=== PATIENT | female | born 1945 | race Caucasian/White ===

== ENCOUNTER 2017-07-01 19:51 | Emergency (ER) | payer MEDICARE ==
[~2017-07-01] VITALS: Ht 170.2 cm; Wt 87.7 kg
[~2017-07-01 19:51] MED LIST: ALBU2.5V52 INH; ALPR.25T; ALPR0.5T7 PO; AMD200T; AMIO200T2 PO; AMLO10TA2 PO; AMLO5TAB2 PO; ASP81CT PO; ATOR40TA70 PO; Amlodipine Besylate PO; CHOL5000 PO; CLOP75TA28 PO; CLPD75T; DGX.125T PO; DOXY100C2; FENO160T PO; FRSM20T PO; FURO40TA4 PO; GLIP10TA13 PO; GLPZ10TCR; HYDR-3820 PO; HYDR-3924 PO; HYDR25TA4 PO; INSU100I10 SC; INSU100I23 SC; INSU100V6 SC; ISM30TCR; ISOS30TA3 PO; LEVE1U SQ; LOSA100T7 PO; LRT10T; METO-272 PO; METO-451 PO; METO25TA2; METO25TA2 PO; MULT-974 PO; MUPI22OI29 TOP; OMEG1CAP51 PO; ONDA4TAB11 PO; ONDA8TAB6 PO; OXAPROZIN; OXYC-471; PANT40TA2 PO; PNT40TEC PO; POLY17PO6 PO; POLY255P PO; PRILOSEC; Quetiapine Fumarate PO; SERT100T8 PO; SIMV40TA2; SMV20T; SRTR100T; TRAZ100T92 PO; WARF-48 PO; WARF5TAB PO; WARF7.5T49 PO; ZOLP10TA5 PO
[2017-07-01] MEDS ORDERED: DILTIAZEM 25 MG/5 ML INJ (CARDIZEM) VIAL IVP ONE (20:00)
[2017-07-01] MEDS: DILTIAZEM DRIP 100 MG in SODIUM CHLORIDE (ADD-VANTAGE) 100 ML IV SCH (20:19)
--- NOTE | 2017-07-01 20:30 | Diagnostic Imaging Report ---
INDICATION: 72-year-old female presents with chest pain, shortness of breath COMPARISONS: 09/02/16 FINDINGS: Single view of the chest shows borderline cardiomegaly. There is mild central venous congestion but no significant consolidations. Chronic elevation of the right hemidiaphragm seen. Right subclavian Mediport is stable with the tip projected over the SVC. There is a previous median sternotomy for a CABG. A cardiac loop recorder is seen. Soft tissues and bony thorax are grossly unremarkable. IMPRESSION: 1. Cardiomegaly with mild central venous congestion 2. Chronic parenchymal changes but no significant consolidations 3. Chronic elevation of the right hemidiaphragm. Additional nonemergent findings as described above. Dictated by: Dictated on workstation # [id number]
--- NOTE | 2017-07-01 20:32 | Diagnostic Imaging Report ---
INDICATION: 72-year-old female with chest pain, abdominal pain, and nausea COMPARISONS: CT abdomen 02/24/15 FINDINGS: A limited KUB shows scattered gas in the small and large bowel with gas seen to the rectum. There is question of mild small bowel ileus in the right upper quadrant. There is no organomegaly. Aortic calcifications are seen. IMPRESSION: Nonspecific nonobstructive bowel gas pattern seen in this limited KUB. Dictated by: Dictated on workstation # [id number]
[2017-07-01 21:01] LABS: BASOPHILS # (AUTO) 0.1 10^3/uL (0.0-0.1); BASOPHILS % (AUTO) 1 % (0-10); EOSINOPHILS # (AUTO) 0.2 10^3/uL (0.0-0.3); EOSINOPHILS % (AUTO) 3 % (0-10); LYMPHOCYTES # (AUTO) 1.2 X 10^3 (1.0-4.0); LYMPHOCYTES % (AUTO) 20 % (12-44); MEAN CORPUSCULAR HEMOGLOBIN 30 PG (25-34); MEAN CORPUSCULAR HGB CONC 33 G/DL (32-36); MEAN CORPUSCULAR VOLUME 90 FL (80-99); MONOCYTES # (AUTO) 0.4 X 10^3 (0.0-1.0); MONOCYTES % (AUTO) 7 % (0-12); NEUTROPHILS # (AUTO) 4.2 X 10^3 (1.8-7.8); NEUTROPHILS % (AUTO) 69 % (42-75); PLATELET COUNT 133 10^3/uL (130-400); RED BLOOD COUNT 3.32 10^6/uL (4.35-5.85); RED CELL DISTRIBUTION WIDTH 15.9 % (10.0-14.5); WHITE BLOOD COUNT 6.1 10^3/uL (4.3-11.0)
[2017-07-01 21:05] LABS: INR 1.1 (0.8-1.4); PROTHROMBIN TIME PATIENT 14.5 SEC (12.2-14.7)
[2017-07-01 21:08] LABS: BILIRUBIN,URINE NEGATIVE (NEGATIVE); KETONES,URINE NEGATIVE (NEGATIVE); LEUKOCYTE ESTERASE ,URINE 1+ (NEGATIVE); NITRITE,URINE NEGATIVE (NEGATIVE); PH,URINE 5 (5-9); PROTEIN,URINE 4+ (NEGATIVE); UROBILINOGEN,URINE NORMAL (NORMAL)
[2017-07-01 21:13] LABS: ALBUMIN 3.3 GM/DL (3.2-4.5); BILIRUBIN,TOTAL 0.4 MG/DL (0.1-1.0); CALCIUM 8.3 MG/DL (8.5-10.1); CREATININE SERUM 4.26 MG/DL (0.60-1.30); POTASSIUM 4.8 MMOL/L (3.6-5.0); TOTAL PROTEIN 6.2 GM/DL (6.4-8.2)
[2017-07-01 21:33] LABS: MYOGLOBIN SERUM 203.3 NG/ML (10.0-92.0)
--- NOTE | 2017-07-01 21:35 | ED Chest Pain ---
General Chief Complaint: Chest Pain Stated Complaint: CHEST PAIN Nursing Triage Note: Patient activated EMS tonight for chest pain. Patient reports pain into back and shoulder. Patient took 1 nitro prior to EMS arrival and EMS gave another nitro along with 324mg Aspirin. patient given 5mg morphine. patient reports chest pain has improved but now has a headache Nursing Sepsis Screen: No Definite Risk Source: patient, EMS, old records Exam Limitations: no limitations History of Present Illness Time seen by provider: 19:51 Initial Comments This 72-year-old woman presents to the emergency room with complaints of chest pain that started not long before EMS activation. She arrives via [facility]. She took one nitroglycerin at home followed by one nitroglycerin by EMS. This did not improve her pain significantly. Morphine 5 mg was then administered. She reports pain was initially "12" and it is now rated as 6/10. She has a history of coronary artery disease and atrial fibrillation. She is tachycardic at this time. She has had numerous stents placed in the past. She is a patient of Dr. Thacker and Dr. Pyle. 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 She also complains of some generalized abdominal pain for years that has worsened recently. Allergies and Home Medications Allergies Coded Allergies: TUYET Inhibitors (Unverified Allergy, Unknown, 03/03/15) due to creatinine level ARB-Angiotensin Receptor Antagonist (Unverified Allergy, Unknown, 03/03/15) meloxicam (Verified Allergy, Unknown, 09/05/06) Home Medications Alprazolam 0.5 Mg Tablet, 0.5 MG PO DAILY PRN for ANXIETY, (Reported) Amiodarone HCl 200 Mg Tablet, 200 MG PO MoTuWeThFr, (Reported) Amlodipine Besylate 10 Mg Tablet, 10 MG PO DAILY, (Reported) Aspirin 81 Mg Tablet, 81 MG PO DAILY, (Reported) Atorvastatin Calcium 40 Mg Tablet, 40 MG PO HS, (Reported) Cholecalciferol 5,000 Unit Capsule, 5,000 UNIT PO DAILY, (Reported) Docosahexanoic Acid/Epa 1 Cap Capsule, 1,000 MG PO BID, (Reported) Furosemide 40 Mg Tablet, 40 MG PO DAILY, (Reported) Hydralazine HCl 50 Mg Tablet, 50 MG PO BID, (Reported) Hydrocodone/Acetaminophen 1 Each Tablet, 1 TAB PO Q6H PRN for PAIN, (Reported) Insulin Glargine,Hum.rec.anlog 100 Unit/1 Ml Insuln.pen, 22 UNITS SC HS, ( Reported) Insulin Lispro 100 Unit/1 Ml Insuln.pen, 3-4 UNITS SC AC, (Reported) Isosorbide Mononitrate 30 Mg Tab.er.24h, 30 MG PO DAILY, (Reported) Multivitamin 1 Each Tablet, 1 TAB PO DAILY, (Reported) Pantoprazole Sodium 40 Mg Tablet.dr, 40 MG PO DAILY, (Reported) Polyethylene Glycol 3350 255 Gm Powder, 17 GM PO 1000,1500, (Reported) Polyethylene Glycol 3350 17 Gm Powd.pack, 17 GM PO 1800 PRN for CONSTIPATION, ( Reported) Sertraline HCl 100 Mg Tablet, 150 MG PO DAILY, (Reported) TAKES 1 & 1/2 (100MG) TABLETS Trazodone HCl 100 Mg Tablet, 100 MG PO HS, (Reported) Warfarin Sodium 5 Mg Tablet, 5 MG PO DAILY, #30 Prescribed by: LULU PEREZ on 09/04/16 1249 Review of Systems Constitutional: no symptoms reported EENTM: No Symptoms Reported Respiratory: SOA With Exertion Cardiovascular: See HPI Gastrointestinal: See HPI Genitourinary: No Symptoms Reported Musculoskeletal: no symptoms reported Skin: no symptoms reported Psychiatric/Neurological: Headache Endocrine: No Symptoms Reported Hematologic/Lymphatic: No Symptoms Reported Past Kpvjxkk-Fqsjgk-Vnhkse Hx Patient Social History Alcohol Use: Denies Use Recreational Drug Use: No Smoking Status: Former Smoker Type Used: Cigarettes Former Smoker, Quit: Sep 02, 1999 Recent Foreign Travel: No Contact w/Someone Who Travel: No Recent Infectious Disease Expo: No Recent Hopitalizations: No Immunizations Up To Date Tetanus Booster (TDap): Unknown PED Vaccines UTD: No Date of Pneumonia Vaccine: March 01, 2015 Date of Influenza Vaccine: Jul 24, 2016 Seasonal Allergies Seasonal Allergies: No Surgeries History of Surgeries: Yes (2007 CABG, 6 years ago foot surgery, 6 years ago bowel surgery) Surgeries: Abdominal, Bladder Surgery, Breast, Cardiac, CABG, Coronary Stent, Gallbladder, Hysterectomy, Orthopedic Respiratory History of Respiratory Disorde: Yes (USES HOME O2 1L/NC ) Respiratory Disorders: Chronic Bronchitis, COPD Currently Using CPAP: No Currently Using BIPAP: No Cardiovascular History of Cardiac Disorders: Yes (CABG; STENTS X 13; LOOP RECORDER; CHF; IA X 2) Cardiac Disorders: Angina, Atrial Fibrillation, Cardiomyopathy, Coronary Artery Disease, Heart Attack, High Cholesterol, Hypertension, Irregular Heartbeat, Peripheral Vascular Neurological History of Neurological Disord: Yes (CVA WITH LEFT SIDE WEAKNESS ESSENTIALLY RESOLVED) Neurological Disorders: Stroke, TIA Reproductive System Hx Reproductive Disorders: No Sexually Transmitted Disease: No HIV/AIDS: No Female Reproductive Disorders: Denies Genitourinary History of Genitourinary Disor: Yes Genitourinary Disorders: Renal Failure Gastrointestinal History of Gastrointestinal Di: Yes Gastrointestinal Disorders: Gastroesophageal Reflux, Chronic Constipation, Pancreatitis, Hiatal Hernia, Gall Bladder Disease Musculoskeletal History of Musculoskeletal Dis: Yes Musculoskeletal Disorders: Arthritis, Chronic Back Pain Endocrine History of Endocrine Disorders: Yes Endocrine Disorders: Diabetes, Insulin dep HEENT Loss of Vision: Denies Hearing Impairment: Hard of Hearing Cancer History of Cancer: No Psychosocial History of Psychiatric Problem: Yes Behavioral Health Disorders: Sleep Difficulties, Anxiety, Depression Integumentary History of Skin or Integumenta: No Blood Transfusions History of Blood Disorders: No Adverse Reaction to a Blood Tr: No Family Medical History Family Medial History: Alcoholism 19 FATHER Cardiovascular disease G8 BROTHER G8 SISTER Diabetes mellitus 19 FATHER 19 MOTHER G8 BROTHER G8 SISTER Gastroenteritis 19 MOTHER G8 BROTHER G8 SISTER Hypercholesterolemia 19 MOTHER G8 BROTHER G8 SISTER Hypertension 19 MOTHER G8 BROTHER G8 SISTER Kidney disease 19 MOTHER G8 BROTHER G8 SISTER Prostate cancer G8 BROTHER Physical Exam Vital Signs Vital Sign - Last 12Hours 07/01/17 07/01/17 07/01/17 19:53 21:57 21:58 Temp 98.2 Pulse 151 Resp 28 B/P (MAP) 133/101 Pulse Ox 96 O2 Delivery Nasal Cannula O2 Flow Rate 2.00 Capillary Refill : Less Than 3 Seconds General Appearance: No Apparent Distress, WD/WN HEENT: PERRL/EOMI, Normal ENT Inspection Neck: Normal Inspection Respiratory: Lungs Clear, Normal Breath Sounds, No Accessory Muscle Use, No Respiratory Distress Cardiovascular: No Edema, No Murmur, Irregularly Irregular, Tachycardia Gastrointestinal: Normal Bowel Sounds, Soft, Tenderness (mild, diffuse) Extremity: Normal Inspection, Non Tender, No Pedal Edema Neurologic/Psychiatric: Alert, Oriented x3, No Motor/Sensory Deficits, Normal Mood/Affect, cardiology clinical consultant II-XII Norm as Tested Skin: Normal Color, Warm/Dry Progress/Results/Core Measures Results/Orders Lab Results Laboratory Tests Test 07/01/17 20:09 07/01/17 20:15 Range/Units Urine Color YELLOW Urine Clarity CLEAR Urine pH 5 5-9 Urine Specific [place] 1.020 1.016-1.022 Urine Protein 4+ NEGATIVE Urine Glucose (UA) 2+ H NEGATIVE Urine Ketones NEGATIVE NEGATIVE Urine Nitrite NEGATIVE NEGATIVE Urine Bilirubin NEGATIVE NEGATIVE Urine Urobilinogen NORMAL NORMAL MG/DL Urine Leukocyte Esterase 1+ H NEGATIVE Urine RBC (Auto) 1+ H NEGATIVE Urine RBC 2-5 H /HPF Urine WBC 5-10 H /HPF Urine Squamous Epithelial Cells 2-5 /HPF Urine Crystals NONE /LPF Urine Bacteria FEW H /HPF Urine Casts NONE /LPF Urine Mucus NEGATIVE /LPF Urine Culture Indicated YES White Blood Count 6.1 4.3-11.0 10^3/uL Red Blood Count 3.32 L 4.35-5.85 10^6/uL Hemoglobin 9.8 L 11.5-16.0 G/DL Hematocrit 30 L 35-52 % Mean Corpuscular Volume 90 80-99 FL Mean Corpuscular Hemoglobin 30 25-34 PG Mean Corpuscular Hemoglobin Concent 33 32-36 G/DL Red Cell Distribution Width 15.9 H 10.0-14.5 % Platelet Count 133 130-400 10^3/uL Mean Platelet Volume 10.0 7.4-10.4 FL Neutrophils (%) (Auto) 69 42-75 % Lymphocytes (%) (Auto) 20 12-44 % Monocytes (%) (Auto) 7 0-12 % Eosinophils (%) (Auto) 3 0-10 % Basophils (%) (Auto) 1 0-10 % Neutrophils # (Auto) 4.2 1.8-7.8 X 10^3 Lymphocytes # (Auto) 1.2 1.0-4.0 X 10^3 Monocytes # (Auto) 0.4 0.0-1.0 X 10^3 Eosinophils # (Auto) 0.2 0.0-0.3 10^3/uL Basophils # (Auto) 0.1 0.0-0.1 10^3/uL Prothrombin Time 14.5 12.2-14.7 SEC INR Comment 1.1 0.8-1.4 Activated Partial Thromboplast Time 35 24-35 SEC Sodium Level 140 135-145 MMOL/L Potassium Level 4.8 3.6-5.0 MMOL/L Chloride Level 112 H 98-107 MMOL/L Carbon Dioxide Level 18 L 21-32 MMOL/L Anion Gap 10 5-14 MMOL/L Blood Urea Nitrogen 52 H 7-18 MG/DL Creatinine 4.26 H 0.60-1.30 MG/DL Estimat Glomerular Filtration Rate 10 BUN/Creatinine Ratio 12 Glucose Level 169 H 70-105 MG/DL Calcium Level 8.3 L 8.5-10.1 MG/DL Magnesium Level 2.0 1.8-2.4 MG/DL Total Bilirubin 0.4 0.1-1.0 MG/DL Aspartate Amino Transf (AST/SGOT) 44 H 5-34 U/L Alanine Aminotransferase (ALT/SGPT) 46 0-55 U/L Alkaline Phosphatase 75 40-136 U/L Myoglobin 203.3 H 10.0-92.0 NG/ML Troponin I 3.50 *H <0.30 NG/ML B-Type Natriuretic Peptide 1989.9 H <100.0 PG/ML Total Protein 6.2 L 6.4-8.2 GM/DL Albumin 3.3 3.2-4.5 GM/DL Free Thyroxine 0.69 L 0.70-1.48 NG/DL TSH [place] Testing 6.08 H 0.35-4.94 UIU/ML My Orders Orders - DIVYA MELCHOR MD Cbc With Automated Diff (07/01/17 20:00) Magnesium (07/01/17 20:00) Chest 1 View, Ap/Pa Only (07/01/17 20:00) Ekg Tracing (07/01/17 20:00) Cardiac Profile 1 (07/01/17 20:00) Comprehensive Metabolic Panel (07/01/17 20:00) Myoglobin Serum (07/01/17 20:00) Protime With Inr (07/01/17 20:00) Partial Thromboplastin Time (07/01/17 20:00) O2 (07/01/17 20:00) Monitor-Rhythm Ecg Trace Only (07/01/17 20:00) Saline Lock/Iv-Start (07/01/17 20:00) BNP (07/01/17 20:00) Thyroid Analyzer (07/01/17 20:00) Diltiazem Injection (Cardizem Injection) (07/01/17 20:00) Sodium Chloride (Ad... W/Diltiazem Drip (07/01/17 20:00) Abdomen/Kub 1view (07/01/17 20:10) Ua Culture If Indicated (07/01/17 20:36) Urine Culture (07/01/17 20:09) Free T4 (Free Thyroxine) (07/01/17 20:15) Heparin Drip 97626 Unit/500ml (Heparin (07/01/17 22:09) Heparin (Bolus Per Protocol) (Heparin (B (07/01/17 22:15) Fentanyl Injection (Sublimaze Injection (07/01/17 23:00) Ondansetron Injection (Zofran Injectio (07/02/17 01:00) Fentanyl Injection (Sublimaze Injection (07/02/17 01:00) Medications Given in ED Current Medications Medications Dose Ordered Sig/Guzman Route Start Time Stop Time Status Last Admin Dose Admin Diltiazem HCl 10 mg ONCE ONCE IVP 07/01/17 20:00 07/01/17 20:03 DC 07/01/17 20:19 10 MG Fentanyl Citrate 50 mcg ONCE ONCE IVP 07/01/17 23:00 07/01/17 23:01 DC 07/01/17 23:02 50 MCG Fentanyl Citrate 50 mcg ONCE ONCE IVP 07/02/17 01:00 07/02/17 01:01 DC 07/02/17 01:20 50 MCG Heparin Sodium (Porcine) HEPARIN FULL PROTOC... ONCE ONCE IV 07/01/17 22:15 07/01/17 22:16 DC 07/01/17 22:32 5,000 UNIT Heparin Sodium/ Dextrose 500 ml @ 0 mls/hr Q0M ONCE IV 07/01/17 22:09 07/01/17 22:10 DC 07/01/17 22:33 24 MLS/HR Ondansetron HCl 8 mg ONCE ONCE IVP 07/02/17 01:00 07/02/17 01:01 DC 07/02/17 01:20 8 MG Vital Signs/I&O Vital Sign - Last 12Hours 07/01/17 07/01/17 07/01/17 07/01/17 19:53 20:19 21:57 21:58 Temp 98.2 Pulse 151 173 113 Resp 28 13 B/P (MAP) 133/101 121/102 Pulse Ox 96 97 O2 Delivery Nasal Cannula O2 Flow Rate 2.00 07/02/17 07/02/17 01:30 01:32 Pulse 130 132 Resp 18 Pulse Ox 95 O2 Delivery Nasal Cannula O2 Flow Rate 2.00 Blood Pressure Mean: 112 Progress Note #1: Time: 21:35 Progress Note Patient is presently on a Cardizem drip at 15 mg per hour. Heart rate is still in the 120s. She feels much better and is only having intermittent chest pain across the center of the chest. She does have some venous congestion on her chest x-ray but she is not in any respiratory distress. She has a few crackles in the bases. Patient did receive a liter of IV fluids. Her creatinine is 4.26. Progress Note #2: Time: 21:37 Progress Note I just received notification from the lab that troponin is 3.5. Cardiology will be contacted. Progress Note #3: Time: 21:50 Progress Note Case was reviewed with Dr. Hernández who believes patient would be best served at a tertiary care facility with nephrology services. He recommends treating with Lovenox or heparin and transferring. I discussed with the patient and family. They are agreeable. Patient believes she has seen a toppiece chopper [place] in [place] in the past. Patient is still relatively tachycardic with heart rates in the 120s. The Cardizem drip will be increased to 20 mg per hour. Progress Note #4: Time: 22:08 Progress Note Case has been reviewed with Dr. Hay and Dr. Macias at [facility] in [place]. They are agreeable to transfer. Per request heparin drip will be initiated prior to transfer. Progress Note #5: Time: 00:59 Progress Note Patient's heart rate has remained stable in the one teens on the Cardizem drip. Transfer has been delayed due to no availability of any EMS transport crew within the [facility]. [facility] transfer is pending. Patient states her headache is returning. She also has started vomiting. Zofran has been ordered. ECG Initial ECG Impression Date: Jul 01, 2017 Initial ECG Impression Time: 19:57 Initial ECG Rate: 157 Initial ECG Rhythm: A Fib/Flutter Comment Atrial fibrillation with rapid ventricular response. No acute ST elevation or depression. Diagnostic Imaging Diagonstic Imaging: Xray Plain Films/CT/US/NM/MRI: chest Comments Chest x-ray viewed by me and report reviewed. See report below: NAME: ELODIA TOTH [facility] REC#: [id number] PT STATUS: REG ER : 1945 PHYSICIAN: DIVYA MELCHOR MD ADMIT DATE: 07/01/17/ER Signed Date of Exam: 07/01/17 CHEST 1 VIEW, AP/PA ONLY INDICATION: 72-year-old female presents with chest pain, shortness of breath COMPARISONS: 09/02/16 FINDINGS: Single view of the chest shows borderline cardiomegaly. There is mild central venous congestion but no significant consolidations. Chronic elevation of the right hemidiaphragm seen. Right subclavian Mediport is stable with the tip projected over the SVC. There is a previous median sternotomy for a CABG. A cardiac loop recorder is seen. Soft tissues and bony thorax are grossly unremarkable. IMPRESSION: 1. Cardiomegaly with mild central venous congestion 2. Chronic parenchymal changes but no significant consolidations 3. Chronic elevation of the right hemidiaphragm. Additional nonemergent findings as described above. Dictated by: Dictated on workstation # [id number] Dict: 07/01/172018 Trans: 07/01/172034 Interpreted by: DARIANA SMITH MD Electronically signed by: DARIANA SMITH MD 07/01/172034 Diagonstic Imaging: Xray Plain Films/CT/US/NM/MRI: abdomen Comments Abdominal x-ray viewed by me and report reviewed. See report below: NAME: ELODIA TOTH Only-apartments [facility] REC#: [id number] PT STATUS: REG ER : 1945 PHYSICIAN: DIVYA MELCHOR MD ADMIT DATE: 07/01/17/ER Signed Date of Exam: 07/01/17 ABDOMEN/KUB 1VIEW INDICATION: 72-year-old female with chest pain, abdominal pain, and nausea COMPARISONS: CT abdomen 02/24/15 FINDINGS: A limited KUB shows scattered gas in the small and large bowel with gas seen to the rectum. There is question of mild small bowel ileus in the right upper quadrant. There is no organomegaly. Aortic calcifications are seen. IMPRESSION: Nonspecific nonobstructive bowel gas pattern seen in this limited KUB. Dictated by: Dictated on workstation # [id number] Dict: 07/01/172024 Trans: 07/01/172034 Interpreted by: DARIANA SMITH MD Electronically signed by: DARIANA SMITH MD 07/01/172034 Departure Impression Impression: Primary Impression: Atrial fibrillation with rapid ventricular response Additional Impressions: Acute on chronic renal failure Qualified Codes: N17.9 - Acute kidney failure, unspecified; N18.9 - Chronic kidney disease, unspecified Chest pain Qualified Codes: R07.9 - Chest pain, unspecified Generalized abdominal pain Urinary tract infection Qualified Codes: N39.0 - Urinary tract infection, site not specified Headache Qualified Codes: R51 - Headache Disposition: 02 XFER SHT-TRM HOSP Condition: Improved Transfer Time Spoke to Accepting Phy: 21:55 Transfer Progress Notes Galdino Nino Transfer Time: 01:35 Method of Transfer: EMS Departure-Patient Inst. Referrals: MANASA THACKER MD (PCP/Family) Primary Care Physician DIVYA MELCHOR MD Jul 01, 2017 21:35
[2017-07-01 21:57] VITALS: BP 121/102
[2017-07-01] MEDS ORDERED: HEParin DRIP 25000 UNIT/500ML 500 ML IV ONE (22:09)
[2017-07-01] MEDS ORDERED: HEParin 1000 UNIT/ML (10ML VIAL) FOR BOLUS IV ONE (22:15)
[2017-07-01] MEDS ORDERED: fentaNYL INJECTION 100 MCG/2 ML AMP IVP ONE (23:00)
[2017-07-02] MEDS ORDERED: ONDANSETRON 4 MG/2 ML (SDV) Z0FRAN IVP ONE (01:00)
[2017-07-02] MEDS ORDERED: fentaNYL INJECTION 100 MCG/2 ML AMP IVP ONE (01:00)
[2017-07-02] MEDS: DILTIAZEM DRIP 100 MG in SODIUM CHLORIDE (ADD-VANTAGE) 100 ML IV SCH (01:30)
[2017-07-02 01:32] VITALS: BP 133/99
== END 2017-07-02 01:35 | disposition short-term general hospital (02) ==
LOC: EDUNIT# 19:51 → ER 19:51
DX: I48.0 Paroxysmal atrial fibrillation (principal); N17.9 Acute kidney failure, unspecified; E11.22 Type 2 diabetes mellitus with diabetic chronic kidney disease; I12.0 Hypertensive chronic kidney disease with stage 5 chronic kidney disease or end stage renal disease; N18.9 Chronic kidney disease, unspecified; N39.0 Urinary tract infection, site not specified; R51 Headache; R10.84 Generalized abdominal pain; F41.9 Anxiety disorder, unspecified; F32.9 Major depressive disorder, single episode, unspecified; G47.9 Sleep disorder, unspecified; K21.9 Gastro-esophageal reflux disease without esophagitis; K59.09 Other constipation; I25.2 Old myocardial infarction; E78.00 Pure hypercholesterolemia, unspecified; I25.10 Atherosclerotic heart disease of native coronary artery without angina pectoris; J44.9 Chronic obstructive pulmonary disease, unspecified; Z87.891 Personal history of nicotine dependence; Z86.73 Personal history of transient ischemic attack (TIA), and cerebral infarction without residual deficits; Z95.5 Presence of coronary angioplasty implant and graft; Z95.1 Presence of aortocoronary bypass graft; Z90.710 Acquired absence of both cervix and uterus; Z79.4 Long term (current) use of insulin; Z79.82 Long term (current) use of aspirin; Z79.01 Long term (current) use of anticoagulants
CPT/HCPCS: 36415; 71010; 74000; 80053; 81000; 83735; 83874; 83880; 84439; 84443; 84484; 85025; 85610; 85730; 87088; 93005; 93041

== ENCOUNTER 2017-09-18 18:31 | Emergency (ER) | payer MEDICARE ==
[~2017-09-18] VITALS: Ht 165.1 cm; Wt 73.9 kg
--- OUTSIDE RECORDS SUMMARY | 2017-09-18 18:36 | XMS REPORT | Continuity of Care Document ---
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
--- OUTSIDE RECORDS SUMMARY | 2017-09-18 18:37 | XMS REPORT | Clinical Summary ---
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 If you do not see the information that you expected, contact Release of Information in the Health Information Management department at [phone] for further assistance in locating additional records.[facility] Allergies Active Allergy Reactions Severity Noted Date Comments Meloxicam RASH Medium 06/13/2015 Current Medications Prescription Sig. Disp. Refills Start End Date Status Date ALPRAZolam (XANAX) 0.5 mg Take 0.5 mg by mouth Active tablet daily as needed. nitroglycerin (NITROSTAT) Place 0.4 mg under tongue Active 0.4 mg tablet every 5 minutes as needed for Chest Pain. pantoprazole DR Take 40 mg by mouth Active (PROTONIX) 40 mg tablet daily. sertraline (ZOLOFT) 100 Take 150 mg by mouth Active mg tablet daily. amLODIPine (NORVASC) 10 Take 10 mg by mouth Active mg tabletIndications: daily. Cardiac device in situ, Paroxysmal atrial fibrillation (HCC), Essential hypertension fish oil /omega-3 fatty Take 2 Caps by mouth Active acids (SEA-OMEGA) daily. 340/1000 mg capsule Hcjykgqcfvdbk-Gt-Sijj-Min Take 1 Tab by mouth Active erals (WOMEN'S DAILY daily. MULTIVITAMIN) 18-0.4 mg tab Cholecalciferol (Vitamin Take 5,000 Units by mouth Active D3) 5,000 unit tab daily. Magnesium 250 mg tab Take 250 mg by mouth Active daily. ondansetron (ZOFRAN ODT) Take 4 mg by mouth every Active 4 mg rapid dissolve 8 hours as needed for tablet Nausea. insulin lispro(+) Inject 0-14 Units under 1 box 11 07/04/20 Active (HUMALOG KWIKPEN) 100 the skin five times 16 unit/mL injection PEN daily. Follow mid dose correction sliding scale provided. HYDROcodone/acetaminophen Take 1 Tab by mouth every Active (+) (NORCO) 10/325 mg 6 hours as needed for tablet Pain traZODone (DESYREL) 100 Take 0.5 Tabs by mouth at 90 Tab 3 07/22/20 Active mg tablet bedtime daily. 16 OXYGEN-AIR DELIVERY Use 1 L as directed at Active SYSTEMS [facility] bedtime daily. insulin glargine (LANTUS Inject 22 Units under the Active SOLOSTAR) 100 unit/mL (3 skin at bedtime daily. mL) injection PEN ferrous sulfate (FEOSOL, Take 1 Tab by mouth at 90 Tab 3 09/18/20 Active FEROSUL) 325 mg (65 mg bedtime daily. Take on an 16 iron) tablet empty stomach at least 1 hour before or 2 hours after food. atorvastatin (LIPITOR) 40 Take 1 Tab by mouth 90 Tab 3 12/25/19 Active mg tabletIndications: daily. 17 Atrial fibrillation with rapid ventricular response (HCC), Coronary artery disease involving coronary bypass graft of ewiiaapaayp heart with angina pectoris with documented spasm (HCC) lidocaine/prilocaine Apply nickel size amount 30 g 1 08/04/20 Active (EMLA) 2.5/2.5 % topical to port access site 30 17 cream minutes before accessing port amiodarone (CORDARONE) Take 400 mg by mouth Active 200 mg tablet daily. Take with food. levothyroxine (SYNTHROID) Take 1 tablet by mouth 08/20/20 Active 25 mcg tablet daily. 17 blood sugar diagnostic Test three times daily. 06/04/20 Active test strip One Touch Ultra Dx 17 E10.9. lancets [facility] Test Blood Glucose three 06/04/20 Active times daily Prn. Dx 17 E10.9. sodium bicarbonate 650 mg Take 650 mg by mouth Active tablet every 6 hours. Sevelamer Carbonate Take 800 mg by mouth Active (RENVELA) 800 mg tablet three times daily. apixaban (ELIQUIS) 5 mg Take 5 mg by mouth twice Active tablet daily. aspirin EC 81 mg tablet Take 81 mg by mouth Active daily. Take with food. ascorbic acid (VITAMIN C) Take 500 mg by mouth Active 500 mg tablet daily. furosemide (LASIX) 20 mg Take 60 mg by mouth every Active tablet morning. isosorbide mononitrate SR Take 60 mg by mouth every Active (IMDUR) 60 mg tablet morning. docusate (COLACE) 100 mg Take 100 mg by mouth as Active capsule Needed for Constipation. carvedilol (COREG) 25 mg Take 25 mg by mouth twice Active tablet daily with meals. Take with food. isosorbide mononitrate SR Take 1 Tab by mouth 30 Tab 1 04/03/2004/08 Discontin (IMDUR) 30 mg tablet daily. 16 17 ued amiodarone (CORDARONE) Take 1 Tab by mouth five 60 Tab 3 05/02/20 Discontin 200 mg tabletIndications: times weekly. On Friday 16 17 ued Paroxysmal atrial through Friday only. Take fibrillation (HCC), weekends off. Essential hypertension with goal blood pressure less than 140/90 hydrALAZINE (APRESOLINE) Take 2 Tabs by mouth 540 Tab 3 07/24/2004/08 Discontin 50 mg tablet three times daily. 16 17 ued furosemide (LASIX) 40 mg Take 40 mg by mouth every 08/25/20 Discontin tablet morning. 17 ued albuterol-ipratropium Inhale 3 mL solution by 08/25/20 Discontin (DUONEB) 0.5 mg-3 mg(2.5 nebulizer as directed 17 ued mg base)/3 mL nebulizer four times daily. solution senna/docusate Take 1 Tab by mouth daily 08/25/20 Discontin (SENOKOT-S) 8.6/50 mg as needed. 17 ued tablet enoxaparin (LOVENOX) 100 Inject 1 mL under the 30 Syringe 2 09/18/20 08/25/20 Discontin mg syrg skin daily. 16 17 ued ascorbic acid (vitamin C) Take 1 Tab by mouth at 30 Tab 2 09/18/20 08/25/20 Discontin (VITAMIN C) 250 mg tablet bedtime daily. Take with 16 17 ued iron pill apixaban (ELIQUIS) 5 mg Take 5 mg by mouth twice 08/25/20 Discontin tablet daily. 17 ued Geriatric Take 1 tablet by mouth 08/25/20 Discontin Multivitamins-Min tab daily. 17 ued albuterol-ipratropium Inhale 3 mL solution by 08/25/20 Discontin (DUO-NEB, DUO-VENT) 0.5 nebulizer as directed 17 ued mg-3 mg(2.5 mg base)/3 mL every 6 hours. nebulizer solution Insulin Lispro (Human) Inhale 4 Units by mouth 08/25/20 Discontin (HUMALOG) 100 unit/mL into the lungs as Needed. 17 ued crtg carvedilol (COREG) 25 mg Take 25 mg by mouth 08/25/20 Discontin tablet daily. 17 ued aspirin-calcium carbonate Take 81 mg by mouth 08/25/20 Discontin 81 mg-300 mg calcium(777 daily. 17 ued mg) tab Hospital, Clinic, or Ordered Dose Route Frequency Start End Date Status Other Facility Date Administered Medication cloNIDine (CATAPRESS) 0.1 MG PO ONCE 08/25/20 08/26/20 Ended tablet 0.1 mg 17 17 Active Problems Problem Noted Date Sinus bradycardia 07/23/2017 Ischemic cardiomyopathy 07/23/2017 Chronic systolic CHF (congestive heart failure) ([facility]) 07/23/2017 Paroxysmal atrial fibrillation ([facility]) 04/13/2017 ILD (interstitial lung disease) ([facility]) 09/20/2016 Overview: Suspect secondary to Amiodarone. Although other etiologies to consider are Hypersensitivity pneumonitis, connective tissue disease induced ILD or Idiopathic. Nocturnal hypoxemia was noted on the sleep study. She was given supplemental O2 through [place] by her PCP after her exercise oximetry was low. Echocardiogram in June 2016 normal systolic and diastolic function. Estimated peak PA pressure was 44 mmhg. PFT's in 08/04 showed restrictive lung disease. L ast Assessment & Plan: I ordered autoimmune panel which includes LOVELY, RF, ANCA panel, MPO, hypersensitivity panel and CRP. Echocardiogram with Pulmonary hypertension. Suspect due to ILD. Will refer her to Dr. Blackburn. Acute hypoxemic respiratory failure ([facility]) 09/13/2016 Supratherapeutic INR 09/13/2016 Amiodarone Monitoring 07/28/2016 Overview: -We initiated Amiodarone 11/23/15. -Baseline PFTs 01/2016 showed DLCO reduced at 51%, 80% of predicted after correcting for alveolar volume. Total lung capacity was only 66% of predicted. -Impression: Restrictive ventilatory defect with diffusion defect. -She might have had some mild volume overload at the time of the PFTs as well. Primary insomnia 07/22/2016 Overview: Was taken off Ambien. L ast Assessment & Plan: Continue Trazodone 50 mg qday. Overweight 07/22/2016 Overview: Previous BMI 30.44 Today's BMI 28.5 L ast Assessment & Plan: Recommended to lose weight. Delirium 07/02/2016 Altered mental status 07/02/2016 Normocytic anemia 07/02/2016 Malignant neoplasm of lower-outer quadrant of left female breast (HCC) 05/24 Overview: DIAGNOSIS: Left grade 3 IDC (ER/PR0%, HER2 3+, Ki-67 50%) at 3:00 with involved axillary lymph node, dx 04/2016 HISTORY: Ms. Gallegos is a female who presented to [facility] on 05/27/2016 at age 71 for evaluation of left breast cancer. A shadow was noted on her left breast during a stress test in 04/2016. Left breast sono-guided biopsy 05/06/16 ([place], [place]) revealed grade 3 invasive ductal carcinoma. Left axillary sono-guided biopsy 05/06/16 ([place], [place]) revealed grade 3 invasive ductal carcinoma (no identifiable lymph node tissue). Ms. Gallegos underwent left modified radical mastectomy on 06/28/16. PATHOLOGY: Tumor: 4.7 cm Margins Free From Tumor: Yes ER: negative VA: negative Her 2: negative Grade: 3 Lymph Nodes: 05/06, largest met 2.3 cm LVSI: no Extranodal extension: yes BREAST IMAGING: Mammogram: -- Bilateral diagnostic mammogram 04/29/16 ([place], [place]) revealed scattered fibroglandular density. There was interval development of an irregular retroareolar mass in the left breast measuring 1.5 cm with associated calcifications. There was persistence of this lesion on compression. There were also tiny asymmetries in the medial left breast that persist on focal compression and nonspecific asymmetry in the axillary tail of the left breast with area of increased density. There was also a new mildly prominent lymph node. The right breast demonstrated no mass. There were benign calcifications. -- Bilateral diagnostic mammogram 05/27/16 () revealed no suspicious findings present within the right breast. Within the central left breast, there was a biopsy marker with spiculated mass and surrounding calcifications which spanned approximately 6.2 cm on the lateral mL and extended to within 1 cm of the nipple. Imaging over the lower axilla demonstrated a circumscribed 1.3 cm mass with biopsy marker within it. This was consistent with a second site of known malignancy. The circumscribed margin and location suggested metastatic axillary lymph node. Ultrasound: -- Left breast ultrasound 04/29/16 ([place], [place]) revealed an irregular mass at 3:00, 4 cm FTN which measured 2.6 cm. There was an adjacent nodule lateral to it measuring 6 mm. At 12:00, 6 cm FTN there was a 1.3 cm indeterminate nodule with no internal vascularity. At 10:00 there were heterogeneous hyper and hypoechoic lesion measuring up to 1 cm with an adjacent lesion measuring up to 6 mm. In the axilla there was a suspicious enlarged axillary lymph node measuring 1.2 cm with internal vascularity and effacement of the hilum. An adjacent beign appearing lymph node measured 2.9 cm. -- Left breast ultrasound 05/27/16 () revealed at 3:00 4 cm from the nipple demonstrates 3.1 cm irregular hypoechoic mass. There appeared to be angular margins and ductal extension which extended to within 1 cm of the nipple. Imaging of the lower axilla demonstrated the 1.4 cm circumscribed mass which underwent biopsy demonstrating malignancy. Given the shape and location this was likely a metastatic lymph node. Higher within the axilla, there was an additional 2 cm lymph node with mild cortical thickening measuring 6 mm which likely represented a second metastatic axillary lymph node. No other suspicious lymph nodes were identified Other: -- PET/CT 05/21/16 ([place], [place]) revealed a hypermetabolic mass in the left axillary tail which measured 1.6 cm and it was indeterminate if this was a lymph node or multicentric disease. There was minimal hypermetabolism in the left axilla along mildly prominent asymmetric lymph nodes suspicious for early tumor spread. There was no evidence of distant metastasis. REPRODUCTIVE HEALTH: Age at first Menarche: Unknown Age at First Live : 20 Age at Menopause: 30, no HRT : 3 Para: 2 : None PROCEDURE: Left modified radical mastectomy, 06/28/16 PERTINENT PMH: Atrial fibrillation with pacemaker, DM2, stage 4 CKD, HTN, anxiety, history of CABG with 13 stents, COPD, chronic anticoagulation with Coumadin. FAMILY HISTORY: No family history of breast or ovarian cancer PHYSICAL EXAM on PRESENTATION: 3 cm mass at 3:00 in the left breast with palpable left axillary lymph node. No palpable right breast masses. No skin, nipple, or areolar change. No supraclavicular or right axillary adenopathy. MEDICAL ONCOLOGY: Dr. Phelps REFERRED BY: Dr. Isidra Tomas Cardiology and pulmonology at , nephrology in [place] Shortness of breath 05/09/2016 Overview: SOB with exertion. Nocturnal hypoxemia on the sleep study. She was given supplemental O2 through [place] by her PCP after her exercise oximetry was low. Echocardiogram in 2015 nrmal systolic and diastolic function. PFT's showed restrictive lung disease. I suspect this is related to her cardiac disease. Although need to think about deconditioning vs. Interstitial lung disease vs. Obesity vs. PAH. L ast Assessment & Plan: Patient is seeing her installment loan collector in 2 days. Advised her to check with her installment loan collector regarding her cath results. PFT's showed restrictive lung disease. CT chest showed mild basilar fibrosis which does not explain the degree of symptoms she is experiencing. Advised her to lose weight. Cardiac device in situ 05/02/2016 Acute respiratory failure with hypoxia ([facility]) 03/25/2016 On mechanically assisted ventilation ([facility]) 03/25/2016 Coronary artery disease involving ewiiaapaayp coronary artery of ewiiaapaayp heart 03/2016 without angina pectoris Pneumonia due to infectious organism 03/25/2016 Nocturnal hypoxemia 03/13/2016 Last Assessment & Plan: Continue supplemental O2 at night. End stage chronic kidney disease ([facility]) 06/12/2015 Overview: 06/07/14: Renal ultrasound: No definitive evidence of renal disease. No evidence hydronephrosis. Coronary artery disease involving coronary bypass graft of ewiiaapaayp heart with angina pectoris with documented spasm ([facility]) Overview: 2008: Bypass surgery 06/09/14: LHC: Patent sent in RCA. 70% stenosis at the orifice and extending into the intermediate branch. Normal left main circumflex and patent and widely patent stent within mid circumflex. High-grade obstruction of the proximal LAD, but with a widely patent STREETER. Essential hypertension with goal blood pressure less than 130/80 06/12/2015 Diabetes mellitus (HCC) 06/12/2015 Anxiety 06/12/2015 DM (diabetes mellitus) ([facility]) Resolved Problems Problem Noted Date Resolved Date Atrial fibrillation with rapid ventricular response (HCC) 09/20/201509/19 Paroxysmal atrial fibrillation (HCC) 06/19/2015 09/19/2016 Overview: 02/21/15: Afib w/RVR. Started on Dig at [address]. 02/21/15: Echo: LA size 4.9cm. EF 45%. 02/06/16 PFT: DLCO reduced at 51%, 80% of predicted after correcting for alveolar volume. Impression: Restrictive ventilatory defect with diffusion defect. Total lung capacity is only 66% of predicted. 02/06/16 Sleep study: mild sleep disordered breathing despite snoring. Mild sleep related hypoxemia. Encounters Date Type Specialty Care Team Description 09/17/2017 [facility] Cardiology Lang Paredes MD Arrived Encounter 09/01/2017 [facility] Cardiology Lang Paredes MD Encounter 08/25/2017 Office Visit Cardiology Lang Paredes MD Atrial fibrillation (5 week follow up) 08/18/2017 [facility] Cardiology Lang Paredes MD Encounter 08/04/2017 Office Visit Oncology Niko Phelps MD Malignant neoplasm of lower-outer quadrant of left female breast, unspecified estrogen receptor status (HCC) 08/04/2017 Nurse Only Oncology Niko Phelps MD Malignant neoplasm of left breast in female, estrogen receptor negative, unspecified site of breast (HCC) 07/23/2017 [facility] Cardiology Sweetie Castorena, Encounter [employer]ENTER OFFICER 07/23/2017 Office Visit Cardiology Lang Paredes MD Cardiac Eval ( pt made 3 Sweetie Castorena, month F/U possible AF) [employer] WORK[employer] CENTER OFFICER 07/23/2017 Hospital Cardiology Lang Paredes MD Canceled (Other) Encounter 07/23/2017 Telephone Cardiology Anisa Butler RN 07/23/2017 Documentation Cardiology Flaquito Joseph RN Results ( cardiac cath & echo [facility] from [facility]) 07/21/2017 Documentation Cardiology Pamella Meraz, MAGGIE Records Request ( [place] in [place]- hospitalization) 07/21/2017 Telephone Cardiology Pamella Meraz, MAGGIE HRM - Abnormal Results (Remote Device - Abnormal Rhythms) (Linq) 07/18/2017 Telephone Cardiology Elmira Ferro RN HRM - Abnormal Results (Remote Device - Abnormal Rhythms) (possible AF on LINQ, pt started on AC by local provider) 07/15/2017 Hospital Cardiology Lang Paredes MD Encounter 07/07/2017 Documentation Breast Clinic / Breast Baker, Isidra Kwok RN Center 06/25/2017 Hospital Lab Estefany Hand APRN No Show Encounter 06/25/2017 Hospital Lab Estefany Hand APRN Encounter 06/25/2017 Office Visit Oncology Estefany Hand APRN Malignant neoplasm of left breast in female, estrogen receptor negative, unspecified site of breast (Primary Dx) 06/19/2017 Telephone Cardiology Estefany Jiang RN Other (ILR Tachy event) from Last 3 Months Immunizations Name Dates Previously Given Next Due Flu Vaccine Trivalent >64 07/22/2016 Yo High-dose (Preservative Free) Family History Medical History Relation Name Comments Cancer Brother Cancer-Lung Brother Diabetes Brother Heart Disease Brother Hypertension Brother Asthma Father Heart Disease Father Cancer Mother Diabetes Mother Heart Disease Mother Hypertension Mother Cancer-Breast Other Arthritis-rheumatoid Sister Relation Name Status Comments Brother Father Mother Other Sister Social History Tobacco Use Types Packs/Day Years Used Date Former Smoker Cigarettes 1 16 Quit: 06/13/1994 Smokeless Tobacco: Never Used Comments: quit 20 years ago Alcohol Use Drinks/Week oz/Week Comments Yes 0 Standard 0.0 occasionally drinks or equivalent Sex Assigned at Date Recorded Not on file Last Filed Vital Signs Vital Sign Reading Time Taken Blood Pressure 190/86 09/01/2017 11:33 AM EMERGENCY MEDICAL TECHNICIAN Pulse 55 08/25/2017 3:03 PM EMERGENCY MEDICAL TECHNICIAN Temperature 36.4 C (97.5 F) 08/04/2017 10:58 AM CDT Respiratory Rate 18 04/15/2017 1:22 PM CDT Oxygen Saturation 90% 08/04/2017 10:58 AM CDT Inhaled Oxygen - - Concentration Weight 74.8 kg (165 lb) 09/01/2017 11:33 AM EMERGENCY MEDICAL TECHNICIAN Height 162.6 cm (5' 4") 09/01/2017 11:33 AM EMERGENCY MEDICAL TECHNICIAN Body Mass Index 28.32 09/01/2017 11:33 AM EMERGENCY MEDICAL TECHNICIAN Plan of Treatment Health Maintenance Due Date Last Done Comments HEPATITIS C SCREENING 1947 PHYSICAL (COMPREHENSIVE) 1954 EXAM PERTUSSIS VACCINE 1958 TETANUS VACCINE 1964 DILATED EYE EXAM 1965 FOOT EXAM 1965 MICROALBUMIN 1965 COLORECTAL CANCER 1997 SCREENING SHINGLES VACCINE 2007 OSTEOPOROSIS SCREENING 2012 PREVNAR/PNEUMOVAX (#1) 2012 HBA1C 03/15/2017 09/15/2016, 05/10/2016 INFLUENZA VACCINE 05/20/2017 07/22/2016 BREAST CANCER SCREENING 05/27/2017 05/27/2016 Implants Implanted Type Area Firer Watertender Device Expiration Model / Identifier Date Serial / Lot Port Implantable 8 Float Point Unit Right: CR BARD:ACCESS 09/16/2017 [id number] / Siom Intermediate Chest SYS N/A / Implanted: Qty: 1 on 06/28/2016 by [id number] Glover MD Results * 2-D + DOPPLER ECHOCARDIOGRAM (09/01/2017 11:33 AM) Component Value Ref Range BSA 1.84 m2 Referring Provider Lang Paredes LVIDD 4.4 3.9 - 5.3 cm IVS 1.6 0.6 - 0.9 cm PW 1.5 0.6 - 0.9 cm LVIDS 3.0 cm LA volume 114.0 22 - 52 mL Sinus 3.3 2.1 - 3.5 cm LA size 5.8 2.7 - 3.8 cm , with a mean gradient of 27 mmHg AV peak velocity 3.4 m/s MV vena contracta 0.40 cm TDI e' 0.050 m/s LVOT diameter 2.1 cm LVOT peak ian 1.1 m/s LVOT peak VTI 26.0 cm Ao VTI 81.0 cm and a peak gradient of 46 mmHg TV rest pulmonary artery 50 mmHg pressure Right Ventricular Basal 4.6 2.5 - 4.1 cm Diameter Right Ventricular Mid 2.9 1.9 - 3.5 cm Diameter Right Ventricular Long 7.0 5.9 - 8.3 cm Diameter Right Atrial Area 14.6 <=18 cm2 Right Atrial Major 5.3 <=5.3 cm Dimension Right Heart Systolic 2.0 cm Mmode TAPSE MV Peak E Ian PW 1.400 m/s MV Peak A Ian 0.500 m/s FS 31.82 28 - 44 % EF 54.09 % Left Atrium Index 61.96 10 - 32 AV index (ewiiaapaayp) 0.32 LVOT area 3.46 cm2 LVOT stroke volume 89.96 cm3 E/A ratio 2.80 E/E' ratio 28.00 Aortic valve area= 1.11 cm2 ECHO EF 50 % Specimen Performing Laboratory OTHER OUTSIDE LAB Narrative Left ventricular systolic function is at the lower limits of normal, estimated EF% is 50 %. Moderate concentric hypertrophy. Right Ventricle: Normal size and ejection fraction. TAPSE ranged from 1.99 cm to 2.1 cm. Mild mitral and tricuspid valve regurgitation. Severely calcified aortic valve, moderate stenosis (MG=27 mmHg, peak velocity=3.4m/sec, WILFREDO=1.1 cm), no regurgitation. Estimated Peak Systolic PA Pressure=50 mmHg * ECG/QRS (08/25/2017) Component Value Ref Range QRS DURATION 104 Specimen Performing Laboratory OTHER OUTSIDE LAB * DEVICE EVALUATION - REMOTE ILR (08/20/2017 10:43 AM) Only the most recent of 3 results within the time period is included. Component Value Ref Range Device Implanted By Dr. Lang Paredes Generator Model # LNQ11 Generator Serial # [id number] Generator Implnat Date 01/21/17 Remote Monitor Serial# [id number] DESTINEE/EOL Indicator per transmitter Generator Firer Watertender Medtronic Generator Investigational No Wireless Generator Yes Device Type ILR Permanent Comments Linq r-waves 0.69-0.75 mV on date of implant ILR History of Afib yes ILR Date AF Diagnosed 02/21/15 EP Device Followed by Dr. Lang Paredes Name ILR Symptom Duration 4 7.5 mins each ILR Tachy Rate 162 ILR Tachy Duration 16 ILR Pause Duration 3 ILR Dedrick Rate 40 ILR Dedrick Duration 4 ILR AT Events Since Last n/a Interrogation ILR AT Lifetime Events as n/a of EP Device Followed By MAC ILR AF Rate AF only ILR AF Duration only longest episode Permanent Comments 3 Linq still implanted model: LINQ11 Serial # [id number] Implant date:09/06/2015 Atrial Lead Model # CAPSUREFIX [employer] Mobile TechnologySCAN 5076 52CM Atrial Lead Serial # [id number] Atrial Lead Implant Date 09/22/2015 Atrial Lead Diaph. 10 Stimulation Atrial Lead Firer Watertender Medtronic Atrial Lead No Investigational Atrial Lead Fixation active fixation Atrial Lead Pin Connector IS1 Atrial Lead Polarity Bipolar RV Lead Model # CAPSUREFIX NOVUS Fullscreen SURESCAN 5076 58CM RV Lead Serial # [id number] RV Lead Implant Date 09/22/2015 RV Lead Diaph. 10 Stimulation RV Lead Firer Watertender Medtronic RV Lead Investigational No RV Lead Fixation active fixation RV Lead Pin Connector ICD IS1 Device Mode AAIR/DDDR Lower Rate Limit 60 Upper Rate Limit 130 Sensor Rate Limit 130 Pace AV Delay 180 Sense AV Delay 150 Mode Switch (bpm) 150 High A Rate Detect 150 High V Rate Detect 150 Mode Switch Status On Device [place] Carelink Express Transmitter Compatible Generator Location Left ILR Current Monitoring 08/18/17-09/17/17 Period ILR Date of Last Daily 08/26/17 Connection ILR Battery Status OK ILR Symptom Events Since 0 Last Interrogation ILR Symptom Lifetime 0 Events as of ILR Tachy Events Since 0 Last Interrogation ILR Tachy Lifetime Events 8 as of ILR Pause Events Since 0 Last Interrogation ILR Pause Lifetime Events 0 as of ILR Dedrick Events Since 0 Last Interrogation ILR Dedrick Lifetime Events 0 as of ILR AF Events Since Last 0 Interrogation ILR AF Lifetime Events as 88 of ILR Percent Time in AT/AF 0 Events Since Last Interrogation ILR Percent Time in AT/AF 1.2% Lifetime of Events as of ILR Lifetime Events as of 08/26/17 Datetion ILR Presenting ECG Strip 08/26/17 @ 0004 SB 50 bpm Specimen Performing Laboratory OTHER OUTSIDE LAB Narrative [08/26/2017 1:47:31 PM - ISIDRA RODRIGUEZ] Presenting EGM: 08/26/17 @ 0004 SB 50 bpm Full report received and reviewed. No new events to report, Will continue to monitor,Routed to Dr. Paredes for review/cosign. [08/20/2017 10:45:15 AM - RUBIA MAHARAJ] Presenting EGM 08/18/17 @ 00:04 shows SR 63bpm. Summary report received and reviewed. No new event to report. Results routed to Dr. Paredes for signature and review. * CBC AND DIFF (08/04/2017 10:31 AM) Only the most recent of 3 results within the time period is included. Component Value Ref Range White Blood Cells 5.2 4.5 - 11.0 K/UL RBC 2.84 (L) 4.0 - 5.0 M/UL Hemoglobin 8.9 (L) 12.0 - 15.0 GM/DL Hematocrit 26.1 (L) 36 - 45 % MCV 91.7 80 - 100 FL MCH 31.4 26 - 34 PG MCHC 34.2 32.0 - 36.0 G/DL RDW 18.3 (H) 11 - 15 % Platelet Count 70 (L) 150 - 400 K/UL MPV 7.8 7 - 11 FL Neutrophils 77 41 - 77 % Lymphocytes 13 (L) 24 - 44 % Monocytes 7 4 - 12 % Eosinophils 2 0 - 5 % Basophils 1 0 - 2 % Absolute Neutrophil Count 4.10 1.8 - 7.0 K/UL Absolute Lymph Count 0.70 (L) 1.0 - 4.8 K/UL Absolute Monocyte Count 0.30 0 - 0.80 K/UL Absolute Eosinophil Count 0.10 0 - 0.45 K/UL Absolute Basophil Count 0.10 0 - 0.20 K/UL Specimen Performing Laboratory [facility] [address] [place] [address] * MAGNESIUM (08/04/2017 10:31 AM) Only the most recent of 2 results within the time period is included. Component Value Ref Range Magnesium 2.1 1.6 - 2.6 mg/dL Specimen Performing Laboratory Blood [facility] [address] [place] [address] * BASIC METABOLIC PANEL (07/23/2017 10:50 AM) Component Value Ref Range Sodium 141 137 - 147 MMOL/L Potassium 3.6 3.5 - 5.1 MMOL/L Chloride 102 98 - 110 MMOL/L CO2 35 (H) 21 - 30 MMOL/L Anion Gap 4 3 - 12 Glucose 181 (H) 70 - 100 MG/DL Blood Urea Nitrogen 17 7 - 25 MG/DL Creatinine 3.38 (H) 0.4 - 1.00 MG/DL Calcium 8.5 8.5 - 10.6 MG/DL eGFR Non 13 (L) >60 mL/min Comment: The eGFR is not validated for use in drug dosing adjustments. Continue to use estimated creatinine clearance per dosing reference text. Please contact the Clinical Pharmacist for questions. eGFR 16 (L) >60 mL/min Comment: The eGFR is not validated for use in drug dosing adjustments. Continue to use estimated creatinine clearance per dosing reference text. Please contact the Clinical Pharmacist for questions. Specimen Performing Laboratory Blood [facility] [address] [place] [address] from Last 3 Months
--- OUTSIDE RECORDS SUMMARY | 2017-09-18 18:37 | XMS REPORT | Encounter Summary ---
Author Author [facility] Organization [facility] Address Unknown Phone Unavailable Care Team Providers Care Daycare Assistant Name Role Phone PCP Unavailable Encounter Details Date Type Department Care Team Description 09/17/2017 [facility] Cardiology Lang Paredes MD Arrived Encounter Remote Device Check [address] [facility] [phone] [address] [place] [address] [phone] Social History Tobacco Use Types Packs/Day Years Used Date Former Smoker Cigarettes 1 16 Quit: 06/13/1994 Smokeless Tobacco: Never Used Comments: quit 20 years ago Alcohol Use Drinks/Week oz/Week Comments Yes 0 Standard 0.0 occasionally drinks or equivalent Sex Assigned at Date Recorded Not on file as of this encounter Functional Status Functional Status Response Date of Assessment Does the patient have a hearing impairment: No 08/04/2017 Does the patient have a visual impairment: No 08/04/2017 Does the patient have impaired ambulation: Yes 08/04/2017 Does the patient have an activity of daily living No 08/04/2017 (ADL) impairment: Does the patient have an instrumental activity of No 08/04/2017 daily living (IADL) impairment: Cognitive Status Response Date of Assessment Does the patient have a cognitive impairment: No 08/04/2017 as of this encounter Plan of Treatment Not on fileas of this encounter Visit Diagnoses Diagnosis Coronary artery disease involving coronary bypass graft of [place] heart with angina pectoris with documented spasm (HCC) Essential hypertension Unspecified essential hypertension Paroxysmal atrial fibrillation (HCC) Atrial fibrillation in this encounter
--- OUTSIDE RECORDS SUMMARY | 2017-09-18 18:38 | XMS REPORT | Encounter Summary ---
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 Role Phone PCP Unavailable Reason for Visit * Reason Comments Heme/Onc Care Encounter Details Date Type Department Care Team Description 08/04/2017 Office Visit [facility] Niko Phelps MD Malignant neoplasm of [facility] Exam [address] [facility] lower-outer quadrant of [address] left female breast, [place] [address] [place] [address] unspecified estrogen [phone] receptor status (HCC) Social History Tobacco Use Types Packs/Day Years Used Date Former Smoker Cigarettes 1 16 Quit: 06/13/1994 Smokeless Tobacco: Never Used Comments: quit 20 years ago Alcohol Use Drinks/Week oz/Week Comments Yes 0 Standard 0.0 occasionally drinks or equivalent Sex Assigned at Date Recorded Not on file as of this encounter Last Filed Vital Signs Vital Sign Reading Time Taken Blood Pressure 173/71 08/04/2017 10:58 AM CDT Pulse 51 08/04/2017 10:58 AM CDT Temperature 36.4 C (97.5 F) 08/04/2017 10:58 AM CDT Respiratory Rate - - Oxygen Saturation 90% 08/04/2017 10:58 AM CDT Inhaled Oxygen - - Concentration Weight 75.7 kg (166 lb 12.8 oz) 08/04/2017 10:58 AM CDT Height 164.5 cm (5' 4.75") 08/04/2017 10:58 AM CDT Body Mass Index 27.97 08/04/2017 10:58 AM CDT in this encounter Functional Status Functional Status Response [...] impairment: No 08/04/2017 as of this encounter Progress Notes * Niko Phelps MD - 08/04/2017 11:00 AM CDT Formatting of this note may be different from the original. ATTESTATION I personally performed the rick portions of the E/M visit, discussed case with KIKO Carmona and concur with her documentation of history, physical exam, assessment, and treatment plan unless otherwise noted. Staff name: Niko Phelps MD Date: 08/12/2017 * Estefany Hand APRN - 08/04/2017 11:00 AM CDT Formatting of this note may be different from the original. Date of Service: 08/04/2017 Subjective: : Heme/Onc Care Malignant neoplasm of lower-outer quadrant of left female breast (HCC) Staging form: Breast, AJCC 7th Edition Clinical stage from 07/31/2016: Stage IIB (T2, N1, cM0) - Signed by Kirti Jimenes PA-C on 07/31/2016 Pathologic stage from 07/31/2016: Stage IIIA (T2, N2a, cM0) - Signed by Kirti Jimenes PA-C on 07/31/2016 Brigitte Gallegos is a 72 y.o. female with CKD, CAD s/p CABG, diastolic dysfunction, restrictive lung disease on O2 at night, who had a cardiac stress test at [facility] in [place], [place] in 04/2016 that indicated a "shadow " in her left breast. Due to this, she had a diagnostic bilateral mammogram on 04/29/16 that showed a new suspicious mass in the left retroareolar region with suggestion of early axillary lymph node involvement and concern for multifocal disease. Left breast ultrasound on 04/29/16 showed a highly suspicious irregular 2.6 cm mass at the 3 o'clock zone 4 cm from the nipple with an adjacent 0.6 cm satellite nodule, compatible with breast cancer and suspicious 1.2 cm axillary lymph node concerning for tumor spread. Indeterminate lesions at the 12 o'clock and 10 o'clock zones were noted. On 05/06/16, Left breast and left axilla ultrasound guided needle biopsy showed infiltrating mammary carcinoma, ductal type (in breast mass and LN), ER 0%, NJ 0%, Ki-67 50% and HER2 3+. On 05/21/16, she had PETthat showed the hypermetabolic dominant mass in the left breast is seen. In addition, there was a nodule in the axillary tail of the left breast possibly related to lymphatic spread or multicentric breast cancer. There is also minimal hypermetabolism and non enlarged left axillary lymph nodes raising question of early lymph node involvement. No evidence of distant metastasis. Malignant neoplasm of lower-outer quadrant of left female breast (HCC) Staging form: Breast, AJCC 7th Edition - Clinical stage from 07/31/2016: Stage IIB (T2, N1, cM0) - Signed by Kirti Jimenes PA-C on 07/31/2016 - Pathologic stage from 07/31/2016: Stage IIIA (T2, N2a, cM0) - Signed by Kirti Jimenes PA-C on 07/31/2016 History of Present Illness PRESENT THERAPY: Herceptin every 3 weeks for one year; started 07/29/16- completed 05/27/17 due to drop in EF. Ms. Gallegos is here today for continued follow up. She was admitted to [facility] on 06/22/17 for kidney failure. She is getting dialysis now. Review of Systems Constitutional: Negative for activity change, appetite change, fatigue and unexpected weight change. HENT: Positive for hearing loss and voice change. Negative for congestion, nosebleeds, rhinorrhea and sneezing. Eyes: Negative for itching. Respiratory: Positive for shortness of breath (chronic). Negative for apnea, cough and chest tightness. On 2 liters O2 Cardiovascular: Negative. Negative for chest pain. Gastrointestinal: Positive for constipation. Negative for abdominal distention, abdominal pain and nausea. Genitourinary: Negative. Negative for difficulty urinating. Musculoskeletal: Positive for arthralgias (baseline), back pain, myalgias and neck pain. Skin: Negative for wound. Neurological: Positive for tremors. Negative for dizziness, weakness, light- headedness and headaches. Hematological: Negative for adenopathy. Psychiatric/Behavioral: Positive for agitation. Negative for sleep disturbance. The patient is nervous/anxious. Allergies Allergen Reactions Mobic [Meloxicam] RASH Objective: albuterol-ipratropium (DUONEB) 0.5 mg-3 mg(2.5 mg base)/3 mL nebulizer solution Inhale 3 mL solution by nebulizer as directed four times daily. ALPRAZolam (XANAX) 0.5 mg tablet Take 0.5 mg by mouth daily as needed. amiodarone (CORDARONE) 200 mg tablet Take 1 Tab by mouth five times weekly. On Friday through Friday only. Take weekends off. amLODIPine (NORVASC) 10 mg tablet Take 10 mg by mouth daily. apixaban (ELIQUIS) 5 mg tablet Take 5 mg by mouth twice daily. ascorbic acid (vitamin C) (VITAMIN C) 250 mg tablet Take 1 Tab by mouth at bedtime daily. Take with iron pill atorvastatin (LIPITOR) 40 mg tablet Take 1 Tab by mouth daily. Cholecalciferol (Vitamin D3) 5,000 unit tab Take 5,000 Units by mouth daily. enoxaparin (LOVENOX) 100 mg syrg Inject 1 mL under the skin daily. ferrous sulfate (FEOSOL, FEROSUL) 325 mg (65 mg iron) tablet Take 1 Tab by mouth at bedtime daily. Take on an empty stomach at least 1 hour before or 2 hours after food. fish oil /omega-3 fatty acids (SEA-OMEGA) 340/1000 mg capsule Take 2 Caps by mouth daily. furosemide (LASIX) 40 mg tablet Take 40 mg by mouth every morning. hydrALAZINE (APRESOLINE) 50 mg tablet Take 2 Tabs by mouth three times daily. HYDROcodone/acetaminophen(+) (NORCO) 10/325 mg tablet Take 1 Tab by mouth every 6 hours as needed for Pain insulin glargine (LANTUS SOLOSTAR) 100 unit/mL (3 mL) injection PEN Inject 22 Units under the skin at bedtime daily. insulin lispro(+) (HUMALOG KWIKPEN) 100 unit/mL injection PEN Inject 0-14 Units under the skin five times daily. Follow mid dose correction sliding scale provided. isosorbide mononitrate SR (IMDUR) 30 mg tablet Take 1 Tab by mouth daily. lidocaine/prilocaine (EMLA) 2.5/2.5 % topical cream Apply nickel size amount to port access site 30 minutes before accessing port Magnesium 250 mg tab Take 250 mg by mouth daily. Oiktttcswwpps-Eu-Utvk-Minerals (WOMEN'S DAILY MULTIVITAMIN) 18-0.4 mg tab Take 1 Tab by mouth daily. nitroglycerin (NITROSTAT) 0.[address] 0.4 mg under tongue every 5 minutes as needed for Chest Pain. ondansetron (ZOFRAN ODT) 4 mg rapid dissolve tablet Take 4 mg by mouth every 8 hours as needed for Nausea. OXYGEN-AIR DELIVERY SYSTEMS [facility] Use 1 L as directed at bedtime daily. pantoprazole DR (PROTONIX) 40 mg tablet Take 40 mg by mouth daily. senna/docusate (SENOKOT-S) 8.6/50 mg tablet Take 1 Tab by mouth daily as needed. sertraline (ZOLOFT) 100 mg tablet Take 150 mg by mouth daily. traZODone (DESYREL) 100 mg tablet Take 0.5 Tabs by mouth at bedtime daily. Vitals: 08/04/17 1058 BP: 173/71 Pulse: 51 Temp: 36.4 C (97.5 F) SpO2: (!) 90% Weight: 75.7 kg (166 lb 12.8 oz) Height: 164.5 cm (64.75") Body mass index is 27.97 kg/(m^2). Pain Addressed: no pain Patient Evaluated for a Clinical Trial: No treatment clinical trial available for this patient. Eastern Cooperative Oncology Group performance status is 1, Restricted in physically strenuous activity but ambulatory and able to carry out work of a light or sedentary nature, e.g., light house work, office work. Physical Exam Constitutional: She is oriented to person, place, and time. She appears well- developed and well-nourished. HENT: Head: Normocephalic and atraumatic. Right Ear: External ear normal. Mouth/Throat: No oropharyngeal exudate. Eyes: Conjunctivae and EOM are normal. Pupils are equal, round, and reactive to light. Neck: Normal range of motion. Neck supple. Cardiovascular: Normal rate, regular rhythm and normal heart sounds. No murmur heard. Pulmonary/Chest: Effort normal and breath sounds normal. No respiratory distress. She has no wheezes. She has no rales. She exhibits no tenderness. Right breast exhibits no inverted nipple, no mass, no nipple discharge, no skin change and no tenderness. Left breast exhibits no mass, no skin change and no tenderness. Abdominal: Soft. Bowel sounds are normal. She exhibits no distension and no mass. There is no tenderness. There is no rebound and no guarding. Musculoskeletal: Normal range of motion. She exhibits no edema or tenderness. Arms: Lymphadenopathy: She has no cervical adenopathy. She has no axillary adenopathy. Right: No supraclavicular adenopathy present. Left: No supraclavicular adenopathy present. Neurological: She is alert and oriented to person, place, and time. Skin: Skin is warm and dry. No ecchymosis, no lesion and no rash noted. Psychiatric: She has a normal mood and affect. Her behavior is normal. Nursing note and vitals reviewed. LABS/RADIOLOGY: CBC w/Diff Lab Results Component Value Date/Time WBC 5.2 08/04/2017 10:31 AM RBC 2.84 (L) 08/04/2017 10:31 AM HGB 8.9 (L) 08/04/2017 10:31 AM HCT 26.1 (L) 08/04/2017 10:31 AM MCV 91.7 08/04/2017 10:31 AM MCH 31.4 08/04/2017 10:31 AM MCHC 34.2 08/04/2017 10:31 AM RDW 18.3 (H) 08/04/2017 10:31 AM PLTCT 70 (L) 08/04/2017 10:31 AM MPV 7.8 08/04/2017 10:31 AM Lab Results Component Value Date/Time NEUT 77 08/04/2017 10:31 AM ANC 4.10 08/04/2017 10:31 AM LYMA 13 (L) 08/04/2017 10:31 AM ALC 0.70 (L) 08/04/2017 10:31 AM KATYA 7 08/04/2017 10:31 AM AMC 0.30 08/04/2017 10:31 AM EOSA 2 08/04/2017 10:31 AM AEC 0.10 08/04/2017 10:31 AM BASA 1 08/04/2017 10:31 AM ABC 0.10 08/04/2017 10:31 AM ECHO 07/02/16: EF 60% ECHO 11/19/16: EF 55% ECHO 02/18/17: EF 60% ECHO 05/13/17: EF 50% Right breast ultrasound 01/06/17: BIRAD 2-benign Right mammogram 01/06/17: BIRAD 2-benign Assessment and Plan: 1. Ms. Gallegos is a 72 yo female with left breast IDC, ER 0%, NJ 0%, Ki-67 50 % and HER2/carolin 3+, [id number]. She underwent mastectomy and ALND on 06/28/16 under the care of Dr. Virk, pT2N2a (05/06 LN). 2. Since she is not a candidate for TCH+P in the setting of her stage IV CKD, CAD/CHF, and restrictive lung disease, we recommended proceeding with local therapy first (mastecomy/ALND completed on 06/28/16). In regards to systemic treatment, we recommended single agent Herceptin. She completed Herceptin 2016 due to drop in EF. 3. PET 05/2016; no evidence of metastatic disease. 4. Diastolic dysfunction; follows with cardiology. 5. CAD s/p CABG; follows with cardiology. 6. CKD stage IV; secondary to diabetes, on dialysis. She follows with nephrology. 7. Restrictive lung disease from pulmonary fibrosis; uses 2L O2. 8. Atrial fibrillation; on anticoagulation. 9. Diabetes; insulin dependent. 10. CKD and Anemia; we restarted on Aranesp 200mcg every 3 weeks. We will hold Aranesp if HgB is more than 10. She will repeat CBC in one month with local PCP. 11. Right mammogram due 12/2017. 12. RTC in 6 months. Estefany Hand APRN I have personally interviewed and examined the patient. I have reviewed the history, physical, impression and plan outlined by Estefany Hand WEATHERIZATION AND HOUSING INSPECTOR. HPI: The patient presents for continued breast cancer treatment. On examination: HEENT: No icterus, PERRL. Oropharynx is normal; no exudate or lesions. Neck: No JVD, supple. Adenopathy: None. Chest: CTA bilaterally. CV: RRR without murmur. Breasts: Right: No nipple discharge, skin nodules or masses. Left: Mastectomy Abdomen: Soft, non-distended, Positive bowel sounds. Skin: No rash. Back: no pain with palpation over the T-spine. Extremities: No clubbing or cyanosis. Neuro: CN: II-XII intact; no sensory or motor abnormalities noted. My impression: left breast cancer My plan: Continue with observation in this encounter Plan of Treatment Not on fileas of this encounter Visit Diagnoses Diagnosis Malignant neoplasm of lower-outer quadrant of left female breast, unspecified estrogen receptor status (HCC) in this encounter
--- OUTSIDE RECORDS SUMMARY | 2017-09-18 18:38 | XMS REPORT | Encounter Summary ---
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 Role Phone PCP Unavailable Reason for Referral * Test Status Reason Specialty Diagnoses / Referred By Referred To Procedures Contact Contact No Auth Needed Cardiology Diagnoses Lang Paredes Mac-Ovpk Echo/Pv Essential [address] hypertension [address] [place] [address] [address] [place], [place] in situ [address] [address] [place]schem[place], [place] Phone: cardiomyopathy [address] [place], cardiac Phone: P [phone] rocedures Fax: 2-D + DOPPLER [phone] ECHOCARDIOGRAM WA ECHO TTHRC R-T 2D W/WOM-MODE COMPL SPEC&COLR D * Test Status Reason Specialty Diagnoses / Referred By Referred To Procedures Contact Contact No Auth Needed Cardiology Diagnoses Lang Paredes Mac-Ovpk Echo/Pv Jose Ramon BIGGS [address] hypertension [address] [place] [address] Cardiac device [place], [place] in situ [address] [address] [place] [place], [place] Phone: cardiomyopathy [address] [place], cardiac Phone: P [phone] rocedures Fax: 2-D + DOPPLER [phone] ECHOCARDIOGRAM WA ECHO TTHRC R-T 2D W/WOM-MODE COMPL SPEC&COLR D Reason for Visit * Test Status Reason Specialty Diagnoses / Referred By Referred To Procedures Contact Contact No Auth Needed Cardiology Diagnoses Lang Paredes Mac-Ovpk Echo/Pv Essential [address] hypertension [address] [place], [place] in situ [address] [address] [place], [place] Phone: cardiomyopathy [address] [place], cardiac Phone: P [phone] rocedures Fax: 2-D + DOPPLER [phone] ECHOCARDIOGRAM WA ECHO TTHRC R-T 2D W/WOM-MODE COMPL SPEC&COLR D Encounter Details Date Type Department Care Team Description 09/01/2017 [facility] Cardiology Lang Paredes MD Encounter [id number] [place] [address] [place] [address] [phone] Social History Tobacco Use Types Packs/Day Years [...] Taken Blood Pressure 190/86 09/01/2017 11:33 AM [employer] Pulse - - Temperature - - Respiratory Rate - - Oxygen Saturation - - Inhaled Oxygen - - Concentration Weight 74.8 kg (165 lb) 09/01/2017 11:33 AM [employer] Height 162.6 cm (5' 4") 09/01/2017 11:33 AM [employer] Body Mass Index 28.32 09/01/2017 11:33 AM [employer] in this encounter Functional Status Functional Status [...] impairment: No 08/04/2017 as of this encounter Medications at Time of Discharge Medication Sig. Disp. Refills Start Date End Date ALPRAZolam (XANAX) 0.5 mg Take 0.5 mg by mouth tablet daily as needed. amiodarone (CORDARONE) Take 400 mg by mouth 200 mg tablet daily. Take with food. amLODIPine (NORVASC) 10 Take 10 mg by mouth mg tabletIndications: daily. Cardiac device in situ, Paroxysmal atrial fibrillation (HCC), Essential hypertension apixaban (ELIQUIS) 5 mg Take 5 mg by mouth twice tablet daily. ascorbic acid (VITAMIN C) Take 500 mg by mouth 500 mg tablet daily. aspirin EC 81 mg tablet Take 81 mg by mouth daily. Take with food. atorvastatin (LIPITOR) 40 Take 1 Tab by mouth 90 Tab 3 12/24/2016 mg tabletIndications: daily. Atrial fibrillation with rapid ventricular response (HCC), Coronary artery disease involving coronary bypass graft of [place] heart with angina pectoris with documented spasm ([facility]) blood sugar diagnostic Test three times daily. 06/04/2017 test strip One Touch Ultra Dx E10.9. carvedilol (COREG) 25 mg Take 25 mg by mouth twice tablet daily with meals. Take with food. Cholecalciferol (Vitamin Take 5,000 Units by mouth D3) 5,000 unit tab daily. docusate (COLACE) 100 mg Take 100 mg by mouth as capsule Needed for Constipation. ferrous sulfate (FEOSOL, Take 1 Tab by mouth at 90 Tab 3 09/18/2016 FEROSUL) 325 mg (65 mg bedtime daily. Take on an iron) tablet empty stomach at least 1 hour before or 2 hours after food. fish oil /omega-3 fatty Take 2 Caps by mouth acids (SEA-OMEGA) daily. 340/1000 mg capsule furosemide (LASIX) 20 mg Take 60 mg by mouth every tablet morning. HYDROcodone/acetaminophen Take 1 Tab by mouth every (+) (NORCO) 10/325 mg 6 hours as needed for tablet Pain insulin glargine (LANTUS Inject 22 Units under the SOLOSTAR) 100 unit/mL (3 skin at bedtime daily. mL) injection PEN insulin lispro(+) Inject 0-14 Units under 1 box 11 07/04/2016 (HUMALOG KWIKPEN) 100 the skin five times unit/mL injection PEN daily. Follow mid dose correction sliding scale provided. isosorbide mononitrate SR Take 60 mg by mouth every (IMDUR) 60 mg tablet morning. lancets [facility] Test Blood Glucose three 06/04/2017 times daily Prn. Dx E10.9. levothyroxine (SYNTHROID) Take 1 tablet by mouth 08/20/2017 25 mcg tablet daily. lidocaine/prilocaine Apply nickel size amount 30 g 1 08/04/2017 (EMLA) 2.5/2.5 % topical to port access site 30 cream minutes before accessing port Magnesium 250 mg tab Take 250 mg by mouth daily. Wefbtgenlampj-Zh-Vbjr-Min Take 1 Tab by mouth erals (WOMEN'S DAILY daily. MULTIVITAMIN) 18-0.4 mg tab nitroglycerin (NITROSTAT) Place 0.4 mg under tongue 0.4 mg tablet every 5 minutes as needed for Chest Pain. ondansetron (ZOFRAN ODT) Take 4 mg by mouth every 4 mg rapid dissolve 8 hours as needed for tablet Nausea. OXYGEN-AIR DELIVERY Use 1 L as directed at [facility] bedtime daily. pantoprazole DR Take 40 mg by mouth (PROTONIX) 40 mg tablet daily. sertraline (ZOLOFT) 100 Take 150 mg by mouth mg tablet daily. Sevelamer Carbonate Take 800 mg by mouth (RENVELA) 800 mg tablet three times daily. sodium bicarbonate 650 mg Take 650 mg by mouth tablet every 6 hours. traZODone (DESYREL) 100 Take 0.5 Tabs by mouth at 90 Tab 3 07/22/2016 mg tablet bedtime daily. as of this encounter Plan of Treatment Not on fileas of this encounter Results * 2-D + DOPPLER ECHOCARDIOGRAM (09/01/2017 [...] Index 61.96 10 - 32 AV index ([place]) 0.32 LVOT area 3.46 cm2 LVOT stroke [...] regurgitation. Estimated Peak Systolic PA Pressure=50 mmHg in this encounter Visit Diagnoses Diagnosis Essential hypertension Unspecified essential hypertension Cardiac device in situ Unspecified cardiac device in situ Ischemic cardiomyopathy Other specified forms of chronic ischemic heart disease [place], cardiac Undiagnosed cardiac murmurs in this encounter
--- OUTSIDE RECORDS SUMMARY | 2017-09-18 18:38 | XMS REPORT | Encounter Summary ---
Author Author [facility] Organization [facility] Address Unknown Phone Unavailable Care Team Providers Care Live In Caregiver Name Role Phone PCP Unavailable Reason for Referral * Test Status Reason Specialty Diagnoses / Referred By Referred To Procedures Contact Contact No Auth Needed Cardiology Diagnoses Lang Paredes, Mac-Ovpk Echo/Pv Essential [address] hypertension [address] [place], [place] in situ [place] [address] [id number] Ischem[address] [place], [place] Phone: cardiomyopathy [address] [place], cardiac Phone: P [phone] rocedures Fax: 2-D + DOPPLER [phone] ECHOCARDIOGRAM SD ECHO TTHRC R-T 2D W/WOM-MODE COMPL SPEC&COLR D Reason for Visit * Reason Comments Atrial fibrillation 5 week follow up Encounter Details Date Type Department Care Team Description 08/25/2017 Office Visit [facility] Cardiology Lang Paredes MD Atrial fibrillation ([address] week follow up) [address] [place] [address] [place] [address] [phone] Social History Tobacco Use Types Packs/Day Years Used Date Former Smoker Cigarettes 1 16 Quit: 06/13/1994 Smokeless Tobacco: Never Used Comments: quit 20 years ago Alcohol Use Drinks/Week oz/Week Comments Yes 0 Standard 0.0 occasionally drinks or equivalent Sex Assigned at Date Recorded Not on file as of this encounter Last Filed Vital Signs Vital Sign Reading Time Taken Blood Pressure 204/90 08/25/2017 3:03 PM [employer]SEM[employer] Pulse 55 08/25/2017 3:03 PM [employer] Temperature - - Respiratory Rate - - Oxygen Saturation - - Inhaled Oxygen - - Concentration Weight 75.3 kg (165 lb 14.4 oz) 08/25/2017 3:03 PM [employer] Height 162.6 cm (5' 4") 08/25/2017 3:03 PM [employer] Body Mass Index 28.48 08/25/2017 3:03 PM [employer] in this encounter Functional Status Functional Status [...] impairment: No 08/04/2017 as of this encounter Instructions * Patient Instructions - Jo Soliman RN - 08/25/2017 3:15 PM [employer] I'll plan for a follow up clinic visit with a Nurse Practitioner in 3 months, or sooner if you're having questions or problems. Return for a follow up clinic visit in 6 months, or sooner for new questions or problems. --Check your BP (Blood Pressure) daily and you may vary the time of day you check it. *Monitor your blood pressure regularly Consider obtaining an automatic home blood pressure cuff if you don't already have one. Try to follow a low salt diet. If you smoke, make an honest effort to quit. Exercise helps with your blood pressure. Try to get at least 30 minutes of moderate intensity exercise at least 4 days a week. Your desired BP is with the top # less than 144 and bottom # less than 90. Call our office or your PCP if your blood pressure remains at or above 150/95 consistently. If you have questions about your blood pressure readings, please contact the office. Please review your meds at home with our list and let us know if there are any discrepancies. We will arrange for an echocardiogram to assess your heart function and chamber sizes. You will receive the results within a week of your test. If you do not get notification, please call our office and ask to speak to our nurse. If you have any questions or concerns, please call Dr. Paredes's nurse at [phone]. It is ok to leave a message at this number and his nurse will return your call. You can also reach us through [employer]. in this encounter Progress Notes * Lang Paredes MD - 08/25/2017 3:15 PM [employer] Formatting of this note may be different from the original. Date of Service: 08/25/2017 Brigitte Gallegos is a 72 y.o. female. HPI I had the pleasure of seeing your patient Brigitte Gallegos in the [facility] as a part of the [facility] [place] office today for follow up regarding her Atrial Arrhythmias. Ms. Gallegos is an exceptionally pleasant 72 y.o. Female. In the past, she had also been accompanied by her daughter, son-in-law, and her (?Ex- ) DEVYN. They are family friends with Jesu Clement (sp?). They live in [place], [place]. Her prior Cardiac Care had been at the [facility] in [place], [place], and at [facility] in [place], [place]. The past medical history and data below has been reviewed and updated by me with new events for today's visit. Her PMHx briefly includes: Paroxysmal Atrial Fibrillation (PAFIB); Brief ATACH by ELR; Sinus Bradycardia (40-50 bpm range); Prior LinQ (Implanted -> Explanted 06/28/16); CAD --> Prior Anterior Wall NJ S/P Numerous Stents and CABG (2007, [facility]) --> Recurrent NSTEMI --> Cardiac Cath with Chronic Total Occlusions but Medical Management thought to be Best Option Given Renal Disease (03/2016); Normal LVEF but Intermittent Diastolic Dysfunction (06/2016); Moderate Aortic Stenosis by Echo (06/2016); PVD S/P Reported Numerous Stents-- Assessed at time of CATH (06/2016); Pulmonary Fibrosis and Restrictive Lung Disease-- On Chronic Supplemental O2 at 1-2 L/min; Stage IV Chronic Renal Insufficiency-- Negative Renal US (06/07/14)-- Baseline Cr 2.6-3.1 Rage (2014); Hypertension; DM; Newly Dx'd Breast Cancer S/P Left Total Mastectomy/ALND ()-- On ChemoTx; Reported Anxiety Disorder; and S/P Hysterectomy. Her PMHx ALSO includes: Prior tachybradycardia syndrome --> Permanent PM placement on the right on 09/22/15 --> lead dislodgment and during lead revision did suffer pseudoaneurysm requiring full system extraction and subsequent coil embolization on 09/27/15. She was admitted and found to have elevated troponin with concerns for non-ST elevation myocardial infarction. She was in atrial fibrillation with rapid ventricular rate on admission was started on diltiazem drip. Cardiac catheterization reportedly showed "significant disease, but nothing amenable to intervention. Decision was made to treat medically". Of note she apparently underwent echocardiogram during that hospitalization showing decreased LV function estimated at 30%. The patient did have worsening of chronic kidney disease and ultimately required initiation of hemodialysis through left chest central line access. Her amiodarone was increased to 400 mg daily and she was initiated on Coreg 25 mg twice daily. Her Imdur was increased from 30 mg daily to 60 mg daily and her Lasix increased from 20 mg daily to 40 mg daily. She had previously taken Lovenox for anticoagulation however this was discontinued in favor of Eliquis 5 mg twice daily. NOTE: Continued Decreased Breath Sounds at Right Base Secondary to Chronically Elevated Right Hemidiaphragm. Note: She is not on an TUYET inhibitor or an ARB because of her Renal Insufficiency. She has a [id number] score of 5: Female, Age, HTN, CAD/PVD, DM. Regarding her CAD/Prior NJ(s): Please see Problem List and Prior OV notes including 05/02/16 and Initial Consultation note for greater detail. However, briefly: -- 2007: Reported NJ S/P Numerous Stents (STREETER to LAD) and CABGx3 (Diagonal, OM, and RCA) by [facility] [place]. -- 05/2014: Cardiac Cath by [facility] (see 05/02/16 OV for detail). -- 03/2016: Sxs of unable angina --> NSTEMI, Trop peaked at 1.55. -- 03/2016: Cardiac Cath ([facility]): See procedure note for detail. Showed Severe [place] CAD, including large occluded diagonal fills via collaterals ( culprit of ischemic changes seen on MPI). The 1st diagonal artery was occluded at the ostial level, at the level of an old stent. However, it filled through very well-established collaterals coming from the apical LAD, filling the whole diagonal artery retrogradely.The mid LAD had a 90% mid stenosis.The mid to distal LAD beyond that stenosis was filled through a patent STREETER. The ramus was small with severely diffuse disease which was occluded in the distal segment. Occluded SVG to diagonal, Occluded SVG to OM5. Occluded SVG to RCA. Patent RCA Stent. Patent Stent to 2nd Obtuse Marginal. -- 03/28/16: Regadenosine Thallium: Showed severe breast artifact, but also ischemia in the territory of the diagonal/ramus, i.e., anterolateral region. -- Medical Management was thought to be pt's Best Option, since she likely could not tolerate complex COMMUNITY RESOURCE CONSULTANT intervention with heavy dye load, given her Stage IV CKD. -- Imdur was added to her medical regimen at discharge. Regarding her PAFIB, Device, Etc: Please see Problem List and Prior OV notes including 05/02/16 and Initial Consultation note for greater detail. However, briefly: -- 02/2015: AFIB Initially documented on telemetry at [facility] in [place], [place] in setting of acute pancreatitis and a "bump in troponin to 0.74. " I do not have full records. -- 06/13/15: Initial EP Consultation -- 07/2015: ELR (30-day): Documented brief ATACH, one episode of aberrant conduction. -- 09/06/15: Medtronic Reveal LinQ Implantable Looping Monitor device implantation to further monitor for recurrent AFIB, need for anticoagulation, etc. -- : Documented AFIB with RVR, Episodes of Junctional Rhythm and Significant Sinus Bradycardia -->09/22/15: Medtronic DDDR PPM implanted --> Leads Essentially Dislodged. -- 09/25/15: Full-System PPM Extraction done after Attempted Revision --> Post- Op Course complicated by Pseudoaneurysm of Left Subclavian Vein S/P Coil Embolization (09/27/15, Dr. Cisneros-- see 05/02/16 OV for detail)--> Decided to hold-off on Right-sided implantation after MEDICATION adjustment and continue monitoring via [employer] LinQ Implantable Looping Monitor. -- 11/16/15 OV: DC'ed her Metoprolol. -- 11/23/15 OV: Recurrent AFIB with RVR/Tachy-Dedrick --> DC'ed Tikosyn, Initiated Amiodarone. -- 05/02/16 OV: Resting Tremor --> Decrease Amiodarone to 200 mg M-F only "weekends off." -- 06/28/16: [employer] Reveal LinQ Implantable Looping Monitor extracted at the time of her Left Breast Mastectomy with ALND. Regarding her SAMANIEGO/SOA: Please see Problem List and Prior OV notes including 08/05 and Initial Consultation note for greater detail. However, briefly: -- 06/28/16: CT Chest: Mild scattered areas of scarring and atelectasis, greatest in the lung bases, without evidence of CHF or pneumonia. -- 07/22/16: Pulmonology Evaluation: Her "PFT's" showed restrictive lung disease. CT chest showed mild basilar fibrosis which does not explain the degree of symptoms she is experiencing." -- 08/2016: Admission to [facility] in [place], [place] with increasing shortness of breath. I do not have detailed records regarding her hospitalization. From what I can tell, they noted her Hgb to be 7.1. She was transfused with 2 units of pRBCs. Her INR was supratherapeutic. They did not find an obvious source of bleeding, outside oozing epistaxis, only noted when blowing her nose. They corrected her INR. BNP was mildly elevated at 279. She reportedly had NO AFIB during her hospitalization. -- 09/09/16: Sxs improved but not resolved post-transfusion --> Mild Volume Overload --> Transiently increased Lasix, and referred her to my Heart Failure colleagues for Evaluation. 09/13-09/18/16: Admission to [facility] for Worsened SAMANIEGO/SOA with Hypoxemia (O2 Sat 87%) and Increased O2 Requirement (1-2 L/min --> 3 L/min). -- ECG: Sinus rhythm at 74 bpm. -- Labs: Hemoglobin-8.3, INR-6.3, Sodium-Normal, Potassium-Normal, BUN/Cr-37 /3.12, Calcium-Normal, Magnesium-Normal, AST/ALT-Normal, BNP-376.0, Troponin- 0.02. -- CXR: Volume overload vs Viral/Atypical Pneumonia vs Worsening of Pulmonary Fibrosis. Respiratory Virus Panel positive for Rhinovirus. -- Pulmonology Consulted --> "... Likely multifactorial, including respiratory virus, anemia, and acute on chronic heart failure in the setting of chronic interstitial lung disease." -- INR 6.3 --> No source of significant bleeding identified, although she did report oozing epistaxis and one episode of melena on 09/14/16 (no GI evaluation done) --> 1U FFP and Improvement in INR --> Switched from Warfarin to Lovenox injections (limited AC options secondary to renal and valvular disease). -- Hematology Consulted for Anemia --> "They that CKD is the largest contributor and that her aemia will likely worsen without transfusion or EPO but discussion needs to take place with her Make Up Worker regarding EPO as there is a black box warning for patients with active malignancy. If it is decided to pursue EPO injections, patient would need to be enrolled in [facility] program. " -- "She was recommended to have dialysis for her CRF which she does not want to do." NOTE: On Herceptin she has been monitored with an 11/19/16 ECHO every 3 months--> normal EF mild LVH moderate LAE. -- 12/2016: Reported "arm lumps" that her Oncologist felt were related to hematomas. -- 12/31/16: Ultrasound of "arm lumps" suggested fluid collection but appears more fibrous. -- 03/25/17: OV (Dr. Paredes): FRANCIS/SAMANIEGO: Checked PA and lateral chest x-ray, reduced Lasix to 20 mg daily -- 07/02/17: Hospitalized at [facility] in [facility] in transfer from [facility] where she was made with chest pain and dyspnea noted to be in rapid A. fib and significantly hypertensive. -- 07/02/17: Echocardiogram in [place]: EF reportedly 30%, severe LVH, bi-atrial enlargement, severe MR, mild AI, severe TR, moderate noted with a mean gradient of 21 and an WILFREDO of 1.1 -- 07/03/17: Cardiac Cath in [place]: Severe multivessel minto CAD, with the only potential obstructive disease that was not re-vascularized described to be a small caliber RPDA branch with reported three SVGs occluded at their takeoff and a patent STREETER to the LAD with "moderate with a mean gradient of 20 mmHg and a calculated WILFREDO of 1.0 cm squared" -- 07/08/17: Left Hemodialysis catheter insertion -- 07/08/17: CT Abd/Pelvis: Spleen with large lobular internal mass lesion likely present -- 07/23/17: Post-hospitalization follow up with EP-MENTAL HEALTH SPECIALIST (Sweetie Castorena) She STATES she has been experiencing mild chest discomfort. Her BPs at home have been in the 120s/76 range mmHg range and have been under good control, despite being elevated in the office today. She denies any shortness of breath, palpitations, lightheadedness, dizziness, near syncope or syncope, PND or orthopnea. She denies any bleeding issues, tolerating anticoagulation well. FHx, SHx and ROS documented and I have reviewed, with some pertinent features to include: +FHx of premature CAD (brother, father, mother). She is a Former- Smoker (Quit 1993-- 1 ppd x 16 years). Most pertinent ROS is included/discussed throughout the note, e.g. HPI and A/P. ASSESSMENT AND PLAN: -- Prior FRANCIS/SAMANIEGO -- Paroxysmal Atrial Fibrillation -- Accelerated Hypertension -- Anticoagulation -- Potential LV Dysfunction by OSH Echo suggesting EF 30%. -- Moderate Aortic Stenosis -- Diastolic CHFpEF -- CAD with Significant Prior Stents and Prior CABG -- Left Breast Cancer S/P Left Total Mastectomy/ALND (06/28/16) -- Chronic Renal Failure on DIALYSIS TIW--->//Fri Remarkably unfortunately after her very extensive and very complex hospitalization in June she has been doing dramatically better. She states her dyspnea on exertion is improved. She has not been aware of any recurrent atrial fibrillation. She is undergoing dialysis 3 days a week with her next treatment tomorrow, Friday. She states at home on average her blood pressures have been in the 120s/80s mmHg. She has not had lightheadedness near syncope or syncope or any other symptoms related to potential progression of her moderate Aortic Stenosis. She denies symptoms of acute volume overload, although she is not weighing at home she is being weighed in dialysis. I am concerned that her BP at home may not be accurate and have asked her to discuss this with the staff and dialysis. I anticipate they are checking her blood pressure pre-and postdialysis. Also asked her follow-up with her tire fabric inspector regarding this. NOTE--her SBP today was over 200. We gave her a dose of clonidine since it did not come down prior to her departure. We then monitored for 30 minutes. She is going home and plans on taking her evening medicines when she gets home. I asked her to contact us at home if her SBP remains over 180 mmHg. PLAN: -- We will obtain an Echo to follow up on her EF, since was measured to be low when done by echo in [place] although they reported that it was technically limited. We will also follow-up on her moderate aortic stenosis -- I have asked her to Check her BP (Blood Pressure) daily and vary the time of day she checks it. -- We also discussed that she should try to follow a low salt diet. -- We discussed that exercise helps with her blood pressure and she should try to get at least 30 minutes of moderate intensity exercise at least 4 days a week. -- We discussed that her desired BP is less than 140 and less than 90. -- Please discuss your blood pressure with the dialysis staff and her tire fabric inspector. Ms. Gallegos was educated regarding plan of care. She was instructed to call our office with any questions or concerns, as well as to notify us of any new or worsening symptoms. She verbalized understanding. I appreciate the opportunity to participate in the care of your patient. Please do not hesitate to contact me directly if you have any questions or further insights into her care. I have scheduled her follow-up with our EP Nurse Practitioner or Physician Drug Abuse Program Coordinator in 3 month(s). I have scheduled her follow-up with me in 6 month(s). Vitals: 08/25/17 1503 BP: (!) 204/90 Pulse: 55 Weight: 75.3 kg (165 lb 14.4 oz) Height: 1.626 m (5' 4") Body mass index is 28.48 kg/(m^2). Past Medical History Patient Active Problem List Diagnosis Date Noted Sinus bradycardia 07/23/2017 Ischemic cardiomyopathy 07/23/2017 Chronic systolic CHF (congestive heart failure) ([facility]) 07/23/2017 Paroxysmal atrial fibrillation ([facility]) 04/13/2017 ILD (interstitial lung disease) ([facility]) 09/20/2016 Suspect secondary to Amiodarone. Although other etiologies to consider are Hypersensitivity pneumonitis, connective tissue disease induced ILD or Idiopathic. Nocturnal hypoxemia was noted on the sleep study. She was given supplemental O2 through [place] home by her PCP after her exercise oximetry was low. Echocardiogram in June 2016 normal systolic and diastolic function. Estimated peak PA pressure was 44 mmhg. PFT's in 08/04 showed restrictive lung disease. Acute hypoxemic respiratory failure (HCC) 09/13/2016 Supratherapeutic INR 09/13/2016 Amiodarone Monitoring 07/28/2016 -We initiated Amiodarone 11/23/15. -Baseline PFTs 01/2016 showed DLCO reduced at 51%, 80% of predicted after correcting for alveolar volume. Total lung capacity was only 66% of predicted. -Impression: Restrictive ventilatory defect with diffusion defect. -She might have had some mild volume overload at the time of the PFTs as well. Primary insomnia 07/22/2016 Was taken off Ambien. 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 Gallegos is a female who presented to the [facility] on 05/27/2016 at age 71 for evaluation of left breast cancer. A shadow was noted on her left breast during a stress test in 04/2016. Left breast sono-guided biopsy 05/06/16 ([place], [place]) revealed grade 3 invasive ductal carcinoma. Left axillary sono-guided biopsy 05/06/16 ([place], [place]) revealed grade 3 invasive ductal carcinoma (no identifiable lymph node tissue). Ms. Gallegos underwent left modified radical mastectomy on 06/28/16. PATHOLOGY: Tumor: 4.7 cm Margins Free From Tumor: Yes ER: negative SD: negative Her 2: negative Grade: 3 Lymph Nodes: 05/06, largest met 2.3 cm LVSI: no Extranodal extension: yes BREAST IMAGING: Mammogram: -- Bilateral diagnostic mammogram 04/29/16 ([place], [place]) revealed scattered fibroglandular density. There was [...] benign calcifications. -- Bilateral diagnostic mammogram 05/27/16 ([facility]) revealed no suspicious findings present within the [...] node. Ultrasound: -- Left breast ultrasound 04/29/16 ([place], [place]) revealed an irregular mass at 3:00, [...] 2.9 cm. -- Left breast ultrasound 05/27/16 ([facility]) revealed at 3:00 4 cm from the [...] nodes were identified Other: -- PET/CT 05/21/16 ([place], [place]) revealed a hypermetabolic mass in the [...] Cardiology and pulmonology at , nephrology in [place] Shortness of breath 05/09/2016 SOB with exertion. Nocturnal hypoxemia on the sleep study. She was given supplemental O2 through [place] home by her PCP after her exercise oximetry was low. Echocardiogram in 2015 nrmal systolic and diastolic function. PFT's showed restrictive lung disease. I suspect this is related to her cardiac disease. Although need to think about deconditioning vs. Interstitial lung disease vs. Obesity vs. PAH. Cardiac device in situ 05/02/2016 Acute respiratory failure with hypoxia ([facility]) 03/25/2016 On mechanically assisted ventilation ([facility]) 03/25/2016 Coronary artery disease involving minto coronary artery of minto heart without angina pectoris 03/25/2016 Pneumonia due to infectious organism 03/25/2016 Nocturnal hypoxemia 03/13/2016 DM (diabetes mellitus) ([facility]) End stage chronic kidney disease ([facility]) 06/12/2015 06/07/14: Renal ultrasound: No definitive evidence of renal disease. No evidence hydronephrosis. Coronary artery disease involving coronary bypass graft of minto heart with angina pectoris with documented spasm ([facility]) 06/12/2015 2008: Bypass surgery 06/09/14: LHC: Patent sent in RCA. 70% stenosis at the orifice and extending into the intermediate branch. Normal left main circumflex and patent and widely patent stent within mid circumflex. High-grade obstruction of the proximal LAD, but with a widely patent STREETER. Essential hypertension with goal blood pressure less than 130/80 06/12/2015 Diabetes mellitus (HCC) 06/12/2015 Anxiety 06/12/2015 Review of Systems Constitution: Positive for weakness and malaise/fatigue. HENT: Positive for hoarse voice. Eyes: Negative. Cardiovascular: Positive for claudication, dyspnea on exertion, irregular heartbeat and paroxysmal nocturnal dyspnea. Respiratory: Positive for cough and shortness of breath. Endocrine: Positive for cold intolerance. Hematologic/Lymphatic: Bruises/bleeds easily. Skin: Positive for dry skin and nail changes. Musculoskeletal: Positive for back pain, joint pain, joint swelling, muscle cramps, muscle weakness, myalgias, neck pain and stiffness. Gastrointestinal: Positive for abdominal pain, heartburn, hemorrhoids and vomiting. Genitourinary: Negative. Neurological: Positive for focal weakness, headaches and paresthesias. Psychiatric/Behavioral: Positive for depression. The patient is nervous/ anxious. Allergic/Immunologic: Negative. Physical Exam Constitutional: She is in no acute distress, resting comfortably. Skin/Integument: Warm and dry. Eyes: PERRL, sclera are non-icteric and no xanthelasmas noted. ENT: Hearing is intact, Oropharynx is clear and moist. Heme/Lym/Immun: Supple neck, without thyromegaly. Respiratory-Pulmonary/Chest: Effort normal and breath sounds normal. No respiratory distress or accessory muscle use. No obvious tracheal deviation. Bilateral basilar inspiratory crackles. Right IJ port with port in right infraclavicular region. Left IJ hemodialysis catheters in place via left subclavian vein in left infraclavicular region. Cardiovascular: No evidence of increased jugular venous pressure, carotids are 2+/4+ equal bilaterally. Regular rhythm, S1, S2. 3/6 systolic murmur noted at the RUSB --> [place]. No diastolic murmur. No heaves, thrills or rubs. Musc/Skeletal-Extremities: With trace pretibial and pedal pitting peripheral edema.With what appears to be full ROM. Neuro: Patient is alert and oriented to person, place, and time. Psych: Patient does not appear anxious, she appears appropriate, with normal non-pressured speech and what appears to be appropriate judgement Cardiovascular Studies ECG today demonstrates sinus bradycardia 55 bpm with LVH and secondary repolarization changes as well as borderline LAE. Full device check performed with reprogramming which I have extensively reviewed. Changes, if done, as discussed below and is detailed in other dictation/note. She has had no documented recurrent A. fib since June 2015. Dating back to the longest episode she had was 10 hours in duration and that occurred on June 29. She did have an episode on . Outside of that since February the only other episode she had her on the , , , , and 04 July. Problems Addressed Today Encounter Diagnoses Name Primary? Cardiac device in situ Yes Essential hypertension Ischemic cardiomyopathy Murmur, cardiac Current Medications (including today's revisions) ALPRAZolam (XANAX) 0.5 mg tablet Take 0.5 mg by mouth daily as needed. amiodarone (CORDARONE) 200 mg tablet Take 400 mg by mouth daily. Take with food. amLODIPine (NORVASC) 10 mg tablet Take 10 mg by mouth daily. apixaban (ELIQUIS) 5 mg tablet Take 5 mg by mouth twice daily. ascorbic acid (VITAMIN C) 500 mg tablet Take 500 mg by mouth daily. aspirin EC 81 mg tablet Take 81 mg by mouth daily. Take with food. atorvastatin (LIPITOR) 40 mg tablet Take 1 Tab by mouth daily. blood sugar diagnostic test strip Test three times daily. One Touch Ultra Dx E10.9. carvedilol (COREG) 25 mg tablet Take 25 mg by mouth twice daily with meals. Take with food. Cholecalciferol (Vitamin D3) 5,000 unit tab Take 5,000 Units by mouth daily. docusate (COLACE) 100 mg capsule Take 100 mg by mouth as Needed for Constipation. ferrous sulfate (FEOSOL, FEROSUL) 325 mg (65 mg iron) tablet Take 1 Tab by mouth at bedtime daily. Take on an empty stomach at least 1 hour before or 2 hours after food. fish oil /omega-3 fatty acids (SEA-OMEGA) 340/1000 mg capsule Take 2 Caps by mouth daily. furosemide (LASIX) 20 mg tablet Take 60 mg by mouth every morning. HYDROcodone/acetaminophen(+) (NORCO) 10/325 mg tablet Take 1 [...] sliding scale provided. isosorbide mononitrate SR (IMDUR) 60 mg tablet Take 60 mg by mouth every morning. lancets [facility] Test Blood Glucose three times daily Prn. Dx E10.9. levothyroxine (SYNTHROID) 25 mcg tablet Take 1 tablet by mouth daily. lidocaine/prilocaine (EMLA) 2.5/2.5 % topical cream Apply nickel size amount to port access site 30 minutes before accessing port Magnesium 250 mg tab Take 250 mg by mouth daily. Jthracebdlgnu-Vd-Vafm-Minerals (WOMEN'S DAILY MULTIVITAMIN) 18-0.4 mg tab Take 1 Tab by mouth daily. nitroglycerin (NITROSTAT) 0.[address] 0.4 mg under tongue every 5 minutes as needed for Chest Pain. ondansetron (ZOFRAN ODT) 4 mg rapid dissolve tablet Take 4 mg by mouth every 8 hours as needed for Nausea. OXYGEN-AIR DELIVERY SYSTEMS MIS Use 1 L as directed at bedtime daily. pantoprazole DR (PROTONIX) 40 mg tablet Take 40 mg by mouth daily. sertraline (ZOLOFT) 100 mg tablet Take 150 mg by mouth daily. Sevelamer Carbonate (RENVELA) 800 mg tablet Take 800 mg by mouth three times daily. sodium bicarbonate 650 mg tablet Take 650 mg by mouth every 6 hours. traZODone (DESYREL) 100 mg tablet Take 0.5 Tabs by mouth at bedtime daily. Documentation recorded by Brennan Dunaway, acting as scribe for Lang Paredes M.D. in this encounter Plan of Treatment Name Priority Associated Diagnoses Order Schedule ECG 12-LEAD Routine Essential hypertension Ordered: 08/25/2017 Cardiac device in situ Ischemic cardiomyopathy Murmur, cardiac as of this encounter Results * 2-D + [...] Index 61.96 10 - 32 AV index (minto) 0.32 LVOT area 3.46 cm2 LVOT stroke [...] 104 Specimen Performing Laboratory OTHER OUTSIDE LAB in this encounter Visit Diagnoses Diagnosis Cardiac device in situ - Primary Unspecified cardiac device in situ Essential hypertension Unspecified essential hypertension Ischemic cardiomyopathy Other specified forms of chronic ischemic heart disease Murmur, cardiac Undiagnosed cardiac murmurs in this encounter
--- OUTSIDE RECORDS SUMMARY | 2017-09-18 18:38 | XMS REPORT | Encounter Summary ---
Author Author [facility] Organization [facility] Address Unknown Phone Unavailable Care Team Providers Care Pilot Fuel Engineer Name Role Phone PCP Unavailable Encounter Details Date Type Department Care Team Description 07/23/2017 Telephone [facility] [place] [address] [place] [address] Social History Tobacco Use Types Packs/Day Years [...] the patient have a hearing impairment: No 10/29/2016 Does the patient have a visual impairment: Yes 09/20/2016 Does the patient have impaired ambulation: Yes 09/20/2016 Does the patient have an activity of daily living No 09/20/2016 (ADL) impairment: Does the patient have an instrumental activity of No 09/20/2016 daily living (IADL) impairment: Cognitive Status Response Date of Assessment Does the patient have a cognitive impairment: No 09/20/2016 as of this encounter Miscellaneous Notes * Telephone Encounter - Anisa Butler RN - 07/23/2017 5:02 PM CDT Patient see's Indirect Sales Representative at [facility] (f)[phone]. Labs faxed. * Telephone Encounter - Anisa Butler RN - 07/23/2017 5:01 PM CDT ----- Message from LEESA Kurtz sent at 07/23/2017 4:49 PM CDT --- -- No changes. Can we make sure that her assistant county attorney receives a copy of this? Thanks, Sweetie ----- Message ----- From: Anisa Butler RN Sent: 07/23/2017 2:44 PM To: Sweetie Castorena APRN-ROCK CONTRACTOR Patient seen in clinic today with hx. of ESRD on HD and chronic anemia. Hgb 8.8 today from 10.3 (1 month ago). Further recs? in this encounter Plan of Treatment Not on fileas of this encounter Visit Diagnoses Not on filein this encounter
--- OUTSIDE RECORDS SUMMARY | 2017-09-18 18:38 | XMS REPORT | Encounter Summary ---
Author Author [facility] Organization [facility] Address Unknown Phone Unavailable Care Team Providers Care Revenue Research Analyst Name Role Phone PCP Unavailable Encounter Details Date Type Department Care Team Description 08/18/2017 [facility] Cardiology Lang Paredes MD Encounter Remote Device Check [address] [facility] [phone] [address] [place] [address] [phone] Social History Tobacco Use Types Packs/Day Years [...] mg by mouth tablet daily as needed. amLODIPine (NORVASC) 10 Take 10 mg by mouth mg tabletIndications: daily. Cardiac device in situ, Paroxysmal atrial fibrillation (HCC), Essential hypertension atorvastatin (LIPITOR) 40 Take 1 Tab by mouth 90 Tab 3 12/24/2016 mg tabletIndications: daily. 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 06/04/2017 test strip One Touch Ultra Dx E10.9. Cholecalciferol (Vitamin Take 5,000 Units by mouth D3) 5,000 unit tab daily. ferrous sulfate (FEOSOL, Take 1 Tab by mouth at 90 Tab 3 09/18/2016 FEROSUL) 325 mg (65 mg bedtime daily. Take on an iron) tablet empty stomach at least 1 hour before or 2 hours after food. fish oil /omega-3 fatty Take 2 Caps by mouth acids (SEA-OMEGA) daily. 340/1000 mg capsule HYDROcodone/acetaminophen Take 1 Tab by mouth every [...] Follow mid dose correction sliding scale provided. lancets [facility] Test Blood Glucose three 06/04/2017 times daily Prn. Dx E10.9. lidocaine/prilocaine Apply nickel size amount 30 g 1 08/04/2017 (EMLA) 2.5/2.5 % topical to port access site 30 cream minutes before accessing port Magnesium 250 mg tab Take 250 mg by mouth daily. Atshqwolsmlyg-Mc-Tdve-Min Take 1 Tab by mouth erals (WOMEN'S [...] 150 mg by mouth mg tablet daily. traZODone (DESYREL) 100 Take 0.5 Tabs by mouth at 90 Tab 3 07/22/2016 mg tablet bedtime daily. albuterol-ipratropium Inhale 3 mL solution by 08/25/2017 (DUONEB) 0.5 mg-3 mg(2.5 nebulizer as directed mg base)/3 mL nebulizer four times daily. solution amiodarone (CORDARONE) Take 1 Tab by mouth five 60 Tab 3 05/02/2016 08/25/2017 200 mg tabletIndications: times weekly. On Friday Paroxysmal atrial through Friday only. Take fibrillation (HCC), weekends off. Essential hypertension with goal blood pressure less than 140/90 apixaban (ELIQUIS) 5 mg Take 5 mg by mouth twice 08/25/2017 tablet daily. ascorbic acid (vitamin C) Take 1 Tab by mouth at 30 Tab 2 09/18/2016 08/25/2017 (VITAMIN C) 250 mg tablet bedtime daily. Take with iron pill enoxaparin (LOVENOX) 100 Inject 1 mL under the 30 Syringe 2 201508/25/2017 mg syrg skin daily. furosemide (LASIX) 40 mg Take 40 mg by mouth every 08/25/2017 tablet morning. hydrALAZINE (APRESOLINE) Take 2 Tabs by mouth 540 Tab 3 07/24/2016 08/25/2017 50 mg tablet three times daily. isosorbide mononitrate SR Take 1 Tab by mouth 30 Tab 1 04/03/2016 (IMDUR) 30 mg tablet daily. senna/docusate Take 1 Tab by mouth daily 08/25/2017 (SENOKOT-S) 8.6/50 mg as needed. tablet as of this encounter Plan of Treatment Not on fileas of this encounter Results * DEVICE EVALUATION - REMOTE ILR (08/20/2017 10:43 AM) Component Value Ref Range Device Implanted By Dr. Lang Paredes Generator Model # [id number] Generator Serial # [id number] Generator Implnat Date 01/21/17 Remote Monitor Serial# [id number] DESTINEE/EOL Indicator per transmitter Generator Contract Post Office Clerk [employer] Generator Investigational No Wireless Generator Yes [...] Linq still implanted model: LINQ11 Serial # [id number] Implant date:09/06/2015 Atrial Lead Model # CAPSUREFIX NOVUS MRI SURESCAN 5076 52CM Atrial Lead Serial # [id number] Atrial Lead Implant Date 09/22/2015 Atrial Lead Diaph. 10 Stimulation Atrial Lead Contract Post Office Clerk [employer] Atrial Lead No Investigational Atrial Lead Fixation active fixation Atrial Lead Pin Connector IS1 Atrial Lead Polarity Bipolar RV Lead Model # CAPSUREFIX NOVUS MRI SURESCAN 5076 58CM RV Lead Serial # [id number] RV Lead Implant Date 09/22/2015 RV Lead Diaph. 10 Stimulation RV Lead Contract Post Office Clerk [employer] RV Lead Investigational No RV Lead Fixation active fixation RV Lead Pin Connector ICD IS1 Device Mode AAIR/DDDR Lower Rate Limit 60 Upper Rate Limit 130 Sensor Rate Limit 130 Pace AV Delay 180 Sense AV Delay 150 Mode Switch (bpm) 150 High A Rate Detect 150 High V Rate Detect 150 Mode Switch Status On Device [place] [employer] Express Transmitter Compatible Generator Location Left [...] OUTSIDE LAB Narrative [08/26/2017 1:47:31 PM - CANDE RODRIGUEZ] Presenting EGM: 08/26/17 @ 0004 SB 50 bpm Full report received and reviewed. No new events to report, Will continue to monitor,Routed to Dr. Paredes for review/cosign. [08/20/2017 10:45:15 AM - RUBIA MAHARAJ] Presenting EGM 08/18/17 @ 00:04 shows SR 63bpm. Summary report received and reviewed. No new event to report. Results routed to Dr. Paredes for signature and review. 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
--- OUTSIDE RECORDS SUMMARY | 2017-09-18 18:38 | XMS REPORT | Encounter Summary ---
Author Author [facility] Organization [facility] Address Unknown Phone Unavailable Care Team Providers Care Webfed Offset Press Operator Name Role Phone PCP Unavailable Reason for Visit * Reason Comments Heme/Onc Care Encounter Details Date Type Department Care Team Description 08/04/2017 Nurse Only [facility] Niko Phelps MD Malignant neoplasm of [facility] - [facility] Exam [address] left breast in female, [address] [place] [address] [place] [address] negative, unspecified [phone] site of breast (HCC) Social History Tobacco Use Types Packs/Day [...] on fileas of this encounter Results * MAGNESIUM (08/04/2017 10:31 AM) Component Value Ref Range Magnesium 2.1 1.6 - 2.6 mg/dL Specimen Performing Laboratory Blood [facility] [address] [place] [address] * CBC AND DIFF (08/04/2017 10:31 AM) Component Value Ref Range White Blood Cells [...] 0 - 0.20 K/UL Specimen Performing Laboratory [facility] [address] [place] [address] in this encounter Visit Diagnoses Diagnosis Malignant neoplasm of left breast in female, estrogen receptor negative, unspecified site of breast (HCC) in this encounter Administered Medications Medication Order MAR Action Action Date Dose Rate Site heparin lock flush PF syringe 500 Units Given 08/04/2017 500 Units 500 Units, Intravenous, ONCE, 1 dose, 10:27 CDT 08/04/17 at 1030, NOTE: This is a HIGH ALERT Medication. in this encounter
--- OUTSIDE RECORDS SUMMARY | 2017-09-18 18:38 | XMS REPORT | Encounter Summary ---
Author Author [facility] Organization [facility] Address Unknown Phone Unavailable Care Team Providers Care Patient Accounts Coordinator Name Role Phone PCP Unavailable Reason for Visit * Reason Comments Results cardiac cath & echo results from [facility] Encounter Details Date Type Department Care Team Description 07/23/2017 Documentation [facility] Flaquito Joseph RN Results (cardiac cath & [address] [place] echo results from [address]) [place] [address] Social History Tobacco Use Types Packs/Day Years [...] impairment: No 09/20/2016 as of this encounter Progress Notes * Flaquito Joseph RN - 07/23/2017 12:42 PM CDT Records request faxed to [facility] Records @ . * Flaquito Joseph RN - 07/23/2017 12:42 PM CDT Request for the following medical records for purpose of continuity of care: Had an appointment with LEESA Kurtz today (07/23) Please send the patient's most recent cardiac cath & echo reports. Please Fax to: [facility] - [phone] LEESA Kurtz Attention: Abel Joseph RN Thank you in this encounter Plan of Treatment Not on fileas of this encounter Visit Diagnoses Not on filein this encounter
--- OUTSIDE RECORDS SUMMARY | 2017-09-18 18:39 | XMS REPORT | Encounter Summary ---
Author Author [facility] Organization [facility] Address Unknown Phone Unavailable Care Team Providers Care Cashier Or Checker Stock Clerk Name Role Phone PCP Unavailable Reason for Visit * Reason Comments Records Request [facility] in [place]- hospitalization Encounter Details Date Type Department Care Team Description 07/21/2017 Documentation [facility] Pamella Meraz, MAGGIE Records Request ([facility] [address] [phone] in [place] [address] hospitalization) [place] [address] Social History Tobacco Use Types Packs/Day Years [...] as of this encounter Progress Notes * Pamella Meraz, RN - 07/21/2017 9:25 AM CDT Request for the following medical records for purpose of continuity of care: Patient hospitalized in June this year. Please fax the discharge summary, consultations, all test results, procedure results. Patient has follow up with cardiology on 07/23 Please Fax to Sweetie DANG @ [phone] Thank you Arlyn Meraz RN, CHFN Clinical Nurse Coordinator Heart Rhythm Management Triage [facility] [phone] in this encounter Plan of Treatment Not on fileas of this encounter Visit Diagnoses Not on filein this encounter
--- OUTSIDE RECORDS SUMMARY | 2017-09-18 18:39 | XMS REPORT | Encounter Summary ---
Author Author [facility] Organization [facility] Address Unknown Phone Unavailable Care Team Providers Care Overhead Line Worker Name Role Phone PCP Unavailable Reason for Visit * Reason Comments HRM - Abnormal Results Linq (Remote Device - Abnormal Rhythms) Encounter Details Date Type Department Care Team Description 07/21/2017 Telephone [facility] Pamella Meraz RN HRM - Abnormal Results [address] [phone] (Remote Device - Abnormal [address] Rhythms) (Linq) [place] [address] Social History Tobacco Use Types Packs/Day Years [...] encounter Miscellaneous Notes * Telephone Encounter - Pamella Meraz RN - 07/21/2017 9:04 AM CDT patient was recently hospitalized at [facility] in [place]. She had Heart cath is now on dialysis. I spoke with patient's daughter and reviewed below with her. She states that she is not aware of any events, but concerned that her mom was not notified sooner than today. I told her that the rate was controlled in the 60-70s and that her mom may have not had symptoms. She states her mother was asleep at the time and has appt on Friday with [facility] at . I will get records from [place] for hospitalization. * Telephone Encounter - Pamella Meraz RN - 07/21/2017 8:59 AM CDT ----- Message from Dayana Dhillon sent at 07/19/2017 1:01 PM CDT ----- Regarding: MPE ESTELA pt with numerous AF/Tachy events (AF with RVR) Reviewed Full Report revealed AF and tachy events from 06/29-07/04 from possible disconnection. #17, #29, 33-44 Tachy and AF shows irregular R-R intervals, likely AF with RVR. #2 AF 06/29 @ 23:11 lasting 10 hrs 30 min with a median V rate at 162 bpm and max V rate at 207 bpm shows a V rate in the 60's-70's > triplet > AF with RVR. All other strips were TEXT ONLY. Strips were scanned to review and f/u. Please see telephone note from 07/18. in this encounter Plan of Treatment Not on fileas of this encounter Visit Diagnoses Not on filein this encounter
--- OUTSIDE RECORDS SUMMARY | 2017-09-18 18:39 | XMS REPORT | Encounter Summary ---
Author Author [facility] Organization [facility] Address Unknown Phone Unavailable Care Team Providers Care Dump Truck Operator Name Role Phone PCP Unavailable Reason for Visit * Reason Comments Cardiac Eval pt made 3 month F/U possible AF Encounter Details Date Type Department Care Team Description 07/23/2017 Office Visit [facility] Cardiology Lang Paredes MD Cardiac Eval (pt made 3 [address] [facility] [address] month F/U possible AF) [address] [place] [address] [place] [address] [phone] C Sweetie borja APRN-ASSISTANT TODDLER TEACHER [address] [place] [address] [phone] Social History Tobacco Use Types Packs/Day Years Used Date Former Smoker Cigarettes 1 16 Quit: 06/13/1994 Smokeless Tobacco: Never Used Comments: quit 20 years ago Alcohol Use Drinks/Week oz/Week Comments Yes 0 Standard 0.0 occasionally drinks or equivalent Sex Assigned at Date Recorded Not on file as of this encounter Last Filed Vital Signs Vital Sign Reading Time Taken Blood Pressure 144/90 07/23/2017 9:36 AM CDT Pulse 59 07/23/2017 9:36 AM CDT Temperature - - Respiratory Rate - - Oxygen Saturation 93% 07/23/2017 9:36 AM CDT Inhaled Oxygen - - Concentration Weight 75.8 kg (167 lb) 07/23/2017 9:36 AM CDT Height 170.2 cm (5' 7") 07/23/2017 9:36 AM CDT Body Mass Index 26.16 07/23/2017 9:36 AM CDT in this encounter Functional Status [...] impairment: No 09/20/2016 as of this encounter Instructions * Patient Instructions - Flaquito Joseph RN - 07/23/2017 10:00 AM CDT 1. Follow-up with Dr. Paredes on 08/25 at 3:15pm at the [facility] 2. We will contact you regarding your Eliquis dose 3. Get labs drawn today in this encounter Progress Notes * Sweetie Castorena APRN-KAY - 07/23/2017 10:00 AM CDT Formatting of this note may be different from the original. Date of Service: 07/23/2017 Brigitte Gallegos is a 72 y.o. female. HPI Brigitte Gallegos was seen in the office today in electrophysiology follow up. As you may know, she is a 72 y.o. female, with past medical history including hypertension, hyperlipidemia, coronary artery disease with remote myocardial infarction and bypass grafting in 2007 and chronic kidney disease. She does have paroxysmal atrial arrhythmias with tachybradycardia syndrome. She did undergo permanent pacemaker placement on the right on September 22, 2015. She did have lead dislodgment and during lead revision did suffer pseudoaneurysm requiring full system extraction and subsequent coil embolization on September 27, 2015. Since that time Ms. Gallegos has been treated on low-dose amiodarone therapy. She does have implantable loop recorder in place. She was last evaluated by her primary fluoroscope operator, Dr. Lang Paredes, in March. At that time she appeared to be maintained sinus rhythm a majority of the time on low-dose amiodarone 200 mg Friday through Friday only due to some concerns for interstitial lung disease. She was being treated with chemotherapy and Herceptin for recently diagnosed breast cancer. Patient's daughter did contact her office requesting to be seen due to her recent hospitalization at outside hospital. Ms. Gallegos reports developing elevated heart rates with midsternal chest pressure and heaviness as well as headache and nausea. She was admitted and found to have [...] favor of Eliquis 5 mg twice daily. She states that since discharge from the hospital she has been feeling well she reports tolerating dialysis reasonably well with some mild lightheadedness at the end of sessions. She denies any further palpitations she denies any symptoms of dizziness, lightheadedness, syncope or near syncope. She has had no further episodes of chest discomfort but reports some episodes of some upper and lower back pain. Vitals: 07/23/17 0936 BP: 144/90 Pulse: 59 SpO2: 93% Weight: 75.8 kg (167 lb) Height: 1.702 m (5' 7") Body mass index is 26.16 kg/(m^2). Past Medical History Patient Active Problem List Diagnosis Date Noted Sinus bradycardia 07/23/2017 Ischemic cardiomyopathy 07/23/2017 Chronic systolic CHF (congestive heart failure) ([facility]) 07/23/2017 Paroxysmal atrial fibrillation ([facility]) 04/13/2017 ILD (interstitial lung disease) ([facility]) 09/20/2016 Suspect secondary to Amiodarone. Although other etiologies to consider are Hypersensitivity pneumonitis, connective tissue disease induced ILD or Idiopathic. Nocturnal hypoxemia was noted on the sleep study. She was given supplemental O2 through [place] [facility] home by her PCP after her exercise oximetry was low. Echocardiogram in June 2016 normal systolic and diastolic function. Estimated peak PA pressure was 44 mmhg. PFT's in 08/04 showed restrictive lung disease. Acute hypoxemic respiratory failure ([facility]) 09/13/2016 Supratherapeutic INR 09/13/2016 Amiodarone Monitoring 07/28/2016 [...] in 04/2016. Left breast sono-guided biopsy 05/06/16 ([place], [place]) revealed grade 3 invasive ductal carcinoma. Left axillary sono-guided biopsy 05/06/16 ([place], [place]) revealed grade 3 invasive ductal carcinoma (no identifiable lymph node tissue). Ms. Gallegos underwent left modified radical mastectomy on 06/28/16. PATHOLOGY: Tumor: 4.7 cm Margins Free From Tumor: Yes ER: negative NE: negative Her 2: negative Grade: 3 Lymph Nodes: 05/06, largest met 2.3 cm LVSI: no Extranodal extension: yes BREAST IMAGING: Mammogram: -- Bilateral diagnostic mammogram 04/29/16 ([place], [place]) revealed scattered fibroglandular density. There was [...] node. Ultrasound: -- Left breast ultrasound 04/29/16 ([place], [place]) revealed an irregular mass at 3:00, [...] nodes were identified Other: -- PET/CT 05/21/16 ([place], [place]) revealed a hypermetabolic mass in the [...] Cardiology and pulmonology at , nephrology in [place] Shortness of breath 05/09/2016 SOB with exertion. Nocturnal hypoxemia on the sleep study. She was given supplemental O2 through [place] [facility] home by her PCP after her exercise oximetry was low. Echocardiogram in 2015 nrmal systolic and diastolic function. PFT's showed restrictive lung disease. I suspect this is related to her cardiac disease. Although need to think about deconditioning vs. Interstitial lung disease vs. Obesity vs. PAH. Cardiac device in situ 05/02/2016 Acute respiratory failure with hypoxia (HCC) 03/25/2016 On mechanically assisted ventilation ([facility]) 03/25/2016 Coronary artery disease involving la posta coronary artery of [place] post[place] heart without angina pectoris 03/25/2016 Pneumonia due to infectious organism 03/25/2016 Nocturnal hypoxemia 03/13/2016 DM (diabetes mellitus) ([facility]) End stage chronic kidney disease ([facility]) 06/12/2015 06/07/14: Renal ultrasound: No definitive evidence of renal disease. No evidence hydronephrosis. Coronary artery disease involving coronary bypass graft of [place] heart with angina pectoris with documented spasm ([facility]) 06/12/2015 2008: Bypass surgery 06/09/14: LHC: Patent [...] anxious. Allergic/Immunologic: Negative. Physical Exam Constitutional: She appears well-developed and well-nourished. HENT: Head: Normocephalic and atraumatic. Eyes: Conjunctivae are normal. Neck: Neck supple. No carotid bruits auscultated Cardiovascular: Normal rate and regular rhythm. Murmur heard. 4/6 harsh systolic murmur heard best at left and right sternal borders Pulmonary/Chest: Effort normal and breath sounds normal. Abdominal: Soft. Musculoskeletal: She exhibits no edema. Neurological: She is alert and oriented to person, place, and time. Skin: Skin is warm and dry. There is pallor. Psychiatric: She has a normal mood and affect. Her behavior is normal. Cardiovascular Studies - ILR interrogation today shows frequent episodes of PAF 06/29/17 thru 07/04/17 with RVR. Episodes lasting minutes up to 10.5 hours and average V-rates in the 130's to 150's. - Echo completed @ OSH 2016 showed EF 30% - Cardiac cath @ OSH 2016 showed 'significant disease, but nothing amenable to intervention --> decision was made to treat medically" Problems Addressed Today Encounter Diagnoses Name Primary? Essential hypertension with goal blood pressure less than 130/80 Yes Paroxysmal atrial fibrillation (HCC) Coronary artery disease involving coronary bypass graft of [place] heart with angina pectoris with documented spasm (HCC) Anxiety Amiodarone Monitoring Sinus bradycardia Malignant neoplasm of lower-outer quadrant of left female breast, unspecified estrogen receptor status (HCC) Ischemic cardiomyopathy Chronic systolic CHF (congestive heart failure) (HCC) Normocytic anemia Assessment and Plan Paroxysmal atrial fibrillation - It appears the patient did have an increased burden of atrial fibrillation several days prior to her hospitalization with average ventricular rates in the 140s-160s. She did have an episode lasting upwards of 10-1/2 hours several days prior to admission. It is not clear whether this led to her myocardial ischemia or her myocardial ischemia triggered her atrial fibrillation. Regardless her burden of atrial arrhythmias is significantly improved since discharge from the hospital. She remains on amiodarone 400 mg daily and Coreg 25 mg twice daily in addition to oral anticoagulation with Eliquis 5 mg twice daily. I have made no adjustments to these medications at this time however we will need to monitor closely her amiodarone dose given her history of interstitial lung disease. We will also need to watch for any bradycardia arrhythmias that she has had a tendency to sinus bradycardia in the past. We will continue to monitor her rhythm with remote ILR interrogations. Coronary artery disease -She has had remote bypass grafting and reportedly non-ST elevation myocardial infarction during her recent hospitalization. I do not have results of cardiac catheterization at this time however reports are that her disease was significant and unamenable to intervention. Her Imdur was increased from 30 mg daily to 60 mg daily and this appears to be controlling any symptoms of angina at this time. She may also benefit from low-dose however given her oral anticoagulation and tendency for anemia we will hold off for now. Ischemic cardiomyopathy -She has had normal LV function on prior echocardiograms in our office. EF was reportedly 30% at outside hospital. She has been initiated on Coreg 25 mg twice daily. We will plan to reevaluate this within the next several months. Hopeful that EF will improve goal directed medical therapy and if she gets further out from myocardial infarction. End-stage renal disease on hemodialysis - Currently she is dialyzing from central line to left chest with plans for fistula formation to left upper extremity in the near future. She does have port to right side of her chest for chemotherapy administration. Hopefully we can avoid permanent pacemaker/defibrillator placement in the future given her difficult venous access. Sinus bradycardia With prior permanent pacemaker implantation-extracted due to complications from pseudoaneurysm. She does have implantable loop recorder for close monitoring and her bradycardia appears stable at this time on current regimen. Hopeful that we can avoid any permanent pacing in this patient given her difficult vascular access with history of pseudoaneurysm on the right AV fistula to the left upper extremity. Chronic anemia -We will recheck CBC in office today I have made no adjustments to patient's medications today I have arranged a BMP and CBC to be drawn in our office prior to her leaving. He will return to see Dr. Paredes in 4-6 weeks time for reevaluation and contact her office sooner for worsening of symptoms or new complaints both she and her daughter at the bedside verbalizes good understanding and agreement with this plan. Sweetie Castorena, ASSISTANT TODDLER TEACHER-C Current Medications (including today's revisions) albuterol-ipratropium (DUONEB) 0.5 mg-3 mg(2.5 mg base)/3 [...] tablet Take 1 Tab by mouth daily. lidocaine-prilocaine (EMLA) 2.5-2.5 % topical cream Apply nickel size amount to port access site 30 minutes before accessing port Magnesium 250 mg tab Take 250 mg by mouth daily. Dthqtxsuijizc-Ku-Givs-Minerals (WOMEN'S DAILY MULTIVITAMIN) 18-0.4 mg tab Take 1 Tab by mouth daily. nitroglycerin (NITROSTAT) 0.[address] 0.4 mg under tongue every 5 minutes as needed for Chest Pain. ondansetron (ZOFRAN ODT) 4 mg rapid dissolve tablet Take 4 mg by mouth every 8 hours as needed for Nausea. OXYGEN-AIR DELIVERY SYSTEMS MISC Use 1 L as directed at bedtime daily. pantoprazole DR (PROTONIX) 40 mg tablet Take 40 mg by mouth daily. senna/docusate (SENOKOT-S) 8.6/50 mg tablet Take 1 Tab by mouth daily as needed. sertraline (ZOLOFT) 100 mg tablet Take 150 mg by mouth daily. traZODone (DESYREL) 100 mg tablet Take 0.5 Tabs by mouth at bedtime daily. in this encounter Plan of Treatment Name Priority Associated Diagnoses Order Schedule ECG 12-LEAD Routine Paroxysmal atrial Ordered: 07/23/2017 fibrillation (HCC) as of this encounter Results * CBC AND DIFF (07/23/2017 10:50 AM) Component Value Ref Range White Blood Cells 5.4 4.5 - 11.0 K/UL RBC 2.87 (L) 4.0 - 5.0 M/UL Hemoglobin 8.8 (L) 12.0 - 15.0 GM/DL Hematocrit 25.8 (L) 36 - 45 % MCV 90.1 80 - 100 FL MCH 30.7 26 - 34 PG MCHC 34.1 32.0 - 36.0 G/DL RDW 17.7 (H) 11 - 15 % Platelet Count 110 (L) 150 - 400 K/UL MPV 7.2 7 - 11 FL Neutrophils 75 41 - 77 % Lymphocytes 16 (L) 24 - 44 % Monocytes 7 4 - 12 % Eosinophils 2 0 - 5 % Basophils 0 0 - 2 % Absolute Neutrophil Count 4.00 1.8 - 7.0 K/UL Absolute Lymph Count 0.90 (L) 1.0 - 4.8 K/UL Absolute Monocyte Count 0.40 0 - 0.80 K/UL Absolute Eosinophil Count 0.10 0 - 0.45 K/UL Absolute Basophil Count 0.00 0 - 0.20 K/UL Specimen Performing Laboratory [facility] [address] [place] [address] * MAGNESIUM (07/23/2017 10:50 AM) Component Value Ref Range Magnesium 2.0 1.6 - 2.6 mg/dL Specimen Performing Laboratory [facility] [address] [place] [address] * BASIC METABOLIC PANEL (07/23/2017 10:50 AM) [...] Performing Laboratory [facility] [address] [place] [address] in this encounter Visit Diagnoses Diagnosis Essential hypertension with goal blood pressure less than 130/80 - Primary Paroxysmal atrial fibrillation (HCC) Atrial fibrillation Coronary artery disease involving coronary bypass graft of [place] heart with angina pectoris with documented spasm (HCC) Anxiety Anxiety state, unspecified Amiodarone Monitoring Sinus bradycardia Other specified cardiac dysrhythmias Malignant neoplasm of lower-outer quadrant of left female breast, unspecified estrogen receptor status ([facility]) Ischemic cardiomyopathy Other specified forms of chronic ischemic heart disease Chronic systolic CHF (congestive heart failure) (HCC) Chronic systolic heart failure Normocytic anemia Anemia, unspecified in this encounter
--- OUTSIDE RECORDS SUMMARY | 2017-09-18 18:39 | XMS REPORT | Encounter Summary ---
Author Author [facility] Organization [facility] Address Unknown Phone Unavailable Care Team Providers Care Asset Administrator Name Role Phone PCP Unavailable Encounter Details Date Type Department Care Team Description 07/23/2017 [facility] Cardiology Lang Paredes MD Canceled (Other) Encounter [address] [place] [address] [place] [address] [address] [place] [address] [phone] Social History Tobacco Use Types Packs/Day Years [...] impairment: No 09/20/2016 as of this encounter Medications at Time [...] artery disease involving coronary bypass graft of [place] heart with angina pectoris with documented spasm ([facility]) blood sugar diagnostic Test three [...] mid dose correction sliding scale provided. lancets [facility] Test Blood Glucose three 06/04/2017 times daily Prn. Dx E10.9. Magnesium 250 mg tab Take 250 mg by mouth daily. Tmbeeuwzlxswp-Ll-Qkfr-Min Take 1 Tab by mouth erals (WOMEN'S DAILY daily. MULTIVITAMIN) 18-0.4 mg tab nitroglycerin (NITROSTAT) Place 0.4 mg under tongue 0.4 mg tablet every 5 minutes as needed for Chest Pain. ondansetron (ZOFRAN ODT) Take 4 mg by mouth every 4 mg rapid dissolve 8 hours as needed for tablet Nausea. OXYGEN-AIR DELIVERY Use 1 L as directed at [facility] bedtime daily. pantoprazole DR Take 40 mg [...] 1 04/03/2016 (IMDUR) 30 mg tablet daily. lidocaine-prilocaine Apply nickel size amount 30 g 1 12/31/2016 (EMLA) 2.5-2.5 % topical to port access site 30 cream minutes before accessing port senna/docusate Take 1 Tab by mouth daily 08/25/2017 (SENOKOT-S) 8.6/50 mg as needed. tablet as of this encounter Plan of Treatment Not on fileas of this encounter Visit Diagnoses Diagnosis Shortness of breath Cardiac device in situ Unspecified cardiac device in situ Paroxysmal atrial fibrillation (HCC) Atrial fibrillation in this encounter
--- OUTSIDE RECORDS SUMMARY | 2017-09-18 18:39 | XMS REPORT | Encounter Summary ---
Author Author [facility] Organization [facility] Address Unknown Phone Unavailable Care Team Providers Care Detention Worker Name Role Phone PCP Unavailable Reason for Visit * Reason Comments HRM - Abnormal Results possible AF on LINQ, pt started on AC by local provider (Remote Device - Abnormal Rhythms) Encounter Details Date Type Department Care Team Description 07/18/2017 Telephone [facility] Cardiology Alondra Schuster RN HRM - Abnormal Results [address] [place] (Remote Device - Abnormal Yann [address] Rhythms) ([place] [address] LINQ, pt started on AC by [phone] local provider) Social History Tobacco Use Types Packs/Day Years [...] as of this encounter Miscellaneous Notes * Addendum Note - Alondra Schuster RN - 07/18/2017 3:54 PM CDT Addended by: ALONDRA SCHUSTER on: 07/18/2017 03:54 PM Modules accepted: Orders * Telephone Encounter - Alondra Schuster, MAGGIE - 07/18/2017 3:45 PM CDT ALTON Jones RN Caller: Unspecified (Today, 3:06 PM) I think it is atrial fibrillation. Make sure she is taking her aspirin. I am not going to start her on anticoagulation since it was 6 seconds but we should ask MPE if he wants too Placed call to pt again to discuss, able to reach pt. Informed her of [facility] in [place] with "slight heart attack" and they changed her meds and she is on dialysis. She states she is on Eliquis 5 mg twice a day and she stopped asa, med list updated. She is doing dialysis T. Pt confirmed her f/u OV with DIESEL POWERPLANT MECHANIC. Advised pt to carefully monitor for bleeding and to notify our office with any questions or concerns. Pt states understanding and is agreeable to plan. No further questions or concerns at this time. Records from last hospitalization will be available via Care Everywhere. * Telephone Encounter - Alondra Schuster RN - 07/18/2017 3:06 PM CDT History of AF with high chads of 5, pt has been OFF AC d/t anemia, GI bleed issues. Placed call to pt to discuss events and any symptoms. LM requesting CB to discuss. Will route to DIESEL POWERPLANT MECHANIC as MPE out of office and possible true AF on LINQ. * Telephone Encounter - Alondra Schuster RN - 07/18/2017 3:05 PM CDT ----- Message from Dayana Dhillon sent at 07/18/2017 1:16 PM CDT ----- Regarding: MPE LINQ pt with AF and Tachy alerts #45 AF 07/04 @ 07:39 lasting 48 min with a median V rate at 140 bpm and max V rate at 146 bpm, the 10 sec strip shows AF/RVR with a V rate between 90's-140' s. #29 Tachy 07/01 @ 10:20 lasting 32 sec with a median/max V rate at 182 bpm shows possible AF with RVR with V rates between 120's-207 bpm. Strips were scanned to review and f/u if needed. Pt on Lovenox. LM for pt to send a remote transmission to see stored information. in this encounter Plan of Treatment Not on fileas of this encounter Visit Diagnoses Not on filein this encounter
--- OUTSIDE RECORDS SUMMARY | 2017-09-18 18:39 | XMS REPORT | Encounter Summary ---
Author Author [facility] Organization [facility] Address Unknown Phone Unavailable Care Team Providers Care Title One Kindergarten Teacher Name Role Phone PCP Unavailable Encounter Details Date Type Department Care Team Description 07/23/2017 [facility] Cardiology Sweetie Castorena, Encounter [address] [place] [employer] [address] [address] [place] [phone] [place] [address] [phone] Social History Tobacco Use Types Packs/Day Years [...] daily. Atrial fibrillation with rapid ventricular response ([facility]), Coronary artery disease involving coronary bypass graft of [place] heart with angina pectoris with documented spasm ([facility]) blood sugar diagnostic Test three times daily. [...] mid dose correction sliding scale provided. lancets [facility] Test Blood Glucose three 06/04/2017 times daily Prn. Dx E10.9. Magnesium 250 mg tab Take 250 mg by mouth daily. Tdoltwkpyyzgg-Pw-Hees-Min Take 1 Tab by mouth erals (WOMEN'S DAILY daily. MULTIVITAMIN) 18-0.4 mg tab nitroglycerin (NITROSTAT) Place 0.4 mg under tongue 0.4 mg tablet every 5 minutes as needed for Chest Pain. ondansetron (ZOFRAN ODT) Take 4 mg by mouth every 4 mg rapid dissolve 8 hours as needed for tablet Nausea. OXYGEN-AIR DELIVERY Use 1 L as directed at [facility] bedtime daily. pantoprazole DR Take 40 mg [...] fileas of this encounter Results * MAGNESIUM (07/23/2017 10:50 AM) Component Value Ref Range Magnesium 2.0 1.6 - 2.6 mg/dL Specimen Performing Laboratory [facility] [address] [place] [address] * CBC AND DIFF (07/23/2017 10:50 AM) [...] Performing Laboratory [facility] [address] [place] [address] * BASIC METABOLIC PANEL (07/23/2017 10:50 AM) [...] Performing Laboratory [facility] [address] [place] [address] in this encounter Visit Diagnoses Diagnosis Paroxysmal atrial fibrillation (HCC) Atrial fibrillation in this encounter
--- OUTSIDE RECORDS SUMMARY | 2017-09-18 18:39 | XMS REPORT | Encounter Summary ---
Author Author [facility] Organization [facility] Address Unknown Phone Unavailable Care Team Providers Care Clinical Trainer Name Role Phone PCP Unavailable Encounter Details Date Type Department Care Team Description 07/15/2017 [facility] Cardiology Lang Paredes MD Encounter Remote Device Check [address] [facility] [phone] [address] [place] [address] [phone] Social History Tobacco Use Types Packs/Day Years [...] artery disease involving coronary bypass graft of [place] heart with angina pectoris with documented spasm [...] mid dose correction sliding scale provided. lancets [facility] Test Blood Glucose three 06/04/2017 times daily Prn. Dx E10.9. Magnesium 250 mg tab Take 250 mg by mouth daily. Emjndogxxalck-Tz-Xcvt-Min Take 1 Tab by mouth erals (WOMEN'S DAILY daily. MULTIVITAMIN) 18-0.4 mg tab nitroglycerin (NITROSTAT) Place 0.4 mg under tongue 0.4 mg tablet every 5 minutes as needed for Chest Pain. ondansetron (ZOFRAN ODT) Take 4 mg by mouth every 4 mg rapid dissolve 8 hours as needed for tablet Nausea. OXYGEN-AIR DELIVERY Use 1 L as directed at SYSTEMS [facility] bedtime daily. pantoprazole DR Take 40 mg [...] with goal blood pressure less than 140/90 ascorbic acid (vitamin C) Take 1 Tab by mouth at 30 Tab 2 09/18/2016 08/25/2017 (VITAMIN C) 250 mg tablet bedtime daily. Take with iron pill aspirin EC 81 mg tablet Take 81 mg by mouth 07/18/2017 daily. enoxaparin (LOVENOX) 100 Inject 1 mL under [...] Results * DEVICE EVALUATION - REMOTE ILR (07/18/2017 1:01 PM) Component Value Ref Range Device Implanted By Dr. Lang Paredes Generator Model # LNQ11 Generator Serial # [id number] Generator Implnat Date 01/21/17 Remote Monitor Serial# [id number] DESTINEE/EOL Indicator per transmitter Generator Stoker Erector Medtronic Generator Investigational No Wireless Generator Yes [...] Linq still implanted model: LINQ11 Serial # [id number] Implant date:09/06/2015 Atrial Lead Model # CAPSUREFIX NOVUS MRI SURESCAN 5076 52CM Atrial Lead Serial # [id number] Atrial Lead Implant Date 09/22/2015 Atrial Lead Diaph. 10 Stimulation Atrial Lead Stoker Erector Medtronic Atrial Lead No Investigational Atrial Lead Fixation active fixation Atrial Lead Pin Connector IS1 Atrial Lead Polarity Bipolar RV Lead Model # CAPSUREFIX NOVUS MRI SURESCAN 5076 58CM RV Lead Serial # [id number] RV Lead Implant Date 09/22/2015 RV Lead Diaph. 10 Stimulation RV Lead Stoker Erector Medtronic RV Lead Investigational No RV Lead Fixation active fixation RV Lead Pin Connector ICD IS1 Device Mode AAIR/DDDR Lower Rate Limit 60 Upper Rate Limit 130 Sensor Rate Limit 130 Pace AV Delay 180 Sense AV Delay 150 Mode Switch (bpm) 150 High A Rate Detect 150 High V Rate Detect 150 Mode Switch Status On Device [place] [employer] Express Transmitter Compatible Generator Location Left ILR Current Monitoring 07/15/2017 to 08/14/2017 Period ILR Date of Last Daily 07/19/2017 Connection ILR Battery Status OK ILR Symptom Events Since 0 Last Interrogation ILR Symptom Lifetime 0 Events as of ILR Tachy Events Since 7 Last Interrogation ILR Tachy Lifetime Events 8 as of ILR Pause Events Since 0 Last Interrogation ILR Pause Lifetime Events 0 as of ILR Dedrick Events Since 0 Last Interrogation ILR Dedrick Lifetime Events 0 as of ILR AF Events Since Last 88 Interrogation ILR AF Lifetime Events as 88 of ILR Percent Time in AT/AF 10.2% Events Since Last Interrogation ILR Percent Time in AT/AF 1.4% Lifetime of Events as of ILR Presenting ECG Strip 07/18/2017 @ 00:04:50 shows SB in the 50's ILR Lifetime Events as of 07/19/2017 Datetion Specimen Performing Laboratory OTHER OUTSIDE LAB Narrative [07/19/2017 12:30:09 PM - KIERRA ORNELAS] Reviewed Full Report revealed AF and tachy [...] ONLY. Strips were scanned to review and I will route to Dr. Paredes for review and co-sign. EP nurse was urgently flagged to review and f/u. Telephone note per Elmira Ferro RN on 07/18/17 3:45 PM Saumya Pate APRN-Enoc Ferro, MAGGIE Caller: Unspecified (Today, 3: 06 PM) I think it is atrial fibrillation. Make sure she is taking her aspirin. I am not going to start her on anticoagulation since it was 6 seconds but we should ask MPE if he wants too Placed call to pt again to discuss, able to reach pt. Informed her of [facility] in [place] with "slight heart attack" and they changed her meds and she is on dialysis. She states she is on Eliquis 5 mg twice a day and she stopped asa, med list updated. She is doing dialysis . Pt confirmed her f/u OV 07/23 with [facility] [employer] [employer]. Advised pt to carefully monitor for bleeding and to notify our office with any questions or concerns. Pt states understanding and is agreeable to plan. No further questions or concerns at this time. Records from last hospitalization will be available via Care Everywhere. [07/18/2017 1:04:52 PM - KIERRA ORNELAS] Reviewed Event Report. Report indicates seven tachy and 88 AF events. #45 AF /15 @ 07:39 lasting 48 min with a median V rate at 140 bpm and max V rate at 146 bpm, the 10 sec strip shows AF/RVR with a V rate between 90's-140's. #29 Tachy 07/01 @ 10:20 lasting 32 sec with a median/max V rate at 182 bpm shows possible AF with RVR with V rates between 120's-207 bpm. Strips were scanned to review and I will route to Dr. Pate in the EP lab at today for review and co-sign. MPE is out of the office. EP nurse was flagged to review and f/u if needed. Pt on STWA. for pt to send a remote transmission to see stored information. 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
--- OUTSIDE RECORDS SUMMARY | 2017-09-18 18:39 | XMS REPORT | Encounter Summary ---
Author Author [facility] Organization [facility] Address Unknown Phone Unavailable Care Team Providers Care Hunter Guide Name Role Phone PCP Unavailable Encounter Details Date Type Department Care Team Description 07/07/2017 Documentation [facility] [place] [address] [facility] [address] [place] [address] Social History Tobacco Use Types Packs/Day Years [...] as of this encounter Progress Notes * Isidra Baker RN - 07/07/2017 1:04 PM CDT This encounter was created in error. Please disregard. in this encounter Plan of Treatment Not on fileas of this encounter Visit Diagnoses Not on filein this encounter
--- OUTSIDE RECORDS SUMMARY | 2017-09-18 18:40 | XMS REPORT | Encounter Summary ---
Author Author [facility] Organization [facility] Address Unknown Phone Unavailable Care Team Providers Care Freight Conductor Name Role Phone PCP Unavailable Reason for Visit * Reason Comments Other ILR Tachy event Encounter Details Date Type Department Care Team Description 06/19/2017 Telephone [facility] Cardiology Estefany Jiang RN Other (ILR Tachy event) [address] [place] [address] Social History Tobacco Use Types Packs/Day Years [...] encounter Miscellaneous Notes * Telephone Encounter - Estefany Jiang RN - 06/19/2017 1:28 PM CDT Received notification re: below event. I called the patient and she does not recall any symptoms during this episode. She feels well overall. Will continue to monitor and call back if MPE has any further recs. Patient verbalized understanding. MAGGIE Pastor [06/19/2017 11:12:33 AM - CANDE RODRIGUEZ] Summary report received and reviewed, 1 new tachy event # 1- Tachy- 05/29/17 @ 1402 lasting 6 seconds with max V rate of 188 bpm and median V rate of 182 bpm- rhythm strip shows ST 130's > ~ 10 seconds SVT 180's- 190's. Return to ST 130's at termination of transmission Strip scanned for further review, will continue to monitor. Routed to Dr. Almodovar in EP lab for review/cosign, Dr. Lena GOMEZ. EP nurse flagged for f/u if needed in this encounter Plan of Treatment Not on fileas of this encounter Visit Diagnoses Not on filein this encounter
--- OUTSIDE RECORDS SUMMARY | 2017-09-18 18:40 | XMS REPORT | Encounter Summary ---
Author Author [facility] Organization [facility] Address Unknown Phone Unavailable Care Team Providers Care Subpoena Server Name Role Phone PCP Unavailable Encounter Details Date Type Department Care Team Description 06/25/2017 [facility] [address] Estefany Hand APRN No Show Encounter [facility] [address] [place] [address] [address] [place] [address] [phone] Social History Tobacco Use Types Packs/Day Years [...] artery disease involving coronary bypass graft of [place] heart with angina pectoris with documented spasm ([facility]) blood sugar diagnostic Test three [...] mid dose correction sliding scale provided. lancets [facility] Test Blood Glucose three 06/04/2017 times daily Prn. Dx E10.9. Magnesium 250 mg tab Take 250 mg by mouth daily. Gwvumkvnphkal-Tj-Soos-Min Take 1 Tab by mouth erals (WOMEN'S DAILY daily. MULTIVITAMIN) 18-0.4 mg tab nitroglycerin (NITROSTAT) Place 0.4 mg under tongue 0.4 mg tablet every 5 minutes as needed for Chest Pain. ondansetron (ZOFRAN ODT) Take 4 mg by mouth every 4 mg rapid dissolve 8 hours as needed for tablet Nausea. OXYGEN-AIR DELIVERY Use 1 L as directed at SYSTEM[facility] bedtime daily. pantoprazole DR Take 40 mg [...] on fileas of this encounter Results * CBC AND DIFF (06/25/2017 12:06 PM) Component Value Ref Range White Blood Cells 5.9 4.5 - 11.0 K/UL RBC 3.52 (L) 4.0 - 5.0 M/UL Hemoglobin 10.3 (L) 12.0 - 15.0 GM/DL Hematocrit 31.4 (L) 36 - 45 % MCV 89.1 80 - 100 FL MCH 29.2 26 - 34 PG MCHC 32.8 32.0 - 36.0 G/DL RDW 16.7 (H) 11 - 15 % Platelet Count 118 (L) 150 - 400 K/UL MPV 7.8 7 - 11 FL Neutrophils 79 (H) 41 - 77 % Lymphocytes 10 (L) 24 - 44 % Monocytes 6 4 - 12 % Eosinophils 4 0 - 5 % Basophils 1 0 - 2 % Absolute Neutrophil Count 4.60 1.8 - 7.0 K/UL Absolute Lymph Count 0.60 (L) 1.0 - 4.8 K/UL Absolute Monocyte Count 0.30 0 - 0.80 K/UL Absolute Eosinophil Count 0.20 0 - 0.45 K/UL Absolute Basophil Count 0.10 0 - 0.20 K/UL Specimen Performing Laboratory Blood [facility] [address] [place] [address] in this encounter Visit Diagnoses Diagnosis Malignant neoplasm of left breast in female, estrogen receptor negative, unspecified site of breast (HCC) in this encounter
--- OUTSIDE RECORDS SUMMARY | 2017-09-18 18:40 | XMS REPORT | Encounter Summary ---
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 Name Role Phone PCP Unavailable Reason for Visit * Reason Comments Heme/Onc Care Encounter Details Date Type Department Care Team Description 06/25/2017 Office Visit [facility] Estefany Hand APRN Malignant neoplasm of [facility] Exam [address] left breast in female, [address] [place] [address] [place] [address] negative, unspecified [phone] site of breast (Primary Dx) Social History Tobacco Use Types Packs/Day Years Used Date Former Smoker Cigarettes 1 16 Quit: 06/13/1994 Smokeless Tobacco: Never Used Comments: quit 20 years ago Alcohol Use Drinks/Week oz/Week Comments Yes 0 Standard 0.0 occasionally drinks or equivalent Sex Assigned at Date Recorded Not on file as of this encounter Last Filed Vital Signs Vital Sign Reading Time Taken Blood Pressure 164/94 06/25/2017 12:21 PM CDT Pulse 79 06/25/2017 12:21 PM CDT Temperature 36.5 C (97.7 F) 06/25/2017 12:21 PM CDT Respiratory Rate - - Oxygen Saturation 96% 06/25/2017 12:21 PM CDT Inhaled Oxygen - - Concentration Weight 75.2 kg (165 lb 12.8 oz) 06/25/2017 12:21 PM CDT Height 170.2 cm (5' 7") 06/25/2017 12:21 PM CDT Body Mass Index 25.97 06/25/2017 12:21 PM CDT in this encounter Functional Status Functional [...] as of this encounter Progress Notes * Kimberlynmatthew EstefanyJULIANA boyer - 06/25/2017 11:30 AM CDT Formatting of this note may be different from the original. Date of Service: 06/25/2017 Subjective: : Heme/Onc Care Malignant neoplasm of [...] who had a cardiac stress test at [facility] in [place], [place] in 04/2016 that indicated a "shadow [...] (in breast mass and LN), ER 0%, AL 0%, Ki-67 50% and HER2 3+. On [...] EF. Ms. Gallegos is here today for survivorship care plan. Review of Systems Constitutional: Positive for fatigue. Negative for activity change, appetite change and unexpected weight change. HENT: Negative for congestion, nosebleeds, rhinorrhea and sneezing. Eyes: Negative for itching. Respiratory: Positive for shortness of breath (chronic). Negative for apnea, cough and chest tightness. On 2 liters O2 Cardiovascular: Negative. Negative for chest pain. Gastrointestinal: Positive for nausea. Negative for abdominal distention, abdominal pain and constipation. Genitourinary: Negative. Negative for difficulty urinating. Musculoskeletal: Positive for arthralgias (baseline), back pain and myalgias. Skin: Negative for wound. Neurological: Positive for tremors. Negative for dizziness, weakness, light- headedness and headaches. Hematological: Negative for adenopathy. Psychiatric/Behavioral: Positive for sleep disturbance. Negative for agitation. The patient is nervous/anxious. Allergies Allergen Reactions [...] tablet Take 10 mg by mouth daily. ascorbic acid (vitamin C) (VITAMIN C) 250 mg tablet Take 1 Tab by mouth at bedtime daily. Take with iron pill aspirin EC 81 mg tablet Take 81 mg by mouth daily. atorvastatin (LIPITOR) 40 mg tablet Take 1 [...] tab Take 250 mg by mouth daily. Xgzjipepenhgp-Br-Ejfd-Minerals (WOMEN'S DAILY MULTIVITAMIN) 18-0.4 mg tab Take 1 Tab by mouth daily. nitroglycerin (NITROSTAT) 0.[address] 0.4 mg under tongue every 5 minutes as needed for Chest Pain. ondansetron (ZOFRAN ODT) 4 mg rapid dissolve tablet Take 4 mg by mouth every 8 hours as needed for Nausea. OXYGEN-AIR DELIVERY [facility] Use 1 L as directed at bedtime daily. pantoprazole DR (PROTONIX) 40 mg tablet Take 40 mg by mouth daily. senna/docusate (SENOKOT-S) 8.6/50 mg tablet Take 1 Tab by mouth daily as needed. sertraline (ZOLOFT) 100 mg tablet Take 150 mg by mouth daily. traZODone (DESYREL) 100 mg tablet Take 0.5 Tabs by mouth at bedtime daily. Vitals: 06/25/17 1221 BP: (!) 164/94 Pulse: 79 Temp: 36.5 C (97.7 F) SpO2: 96% Weight: 75.2 kg (165 lb 12.8 oz) Height: 170.2 cm (67") Body mass index is 25.97 kg/(m^2). Pain Score: Four Pain Loc: Back Pain Addressed: no pain Patient Evaluated for [...] w/Diff Lab Results Component Value Date/Time WBC 5.9 06/25/2017 12:06 PM RBC 3.52 (L) 06/25/2017 12:06 PM HGB 10.3 (L) 06/25/2017 12:06 PM HCT 31.4 (L) 06/25/2017 12:06 PM MCV 89.1 06/25/2017 12:06 PM MCH 29.2 06/25/2017 12:06 PM MCHC 32.8 06/25/2017 12:06 PM RDW 16.7 (H) 06/25/2017 12:06 PM PLTCT 118 (L) 06/25/2017 12:06 PM MPV 7.8 06/25/2017 12:06 PM Lab Results Component Value Date/Time NEUT 79 (H) 06/25/2017 12:06 PM ANC 4.60 06/25/2017 12:06 PM LYMA 10 (L) 06/25/2017 12:06 PM ALC 0.60 (L) 06/25/2017 12:06 PM KATYA 6 06/25/2017 12:06 PM AMC 0.30 06/25/2017 12:06 PM EOSA 4 06/25/2017 12:06 PM AEC 0.20 06/25/2017 12:06 PM BASA 1 06/25/2017 12:06 PM ABC 0.10 06/25/2017 12:06 PM Comprehensive Metabolic Profile Lab Results Component Value Date/Time NA 138 03/25/2017 03:25 PM K 4.4 03/25/2017 03:25 PM CL 107 03/25/2017 03:25 PM CO2 25 03/25/2017 03:25 PM GAP 6 03/25/2017 03:25 PM BUN 34 (H) 03/25/2017 03:25 PM CR 3.48 (H) 03/25/2017 03:25 PM GLU 144 (H) 03/25/2017 03:25 PM GLU 267 (H) 05/02/2016 11:08 AM Lab Results Component Value Date/Time CA 9.0 03/25/2017 03:25 PM PO4 4.5 (H) 09/14/2016 10:10 AM ALBUMIN 3.7 03/25/2017 03:25 PM TOTPROT 7.5 03/25/2017 03:25 PM ALKPHOS 74 03/25/2017 03:25 PM AST 18 03/25/2017 03:25 PM ALT 12 03/25/2017 03:25 PM TOTBILI 0.4 03/25/2017 03:25 PM GFR 13 (L) 03/25/2017 03:25 PM GFRAA 16 (L) 03/25/2017 03:25 PM ECHO 07/02/16: EF 60% ECHO 11/19/16: EF 55% ECHO 02/18/17: EF 60% ECHO 05/13/17: EF 50% Right breast ultrasound 01/06/17: BIRAD 2-benign Right mammogram 01/06/17: BIRAD 2-benign Treatment Summary for Malignant neoplasm of lower-outer quadrant of left female breast (HCC) Estefany Hand APRN 06/25/2017 1:07 PM Cancer Treatment Summary Provided by Estefany Hand APRN on 06/19/2017 General Information Patient Name Brigitte Gallegos (home) Date of 1945 Age 72 y.o. Support Contact Extended Emergency Contact Information Primary Emergency Contact: Miriam Daugherty Address: [address] [place] [address] Mobile Relation: Daughter Secondary Emergency Contact: Linda Tejeda [facility] Relation: Daughter Care Team Patient Care Team: Chris Thacker MD as PCP - General (Family Medicine) Clementina Mascorro MD (Pulmonary Disease) Michael Virk DO (Surgery) Niko Phelps MD (Hematology and Oncology) Cancer Diagnosis Information Symptoms/Signs abnormal imaging Diagnosis Left breast invasive ductal carcinoma Diagnosis Date On 05/06/17 left breast and axilla biopsy Staging Information Malignant neoplasm of lower-outer quadrant of left female breast (HCC) Staging form: Breast, AJCC 7th Edition - Clinical stage from 07/31/2016: Stage IIB (T2, N1, cM0) - Signed by Kirti Jimenes PA-C on 07/31/2016 - Pathologic stage from 07/31/2016: Stage IIIA (T2, N2a, cM0) - Signed by Kirti Jimenes PA-C on 07/31/2016 Tumor & Prognostic Markers ER/AL: negative HER2: positive Genomic Testing N/A Surgical Procedure: Location/Findings On 06/28/16 Dr Virk performed a left mastectomy and ALND at . Pathology revealed IDC, grade III, measuring 4.7cm. Tumor Type/Histology/Grade 7 LN involved (05/06) Background Information Family History/predisposing conditions Family History Problem Relation Age of Onset Cancer Mother Diabetes Mother Heart Disease Mother Hypertension Mother Heart Disease Father Asthma Father Arthritis-rheumatoid Sister Cancer-Lung Brother Cancer Brother Diabetes Brother Heart Disease Brother Hypertension Brother Cancer-Breast Other Genetic Testing Social History Social History Substance Use Topics Smoking status: Former Smoker Packs/day: 1.00 Years: 16.00 Types: Cigarettes Quit date: 06/13/1994 Smokeless tobacco: Never Used Comment: quit 20 years ago Alcohol use 0.0 oz/week 0 Standard drinks or equivalent per week Comment: occasionally Treatment Summary Oncology/Hematology Plan Herceptin every 3 weeks started 07/29/16 and completed 05/27/17. Follow-Up & Survivorship Care SURVEILLANCE 1. Physical exam ? Visit your Medical Oncologist every 3-6 months for the first 2 years after treatment then every 6-12 months for the next 3 years ? Annual mammogram and clinical breast or chest wall exam ? Continue to follow with your PCP once a year ? Monthly self-breast exam 2. Signs to watch for that could indication a local or distant recurrence of breast cancer ? A new lump in the breast or irregular area of firmness ? A new thickening in your breast ? A new pulling back of the skin or dimpling at the lumpectomy site ? Skin inflammation, rash or area of redness in the breast ? Changes or new lumps in your breast or surgical scar or chest wall ? Flattening or indentation of your nipple or other nipple changes like nipple discharge ? A lump or swelling in the lymph nodes under your arm or in the groove above your collarbone ? Pain in the back, hips, chest shoulders or ribs ? Persistent cough ? Shortness of breath or difficulty breathing ? Loss of appetite ? Persistent nausea, vomiting or weight loss ? Swelling in the abdomen or pain in the abdomen ? New headaches 3. Pelvic exam ? Continue to visit a highway maintenance supervisor regularly 4. Bone health ? Bone Mineral Density every 1-2 years 5. Colonoscopy ? Baseline at age 52 and follow with PCP 6. Exercise/Weight management/Diet ? Strive to maintain close to ideal body weight ? Exercise at least 150 minutes per week with a combination of cardio and strength training ? Maintain a healthy diet full of fresh fruits and vegetables ? Vit D 1,000U-2,000U/daily unless instructed otherwise ? Consume alcohol in moderation 7. Lymphedema ? Contact your provider if new swelling occurs Assessment and Plan: 1. Ms. Gallegos is a 72 yo female with left breast IDC, ER 0%, AL 0%, Ki-67 50 % and HER2/carolin 3+, [id number]. She underwent mastectomy and ALND on 06/28/16 [...] 6. CKD stage IV; secondary to diabetes, dialysis has been recommended but patient is not interested at this time. She follows with nephrology. 7. Restrictive lung disease from pulmonary fibrosis; uses 2L O2. 8. Atrial fibrillation; on anticoagulation. 9. Diabetes; insulin dependent. 10. CKD and Anemia; we restarted on Aranesp 200mcg every 3 weeks. We will hold Aranesp if HgB is more than 10. (today 10.3 so we will hold). Repeat CBC in one month. 11. Right mammogram due 12/2017. 12. RTC with Dr Phelps on 07/29/17 with CBC. Estefany Hand APRN in this encounter Miscellaneous Notes * Survivorship - Estefany Hand APRN - 06/25/2017 11:30 AM CDT Formatting of this note may be different from the original. Treatment Summary for Malignant neoplasm of lower-outer quadrant of left female breast (HCC) Estefany Hand APRN 06/25/2017 1:07 PM Cancer Treatment Summary Provided by Estefany Hand APRN on 06/19/2017 General Information Patient Name Brigitte Gallegos (home) Date of 1945 Age 72 y.o. Support Contact Extended Emergency Contact Information Primary Emergency Contact: Miriam Daugherty Address: [facility] [address] [place] [address] Mobile Relation: Daughter Secondary Emergency Contact: NikhilLinda [facility] Relation: Daughter Care Team Patient Care Team: Chrsi Thacker MD as PCP - General (Family Medicine) Clementina Mascorro MD (Pulmonary Disease) Michael Virk DO (Surgery) Niko Phelps MD (Hematology and Oncology) Cancer Diagnosis Information Symptoms/Signs abnormal imaging Diagnosis Left breast invasive ductal carcinoma Diagnosis Date On 05/06/17 left breast and axilla biopsy Staging Information Malignant neoplasm of lower-outer quadrant of left female breast (HCC) Staging form: Breast, AJCC 7th Edition - Clinical stage from 07/31/2016: Stage IIB (T2, N1, cM0) - Signed by Kirti Jimenes PA-C on 07/31/2016 - Pathologic stage from 07/31/2016: Stage IIIA (T2, N2a, cM0) - Signed by Kirti Jimenes PA-C on 07/31/2016 Tumor & Prognostic Markers ER/AL: negative HER2: positive Genomic Testing N/A Surgical Procedure: Location/Findings On 06/28/16 Dr Virk performed a left mastectomy and ALND at . Pathology revealed IDC, grade III, measuring 4.7cm. Tumor Type/Histology/Grade 7 LN involved (05/06) Background Information Family History/predisposing conditions Family History Problem Relation Age of Onset Cancer Mother Diabetes Mother Heart Disease Mother Hypertension Mother Heart Disease Father Asthma Father Arthritis-rheumatoid Sister Cancer-Lung Brother Cancer Brother Diabetes Brother Heart Disease Brother Hypertension Brother Cancer-Breast Other Genetic Testing Social History Social History Substance Use Topics Smoking status: Former Smoker Packs/day: 1.00 Years: 16.00 Types: Cigarettes Quit date: 06/13/1994 Smokeless tobacco: Never Used Comment: quit 20 years ago Alcohol use 0.0 oz/week 0 Standard drinks or equivalent per week Comment: occasionally Treatment Summary Oncology/Hematology Plan Herceptin every 3 weeks started 07/29/16 and completed 05/27/17. Follow-Up & Survivorship Care SURVEILLANCE 1. Physical exam ? Visit your Medical Oncologist every 3-6 months for the first 2 years after treatment then every 6-12 months for the next 3 years ? Annual mammogram and clinical breast or chest wall exam ? Continue to follow with your PCP once a year ? Monthly self-breast exam 2. Signs to watch for that could indication a local or distant recurrence of breast cancer ? A new lump in the breast or irregular area of firmness ? A new thickening in your breast ? A new pulling back of the skin or dimpling at the lumpectomy site ? Skin inflammation, rash or area of redness in the breast ? Changes or new lumps in your breast or surgical scar or chest wall ? Flattening or indentation of your nipple or other nipple changes like nipple discharge ? A lump or swelling in the lymph nodes under your arm or in the groove above your collarbone ? Pain in the back, hips, chest shoulders or ribs ? Persistent cough ? Shortness of breath or difficulty breathing ? Loss of appetite ? Persistent nausea, vomiting or weight loss ? Swelling in the abdomen or pain in the abdomen ? New headaches 3. Pelvic exam ? Continue to visit a highway maintenance supervisor regularly 4. Bone health ? Bone Mineral Density every 1-2 years 5. Colonoscopy ? Baseline at age 52 and follow with PCP 6. Exercise/Weight management/Diet ? Strive to maintain close to ideal body weight ? Exercise at least 150 minutes per week with a combination of cardio and strength training ? Maintain a healthy diet full of fresh fruits and vegetables ? Vit D 1,000U-2,000U/daily unless instructed otherwise ? Consume alcohol in moderation 7. Lymphedema ? Contact your provider if new swelling occurs in this encounter Plan of Treatment Not on fileas of this encounter Results * MAGNESIUM (08/04/2017 10:31 AM) Component Value Ref Range Magnesium 2.1 1.6 - 2.6 mg/dL Specimen Performing Laboratory Blood [facility] [address] [place] [address] * CBC AND DIFF (08/04/2017 10:31 AM) [...] 0 - 0.20 K/UL Specimen Performing Laboratory [facility] [address] [place] [address] in this encounter Visit Diagnoses Diagnosis Malignant neoplasm of left breast in female, estrogen receptor negative, unspecified site of breast (HCC) - Primary in this encounter
--- OUTSIDE RECORDS SUMMARY | 2017-09-18 18:40 | XMS REPORT | Encounter Summary ---
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 Name Role Phone PCP Unavailable Reason for Visit * Reason Comments Heme/Onc Care Port flush Encounter Details Date Type Department Care Team Description 06/25/2017 Hospital [facility] Estefany Hand APRN Encounter [facility] [address] [facility] [address] [place] [address] [address] [place] [address] [phone] Social History Tobacco Use Types Packs/Day Years [...] 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 lancets [facility] Test Blood Glucose three 06/04/2017 times daily Prn. Dx E10.9. Magnesium 250 mg tab Take 250 mg by mouth daily. Smfwbbbfcrlrx-Mx-Sodx-Min Take 1 Tab by mouth erals (WOMEN'S DAILY daily. MULTIVITAMIN) 18-0.4 mg tab nitroglycerin (NITROSTAT) Place 0.4 mg under tongue 0.4 mg tablet every 5 minutes as needed for Chest Pain. ondansetron (ZOFRAN ODT) Take 4 mg by mouth every 4 mg rapid dissolve 8 hours as needed for tablet Nausea. OXYGEN-AIR DELIVERY Use 1 L as directed at [facility] bedtime daily. pantoprazole DR Take 40 mg [...] Visit Diagnoses Not on filein this encounter Administered Medications Medication Order MAR Action Action Date Dose Rate Site heparin lock flush PF syringe 500 Units Given 06/25/2017 500 Units 500 Units, Intravenous, ONCE, 1 dose, 13:07 CDT 06/25/17 at 1300, NOTE: This is a HIGH ALERT Medication. in this encounter
--- NOTE | 2017-09-18 19:33 | ED Integumentary General ---
General Chief Complaint: Skin/Wound Problems Stated Complaint: BLEEDING AFTER SURGERY Nursing Triage Note: pt had nodule removed from left axilla 6-[address] zapata at [facility]. she had a drain placed at that time. she reports bleeding from surgical site and around drainage tube starting early this morning. c/o nausea at this time. Source: patient, other Exam Limitations: no limitations History of Present Illness Time seen by provider: 19:25 Initial Comments Patient has ER by private conveyance with a chief complaint that she felt a tearing sensation in her armpit and the wound and Rajan-Jordan bulb started bleeding. She had a surgery for lumpectomy by Dr. Zapata in [facility] 6 days ago. Her SRAVANTHI bulb today has put out 2-300 cc of serosanguineous drainage. She is on L acquits an recently restarted that today. She was using sanitary napkins per nursing as a dressing and did not have adequate dressing materials. Patient states she was not lifting anything heavy just walking around when she felt a tightening sensation she keeps the SRAVANTHI bulb in her pocket. She has no lightheadedness, fevers, chills, chest pain, shortness of breath. She has an appointment tomorrow morning with her oncologist. Allergies and Home Medications Allergies Coded Allergies: TUYET Inhibitors (Unverified Allergy, Unknown, 03/03/15) due to creatinine level ARB-Angiotensin Receptor Antagonist (Unverified Allergy, Unknown, 03/03/15) meloxicam (Verified Allergy, Unknown, 09/05/06) Home Medications Alprazolam 0.5 Mg Tablet, 0.5 MG PO DAILY PRN for ANXIETY, (Reported) Amiodarone HCl 200 Mg Tablet, 200 MG PO MoTuWeThFr, (Reported) Amlodipine Besylate 10 Mg Tablet, 10 MG PO DAILY, (Reported) Aspirin 81 Mg Tablet, 81 MG PO DAILY, (Reported) Atorvastatin Calcium 40 Mg Tablet, 40 MG PO HS, (Reported) Cholecalciferol 5,000 Unit Capsule, 5,000 UNIT PO DAILY, (Reported) Docosahexanoic Acid/Epa 1 Cap Capsule, 1,000 MG PO BID, (Reported) Furosemide 40 Mg Tablet, 40 MG PO DAILY, (Reported) Hydralazine HCl 50 Mg Tablet, 50 MG PO BID, (Reported) Hydrocodone/Acetaminophen 1 Each Tablet, 1 TAB PO Q6H PRN for PAIN, (Reported) Insulin Glargine,Hum.rec.anlog 100 Unit/1 Ml Insuln.pen, 22 UNITS SC HS, ( Reported) Insulin Lispro 100 Unit/1 Ml Insuln.pen, 3-4 UNITS SC AC, (Reported) Isosorbide Mononitrate 30 Mg Tab.er.24h, 30 MG PO DAILY, (Reported) Multivitamin 1 Each Tablet, 1 TAB PO DAILY, (Reported) Pantoprazole Sodium 40 Mg Tablet.dr, 40 MG PO DAILY, (Reported) Polyethylene Glycol 3350 255 Gm Powder, 17 GM PO 1000,1500, (Reported) Polyethylene Glycol 3350 17 Gm Powd.pack, 17 GM PO 1800 PRN for CONSTIPATION, ( Reported) Sertraline HCl 100 Mg Tablet, 150 MG PO DAILY, (Reported) TAKES 1 & 1/2 (100MG) TABLETS Trazodone HCl 100 Mg Tablet, 100 MG PO HS, (Reported) Warfarin Sodium 5 Mg Tablet, 5 MG PO DAILY, #30 Prescribed by: LULU PEREZ on 09/04/16 1249 Constitutional: No chills, No fever EENTM: No hearing loss, No ear pain Respiratory: No cough, No phlegm Cardiovascular: No chest pain, No palpitations Gastrointestinal: No nausea, No vomiting Skin: see HPI Past Ysrdfeq-Efrxfb-Aygcxo Hx Patient Social History Alcohol Use: Denies Use Recreational Drug Use: No Smoking Status: Former Smoker Type Used: Cigarettes Former Smoker, Quit: Sep 02, 1999 Recent Foreign Travel: No Contact w/Someone Who Travel: No Recent Infectious Disease Expo: No Recent Hopitalizations: No Immunizations Up To Date Tetanus Booster (TDap): Unknown PED Vaccines UTD: No Date of Pneumonia Vaccine: March 01, 2015 Date of Influenza Vaccine: Jul 24, 2016 Seasonal Allergies Seasonal Allergies: No Surgeries History of Surgeries: Yes (2007 CABG, 6 years ago foot surgery, 6 years ago bowel surgery) Surgeries: Abdominal, Bladder Surgery, Breast, Cardiac, CABG, Coronary Stent, Gallbladder, Hysterectomy, Orthopedic Respiratory History of Respiratory Disorde: Yes (USES HOME O2 1L/NC ) Respiratory Disorders: Chronic Bronchitis, COPD Currently Using CPAP: No Currently Using BIPAP: No Cardiovascular History of Cardiac Disorders: Yes (CABG; STENTS X 13; LOOP RECORDER; CHF; ND X 2) Cardiac Disorders: Angina, Atrial Fibrillation, Cardiomyopathy, Coronary Artery Disease, Heart Attack, High Cholesterol, Hypertension, Irregular Heartbeat, Peripheral Vascular Neurological History of Neurological Disord: Yes (CVA WITH LEFT SIDE WEAKNESS ESSENTIALLY RESOLVED) Neurological Disorders: Stroke, TIA Reproductive System Hx Reproductive Disorders: No Sexually Transmitted Disease: No HIV/AIDS: No Female Reproductive Disorders: Denies Genitourinary History of Genitourinary Disor: Yes Genitourinary Disorders: Renal Failure Gastrointestinal History of Gastrointestinal Di: Yes Gastrointestinal Disorders: Gastroesophageal Reflux, Chronic Constipation, Pancreatitis, Hiatal Hernia, Gall Bladder Disease Musculoskeletal History of Musculoskeletal Dis: Yes Musculoskeletal Disorders: Arthritis, Chronic Back Pain Endocrine History of Endocrine Disorders: Yes Endocrine Disorders: Diabetes, Insulin dep HEENT Loss of Vision: Denies Hearing Impairment: Hard of Hearing Cancer History of Cancer: No Psychosocial History of Psychiatric Problem: Yes Behavioral Health Disorders: Sleep Difficulties, Anxiety, Depression Integumentary History of Skin or Integumenta: No Blood Transfusions History of Blood Disorders: No Adverse Reaction to a Blood Tr: No Family Medical History Family Medial History: Alcoholism 19 FATHER Cardiovascular disease G8 BROTHER G8 SISTER Diabetes mellitus 19 FATHER 19 MOTHER G8 BROTHER G8 SISTER Gastroenteritis 19 MOTHER G8 BROTHER G8 SISTER Hypercholesterolemia 19 MOTHER G8 BROTHER G8 SISTER Hypertension 19 MOTHER G8 BROTHER G8 SISTER Kidney disease 19 MOTHER G8 BROTHER G8 SISTER Prostate cancer G8 BROTHER Physical Exam Vital Signs Vital Sign - Last 12Hours 09/18/17 18:56 Temp 99.2 Pulse 62 Resp 18 B/P (MAP) 154/81 (105) Capillary Refill : Less Than 3 Seconds General Appearance: WD/WN, no apparent distress HEENT: PERRL/EOMI, pharynx normal Cardiovascular: normal peripheral pulses, regular rate, rhythm Respiratory: no respiratory distress, no accessory muscle use Gastrointestinal: non tender, soft Extremities: normal inspection, normal capillary refill Neurologic/Psychiatric: alert, oriented x 3 Skin: other (previous surgical changes to the left breast with a swollen but nonerythematous, noninflamed well approximated surgical wound with modest amount of sanguinous drainage on her shirt. There is a SRAVANTHI bulb in the left midaxillary line with the stitches pulled out of her skin and probably 5 cm of exposed SRAVANTHI bulb line that is still draining a serosanguineous discharge) Additional Procedures : Progress Clean the area of the Rajan-Jordan bulb catheter with chlorhexidine and water. Did not advance the catheter. Applied 2-0 silk stitch 1 and a nhngcv-zu-rrufh loop around the catheter and through the skin across the wound opening and secured the catheter in place. It is still draining at the time of her discharge. Patient tolerated procedure well. Take the tube up in a loop and applied sterile 4 x 4 gauze. Patient was draped out in the usual sterile fashion and the procedure was done using sterile technique. Progress/Results/Core Measures Results/Orders Vital Signs/I&O Vital Sign - Last 12Hours 09/18/17 18:56 Temp 99.2 Pulse 62 Resp 18 B/P (MAP) 154/81 (105) Blood Pressure Mean: 105 Departure Impression Impression: Primary Impression: Abnormal surgical wound Qualified Codes: T81.9XXA - Unspecified complication of procedure, initial encounter Additional Impression: Bleeding from Rajan-Jordan drain Qualified Codes: T85.838A - Hemorrhage due to other internal prosthetic devices, implants and grafts, initial encounter Disposition: 01 HOME, SELF-CARE Condition: Improved Departure-Patient Inst. Decision time for Depature: 19:48 Referrals: MANASA NARANJO MD (PCP/Family) Primary Care Physician Patient Instructions: Wound Care (DC) Add. Discharge Instructions: Obtain and apply 4 x 4 gauze over your surgical wound and secure with surgical tape. Change the dressing daily or as needed for soiling of the dressing. Use soap and water to clean the wound. Keep your follow-up appointment tomorrow with your oncologist and if possible get in to see your surgeon tomorrow as well. Return to the ER to begin to have fevers, chills, worsening shortness of breath , chest pain or bleeding from the site which cannot control by applying direct pressure over. All discharge instructions reviewed with patient and/or family. Voiced understanding. Copy Copies To 1: MANASA NARANJO MD, TITUS J Sep 18, 2017 19:33
[2017-09-18 19:57] VITALS: BP 163/71
== END 2017-09-18 19:57 | disposition home or self-care (01) ==
LOC: EDUNIT# 18:31 → ER 18:32
DX: T85.838A Hemorrhage due to other internal prosthetic devices, implants and grafts, initial encounter (principal); J44.9 Chronic obstructive pulmonary disease, unspecified; I25.2 Old myocardial infarction; I11.0 Hypertensive heart disease with heart failure; I50.9 Heart failure, unspecified; E78.00 Pure hypercholesterolemia, unspecified; I25.10 Atherosclerotic heart disease of native coronary artery without angina pectoris; E11.9 Type 2 diabetes mellitus without complications; F41.9 Anxiety disorder, unspecified; F32.9 Major depressive disorder, single episode, unspecified; I73.9 Peripheral vascular disease, unspecified; M19.90 Unspecified osteoarthritis, unspecified site; I48.91 Unspecified atrial fibrillation; K21.9 Gastro-esophageal reflux disease without esophagitis; Z86.73 Personal history of transient ischemic attack (TIA), and cerebral infarction without residual deficits; Z87.891 Personal history of nicotine dependence; Z87.19 Personal history of other diseases of the digestive system; Z95.1 Presence of aortocoronary bypass graft; Z95.5 Presence of coronary angioplasty implant and graft; Z90.710 Acquired absence of both cervix and uterus

== ENCOUNTER 2018-05-09 09:33 | Emergency (ER) | payer MEDICARE ==
[~2018-05-09] VITALS: Ht 165.1 cm; Wt 71.7 kg
[~2018-05-09 09:33] MED LIST changes: -AMIO200T2 PO; +AMIO200T4 PO; +TRAZ-190 PO; -TRAZ100T92 PO
--- OUTSIDE RECORDS SUMMARY | 2018-05-09 09:40 | XMS REPORT | Clinical Summary ---
Author Author [facility] Organization [facility] Address Unknown Phone Unavailable Care Team Providers Care Finished Cigar Maker Name Role Phone AprilAnuja Unavailable Unavailable Chris Thacker MD PCP Clementina Mascorro MD Unavailable Michael Virk DO Unavailable Niko Phelps MD Unavailable Outpatient, Radiologist Unavailable Unavailable Kirti Jimenes PA-C Unavailable Lang Paredes MD Unavailable Isidra Miranda APRN Unavailable Bolivar Jones Unavailable Evie Zaldivar Unavailable Unavailable Isidra Baker RN Unavailable Unavailable Sarah Kirkpatrick RN Unavailable Unavailable Source Comments Some departments are not documenting in the electronic medical record. If you do not see the information that you expected, contact Release of Information in the Health Information Management department at [phone] for further assistance in locating additional records.[facility] Allergies Active Allergy Reactions Severity Noted [...] Active acids (SEA-OMEGA) daily. 340/1000 mg capsule Bpgdovxnbpvvv-Ei-Tydw-Min Take 1 Tab by mouth Active erals [...] 1 L as directed at Active [facility] bedtime daily. insulin glargine (LANTUS Inject 22 Units under the Active SOLOSTAR) 100 unit/mL (3 skin at bedtime daily. mL) injection PEN ferrous sulfate (FEOSOL, Take 1 Tab by mouth at 90 Tab 3 09/18/20 Active FEROSUL) 325 mg (65 mg bedtime daily. Take on an 16 iron) tablet empty stomach at least 1 hour before or 2 hours after food. lidocaine/prilocaine Apply nickel size amount 30 g [...] One Touch Ultra Dx 17 E10.9. lancets MISC Test Blood Glucose three 06/04/20 Active times [...] tablet daily with meals. Take with food. atorvastatin (LIPITOR) 40 TAKE ONE TABLET BY MOUTH 90 tablet 1 Active mg tabletIndications: DAILY 18 Atrial fibrillation with rapid ventricular response ([facility]), Coronary artery disease involving coronary bypass graft of [place] heart with angina pectoris with documented spasm ([facility]) Active Problems Problem Noted Date Sinus bradycardia 07/23/2017 Ischemic cardiomyopathy 07/23/2017 Chronic systolic CHF (congestive heart failure) ([facility]) 07/23/2017 Paroxysmal atrial fibrillation ([facility]) 04/13/2017 ILD (interstitial lung disease) ([facility]) 09/20/2016 Overview: Suspect secondary to Amiodarone. Although other etiologies to consider are Hypersensitivity pneumonitis, connective tissue disease induced ILD or Idiopathic. Nocturnal hypoxemia was noted on the sleep study. She was given supplemental O2 through [facility] by her PCP after her exercise [...] to Dr. Blackburn. Acute hypoxemic respiratory failure (HCC) 09/13/2016 Supratherapeutic [...] in 04/2016. Left breast sono-guided biopsy 05/06/16 ([place], [place]) revealed grade 3 invasive ductal carcinoma. Left axillary sono-guided biopsy 05/06/16 ([place], [place]) revealed grade 3 invasive ductal carcinoma (no identifiable lymph node tissue). Ms. Gallegos underwent left modified radical mastectomy on 06/28/16. PATHOLOGY: Tumor: 4.7 cm Margins Free From Tumor: Yes ER: negative NE: negative Her 2: negative Grade: 3 Lymph Nodes: 05/06, largest met 2.3 cm LVSI: no Extranodal extension: yes BREAST IMAGING: Mammogram: -- Bilateral diagnostic mammogram 04/29/16 ([place], [place]) revealed scattered fibroglandular density. There was [...] node. Ultrasound: -- Left breast ultrasound 04/29/16 ([place], [place]) revealed an irregular mass at 3:00, [...] nodes were identified Other: -- PET/CT 05/21/16 ([place], [place]) revealed a hypermetabolic mass in the [...] Cardiology and pulmonology at , nephrology in [place] Shortness of breath 05/09/2016 Overview: SOB with exertion. Nocturnal hypoxemia on the sleep study. She was given supplemental O2 through [facility] by her PCP after her exercise oximetry was low. Echocardiogram in 2015 nrmal systolic and diastolic function. PFT's showed restrictive lung disease. I suspect this is related to her cardiac disease. Although need to think about deconditioning vs. Interstitial lung disease vs. Obesity vs. PAH. L ast Assessment & Plan: Patient is seeing her architectural inspector in 2 days. Advised her to check with her architectural inspector regarding her cath results. PFT's showed restrictive lung disease. CT chest showed mild basilar fibrosis which does not explain the degree of symptoms she is experiencing. Advised her to lose weight. Cardiac device in situ 05/02/2016 Acute respiratory failure with hypoxia (HCC) 03/25/2016 On mechanically assisted ventilation (HCC) 03/25/2016 Coronary artery disease involving [place] coronary artery of [place] heart 03/2016 without angina pectoris Pneumonia due to infectious organism 03/25/2016 Nocturnal hypoxemia 03/13/2016 Last Assessment & Plan: Continue supplemental O2 at night. End stage chronic kidney disease (HCC) 06/12/2015 Overview: 06/07/14: Renal ultrasound: No definitive evidence of renal disease. No evidence hydronephrosis. Coronary artery disease involving coronary bypass graft of [place] heart with angina pectoris with documented spasm ([facility]) Overview: 2008: Bypass surgery 06/09/14: [...] (HCC) 06/12/2015 Anxiety 06/12/2015 DM (diabetes mellitus) (HCC) Resolved Problems Problem Noted Date Resolved Date [...] Encounters Date Type Specialty Care Team Description 04/27/2018 [facility] Cardiology Lang Paredes MD Encounter 04/03/2018 Telephone Cardiology Eliezer Krishna Patient Instructions 03/30/2018 Office Visit Oncology Niko Phelps MD Malignant neoplasm of lower-outer quadrant of left female breast, unspecified estrogen receptor status (HCC) (Primary Dx) 03/30/2018 Nurse Only Oncology Niko Phelps MD 03/27/2018 [facility] Cardiology Lang Paredes MD Encounter 02/27/2018 Ancillary Radiology Outpatient, Radiologist Diagnosis unknown Orders 02/25/2018 Hospital Cardiology Lang Paredes MD Encounter 02/24/2018 Documentation Niko Noe MD 02/23/2018 Hospital Lab Niko Phelps MD Encounter 02/23/2018 Office Visit Oncology Niko Phelps MD Malignant neoplasm of lower-outer quadrant of left female breast, unspecified estrogen receptor status (HCC) 02/20/2018 Refill Cardiology Lang Paredes MD Medication Refill 02/18/2018 Documentation Oncology Niko Phelps MD from Last 3 Months Immunizations Name Dates [...] Vital Sign Reading Time Taken Blood Pressure 104/50 03/30/2018 2:52 PM CDT Pulse 66 03/30/2018 2:52 PM CDT Temperature 36.8 C (98.2 F) 03/30/2018 2:52 PM CDT Respiratory Rate 18 03/30/2018 2:52 PM CDT Oxygen Saturation 99% 03/30/2018 2:52 PM CDT Inhaled Oxygen - - Concentration Weight 71.8 kg (158 lb 6.4 oz) 03/30/2018 2:52 PM CDT Height 164.5 cm (5' 4.76") 03/30/2018 2:52 PM CDT Body Mass Index 26.55 03/30/2018 2:52 PM CDT Plan of Treatment Health Maintenance Due Date Last Done Comments HEPATITIS C SCREENING 1947 PHYSICAL (COMPREHENSIVE) 1954 EXAM PERTUSSIS VACCINE 1958 TETANUS VACCINE 1964 DILATED EYE EXAM 1965 FOOT EXAM 1965 MICROALBUMIN 1965 COLORECTAL CANCER 1997 SCREENING SHINGLES RECOMBINANT 1997 VACCINE (1 of 2) OSTEOPOROSIS SCREENING 2012 PNEUMONIA (PCV13/PPSV23) 2012 VACCINES (1 of 2 - PCV13) HBA1C 03/15/2017 09/15/2016, 05/10/2016 BREAST CANCER SCREENING 05/27/2017 05/27/2016 INFLUENZA VACCINE 07/20/2018 07/22/2016, 09/11/2009 Implants Implanted Type Area Detector Car Operator Device Expiration Model / Identifier Date Serial / Lot Port Implantable 8 Float Point Unit Right: CR BARD:ACCESS 09/16/2017 SHERON / Siom Intermediate Chest SYS N/A / Implanted: Qty: 1 on 06/28/2016 by [id number] Erwin Nguyen MD Results * DEVICE EVALUATION - REMOTE ILR (05/05/2018 11:06 AM) Only the most recent of 3 results within the time period is included. Component Value Ref Range Device Implanted By Dr. Lang Paredes Generator Model # LNQ11 Generator Serial # [id number] Generator Implnat Date 01/21/17 Remote Monitor Serial# [id number] DESTINEE/EOL Indicator per transmitter Generator Detector Car Operator Medtronic Generator Investigational No Wireless Generator Yes [...] Linq still implanted model: LINQ11 Serial # [id number] Implant date:09/06/2015 Atrial Lead Model # CAPSUREFIX NOVUS MRI SURESCAN 5076 52CM Atrial Lead Serial # [id number] Atrial Lead Implant Date 09/22/2015 Atrial Lead Diaph. 10 Stimulation Atrial Lead Detector Car Operator Medtronic Atrial Lead No Investigational Atrial Lead Fixation active fixation Atrial Lead Pin Connector IS1 Atrial Lead Polarity Bipolar RV Lead Model # CAPSUREFIX NOVUS MRI SURESCAN 5076 58CM RV Lead Serial # [id number] RV Lead Implant Date 09/22/2015 RV Lead Diaph. 10 Stimulation RV Lead Detector Car Operator Medtronic RV Lead Investigational No RV Lead Fixation active fixation RV Lead Pin Connector ICD IS1 Device Mode AAIR/DDDR Lower Rate Limit 60 Upper Rate Limit 130 Sensor Rate Limit 130 Pace AV Delay 180 Sense AV Delay 150 Mode Switch (bpm) 150 High A Rate Detect 150 High V Rate Detect 150 Mode Switch Status On Device Alvin Carelink Express Transmitter Compatible ILR Current Monitoring 04/27/18-05/28/18 Period ILR Date of Last Daily 05/05/18 Connection ILR Battery Status OK ILR Symptom [...] 88 of ILR Percent Time in AT/AF 0.5% Lifetime of Events as of ILR Presenting ECG Strip 05/05/18 @ 0004 SR 68 bpm ILR Lifetime Events as of 05/05/18 Datetion Specimen Performing Laboratory OTHER OUTSIDE LAB Narrative [facility] [05/05/2018 11:08:11 AM - ISIDRA RODRIGUEZ] Presenting EGM: 05/05/18 @ 0004 SR 68 bpm. Summary report received and reviewed,no new events to report, will continue to monitor. Results routed to Dr. Paredes for signature and review. __ from Last 3 Months
--- OUTSIDE RECORDS SUMMARY | 2018-05-09 09:41 | XMS REPORT | Encounter Summary ---
Author Author [facility] Organization [facility] Address Unknown Phone Unavailable Care Team Providers Care Lab Pack Chemist Name Role Phone DeniajudsonchristopherAnuja Unavailable Unavailable Chris Thacker MD PCP Clementina Mascorro MD Unavailable Michael Virk DO Unavailable Niko Phelps MD Unavailable Outpatient, Radiologist Unavailable Unavailable Kirti Jimenes PA-C Unavailable Lang Paredes MD Unavailable Isidra Miranda APRN Unavailable Bolivar Jones Unavailable Evie Zaldivar Unavailable Unavailable Isidra Baker RN Unavailable Unavailable Sarah Kirkpatrick RN Unavailable Unavailable Encounter Details Date Type Department Care Team Description 02/25/2018 [facility] Cardiology Lang Paredes MD Encounter Remote Device Check [address] [facility] [phone] [address] [place] [address] [phone] Social History Tobacco Use Types Packs/Day Years [...] daily. Take with food. atorvastatin (LIPITOR) 40 TAKE ONE TABLET BY MOUTH 90 tablet 1 2017 mg tabletIndications: DAILY Atrial fibrillation with rapid ventricular response (HCC), Coronary artery disease involving coronary bypass graft of [place] heart with angina pectoris with documented spasm ([facility]) blood sugar diagnostic Test three times daily. [...] every (IMDUR) 60 mg tablet morning. lancets [facility] Test Blood Glucose three 06/04/2017 times daily Prn. Dx E10.9. levothyroxine (SYNTHROID) Take 1 tablet by mouth 08/20/2017 25 mcg tablet daily. lidocaine/prilocaine Apply nickel size amount 30 g 1 08/04/2017 (EMLA) 2.5/2.5 % topical to port access site 30 cream minutes before accessing port Magnesium 250 mg tab Take 250 mg by mouth daily. Hroeipvldnyoz-Yo-Mtaz-Min Take 1 Tab by mouth erals (WOMEN'S DAILY daily. MULTIVITAMIN) 18-0.4 mg tab nitroglycerin (NITROSTAT) Place 0.4 mg under tongue 0.4 mg tablet every 5 minutes as needed for Chest Pain. ondansetron (ZOFRAN ODT) Take 4 mg by mouth every 4 mg rapid dissolve 8 hours as needed for tablet Nausea. OXYGEN-AIR DELIVERY Use 1 L as directed at [facility] bedtime daily. pantoprazole DR Take 40 mg [...] Results * DEVICE EVALUATION - REMOTE ILR (02/27/2018 2:59 PM) Component Value Ref Range Device Implanted By Dr. Lang Paredes Generator Model # LNQ11 Generator Serial # [id number] Generator Implnat Date 01/21/17 Remote Monitor Serial# [id number] [place]ST[place]/EOL Indicator per transmitter Generator Laborer Concrete Plant Medtronic Generator Investigational No Wireless Generator Yes [...] Linq still implanted model: LINQ11 Serial # [id number] Implant date:09/06/2015 Atrial Lead Model # CAPSUREFIX NOVUS MRI SURESCAN 5076 52CM Atrial Lead Serial # [id number] Atrial Lead Implant Date 09/22/2015 Atrial Lead Diaph. 10 Stimulation Atrial Lead Laborer Concrete Plant Medtronic Atrial Lead No Investigational Atrial Lead Fixation active fixation Atrial Lead Pin Connector IS1 Atrial Lead Polarity Bipolar RV Lead Model # CAPSUREFIX NOVUS MRI SURESCAN 5076 58CM RV Lead Serial # [id number] RV Lead Implant Date 09/22/2015 RV Lead Diaph. 10 Stimulation RV Lead Laborer Concrete Plant Medtronic RV Lead Investigational No RV Lead Fixation active fixation RV Lead Pin Connector ICD IS1 Device Mode AAIR/DDDR Lower Rate Limit 60 Upper Rate Limit 130 Sensor Rate Limit 130 Pace AV Delay 180 Sense AV Delay 150 Mode Switch (bpm) 150 High A Rate Detect 150 High V Rate Detect 150 Mode Switch Status On Device [place] Carelink Express Transmitter Compatible ILR Current Monitoring 02/25/18-03/28/18 Period ILR Date of Last Daily 02/27/18 Connection ILR Battery Status OK ILR Symptom [...] AF Lifetime Events as 88 of ILR Presenting ECG Strip 02/27/18 @ 0004 SB 52 bpm ILR Lifetime Events as of 02/27/18 Datetion Specimen Performing Laboratory OTHER OUTSIDE LAB Narrative [facility] [02/27/2018 3:01:07 PM - MICHAEL, ISIDRA TAYLOR] Presenting EGM: 02/27/18 @ 0004 SB 52 bpm. Summary report received and reviewed,no new events to report, will continue to monitor. Results routed to Dr. Mccabe for signature and review. Lena GOMEZ. __ in this encounter Visit Diagnoses Diagnosis Coronary artery disease involving coronary bypass graft of [place] heart with angina pectoris with documented spasm (HCC) Essential hypertension Unspecified essential hypertension Paroxysmal atrial fibrillation (HCC) Atrial fibrillation
--- OUTSIDE RECORDS SUMMARY | 2018-05-09 09:41 | XMS REPORT | Encounter Summary ---
Author Author [facility] Organization [facility] Address Unknown Phone Unavailable Care Team Providers Care Brass Molder Name Role Phone AprilAnuja Unavailable Unavailable Chris Thacker MD PCP Clementina Mascorro MD Unavailable Michael Virk DO Unavailable Niko Phelps MD Unavailable Outpatient, Radiologist Unavailable Unavailable Kirti Jimenes PA-C Unavailable Lang Paredes MD Unavailable Isidra Miranda APRN Unavailable Bolivar Jones Unavailable Evie Zaldivar Unavailable Unavailable Isidra Baker RN Unavailable Unavailable Sarah Kirkpatrick RN Unavailable Unavailable Reason for Visit * Reason Comments Heme/Onc Care Encounter Details Date Type Department Care Team Description 03/30/2018 Nurse Only [facility] Niko Phelps MD Cancer Center - WW Exam [address] [facility] [address] [place] [address] [address] [facility] [address] [phone] [place] [address] [phone] Social History Tobacco Use Types Packs/Day Years [...] lock flush PF syringe 500 Units Given 03/30/2018 500 Units 500 Units, Intravenous, ONCE, 1 dose, 14:24 CDT 03/30/18 at 1415, NOTE: This is a HIGH ALERT Medication. in this encounter
--- OUTSIDE RECORDS SUMMARY | 2018-05-09 09:41 | XMS REPORT | Encounter Summary ---
Author Author [facility] Organization [facility] Address Unknown Phone Unavailable Care Team Providers Care Hospital Administrative Assistant Name Role Phone DeniajudsonchristopherAnuja Unavailable Unavailable Chris Thacker MD PCP Clementina Mascorro MD Unavailable Michael Virk DO Unavailable Niko Phelps MD Unavailable Outpatient, Radiologist Unavailable Unavailable Kirti Jimenes PA-C Unavailable Lang Paredes MD Unavailable Isidra Miranda APRN Unavailable Bolivar Jones Unavailable Evie Zaldivar Unavailable Unavailable Isidra Baker RN Unavailable Unavailable Sarah Kirkpatrick RN Unavailable Unavailable Encounter Details Date Type Department Care Team Description 04/27/2018 [facility] Cardiology Lang Paredes MD Encounter Remote Device Check [address] [facility] [phone] [address] [place] [address] [phone] Social History Tobacco Use Types Packs/Day Years [...] artery disease involving coronary bypass graft of [place] heart with angina pectoris with documented spasm ([facility]) blood sugar diagnostic Test three times daily. [...] every (IMDUR) 60 mg tablet morning. lancets [facility] Test Blood Glucose three 06/04/2017 times daily Prn. Dx E10.9. levothyroxine (SYNTHROID) Take 1 tablet by mouth 08/20/2017 25 mcg tablet daily. lidocaine/prilocaine Apply nickel size amount 30 g 1 08/04/2017 (EMLA) 2.5/2.5 % topical to port access site 30 cream minutes before accessing port Magnesium 250 mg tab Take 250 mg by mouth daily. Shdwyyxosdnxe-Af-Nnow-Min Take 1 Tab by mouth erals (WOMEN'S DAILY daily. MULTIVITAMIN) 18-0.4 mg tab nitroglycerin (NITROSTAT) Place 0.4 mg under tongue 0.4 mg tablet every 5 minutes as needed for Chest Pain. ondansetron (ZOFRAN ODT) Take 4 mg by mouth every 4 mg rapid dissolve 8 hours as needed for tablet Nausea. OXYGEN-AIR DELIVERY Use 1 L as directed at [facility] bedtime daily. pantoprazole DR Take 40 mg [...] EVALUATION - REMOTE ILR (05/05/2018 11:06 AM) Component Value Ref Range Device Implanted By Dr. Lang Paredes Generator Model # LNQ11 Generator Serial # [id number] Generator Implnat Date 01/21/17 Remote Monitor Serial# [id number] DESTINEE/EOL Indicator per transmitter Generator Manager Environmental Health Medtronic Generator Investigational No Wireless Generator Yes [...] Linq still implanted model: LINQ11 Serial # [id number] Implant date:09/06/2015 Atrial Lead Model # CAPSUREFIX NOVUS MRI SURESCAN 5076 52CM Atrial Lead Serial # [id number] Atrial Lead Implant Date 09/22/2015 Atrial Lead Diaph. 10 Stimulation Atrial Lead Manager Environmental Health Medtronic Atrial Lead No Investigational Atrial Lead Fixation active fixation Atrial Lead Pin Connector IS1 Atrial Lead Polarity Bipolar RV Lead Model # CAPSUREFIX NOVUS MRI SURESCAN 5076 58CM RV Lead Serial # [id number] RV Lead Implant Date 09/22/2015 RV Lead Diaph. 10 Stimulation RV Lead Manager Environmental Health Medtronic RV Lead Investigational No RV Lead Fixation active fixation RV Lead Pin Connector ICD IS1 Device Mode AAIR/DDDR Lower Rate Limit 60 Upper Rate Limit 130 Sensor Rate Limit 130 Pace AV Delay 180 Sense AV Delay 150 Mode Switch (bpm) 150 High A Rate Detect 150 High V Rate Detect 150 Mode Switch Status On Device [place] Carelink Express Transmitter Compatible ILR Current Monitoring [...] Dr. Paredes for signature and review. 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
--- OUTSIDE RECORDS SUMMARY | 2018-05-09 09:41 | XMS REPORT | Encounter Summary ---
Author Author [facility] Organization [facility] Address Unknown Phone Unavailable Care Team Providers Care University Extension Specialist Name Role Phone DeniajudsonchristopherAnuja Unavailable Unavailable Chris Thacker MD PCP Clementina Mascorro MD Unavailable Michael Virk DO Unavailable Niko Phelps MD Unavailable Outpatient, Radiologist Unavailable Unavailable Kirti Jimenes PA-C Unavailable Lang Paredes MD Unavailable Isidra Miranda APRN Unavailable Bolivar Jones Unavailable Evie Zaldivar Unavailable Unavailable Isidra Baker RN Unavailable Unavailable Sarah Kirkpatrick RN Unavailable Unavailable Encounter Details Date Type Department Care Team Description 02/24/2018 Documentation [facility] Niko Phelps MD Cancer Center - WW Exam [address] [facility] [address] [place] [address] [facility] [address] [phone] [place] [address] [phone] Social History Tobacco Use Types Packs/Day Years [...] as of this encounter Progress Notes * Venice Hayden, RN - 02/24/2018 10:04 AM CDT Contacted [employer] for pet scan and US to be cloud to [employer] system. Report requested via fax. in this encounter Plan of Treatment Not on fileas of this encounter Visit Diagnoses Not on filein this encounter
--- OUTSIDE RECORDS SUMMARY | 2018-05-09 09:41 | XMS REPORT | Encounter Summary ---
Author Author [facility] Organization [facility] Address Unknown Phone Unavailable Care Team Providers Care Piercing Mill Operator Name Role Phone AprilAnuja Unavailable Unavailable Chris Thacker MD PCP Clementina Mascorro MD Unavailable Michael Virk DO Unavailable Niko Phelps MD Unavailable Outpatient, Radiologist Unavailable Unavailable Kirti Jimenes PA-C Unavailable Lang Paredes MD Unavailable Isidra Miranda APRN Unavailable Bolivar Jones Unavailable Evie Zaldivar Unavailable Unavailable Isidra Baker RN Unavailable Unavailable Sarah Kirkpatrick RN Unavailable Unavailable Reason for Visit * Reason Comments Patient Instructions Encounter Details Date Type Department Care Team Description 04/03/2018 Telephone [facility] Cardiology Eliezer Krishna Patient Instructions [facility] [address] [place] [address] [phone] [place] [address] Social History Tobacco Use Types Packs/Day Years [...] impairment: No 08/04/2017 as of this encounter Miscellaneous Notes * Telephone Encounter - Eliezer Krishna - 04/03/2018 1:44 PM CDT Pt having radiation treatments soon. I filled out paperwork and faxed it to [facility]. I notified them that pt has an ILR and not a ppm or ICD. Recommendations are for pt to send transmission before and after treatments. in this encounter Plan of Treatment Not on fileas of this encounter Visit Diagnoses Not on filein this encounter
--- OUTSIDE RECORDS SUMMARY | 2018-05-09 09:41 | XMS REPORT | Encounter Summary ---
Author Author [facility] Organization [facility] Address Unknown Phone Unavailable Care Team Providers Care Sap Trainer Name Role Phone DeniajudsonchristopherAnuja Unavailable Unavailable Chris Thacker MD PCP Clementina Mascorro MD Unavailable Michael Vrik DO Unavailable Niko Phelps MD Unavailable Outpatient, Radiologist Unavailable Unavailable Kirti Jimenes PA-C Unavailable Lang Paredes MD Unavailable Isidra Miranda APRN Unavailable Bolivar Jones Unavailable Evie Zaldivar Unavailable Unavailable Isidra Baker RN Unavailable Unavailable Sarah Kirkpatrick RN Unavailable Unavailable Reason for Visit * Reason Comments Heme/Onc Care Encounter Details Date Type Department Care Team Description 03/30/2018 Office Visit [facility] Niko Phelps MD Malignant neoplasm of Cancer Center - WW Exam [address] lower-outer quadrant of [place] [facility] [address] left female breast, [address] [place] [address] unspecified estrogen [address] [phone] receptor status (HCC) [place] [address] (Primary Dx) [phone] Social History Tobacco Use Types Packs/Day Years [...] Mass Index 26.55 03/30/2018 2:52 PM CDT in this encounter Functional Status [...] Progress Notes * Niko Phelps MD - 03/30/2018 2:45 PM CDT Formatting of this note may be different from the original. TTESTATION I personally performed the rick portions of the E/M visit, discussed case with KIKO Carmona and concur with her documentation of history, physical exam, assessment, and treatment plan unless otherwise noted. Staff name: Niko Phelps MD Date: 04/09/2018 * Estefany Hand APRN - 03/30/2018 2:45 PM CDT Formatting of this note may be different from the original. Date of Service: 03/30/2018 Subjective: : Heme/Onc Care Malignant neoplasm of lower-outer quadrant of left female breast (HCC) Staging form: Breast, AJCC 7th Edition Clinical stage from 07/31/2016: Stage IIB (T2, N1, cM0) - Signed by Kirti Jimenes PA-C on 07/31/2016 Pathologic stage from 07/31/2016: Stage IIIA (T2, N2a, cM0) - Signed by Kirti Jimenes PA-C on 07/31/2016 Brigitte Gallegos is a 72 y.o. female with CKD (on HD), CAD s/p CABG, diastolic dysfunction, restrictive lung disease on O2 at night, who had a cardiac stress test at [facility] in [place], [place] in 04/2016 that indicated a "shadow" in her left breast. Due to this, she had a diagnostic bilateral mammogram on 04/29/16 that showed a new suspicious mass in the left retroareolar region with suggestion of early axillary lymph node involvement and concern for multifocal disease. Left breast ultrasound on 04/29/16 showed a highly suspicious irregular 2.6 cm mass at the 3 o'clock zone, 4 cm from the nipple with an adjacent 0.6 cm satellite nodule, compatible with breast cancer and suspicious 1.2 cm axillary lymph node concerning for tumor spread. Indeterminate lesions at the 12 o'clock and 10 o'clock zones were noted. On , Left breast and left axilla ultrasound guided needle biopsy showed infiltrating mammary carcinoma, ductal type (in breast mass and LN), ER 0%, MD 0 %, Ki-67 50% and HER2 3+. On 05/21/16, [...] node involvement. No evidence of distant metastasis. She underwent left MRM on under the care of Dr. Virk, pT2N2a (05/06 LN). Because of her PS and co- morbidities, she was not a candidate for chemotherapy. We recommended herceptin alone as adjuvant therapy. She received herceptin every 3 weeks from 07/29/16- . Stopped due to drop in EF. She had a FDG PET scan in 08/2017 that showed residual/recurrent malignancy in the left axilla. She underwent left axillary LN excision at [place] in 08/2017. Fragments of fibroadipose and fibromuscular tissue involved by poorly differentiated HER2 positive carcinoma were removed with negative margin. She had another axillary surgery on 10/15/2017 that showed biopsy cavity only with organizing abscess. No carcinoma was identified. Cancer Staging Malignant neoplasm of lower-outer quadrant of left [...] EF. Ms. Gallegos is here today for a follow up. She was having pain and swelling in her left arm. PET on 03/11/18 showed active disease. Review of Systems Constitutional: Negative for activity change and appetite change. HENT: Positive for hearing loss. Negative for nosebleeds, rhinorrhea, sneezing and voice change. Eyes: Negative for itching. Respiratory: Positive for shortness of breath (chronic and stable). Negative for apnea, cough and chest tightness. On 2 liters O2 Cardiovascular: Negative. Negative for chest pain. Gastrointestinal: Negative for abdominal distention, abdominal pain, constipation and nausea. Genitourinary: Negative. Negative for difficulty urinating. Musculoskeletal: Positive for arthralgias (baseline). Negative for back pain, myalgias and neck pain. Skin: Negative for wound. Left axilla and arm swelling Neurological: Negative for dizziness, tremors, weakness, light-headedness and headaches. Hematological: Negative for adenopathy. Psychiatric/Behavioral: Negative for agitation and sleep disturbance. The patient is not nervous/anxious. Allergies Allergen Reactions Mobic [Meloxicam] RASH Objective: ALPRAZolam (XANAX) 0.5 mg tablet Take 0.5 [...] with food. atorvastatin (LIPITOR) 40 mg tablet TAKE ONE TABLET BY MOUTH DAILY blood sugar diagnostic test strip Test three [...] 60 mg by mouth every morning. lancets MISC Test Blood Glucose three times daily Prn. Dx E10.9. levothyroxine (SYNTHROID) 25 mcg tablet Take 1 tablet by mouth daily. lidocaine/prilocaine (EMLA) 2.5/2.5 % topical cream Apply nickel size amount to port access site 30 minutes before accessing port Magnesium 250 mg tab Take 250 mg by mouth daily. Smpyylofzpzfs-Ny-Dzqo-Minerals (WOMEN'S DAILY MULTIVITAMIN) 18-0.4 mg tab Take 1 Tab by mouth daily. nitroglycerin (NITROSTAT) 0.[address] 0.4 mg under tongue every 5 minutes as needed for Chest Pain. ondansetron (ZOFRAN ODT) 4 mg rapid dissolve tablet Take 4 mg by mouth every 8 hours as needed for Nausea. OXYGEN-AIR DELIVERY SYSTEM[facility] Use 1 L as directed at bedtime [...] 0.5 Tabs by mouth at bedtime daily. Body mass index is 26.55 kg/m. Pain Score: Ten Pain Loc: Arm Pain Addressed: no pain Patient Evaluated for [...] Musculoskeletal: Normal range of motion. She exhibits edema (LUE) and tenderness (LUE). Arms: Lymphadenopathy: She has no cervical adenopathy. [...] 10:31 AM ABC 0.10 08/04/2017 10:31 AM PET scan 11/28/2017 ([facility]): Interval partial favorable response to treatment with left axillary FDG avid disease decreased in size as well as decreased uptake. No new FDG avid disease identified. PET 03/11/18 ([facility]): interval change in the left axillary adenopathy which now appears larger and more radiotracer avid when compared to the prior exam. Assessment and Plan: 1. Ms. Gallegos is a 72 yo female with left breast IDC, ER 0%, MD 0%, Ki-67 50 % and HER2/carolin 3+, [id number]. She underwent mastectomy and ALND on 06/28/16 under the care of Dr. Virk, pT2N2a (05/06 LN). 2. Since she was not a candidate for TCH+P in the setting of her stage IV CKD, CAD/CHF, and restrictive lung disease, we recommended proceeding with local therapy first (mastecomy/ALND completed on 06/28/16). In regards to systemic treatment, we recommended single agent Herceptin. She completed Herceptin 2016 due to drop in EF. 3. S/P axillary surgery for recurrent disease on PET 08/2017. No evidence of distant metastases. 4. CAD s/p CABG; follows with cardiology. 5. CKD stage IV; secondary to diabetes, on dialysis. She follows with nephrology. 6. Restrictive lung disease from pulmonary fibrosis; uses 2L O2. 7. Atrial fibrillation; on anticoagulation. 8. Diabetes; insulin dependent. 9. PET 03/11/18 showed left axillary adenopathy. She is scheduled to start radiation in [place] on 04/03/18. 10. RTC as needed. Estefany Hand APRN I have personally interviewed and examined the patient. I have reviewed the history, physical, impression and plan outlined by Estefany Hand EMERGENCY DETAIL DRIVER. HPI: The patient presents for continued breast cancer treatment. On examination: HEENT: No icterus, PERRL. Oropharynx is normal; no exudate or lesions. Neck: No JVD, supple. Adenopathy: None. Chest: CTA bilaterally. CV: RRR without murmur. Breasts: Right: No nipple discharge, skin nodules or masses. Left: mastectomy Abdomen: Soft, non-distended, Positive bowel sounds. Skin: No rash. Back: no pain with palpation over the T-spine. Extremities: swelling LUE Neuro: CN: II-XII intact; no sensory or motor abnormalities noted. My impression: Stage IV breast cancer My plan: start radiation in this encounter Plan of Treatment Not on fileas of this encounter Visit Diagnoses Diagnosis Malignant neoplasm of lower-outer quadrant of left female breast, unspecified estrogen receptor status (HCC) - Primary
--- OUTSIDE RECORDS SUMMARY | 2018-05-09 09:41 | XMS REPORT | Encounter Summary ---
Author Author [facility] Organization [facility] Address Unknown Phone Unavailable Care Team Providers Care Prototype Engineer Manager Name Role Phone AprilAnuja Unavailable Unavailable Chris Thacker MD PCP Clementina Mascorro MD Unavailable Michael Virk DO Unavailable Niko Phelps MD Unavailable Outpatient, Radiologist Unavailable Unavailable Kirti Jimenes PA-C Unavailable Lang Paredes MD Unavailable Isidra Miranda APRN Unavailable Bolivar Jones Unavailable Evie Zaldivar Unavailable Unavailable Isidra Baker RN Unavailable Unavailable Sarah Kirkpatrick RN Unavailable Unavailable Encounter Details Date Type Department Care Team Description 02/27/2018 [facility] Outpatient, Radiologist Diagnosis unknown Orders [address] [place] [address] Social History Tobacco Use Types Packs/Day Years [...] on fileas of this encounter Results * US ABDOMEN EXTERNAL IMAGING (01/05/2018) Narrative This order has been auto finalized and does not contain a result. * NM PET/CT EXTERNAL IMAGING (11/28/2017) Narrative This order has been auto finalized and does not contain a result. in this encounter Visit Diagnoses Diagnosis Diagnosis unknown Other unknown and unspecified cause of morbidity or mortality
--- OUTSIDE RECORDS SUMMARY | 2018-05-09 09:41 | XMS REPORT | Encounter Summary ---
Author Author [facility] Organization [facility] Address Unknown Phone Unavailable Care Team Providers Care Social Insurance Specialist Name Role Phone DeniajudsonchristopherAnuja Unavailable Unavailable [...] Details Date Type Department Care Team Description 03/27/2018 [facility] Cardiology Lang Paredes MD Encounter Remote Device Check [address] [facility] [phone] [address] [place] [address] [phone] Social History Tobacco Use Types Packs/Day Years [...] disease involving coronary bypass graft of [place] heart with angina pectoris with documented spasm ([facility]) blood sugar diagnostic Test three [...] 60 mg tablet morning. lancets [facility] Test Blood Glucose three 06/04/2017 times daily Prn. Dx E10.9. levothyroxine (SYNTHROID) Take 1 tablet by mouth 08/20/2017 25 mcg tablet daily. lidocaine/prilocaine Apply nickel size amount 30 g 1 08/04/2017 (EMLA) 2.5/2.5 % topical to port access site 30 cream minutes before accessing port Magnesium 250 mg tab Take 250 mg by mouth daily. Wheknhzrgrpar-Wy-Qavo-Min Take 1 Tab by mouth erals (WOMEN'S DAILY daily. MULTIVITAMIN) 18-0.4 mg tab nitroglycerin (NITROSTAT) Place 0.4 mg under tongue 0.4 mg tablet every 5 minutes as needed for Chest Pain. ondansetron (ZOFRAN ODT) Take 4 mg by mouth every 4 mg rapid dissolve 8 hours as needed for tablet Nausea. OXYGEN-AIR DELIVERY Use 1 L as directed at [facility] bedtime daily. pantoprazole DR Take 40 mg [...] Results * DEVICE EVALUATION - REMOTE ILR (03/30/2018 2:29 PM) Component Value Ref Range Device Implanted By Dr. Lang Paredes Generator Model # [id number] Generator Serial # [id number] Generator Implnat Date 01/21/17 Remote Monitor Serial# [id number] DESTINEE/EOL Indicator per transmitter Generator Launch Engineer Medtronic Generator Investigational No Wireless Generator Yes [...] Linq still implanted model: LINQ11 Serial # [id number] Implant date:09/06/2015 Atrial Lead Model # CAPSUREFIX NOVUS MRI SURESCAN 5076 52CM Atrial Lead Serial # [id number] Atrial Lead Implant Date 09/22/2015 Atrial Lead Diaph. 10 Stimulation Atrial Lead Launch Engineer Medtronic Atrial Lead No Investigational Atrial Lead Fixation active fixation Atrial Lead Pin Connector IS1 Atrial Lead Polarity Bipolar RV Lead Model # CAPSUREFIX NOVUS MRI SURESCAN 5076 58CM RV Lead Serial # [id number] RV Lead Implant Date 09/22/2015 RV Lead Diaph. 10 Stimulation RV Lead Launch Engineer Medtronic RV Lead Investigational No RV Lead Fixation active fixation RV Lead Pin Connector ICD IS1 Device Mode AAIR/DDDR Lower Rate Limit 60 Upper Rate Limit 130 Sensor Rate Limit 130 Pace AV Delay 180 Sense AV Delay 150 Mode Switch (bpm) 150 High A Rate Detect 150 High V Rate Detect 150 Mode Switch Status On Device [place] Carelink Express Transmitter Compatible ILR Current Monitoring 03/27/18-04/26/18 Period ILR Date of Last Daily 04/16/2018 Connection ILR Battery Status OK ILR Symptom [...] as 88 of ILR Presenting ECG Strip 04/16/2018 @ 00:04:50 shows SB in the 50's ILR Lifetime Events as of 04/16/2018 Datetion ILR Percent Time in AT/AF 0.0% Events Since Last Interrogation ILR Percent Time in AT/AF 0.5% Lifetime of Events as of Specimen Performing Laboratory OTHER OUTSIDE LAB Narrative [facility] [04/16/2018 1:14:48 PM - KIERRA ORNELAS] Presenting EGM on 04/16/2018 @ 00:04:50 shows SB in the 50's. Full report received and reviewed. No new event to report. Results routed to Dr. Paredes for signature and review. [03/30/2018 2:31:32 PM - ISIDRA RODRIGUEZ] Presenting EGM: 03/30/18 @ 0004 SB 56 bpm. Summary report received and reviewed,no new events to report, will continue to monitor. Results routed to Dr. Paredes for signature and review. 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
--- OUTSIDE RECORDS SUMMARY | 2018-05-09 09:42 | XMS REPORT | Encounter Summary ---
Author Author [facility] Organization [facility] Address Unknown Phone Unavailable Care Team Providers Care Painter Airbrush Name Role Phone DeniajudsonchristopherAnuja Unavailable Unavailable Chris Thacker MD PCP Clementina Mascorro MD Unavailable Michael Virk DO Unavailable Niko Phelps MD Unavailable Outpatient, Radiologist Unavailable Unavailable Kirti Jimenes PA-C Unavailable Lang Paredes MD Unavailable Isidra Miranda APRN Unavailable Bolivar Jones Unavailable Evie Zaldivar Unavailable Unavailable Iisdra Baker RN Unavailable Unavailable Sarah Kirkpatrick RN Unavailable Unavailable Encounter Details Date Type Department Care Team Description 02/18/2018 Documentation [facility] Niko Phelps MD Cancer Center - WW Exam [address] [facility] [address] [place] [address] [address] [facility] [address] [phone] [place] [address] [phone] Social History Tobacco Use Types Packs/Day Years [...] Progress Notes * Venice Hayden, RN - 02/18/2018 11:30 AM CDT Per patient, she had her mammogram done recently at [facility]. Mammogram report being request. At [phone]. in this encounter Plan of Treatment Not on fileas of this encounter Visit Diagnoses Not on filein this encounter
--- OUTSIDE RECORDS SUMMARY | 2018-05-09 09:42 | XMS REPORT | Encounter Summary ---
Author Author [facility] Organization [facility] Address Unknown Phone Unavailable Care Team Providers Care Pump And Still Operator Name Role Phone DenaijudsonchristopherAnuja Unavailable Unavailable Chris Thacker MD PCP Clementina Mascorro MD Unavailable Michael Virk DO Unavailable Niko Phelps MD Unavailable Outpatient, Radiologist Unavailable Unavailable Kirti Jimenes PA-C Unavailable Lang Paredes MD Unavailable Isidra Miranda APRN Unavailable Bolivar Jones Unavailable Evie Zaldivar Unavailable Unavailable Isidra Baker RN Unavailable Unavailable Sarah Kirkpatrick RN Unavailable Unavailable Reason for Visit * Reason Comments Medication Refill Encounter Details Date Type Department Care Team Description 02/20/2018 Refill [facility] Lang Paredes MD Medication Refill [facility] [place] [facility] [address] [place] [address] [place] [address] [phone] Social History Tobacco Use Types Packs/Day Years [...] fileas of this encounter Visit Diagnoses Diagnosis Atrial fibrillation with rapid ventricular response (HCC) Atrial fibrillation Coronary artery disease involving coronary bypass graft of creek heart with angina pectoris with documented spasm (HCC)
--- OUTSIDE RECORDS SUMMARY | 2018-05-09 09:42 | XMS REPORT | Encounter Summary ---
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 Name Role Phone AprilAnuja Unavailable Unavailable Chris [...] Visit * Reason Comments Heme/Onc Care Port Flush Encounter Details Date Type Department Care Team Description 02/23/2018 Hospital [facility] Niko Phelps MD Encounter [facility] Lab [address] [facility] [address] [address] [address] [address] [place] [address] [phone] Social History Tobacco Use Types Packs/Day Years [...] artery disease involving coronary bypass graft of wiyot heart with angina pectoris with documented spasm ([facility]) blood sugar diagnostic Test three [...] (IMDUR) 60 mg tablet morning. lancets [facility] Test Blood Glucose three 06/04/2017 times daily Prn. Dx E10.9. levothyroxine (SYNTHROID) Take 1 tablet by mouth 08/20/2017 25 mcg tablet daily. lidocaine/prilocaine Apply nickel size amount 30 g 1 08/04/2017 (EMLA) 2.5/2.5 % topical to port access site 30 cream minutes before accessing port Magnesium 250 mg tab Take 250 mg by mouth daily. Knmblvnmqqckm-Do-Inaj-Min Take 1 Tab by mouth erals (WOMEN'S DAILY daily. MULTIVITAMIN) 18-0.4 mg tab nitroglycerin (NITROSTAT) Place 0.4 mg under tongue 0.4 mg tablet every 5 minutes as needed for Chest Pain. ondansetron (ZOFRAN ODT) Take 4 mg by mouth every 4 mg rapid dissolve 8 hours as needed for tablet Nausea. OXYGEN-AIR DELIVERY Use 1 L as directed at [facility] bedtime daily. pantoprazole DR Take [...] lock flush PF syringe 500 Units Given 02/23/2018 500 Units 500 Units, Intravenous, ONCE, 1 dose, 16:56 CDT 02/23/18 at 1700, NOTE: This is a HIGH ALERT Medication. in this encounter
--- OUTSIDE RECORDS SUMMARY | 2018-05-09 09:42 | XMS REPORT | Encounter Summary ---
Author Author [facility] Organization [facility] Address Unknown Phone Unavailable Care Team Providers Care District Superintendent Name Role Phone DeniajudsonchristopherAnuja Unavailable Unavailable Chris [...] Date Type Department Care Team Description 02/23/2018 Office Visit [facility] Niko Phelps MD Malignant neoplasm of [facility] Exam [address] lower-outer quadrant of [facility] [address] left female breast, [address] [place] [address] unspecified estrogen [address] [facility] [address] [phone] receptor status (HCC) [place] [address] [phone] Social History Tobacco Use Types Packs/Day Years Used Date Former Smoker Cigarettes 1 16 Quit: 06/13/1994 Smokeless Tobacco: Never Used Comments: quit 20 years ago Alcohol Use Drinks/Week oz/Week Comments Yes 0 Standard 0.0 occasionally drinks or equivalent Sex Assigned at Date Recorded Not on file as of this encounter Last Filed Vital Signs Vital Sign Reading Time Taken Blood Pressure 130/63 02/23/2018 3:48 PM CDT Pulse 66 02/23/2018 3:48 PM CDT Temperature 36.7 C (98 F) 02/23/2018 3:48 PM CDT Respiratory Rate 18 02/23/2018 3:48 PM CDT Oxygen Saturation 86% 02/23/2018 3:48 PM CDT Inhaled Oxygen - - Concentration Weight 72.8 kg (160 lb 9.6 oz) 02/23/2018 3:48 PM CDT Height 164.5 cm (5' 4.75") 02/23/2018 3:48 PM CDT Body Mass Index 26.93 02/23/2018 3:48 PM CDT in this encounter Functional Status [...] Progress Notes * Niko Phelps MD - 02/23/2018 3:30 PM CDT Formatting of this note may be different from the original. Date of Service: 02/23/2018 Subjective: : Heme/Onc Care Malignant neoplasm of [...] who had a cardiac stress test at [facility] in [place], [place] in 04/2016 that indicated a "shadow" [...] (in breast mass and LN), ER 0%, MI 0 %, Ki-67 50% and HER2 3+. [...] . Stopped due to drop in EF. Cancer Staging Malignant neoplasm of lower-outer quadrant [...] here today for a follow up. She had a FDG PET scan in 08/2017 that showed residual/recurrent malignancy in the left axilla. She underwent left axillary LN excision at [facility] in 08/2017. Fragments of fibroadipose and fibromuscular tissue involved by poorly differentiated HER2 positive carcinoma were removed with negative margin. She has another axillary surgery on 2016 that showed biopsy cavity only with organizing abscess. No carcinoma was identified. Review of Systems Constitutional: Negative for activity [...] neck pain. Skin: Negative for wound. Neurological: Negative for dizziness, tremors, weakness, light-headedness [...] 60 mg by mouth every morning. lancets [facility] Test Blood Glucose three times daily Prn. Dx E10.9. levothyroxine (SYNTHROID) 25 mcg tablet Take 1 tablet by mouth daily. lidocaine/prilocaine (EMLA) 2.5/2.5 % topical cream Apply nickel size amount to port access site 30 minutes before accessing port Magnesium 250 mg tab Take 250 mg by mouth daily. Bkujawkesonql-Kh-Mfhk-Minerals (WOMEN'S DAILY MULTIVITAMIN) 18-0.4 mg tab Take 1 Tab by mouth daily. nitroglycerin (NITROSTAT) 0.[address] 0.4 mg under tongue every 5 minutes as needed for Chest Pain. ondansetron (ZOFRAN ODT) 4 mg rapid dissolve tablet Take 4 mg by mouth every 8 hours as needed for Nausea. OXYGEN-AIR DELIVERY SYSTEMS [facility] Use 1 L as directed at bedtime [...] at bedtime daily. Body mass index is 26.93 kg/m. Pain Score: Zero Pain Addressed: no pain Patient Evaluated for [...] 0.10 08/04/2017 10:31 AM PET scan 11/28/2017 ([facility]): Interval partial favorable response to treatment with left axillary FDG avid disease decreased in size as well as decreased uptake. No new FDG avid disease identified. Assessment and Plan: 1. Ms. 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 She underwent mastectomy and ALND on 06/28/16 [...] PET 08/2017. No evidence of distant metastases. Repeat PET 11/2017 did not show any distant metastases. 4. CAD s/p CABG; follows with cardiology. 5. CKD stage IV; secondary to diabetes, on dialysis. She follows with nephrology. 6. Restrictive lung disease from pulmonary fibrosis; uses 2L O2. 7. Atrial fibrillation; on anticoagulation. 8. Diabetes; insulin dependent. 9. We don't recommend screening mammograms or routine imaging such as a PET scan. Recommend close follow up. If there is an indication for symptomatic progression of cancer, we can offer therapy at that time. 10. RTC in 03/2018 for a follow up visit. Niko Phelps MD in this encounter Plan of Treatment Not on fileas of this encounter Visit Diagnoses Diagnosis Malignant neoplasm of lower-outer quadrant of left female breast, unspecified estrogen receptor status (HCC)
--- OUTSIDE RECORDS SUMMARY | 2018-05-09 09:45 | XMS REPORT | Continuity of Care Document ---
Author Author [facility] Organization [facility] & Address Unknown Phone Unavailable Allergies Active Description Code Type Severity Reaction Onset Reported/Identified Relationship to Patient Clinical Status Yes meloxicam [id number] Drug Allergy Unknown N/A 09/05/2006 Yes meloxicam meloxicam Drug Allergy Unknown . 10/05/2012 Yes TUYET Inhibitors [id number] Drug Allergy Unknown N/A 03/03/2015 Yes ARB-Angiotensin Receptor Antagonist [id number] Drug Allergy Unknown N/A Medications There is no data. Problems Date Dx Coded Attending Type Code Diagnosis Diagnosed By 01/30/2015 Ot 780.4 01/30/2015 Ot 959.01 01/30/2015 Ot E000.8 01/30/2015 Ot E849.0 01/30/2015 Ot E888.9 01/30/2015 ALLIE BIGGS, ROSALVA Ramos Ot V76.12 01/30/2015 JOSE A BIGGS, MANASA R Ot 959.2 01/30/2015 JOSE A BIGGS, MANASA R Ot E000.8 01/30/2015 JOSE A BIGGS, MANASA R Ot E849.6 01/30/2015 JOSE A BIGGS, MANASA R Ot E888.9 01/30/2015 JOSE A BIGGS, MANASA R Ot 715.31 01/30/2015 JOSE A BIGGS, MANASA R Ot 719.01 01/30/2015 JOSE A BIGGS, MANASA R Ot 840.4 01/30/2015 JOSE A BIGGS, MANASA R Ot E888.9 01/31/2015 Ot 780.4 01/31/2015 Ot 959.01 01/31/2015 Ot E000.8 01/31/2015 Ot E849.0 01/31/2015 Ot E888.9 01/31/2015 ALLIE BIGGS, ROSALVA Ramos Ot V76.12 01/31/2015 JOSE A BIGGS, MANASA R Ot 959.2 01/31/2015 JOSE A BIGGS, MANASA R Ot E000.8 01/31/2015 JOSE A BIGGS, MANASA R Ot E849.6 01/31/2015 JOSE A BIGGS, MANASA R Ot E888.9 01/31/2015 JOSE A BIGGS, MANASA R Ot 715.31 01/31/2015 JOSE A BIGGS, MANASA R Ot 719.01 01/31/2015 JOSE A BIGGS, MANASA R Ot 840.4 01/31/2015 JOSE A BIGGS, MANASA R Ot E888.9 01/31/2015 Ot 780.4 01/31/2015 Ot 959.01 01/31/2015 Ot E000.8 01/31/2015 Ot E849.0 01/31/2015 Ot E888.9 01/31/2015 ALLIE IBGGS, ROSALVA G Ot V76.12 01/31/2015 JOSE A BIGGS, MANASA R Ot 959.2 01/31/2015 JOSE A BIGGS, MANASA R Ot E000.8 01/31/2015 JOSE A BIGGS, MANASA R Ot E849.6 01/31/2015 JOSE A BIGGS, MANASA R Ot E888.9 01/31/2015 JOSE A BIGGS, MANASA R Ot 715.31 01/31/2015 JOSE A BIGGS, MANASA R Ot 719.01 01/31/2015 JOSE A BIGGS, MANASA R Ot 840.4 01/31/2015 JOSE A BIGGS, MANASA R Ot E888.9 02/20/2015 SANTOS HUGHES MD Ot 250.80 DIAB W OTH SPEC MANIFEST, TYPE II OR UNS 02/20/2015 SANTOS HUGHES MD Ot 272.4 HYPERLIPIDEMIA NEC/NOS 02/20/2015 SANTOS HUGHES MD Ot 401.9 HYPERTENSION NOS 02/20/2015 SANTOS HUGHES MD Ot 428.0 CONGESTIVE HEART FAILURE NOS 02/20/2015 SANTOS HUGHES MD Ot 443.9 PERIPH VASCULAR DIS NOS 02/20/2015 SANTOS HUGHES MD Ot 459.31 CHRONIC VENOUS HYPERTEN W ULCER 02/20/2015 SANTOS HUGHES MD Ot 707.12 ULCER OF CALF 02/24/2015 JOSE A BIGGS, MANASA R Ot 250.00 02/24/2015 JOSE A BIGGS, MANASA R Ot 272.0 02/24/2015 JOSE A BIGGS, MANASA R Ot 276.2 02/24/2015 JSOE A BIGGS, MANASA R Ot 276.51 02/24/2015 JOSE A BIGGS, MANASA R Ot 276.8 02/24/2015 JOSE A BIGGS, MANASA R Ot 278.00 02/24/2015 JOSE A BIGGS, MANASA R Ot 338.29 02/24/2015 JOSE A BIGGS, MANASA R Ot 348.31 02/24/2015 JOSE A BIGGS, MANASA R Ot 403.90 02/24/2015 JOSE A BGIGS, MANASA R Ot 410.71 02/24/2015 JOSE A BIGGS, MANASA R Ot 412 02/24/2015 JOSE A BIGGS, MANASA R Ot 414.00 02/24/2015 JOSE A BIGGS, MANASA R Ot 427.31 02/24/2015 JOS EA BIGGS, MANASA R Ot 438.89 02/24/2015 JOSE A BIGGS, MANASA R Ot 440.1 02/24/2015 JOSE A BIGGS, MANASA R Ot 486 02/24/2015 JOSE A BIGGS, MANASA R Ot 496 02/24/2015 JOSE A BIGGS, MANASA R Ot 530.81 02/24/2015 JOSE A BIGGS, MANASA R Ot 558.9 02/24/2015 JOSE A BIGGS, MANASA R Ot 577.0 02/24/2015 JOSE A BIGGS, MANASA R Ot 584.9 02/24/2015 JOSE A BIGGS, MANASA R Ot 585.9 02/24/2015 JOSE A BIGGS, MANASA R Ot 716.90 02/24/2015 JOSE A BIGGS, MANASA R Ot 724.5 02/24/2015 JOSE A BIGGS, MANASA R Ot 728.87 02/24/2015 JOSE A BIGGS, MANASA R Ot 785.59 02/24/2015 JOSE A BIGGS, MANASA R Ot V15.82 02/24/2015 JOSE A BIGGS, MANASA R Ot V45.81 02/24/2015 JOSE A BIGGS, MANASA R Ot V85.35 02/25/2015 JOSE A BIGGS, MANASA R Ot 250.00 02/25/2015 JOSE A BIGGS, MANASA R Ot 272.0 02/25/2015 JOSE A BIGGS, MANASA R Ot 276.2 02/25/2015 JOSE A BIGGS, MANASA R Ot 276.51 02/25/2015 JOSE A BIGGS, MANASA R Ot 276.8 02/25/2015 JOSE A BIGGS, MANASA R Ot 278.00 02/25/2015 JOSE A BIGGS, MANASA R Ot 338.29 02/25/2015 JOSE A BIGGS, MANASA R Ot 348.31 02/25/2015 JOSE A BIGGS, MANASA R Ot 403.90 02/25/2015 JOSE A BIGGS, MANASA R Ot 410.71 02/25/2015 JOSE A BIGGS, MANASA R Ot 412 02/25/2015 JOSE A BIGGS, MANASA R Ot 414.00 02/25/2015 JOSE A BIGGS, MANASA R Ot 427.31 02/25/2015 JOSE A BIGGS, MANASA R Ot 438.89 02/25/2015 JOSE A BIGGS, MNAASA R Ot 440.1 02/25/2015 JOSE A BIGGS, MANASA R Ot 486 02/25/2015 JOSE A BIGGS, MANASA R Ot 496 02/25/2015 JOSE A BIGGS, MANASA R Ot 530.81 02/25/2015 JOSE A BIGGS, MANASA R Ot 558.9 02/25/2015 JOSE A BIGGS, MANASA R Ot 577.0 02/25/2015 JOSE A BIGGS, MANASA R Ot 584.9 02/25/2015 JOSE A BIGGS, MANASA R Ot 585.9 02/25/2015 JOSE A BIGGS, MANASA R Ot 716.90 02/25/2015 JOSE A BIGGS, MANASA R Ot 724.5 02/25/2015 JOSE A BIGGS, MANASA R Ot 728.87 02/25/2015 JOSE A BIGGS, MANASA R Ot 785.59 02/25/2015 JOSE A BIGGS, MANASA R Ot V15.82 02/25/2015 JOSE A BIGGS, MANASA R Ot V45.81 02/25/2015 JOSE A BIGGS, MANASA R Ot V85.35 02/26/2015 JOSE A BIGGS, MANASA R Ot 250.00 02/26/2015 JOSE A BIGGS, MANASA R Ot 272.0 02/26/2015 JOSE A BIGGS, MANASA R Ot 276.2 02/26/2015 JOSE A BIGGS, MANASA R Ot 276.51 02/26/2015 JOSE A BIGGS, MANASA R Ot 276.8 02/26/2015 JOSE A BIGGS, MANASA R Ot 278.00 02/26/2015 JOSE A BIGGS, MANASA R Ot 338.29 02/26/2015 JOSE A BIGGS, MANASA R Ot 348.31 02/26/2015 JOSE A BIGGS, MANASA R Ot 403.90 02/26/2015 JOSE A BIGGS, MANASA R Ot 410.71 02/26/2015 JOSE A BIGGS, MANASA R Ot 412 02/26/2015 JOSE A BIGGS, MANASA R Ot 414.00 02/26/2015 JOSE A BIGGS, MANASA R Ot 427.31 02/26/2015 JOSE A BIGGS, MANASA R Ot 438.89 02/26/2015 JOSE A BIGGS, MANASA R Ot 440.1 02/26/2015 JOSE A BIGGS, MANASA R Ot 486 02/26/2015 JOSE A BIGGS, MANASA R Ot 496 02/26/2015 JOSE A BIGGS, MANASA R Ot 530.81 02/26/2015 JOSE A BIGGS, MANASA R Ot 558.9 02/26/2015 JOSE A BIGGS, MANASA R Ot 577.0 02/26/2015 JOSE A BIGGS, MANASA R Ot 584.9 02/26/2015 JOSE A BIGGS, MANASA R Ot 585.9 02/26/2015 JOSE A BIGGS, MANASA R Ot 716.90 02/26/2015 JOSE A BIGGS, MANASA R Ot 724.5 02/26/2015 JOSE A BIGGS, MANASA R Ot 728.87 02/26/2015 JOSE A BIGGS, MANASA R Ot 785.59 02/26/2015 JOSE A BIGGS, MANASA R Ot V15.82 02/26/2015 JOSE A BIGGS, MANASA R Ot V45.81 02/26/2015 JOSE A BIGGS, MANASA R Ot V85.35 02/27/2015 JOSE A BIGGS, MANASA R Ot 250.00 02/27/2015 JOSE A BIGGS, MANASA R Ot 272.0 02/27/2015 JOSE A BIGGS, MANASA R Ot 276.2 02/27/2015 JOSE A BIGGS, MANASA R Ot 276.51 02/27/2015 JOSE A BIGGS, MANASA R Ot 276.8 02/27/2015 JOSE A BIGGS, MANASA R Ot 278.00 02/27/2015 JOSE A BIGGS, MANASA R Ot 338.29 02/27/2015 JOSE A BIGGS, MANASA R Ot 348.31 02/27/2015 JOSE A BIGGS, MANASA R Ot 403.90 02/27/2015 JOSE A BIGGS, MANASA R Ot 410.71 02/27/2015 JOSE A BIGGS, MANASA R Ot 412 02/27/2015 JOSE A BIGGS, MANASA R Ot 414.00 02/27/2015 JOSE A BIGGS, MANASA R Ot 427.31 02/27/2015 JOSE A BIGGS, MANASA R Ot 438.89 02/27/2015 JOSE A BIGGS, MANASA R Ot 440.1 02/27/2015 JOSE A BIGGS, MANASA R Ot 486 02/27/2015 JOSE A BIGGS, AMNASA R Ot 496 02/27/2015 JOSE A BIGGS, MANASA R Ot 530.81 02/27/2015 JOSE A BIGGS, MANASA R Ot 558.9 02/27/2015 JOSE A BIGGS, MANASA R Ot 577.0 02/27/2015 JOSE A BIGGS, MANASA R Ot 584.9 02/27/2015 JOSE A BIGGS, MANASA R Ot 585.9 02/27/2015 JOSE A BIGGS, MANASA R Ot 716.90 02/27/2015 JOSE A BIGGS, MANASA R Ot 724.5 02/27/2015 JOSE A BIGGS, MANASA R Ot 728.87 02/27/2015 JOSE A BIGGS, MANASA R Ot 785.59 02/27/2015 JOSE A BIGGS, MANASA R Ot V15.82 02/27/2015 JOSE A BIGGS, MANASA R Ot V45.81 02/27/2015 JOSE A BIGGS, MANASA R Ot V85.35 02/27/2015 JOSE A BIGGS, MANASA R Ot 250.00 02/27/2015 JOSE A BIGGS, MANASA R Ot 272.0 02/27/2015 JOSE A BIGGS, MANASA R Ot 276.2 02/27/2015 JOSE A BIGGS, MANASA R Ot 276.51 02/27/2015 JOSE A BIGGS, MANASA R Ot 276.8 02/27/2015 JOSE A BIGGS, MANASA R Ot 278.00 02/27/2015 JOSE A BIGGS, MANASA R Ot 338.29 02/27/2015 JOSE A BIGGS, MANASA R Ot 348.31 02/27/2015 JOSE A BIGGS, MANASA R Ot 403.90 02/27/2015 JOSE A BIGGS, MANASA R Ot 410.71 02/27/2015 JOSE A BIGGS, MANASA R Ot 412 02/27/2015 JOSE A BIGGS, MANASA R Ot 414.00 02/27/2015 JOSE A BIGGS, MANASA R Ot 427.31 02/27/2015 JOSE A BIGGS, MANASA R Ot 438.89 02/27/2015 JOSE A BIGGS, MANASA R Ot 440.1 02/27/2015 JOSE A BIGGS, MANASA R Ot 486 02/27/2015 JOSE A BIGGS, MANASA R Ot 496 02/27/2015 JOSE A BIGGS, MANASA R Ot 530.81 02/27/2015 JOSE A BIGGS, MANASA R Ot 558.9 02/27/2015 JOSE A BIGGS, MANASA R Ot 577.0 02/27/2015 JOSE A BIGGS, MANASA R Ot 584.9 02/27/2015 JOSE A BIGGS, MANASA R Ot 585.9 02/27/2015 JOSE A BIGGS, MANASA R Ot 716.90 02/27/2015 JOSE A BIGGS, MANASA R Ot 724.5 02/27/2015 JOSE A BIGGS, MANASA R Ot 728.87 02/27/2015 JOSE A BIGGS, MANASA R Ot 785.59 02/27/2015 JOSE A BIGGS, MANASA R Ot V15.82 02/27/2015 JOSE A BIGGS, MANASA R Ot V45.81 02/27/2015 JOSE A BIGGS, MANASA R Ot V85.35 02/28/2015 JOSE A BIGGS, MANASA R Ot 250.00 02/28/2015 JOSE A BIGGS, MANASA R Ot 272.0 02/28/2015 JOSE A BIGGS, MANASA R Ot 276.2 02/28/2015 JOSE A BIGGS, MANASA R Ot 276.51 02/28/2015 JOSE A BIGGS, MANASA R Ot 276.8 02/28/2015 JOSE A BIGGS, MANASA R Ot 278.00 02/28/2015 JOSE A BIGGS, MANASA R Ot 338.29 02/28/2015 JOSE A BIGGS, MANASA R Ot 348.31 02/28/2015 JOSE A BIGGS, MANASA R Ot 403.90 02/28/2015 JOSE A BIGGS, MANASA R Ot 410.71 02/28/2015 JOSE A BIGGS, MANASA R Ot 412 02/28/2015 JOSE A BIGGS, MANASA R Ot 414.00 02/28/2015 JOSE A BIGGS, MANASA R Ot 427.31 02/28/2015 JOSE A BIGGS, MANASA R Ot 438.89 02/28/2015 JOSE A BIGGS, MANASA R Ot 440.1 02/28/2015 JOSE A BIGGS, MANASA R Ot 486 02/28/2015 JOSE A BIGGS, MANASA R Ot 496 02/28/2015 JOSE A BIGGS, MANASA R Ot 530.81 02/28/2015 JOSE A BIGGS, MANASA R Ot 558.9 02/28/2015 JOSE A BIGGS, MANASA R Ot 577.0 02/28/2015 JOSE A BIGGS, MANASA R Ot 584.9 02/28/2015 JOSE A BIGGS, MANASA R Ot 585.9 02/28/2015 JOSE A BIGGS, MANASA R Ot 716.90 02/28/2015 JOSE A BIGGS, MANASA R Ot 724.5 02/28/2015 JOSE A BIGGS, MANASA R Ot 728.87 02/28/2015 JOSE A BIGGS, MANASA R Ot 785.59 02/28/2015 JOSE A BIGGS, MANASA R Ot V15.82 02/28/2015 JOSE A BIGGS, MANASA R Ot V45.81 02/28/2015 JOSE A BIGGS, MANASA R Ot V85.35 03/01/2015 JOSE A BIGGS, MANASA R Ot 250.00 03/01/2015 JOSE A BIGGS, MANASA R Ot 272.0 03/01/2015 JOSE A BIGGS, MANASA R Ot 276.2 03/01/2015 JOSE A BIGGS, MANASA R Ot 276.51 03/01/2015 JOSE A BIGGS, MANASA R Ot 276.8 03/01/2015 JOSE A BIGGS, MANASA R Ot 278.00 03/01/2015 JOSE A BIGGS, MANASA R Ot 338.29 03/01/2015 JOSE A BIGGS, MANASA R Ot 348.31 03/01/2015 JOSE A BIGGS, MANASA R Ot 403.90 03/01/2015 JOSE A BIGGS, MANASA R Ot 410.71 03/01/2015 JOSE A BIGGS, MANASA R Ot 412 03/01/2015 JOSE A BIGGS, MANASA R Ot 414.00 03/01/2015 JOSE A BIGGS, MANASA R Ot 427.31 03/01/2015 JOSE A BIGGS, MANASA R Ot 438.89 03/01/2015 JOSE A BIGGS, MANASA R Ot 440.1 03/01/2015 JOSE A BIGGS, MANASA R Ot 486 03/01/2015 JOSE A BIGGS, MANASA R Ot 496 03/01/2015 JOSE A BIGGS, MANASA R Ot 530.81 03/01/2015 JOSE A BIGGS, MANASA R Ot 558.9 03/01/2015 JOSE A BIGGS, MANASA R Ot 577.0 03/01/2015 JOSE A BIGGS, MANASA R Ot 584.9 03/01/2015 JOSE A BIGGS, MANASA R Ot 585.9 03/01/2015 JOSE A BIGGS, MANASA R Ot 716.90 03/01/2015 JOSE A BIGGS, MANASA R Ot 724.5 03/01/2015 JOSE A BIGGS, MANASA R Ot 728.87 03/01/2015 JOSE A BIGGS, MANASA R Ot 785.59 03/01/2015 JOSE A BIGGS, MANASA R Ot V15.82 03/01/2015 JOSE A BIGGS, MANASA R Ot V45.81 03/01/2015 JOSE A BIGGS, MANASA R Ot V85.35 03/02/2015 JOSE A BIGGS, MANASA R Ot 250.00 03/02/2015 JOSE A BIGGS, MANASA R Ot 272.0 03/02/2015 JOSE A BIGGS, MANASA R Ot 276.2 03/02/2015 JOSE A BIGGS, MANASA R Ot 276.51 03/02/2015 JOSE A BIGGS, MANASA R Ot 276.8 03/02/2015 JOSE A BIGGS, MANASA R Ot 278.00 03/02/2015 JOSE A BIGGS, MANASA R Ot 338.29 03/02/2015 JOSE A BIGGS, MANASA R Ot 348.31 03/02/2015 JOSE A BIGGS, MANASA R Ot 403.90 03/02/2015 JOSE A BIGGS, MANASA R Ot 410.71 03/02/2015 JOSE A BIGGS, MANASA R Ot 412 03/02/2015 JOSE A BIGGS, MANASA R Ot 414.00 03/02/2015 JOSE A BIGGS, MANASA R Ot 427.31 03/02/2015 JOSE A BIGGS, MANASA R Ot 438.89 03/02/2015 JOSE A BIGGS, MANASA R Ot 440.1 03/02/2015 JOSE A BIGGS, MANASA R Ot 486 03/02/2015 JOSE A BIGGS, MANASA R Ot 496 03/02/2015 JOSE A BIGGS, MANASA R Ot 530.81 03/02/2015 JOSE A BIGGS, MANASA R Ot 558.9 03/02/2015 JOSE A BIGGS, MANASA R Ot 577.0 03/02/2015 JOSE A BIGGS, MANASA R Ot 584.9 03/02/2015 JOSE A BIGGS, MANASA R Ot 585.9 03/02/2015 JOSE A BIGGS, MANASA R Ot 716.90 03/02/2015 JOSE A BIGGS, MANASA R Ot 724.5 03/02/2015 JOSE A BIGGS, MANASA R Ot 728.87 03/02/2015 JOSE A BIGGS, MANASA R Ot 785.59 03/02/2015 JOSE A BIGGS, MANASA R Ot V15.82 03/02/2015 JOSE A BIGGS, MANASA R Ot V45.81 03/02/2015 JOSE A BIGGS, MANASA R Ot V85.35 03/03/2015 JOSE A BIGGS, MANASA R Ot 250.00 03/03/2015 JOSE A BIGGS, MANASA R Ot 272.0 03/03/2015 JOSE A BIGGS, MANASA R Ot 276.2 03/03/2015 JOSE A BIGGS, MANASA R Ot 276.51 03/03/2015 JOSE A BIGGS, MANASA R Ot 276.8 03/03/2015 JOSE A BIGGS, MANASA R Ot 278.00 03/03/2015 JOSE A BIGGS, MANASA R Ot 338.29 03/03/2015 JOSE A BIGGS, MANASA R Ot 348.31 03/03/2015 JOSE A BIGGS, MANASA R Ot 403.90 03/03/2015 JOSE A BIGGS, MANASA R Ot 410.71 03/03/2015 JOSE A BIGGS, MANASA R Ot 412 03/03/2015 JOSE A BIGGS, MANASA R Ot 414.00 03/03/2015 JOSE A BIGGS, MANASA R Ot 427.31 03/03/2015 JOSE A BIGGS, MANASA R Ot 438.89 03/03/2015 JOSE A BIGGS, MANASA R Ot 440.1 03/03/2015 JOSE A BIGGS, MANASA R Ot 486 03/03/2015 JOSE A BIGGS, MANASA R Ot 496 03/03/2015 JOSE A BIGGS, MANASA R Ot 530.81 03/03/2015 JOSE A BIGGS, MANASA R Ot 558.9 03/03/2015 JOSE A BIGGS, MANASA R Ot 577.0 03/03/2015 JOSE A BIGGS, MANASA R Ot 584.9 03/03/2015 JOSE A BIGGS, MANASA R Ot 585.9 03/03/2015 JOSE A BIGGS, MANASA R Ot 716.90 03/03/2015 JOSE A BIGGS, MANASA R Ot 724.5 03/03/2015 JOSE A BIGGS, MANASA R Ot 728.87 03/03/2015 JOSE A BIGGS, MANASA R Ot 785.59 03/03/2015 JOSE A BIGGS, MANASA R Ot V15.82 03/03/2015 JOSE A BIGGS, MANASA R Ot V45.81 03/03/2015 JOSE A BIGGS, MANASA R Ot V85.35 03/03/2015 JOSE A BIGGS, MANASA R Ot 250.00 03/03/2015 JOSE A BIGGS, MANASA R Ot 272.0 03/03/2015 JOSE A BIGGS, MANASA R Ot 276.2 03/03/2015 JOSE A BIGGS, MANASA R Ot 276.51 03/03/2015 JOSE A BIGGS, MANASA R Ot 276.8 03/03/2015 JOSE A BIGGS, MANASA R Ot 278.00 03/03/2015 JOSE A BIGGS, MANASA R Ot 338.29 03/03/2015 JOSE A BIGGS, MANASA R Ot 348.31 03/03/2015 JOSE A BIGGS, MANASA R Ot 403.90 03/03/2015 JOSE A BIGGS, MANASA R Ot 410.71 03/03/2015 JOSE A BIGGS, MANASA R Ot 412 03/03/2015 JOSE A BIGGS, MANASA R Ot 414.00 03/03/2015 JOSE A BIGGS, MANASA R Ot 427.31 03/03/2015 JOSE A BIGGS, MANASA R Ot 438.89 03/03/2015 JOSE A BIGGS, MANASA R Ot 440.1 03/03/2015 JOSE A BIGGS, MANASA R Ot 486 03/03/2015 JOSE A BIGGS, MANASA R Ot 496 03/03/2015 JOSE A BIGGS, MANASA R Ot 530.81 03/03/2015 JOSE A BIGGS, MANASA R Ot 558.9 03/03/2015 JOSE A BIGGS, MANASA R Ot 577.0 03/03/2015 JOSE A BIGGS, MANASA R Ot 584.9 03/03/2015 JOSE A BIGGS, MANASA R Ot 585.9 03/03/2015 JOSE A BIGGS, MANASA R Ot 716.90 03/03/2015 JOSE A BIGGS, MANASA R Ot 724.5 03/03/2015 JOSE A BIGGS, MANASA R Ot 728.87 03/03/2015 JOSE A BIGGS, MANASA R Ot 785.59 03/03/2015 JOSE A BIGGS, MANASA R Ot V15.82 03/03/2015 JOSE A BIGGS, MANASA R Ot V45.81 03/03/2015 JOSE A BIGGS, MANASA R Ot V85.35 03/03/2015 JOSE A BIGGS, MANASA R Ot 250.00 DIAB CHARO WO COMPL, TYPE II OR UNSPEC TY 03/03/2015 JOSE A BIGGS, MANASA R Ot 272.0 PURE HYPERCHOLESTEROLEM 03/03/2015 MANASA NRAANJO MD R Ot 275.2 DIS MAGNESIUM METABOLISM 03/03/2015 JOSE A BIGGS, MANASA R Ot 276.2 ACIDOSIS 03/03/2015 MANASA NARANJO MD R Ot 276.51 DEHYDRATION 03/03/2015 MANASA NARANJO MD R Ot 276.8 HYPOPOTASSEMIA 03/03/2015 MANASA NARANJO MD R Ot 278.00 OBESITY, NOS 03/03/2015 JOSE A BIGGS, MANASA R Ot 338.29 OTHER CHRONIC PAIN 03/03/2015 MANASA NARANJO MD R Ot 348.31 METABOLIC ENCEPHALOPATHY 03/03/2015 JOSE A BIGGS, MANASA R Ot 403.90 HYPTNSV CHR KID DIS, UNSPEC, W CHR KD ST 03/03/2015 JOSE A BIGGS, MANASA R Ot 410.71 AC MYOCARDIAL INFARCT,SUBENDO INFARCT,IN 03/03/2015 JOSE A BIGGS, MANASA R Ot 412 OLD MYOCARDIAL INFARCT 03/03/2015 JOSE A BIGGS, MANASA R Ot 414.00 CORON ATHEROSCLER NOS TYPE VESSEL, NATIV 03/03/2015 MANASA NAARNJO MD R Ot 427.31 ATRIAL FIBRILLATION 03/03/2015 JOSE A BIGGS, MANASA R Ot 427.89 CARDIAC DYSRHYTHMIAS NEC 03/03/2015 MANASA NARANJO MD R Ot 438.89 OTH LATE EFFECT-CEREBROVASCULAR DISEASE 03/03/2015 MANASA NARANJO MD R Ot 440.1 RENAL ARTERY ATHEROSCLER 03/03/2015 JOSE A BIGGS, MANASA R Ot 486 PNEUMONIA, ORGANISM NOS 03/03/2015 JOSE A BIGGS, MANASA R Ot 496 CHR AIRWAY OBSTRUCT NEC 03/03/2015 MANASA NARANJO MD R Ot 530.81 ESOPHAGEAL REFLUX 03/03/2015 MANASA NARANJO MD R Ot 558.9 NONINF GASTROENTERIT NEC 03/03/2015 JOSE A BIGGS, MANASA R Ot 577.0 ACUTE PANCREATITIS 03/03/2015 MANASA NARANJO MD R Ot 584.9 ACUTE RENAL FAILURE, UNSPECIFIED 03/03/2015 MANASA NARANJO MD R Ot 585.9 CHRONIC KIDNEY DISEASE, UNSPECIFIED 03/03/2015 JOSE A BIGGS, MANASA R Ot 716.90 ARTHROPATHY NOS-UNSPEC 03/03/2015 MANASA NARANJO MD R Ot 724.5 BACKACHE NOS 03/03/2015 MANASA NARANJO MD R Ot 728.87 MUSCLE WEAKNESS (GENERALIZED) 03/03/2015 MANASA NARANJO MD R Ot 785.59 SHOCK W/O TRAUMA NEC 03/03/2015 MANASA NARANJO MD R Ot V03.82 PROPHYLACTIC VACC AGAINST STREPTOCOCCUS 03/03/2015 MANASA NARANJO MD R Ot V15.82 03/03/2015 MANASA NARANJO MD R Ot V45.81 03/03/2015 MANASA NARANJO MD R Ot V85.35 BODY MASS INDEX 35.0-35.9, ADULT 03/07/2015 BRIDGETT BIGGS, ROBY E Ot 250.02 03/07/2015 ROBY URIAS MD E Ot 285.9 03/07/2015 BRIDGETT BIGGS ROBY E Ot 403.90 03/07/2015 BRIDGETT BIGGS ROBY E Ot 410.72 03/07/2015 BRIDGETT BIGGS ROBY E Ot 414.01 03/07/2015 BRIDGETT BIGGS, ROBY E Ot 427.31 03/07/2015 BRIDGETT BIGGS, ROBY E Ot 585.9 03/07/2015 BRIDGETT BIGGS, ROBY E Ot V45.81 03/07/2015 BRIDGETT BIGGS, ROBY E Ot V45.82 03/07/2015 BRIDGETT BIGGS, ROBY E Ot V57.89 03/07/2015 BRIDGETT BIGGS ROBY E Ot V60.3 03/09/2015 BRIDGETT BIGGS, ROBY E Ot 250.02 DIAB CHARO WO COMPL, TYPE II OR UNSPEC TY 03/09/2015 BRIDGETT BIGGS ROBY E Ot 285.9 ANEMIA NOS 03/09/2015 BRIDGETT BIGGS, ROBY E Ot 403.90 HYPTNSV CHR KID DIS, UNSPEC, W CHR KD ST 03/09/2015 ROBY URIAS MD E Ot 410.72 AC MYOCARD INFARCT,SUBENDO INFARCT,SUBSE 03/09/2015 BRIDGETT BIGGS ROBY E Ot 414.01 CORONARY ATHEROSCLEROSIS OF [place] CORON 03/09/2015 BRIDGETT BIGGS ROBY E Ot 427.31 ATRIAL FIBRILLATION 03/09/2015 BRIDGETT BIGGS ROBY E Ot 443.9 PERIPH VASCULAR DIS NOS 03/09/2015 BRIDGETT BIGGS, ROBY [place] Ot 577.0 ACUTE PANCREATITIS 03/09/2015 BRIDGETT BIGGS, ROBY [place] Ot 585.9 CHRONIC KIDNEY DISEASE, UNSPECIFIED 03/09/2015 BRIDGETT BIGGS, ROBY [place] Ot V45.81 AORTOCORONARY BYPASS 03/09/2015 BRIDGETT BIGGS, ROBY [place] Ot V45.82 PERCUTANEOUS TRANSLUM CORON ANGIOPLASTY 03/09/2015 BRIDGETT BIGGS, ROBY Hawthorne Ot V57.89 REHABILITATION PROC NEC 03/09/2015 BRIDGETT BIGGS, ROBY Hawthorne Ot V60.3 PERSON LIVING ALONE 06/01/2015 CLARENCE BIGGS, AHMED S Ot 140.0 06/01/2015 CLARENCE BIGGS, MED S Ot 250.40 06/01/2015 CLARENCE BIGGS, AHMED S Ot 272.4 06/01/2015 CLARENCE BIGGS, AHMED S Ot 583.81 06/01/2015 CLARENCE BIGGS, MED S Ot 585.4 06/01/2015 CLARENCE BIGGS, AHMED S Ot 791.0 10/26/2015 OTHER, UNLISTED Ot I48.91 10/26/2015 OTHER, UNLISTED Ot Z51.81 10/26/2015 OTHER, UNLISTED Ot Z79.01 10/31/2015 BRITTANY BIGGS, RADHA P Ot Z51.81 10/31/2015 BRITTANY BIGGS, RADHA P Ot Z79.01 11/09/2015 BRITTANY BIGGS, RADHA P Ot Z51.81 11/09/2015 BRITTANY BIGGS, RADHA P Ot Z79.01 11/21/2015 BRITTANY BIGGS, RADHA P Ot Z51.81 11/21/2015 BRITTANY BIGGS, RADHA P Ot Z79.01 11/22/2015 Ot 780.4 11/22/2015 Ot 959.01 11/22/2015 Ot E000.8 11/22/2015 Ot E849.0 11/22/2015 Ot E888.9 11/22/2015 ALLIE BIGGS, ROSALVA Ramos Ot V76.12 11/22/2015 JOSE A BIGGS, MANASA R Ot 959.2 11/22/2015 JOSE A BIGGS, MANASA R Ot E000.8 11/22/2015 JOSE A BIGGS, MANASA R Ot E849.6 11/22/2015 JOSE A BIGGS, MANASA R Ot E888.9 11/22/2015 JOSE A BIGGS, MANASA R Ot 715.31 11/22/2015 JOSE A BIGGS, MANASA R Ot 719.01 11/22/2015 JOSE A BIGGS, MANASA R Ot 840.4 11/22/2015 JOSE A BIGGS, MANASA R Ot E888.9 11/22/2015 CLARENCE BIGGS, AHMED S Ot 140.0 11/22/2015 CLARENCE BIGGS, AHMED S Ot 250.40 11/22/2015 CLARENCE BIGGS, AHMED S Ot 272.4 11/22/2015 CLARENCE BIGGS, AHMED S Ot 583.81 11/22/2015 CLARENCE BIGGS, AHMED S Ot 585.4 11/22/2015 CLARENCE BIGGS, AHMED S Ot 791.0 11/22/2015 OTHER, UNLISTED Ot I48.91 11/22/2015 OTHER, UNLISTED Ot Z51.81 11/22/2015 OTHER, UNLISTED Ot Z79.01 11/22/2015 BRITTANY BIGGS, RADHA P Ot Z51.81 11/22/2015 BRITTANY BIGGS, RADHA P Ot Z79.01 11/22/2015 BRITTANY BIGGS, RADHA P Ot Z51.81 11/22/2015 BRITTANY BIGGS, RADHA P Ot Z79.01 11/22/2015 BRITTANY BIGGS, RADHA P Ot Z51.81 11/22/2015 BRITTANY BIGGS, RADHA P Ot Z79.01 11/22/2015 BRITTANY BIGGS, RADHA P Ot Z51.81 11/22/2015 BRITTANY BIGGS, RADHA P Ot Z79.01 12/06/2015 BRITTANY BIGGS, RADHA P Ot Z51.81 12/06/2015 BRITTANY BIGGS, RADHA P Ot Z79.01 12/15/2015 BRITTANY BIGGS, RADHA P Ot Z51.81 12/15/2015 BRITTANY BIGGS, RADHA P Ot Z79.01 03/25/2016 JOELLE MAGUIRE DO Ot I10 ESSENTIAL (PRIMARY) HYPERTENSION 03/25/2016 JOELLE MAGUIRE DO Ot J18.9 PNEUMONIA, UNSPECIFIED ORGANISM 03/25/2016 JOELLE MAGUIRE DO Ot J96.20 ACUTE AND CHR RESP FAILURE, UNSP W HYPOX 03/25/2016 TING DO, JOELLE K Ot N17.9 ACUTE KIDNEY FAILURE, UNSPECIFIED 03/27/2016 TING DO, JOELLE K Ot I10 ESSENTIAL (PRIMARY) HYPERTENSION 03/27/2016 TING DO, JOELLE K Ot J18.9 PNEUMONIA, UNSPECIFIED ORGANISM 03/27/2016 TING DO, JOELLE K Ot J96.20 ACUTE AND CHR RESP FAILURE, UNSP W HYPOX 03/27/2016 TING DO, JOELLE K Ot N17.9 ACUTE KIDNEY FAILURE, UNSPECIFIED 04/10/2016 TING DO, JOELLE K Ot I10 ESSENTIAL (PRIMARY) HYPERTENSION 04/10/2016 TING DO, JOELLE K Ot J18.9 PNEUMONIA, UNSPECIFIED ORGANISM 04/10/2016 TING DO, JOELLE K Ot J96.20 ACUTE AND CHR RESP FAILURE, UNSP W HYPOX 04/10/2016 TING DO, JOELLE K Ot N17.9 ACUTE KIDNEY FAILURE, UNSPECIFIED 04/30/2016 JOSE A BIGGS, MANASA R Ot N63 UNSPECIFIED LUMP IN BREAST 05/01/2016 JOSE A BIGGS, MANASA R Ot N63 UNSPECIFIED LUMP IN BREAST 05/06/2016 JOSE A BIGGS, MANASA R Ot N63 UNSPECIFIED LUMP IN BREAST 05/06/2016 JOSE A BIGGS, MANASA R Ot N63 UNSPECIFIED LUMP IN BREAST 05/07/2016 JOSE A BIGGS, MANASA R Ot N63 UNSPECIFIED LUMP IN BREAST 05/08/2016 JOSE A BIGGS, MANASA R Ot C50.912 MALIGNANT NEOPLASM OF UNSPECIFIED SITE O 2016 JOSE A BIGGS, MANASA R Ot C50.912 MALIGNANT NEOPLASM OF UNSPECIFIED SITE O 05/22/2016 CIERA BIGGS, CANDE Day Ot C50.919 MALIGNANT NEOPLASM OF UNSP SITE OF UNSPE 05/22/2016 CIERA BIGGS, CANDE Day Ot C50.912 MALIGNANT NEOPLASM OF UNSPECIFIED SITE O 05/27/2016 CIERA BIGGS, CANDE Day Ot C50.912 MALIGNANT NEOPLASM OF UNSPECIFIED SITE O 05/30/2016 JOSE A BIGGS, MANASA R Ot N63 UNSPECIFIED LUMP IN BREAST 06/06/2016 Ot 780.4 DIZZINESS AND GIDDINESS 06/06/2016 Ot 959.01 HEAD INJURY , NOS 06/06/2016 Ot E000.8 OTHER EXTERNAL CAUSE STATUS 06/06/2016 Ot E849.0 ACCIDENT IN HOME 06/06/2016 Ot E888.9 FALL NOS 06/06/2016 ALLIE BIGGS, ROSALVA Ramos Ot V76.12 OTH SCREEN MAMMO-MALIGN NEOPLASM OF AUSTYN 06/06/2016 JOSE A BIGGS, MANASA R Ot 959.2 SHLDR/UPPER ARM INJ NOS 06/06/2016 JOSE A BIGGS, MANASA R Ot E000.8 OTHER EXTERNAL CAUSE STATUS 06/06/2016 JOSE A BIGGS, MANASA R Ot E849.6 ACCIDENT IN PUBLIC BLDG 06/06/2016 JOSE A BIGGS, MANASA R Ot E888.9 FALL NOS 06/06/2016 JOSE A BIGGS, MANASA R Ot 715.31 LOC OSTEOARTH NOS-SHLDER 06/06/2016 JOSE A BIGGS, MANASA R Ot 719.01 JOINT EFFUSION-SHLDER 06/06/2016 JOSE A BIGGS, MANASA R Ot 840.4 SPRAIN ROTATOR CUFF 06/06/2016 JOSE A BIGGS, MANASA R Ot E888.9 FALL NOS 06/06/2016 CLARENCE BIGGS, AHMED S Ot 140.0 MAL TAMIKO UPPER VERMILION 06/06/2016 CLARENCE BIGGS, AHMED S Ot 250.40 DIAB W RENAL MANIFEST, TYPE II OR UNSPEC 06/06/2016 CLARNECE BIGGS, AHMED S Ot 272.4 HYPERLIPIDEMIA NEC/NOS 06/06/2016 CLARENCE BIGGS, AHMED S Ot 583.81 NEPHRITIS NOS IN OTH DIS 06/06/2016 CLARENCE BIGGS, AHMED S Ot 585.4 CHRONIC KIDNEY DISEASE, STAGE IV (SEVERE 06/06/2016 CLARENCE BIGGS, AHMED S Ot 791.0 PROTEINURIA 06/06/2016 OTHER, UNLISTED Ot I48.91 UNSPECIFIED ATRIAL FIBRILLATION 06/06/2016 OTHER, UNLISTED Ot Z51.81 ENCOUNTER FOR THERAPEUTIC DRUG LEVEL MON 06/06/2016 OTHER, UNLISTED Ot Z79.01 CUSTODIAL (CURRENT) USE OF ANTICOAGULANT 06/06/2016 RADHA SOTO MD Ot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 urine sediment by light microscopy FEW NRG Squamous epithelial cells detection in urine sediment by light microscopy 2-5 NRG Crystals detection in urine sediment by light microscopy NONE NRG Casts detection in urine sediment by light microscopy NONE NRG Mucus detection in urine sediment by light microscopy NEGATIVE NRG Complete urinalysis with reflex to culture YES NRG Bacterial urine culture - 07/01/17 20:09 URINE CULTURE RESULTS <10,000/ML NRG Complete blood count (CBC) with automated white blood cell (WBC) differential - 07/01/17 20:15 Blood leukocytes automated count (number/volume) 6.1 10*3/uL 4.3-11.0 Blood erythrocytes automated count (number/volume) 3.32 10*6/uL 4.35-5.85 Venous blood hemoglobin measurement (mass/volume) 9.8 g/dL 11.5-16.0 Blood hematocrit (volume fraction) 30 % 35-52 Automated erythrocyte mean corpuscular volume 90 [foz_us] 80-99 Automated erythrocyte mean corpuscular hemoglobin (mass per erythrocyte) 30 pg 25-34 Automated erythrocyte mean corpuscular hemoglobin concentration measurement ( mass/volume) 33 g/dL 32-36 Automated erythrocyte distribution width ratio 15.9 % 10.0-14.5 Automated blood platelet count (count/volume) 133 10*3/uL 130-400 Automated blood platelet mean volume measurement 10.0 [foz_us] 7.4-10.4 Automated blood neutrophils/100 leukocytes 69 % 42-75 Automated blood lymphocytes/100 leukocytes 20 % 12-44 Blood monocytes/100 leukocytes 7 % 0-12 Automated blood eosinophils/100 leukocytes 3 % 0-10 Automated blood basophils/100 leukocytes 1 % 0-10 Blood neutrophils automated count (number/volume) 4.2 10*3 1.8-7.8 Blood lymphocytes automated count (number/volume) 1.2 10*3 1.0-4.0 Blood monocytes automated count (number/volume) 0.4 10*3 0.0-1.0 Automated eosinophil count 0.2 10*3/uL 0.0-0.3 Automated blood basophil count (count/volume) 0.1 10*3/uL 0.0-0.1 PT panel in platelet poor plasma by coagulation assay - 07/01/17 20:15 Prothrombin time (PT) in platelet poor plasma by coagulation assay 14.5 s 12.2-14.7 INR in platelet poor plasma or blood by coagulation assay 1.1 0.8-1.4 Activated partial thromboplastin time (aPTT) in platelet poor plasma bycoagulation assay - 07/01/17 20:15 Activated partial thromboplastin time (aPTT) in platelet poor plasma bycoagulation assay 35 s 24-35 Comprehensive metabolic panel - 07/01/17 20:15 Serum or plasma sodium measurement (moles/volume) 140 mmol/L 135-145 Serum or plasma potassium measurement (moles/volume) 4.8 mmol/L 3.6-5.0 Serum or plasma chloride measurement (moles/volume) 112 mmol/L 98-107 Carbon dioxide 18 mmol/L 21-32 Serum or plasma anion gap determination (moles/volume) 10 mmol/L 5-14 Serum or plasma urea nitrogen measurement (mass/volume) 52 mg/dL 7-18 Serum or plasma creatinine measurement (mass/volume) 4.26 mg/dL 0.60-1.30 Serum or plasma urea nitrogen/creatinine mass ratio 12 NRG Serum or plasma creatinine measurement with calculation of estimated glomerular filtration rate 10 NRG Serum or plasma glucose measurement (mass/volume) 169 mg/dL 70-105 Serum or plasma calcium measurement (mass/volume) 8.3 mg/dL 8.5-10.1 Serum or plasma total bilirubin measurement (mass/volume) 0.4 mg/dL 0.1-1.0 Serum or plasma alkaline phosphatase measurement (enzymatic activity/volume) 75 U/L 40-136 Serum or plasma aspartate aminotransferase measurement (enzymatic activity/ volume) 44 U/L 5-34 Serum or plasma alanine aminotransferase measurement (enzymatic activity/volume ) 46 U/L 0-55 Serum or plasma protein measurement (mass/volume) 6.2 g/dL 6.4-8.2 Serum or plasma albumin measurement (mass/volume) 3.3 g/dL 3.2-4.5 Magnesium - 07/01/17 20:15 Magnesium 2.0 mg/dL 1.8-2.4 Serum or plasma lithium measurement (moles/volume) - 07/01/17 20:15 BNP level 1989.9 pg/mL <100.0 Serum or plasma troponin i.cardiac measurement (mass/volume) - 07/01/17 20:15 Serum or plasma troponin i.cardiac measurement (mass/volume) 3.50 ng /mL <0.30 Myoglobin, serum - 07/01/17 20:15 Myoglobin, serum 203.3 ng/mL 10.0-92.0 Serum or plasma thyroxine (T4) free measurement (mass/volume) - 07/01/17 20:15 Serum or plasma thyroxine (T4) free measurement (mass/volume) 0.69 ng/dL 0.70-1.48 Serum or plasma thyrotropin measurement by detection limit <=0.05 miu/l (units/ volume) - 07/01/17 20:15 Serum or plasma thyrotropin measurement by detection limit <=0.05 miu/l (units/ volume) 6.08 u[iU]/mL 0.35-4.94 Encounters ACCT No. Visit Date/Time Discharge Status Pt. Type Provider Facility Loc./Unit Complaint [id number] 05/19/2015 08:00:00 05/19/2015 08:00:00 CAN Outpatient Josue BIGGS, Jose Alva [facility] E.LO [id number] 09/18/2017 18:32:00 09/18/2017 19:57:00 DIS Emergency FARHAT BIGGS, ERNESTO [facility] ER BLEEDING AFTER SURGERY [id number] 07/01/2017 19:51:00 07/02/2017 01:35:00 DIS Emergency RUIZ BIGGS, DIVYA [facility] ER CHEST PAIN [id number] 09/02/2016 19:30:00 09/04/2016 14:00:00 DIS Inpatient ODBRIANNE GAMEZ MD [facility] 4TH ANEMIA,CHRONIC RENAL FAILURE [id number] 08/15/2016 00:09:00 08/15/2016 23:59:59 CLS Preadmit CANDE VANG MD [facility] ONC [id number] 05/16/2016 13:52:00 08/14/2016 00:01:00 DIS Outpatient CANDE VANG MD [facility] ONC [id number] 05/23/2016 10:07:00 05/23/2016 23:59:59 CLS Outpatient CANDE VANG MD [facility] CARD BREAST CANCER [id number] 05/21/2016 11:38:00 05/21/2016 23:59:59 CLS Outpatient CANDE VANG MD [facility] RAD BREAST CA [id number] 05/06/2016 12:40:00 05/06/2016 23:59:59 CLS Outpatient MANASA NARANJO MD [facility] RAD LEFT BREAST MASS [id number] 04/29/2016 08:48:00 04/29/2016 23:59:59 CLS Outpatient MANASA NARANJO MD [facility] RAD LUMP LEFT BREAST [id number] 03/25/2016 10:48:00 03/25/2016 14:49:00 DIS Emergency JOELLE MAGUIRE DO [facility] ER MALAISE [id number] 11/22/2015 14:16:00 11/22/2015 23:59:59 CLS Outpatient RADHA SOTO MD [facility] ANTICOAG THERAPY [id number] 11/14/2015 14:30:00 11/14/2015 23:59:59 CLS Outpatient RADHA SOTO MD [facility] ANTICOAG THERAPY [id number] 10/30/2015 13:17:00 10/30/2015 23:59:59 CLS Outpatient RADHA SOTO MD [facility] ANTICOAG THERAPY [id number] 10/17/2015 14:10:00 10/17/2015 23:59:59 CLS Outpatient RADHA SOTO MD [facility] ANTICOAG THERAPY [id number] 10/09/2015 14:31:00 10/09/2015 23:59:59 CLS Outpatient BRITTANY BIGGS, RADHA P [facility] ANTICOAG THERAPY [id number] 10/05/2015 14:28:00 10/05/2015 23:59:59 CLS Outpatient OTHER, UNLISTED [facility] HH A FIB, ANTICOAG THERAPY [id number] 05/08/2015 10:53:00 05/08/2015 23:59:59 CLS Outpatient CLARENCE BIGGS, UMAIR Jon [facility] RAD CKD [id number] 03/03/2015 12:12:00 03/09/2015 15:00:00 DIS Inpatient BRIDGETT BIGGS, ROBY Hawthorne [facility] IRF IRF-DEBILITY [id number] 02/21/2015 00:57:00 03/03/2015 12:11:00 DIS Inpatient MANASA NARANJO MD [facility] CSD ATRIAL FIB WITH RVR HYPOTENSION [id number] 02/14/2015 12:28:00 02/20/2015 13:30:00 DIS Outpatient ELLEN BIGGS, SANTOS Ramos [facility] WOUNDCARE [id number] 04/15/2014 09:00:00 04/15/2014 23:59:59 CLS Outpatient MANASA NARANJO MD [facility] RAD RT SHOULDER PAIN [id number] 03/24/2014 11:01:00 03/24/2014 23:59:59 CLS Outpatient MANASA NARANJO MD [facility] RAD FALL ONTO RT SHOULDER/ PAIN IN RT SHOULDER [id number] 04/19/2013 10:35:00 04/19/2013 23:59:59 CLS Outpatient ROSALVA KELLEY MD [facility] RAD SCREENING [id number] 11/28/2011 12:34:00 Document Registration [id number] 05/08/2015 10:55:09 ACT Document Registration
[2018-05-09] MEDS ORDERED: KETOROLAC 30 MG/ML VIAL IVP ONE (11:15)
--- NOTE | 2018-05-09 11:24 | ED Back Pain ---
General Chief Complaint: Back Problems Stated Complaint: BACK PAIN Nursing Triage Note: ARRIVED VIA EMS FROM HOME WITH COMPLAINTS OF MID BILAT BACK PAIN. STATES SHE HAD A PET SCAN THIS PAST WEEK THAT SHOWED HER SPLEEN BEING INLARGED. PT HAS X3 FENENYL PATCHES OF 15MCG EACH ON (NEW PATCHES APPLIED LAST NIGHT) AND TOOK X2 HYDROCODONE 10'S AT 0800 TODAY. PT WAS SUPPOSE TO RECIEVE DIALYSIS TODAY. Nursing Sepsis Screen: No Definite Risk Source of Information: Patient Exam Limitations: No Limitations History of Present Illness Date Seen by Provider: May 09, 2018 Time Seen by Provider: 11:18 Initial Comments 72-year-old female on hemodialysis presents today with back pain. 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 She formerly had breast cancer treated with mastectomy and chemotherapy only a few years ago.She sees oncology in [facility]. She receives hemodialysis here in [place] at [facility]. She is a Friday dialysis patient and she missed today's dialysis treatment in order to come here to be evaluated for the back pain. Her pain starts in the thoracic back and extends inferiorly to the lumbar spine is both midline and paraspinous muscles. It does not radiate down either leg, she's had no loss of bowel or bladder control or saddle anesthesia. She's had no falls or trauma. The pain seems to be worse when she is standing and when she moves. It also seemed to get much worse after the first dose of chemotherapy.she wears 3 the 15microgram fentanyl patches and she took 2 hydrocodone 10/325 at 8 AM today. Location: Lumbar Spine, Paraspinous Muscles, T-Spine Timing/Duration: 3-4 Days Severity: Moderate Associated Symptoms: No denies symptoms, No muscle spasms, No numbness in legs/ feet, No tingling in legs/feet, No sensory/motor loss; lower back pain; No loss of bladder control, No loss of bowel control Allergies and Home Medications Allergies Coded Allergies: TUYET Inhibitors (Unverified Allergy, Unknown, 03/03/15) due to creatinine level ARB-Angiotensin Receptor Antagonist (Unverified Allergy, Unknown, 03/03/15) meloxicam (Verified Allergy, Unknown, 09/05/06) Home Medications Alprazolam 0.5 Mg Tablet, 0.5 MG PO DAILY PRN for ANXIETY, (Reported) Amiodarone HCl 200 Mg Tablet, 200 MG PO MoTuWeThFr, (Reported) Amlodipine Besylate 10 Mg Tablet, 10 MG PO DAILY, (Reported) Aspirin 81 Mg Tablet, 81 MG PO DAILY, (Reported) Atorvastatin Calcium 40 Mg Tablet, 40 MG PO HS, (Reported) Cholecalciferol 5,000 Unit Capsule, 5,000 UNIT PO DAILY, (Reported) Docosahexanoic Acid/Epa 1 Cap Capsule, 1,000 MG PO BID, (Reported) Furosemide 40 Mg Tablet, 40 MG PO DAILY, (Reported) Hydralazine HCl 50 Mg Tablet, 50 MG PO BID, (Reported) Hydrocodone/Acetaminophen 1 Each Tablet, 1 TAB PO Q6H PRN for PAIN, (Reported) Insulin Glargine,Hum.rec.anlog 100 Unit/1 Ml Insuln.pen, 22 UNITS SC HS, ( Reported) Insulin Lispro 100 Unit/1 Ml Insuln.pen, 3-4 UNITS SC AC, (Reported) Isosorbide Mononitrate 30 Mg Tab.er.24h, 30 MG PO DAILY, (Reported) Multivitamin 1 Each Tablet, 1 TAB PO DAILY, (Reported) Oxycodone HCl/Acetaminophen 1 Each Tablet, 1-2 EACH PO Q6H PRN for PAIN- MODERATE TO SEVERE Prescribed by: KIM ELLIOTT on 05/09/18 1235 Pantoprazole Sodium 40 Mg Tablet.dr, 40 MG PO DAILY, (Reported) Polyethylene Glycol 3350 255 Gm Powder, 17 GM PO 1000,1500, (Reported) Polyethylene Glycol 3350 17 Gm Powd.pack, 17 GM PO 1800 PRN for CONSTIPATION, ( Reported) Sertraline HCl 100 Mg Tablet, 150 MG PO DAILY, (Reported) TAKES 1 & 1/2 (100MG) TABLETS Trazodone HCl 100 Mg Tablet, 100 MG PO HS, (Reported) Warfarin Sodium 5 Mg Tablet, 5 MG PO DAILY Prescribed by: LULU PEREZ on 09/04/16 1249 Patient Home Medication List Home Medication List Reviewed: Yes Constitutional: see HPI EENTM: see HPI Respiratory: no symptoms reported Cardiovascular: no symptoms reported Genitourinary: no symptoms reported Musculoskeletal: see HPI, back pain Skin: no symptoms reported Psychiatric/Neurological: No Symptoms Reported Past Otgfneg-Xkcmmv-Asbtnv Hx Patient Social History Alcohol Use: Occasionally Uses Alcohol Beverage of Choice: Other Recreational Drug Use: No Smoking Status: Former Smoker Type Used: Cigarettes Former Smoker, Quit: Jul 20, 1999 Recent Foreign Travel: No Contact w/Someone Who Travel: No Recent Infectious Disease Expo: No Recent Hopitalizations: No Immunizations Up To Date Tetanus Booster (TDap): Unknown PED Vaccines UTD: No Date of Pneumonia Vaccine: March 01, 2015 Date of Influenza Vaccine: Aug 18, 2017 Seasonal Allergies Seasonal Allergies: No Past Medical History Surgeries: Yes (2007 CABG, 6 years ago foot surgery, 6 years ago bowel surgery) Abdominal, Bladder Surgery, Breast, Cardiac, CABG, Coronary Stent, Gallbladder, Hysterectomy, Orthopedic Respiratory: Yes (USES HOME O2 1L/NC ) Chronic Bronchitis, COPD Currently Using CPAP: No Currently Using BIPAP: No Cardiac: Yes (CABG; STENTS X 13; LOOP RECORDER; CHF; ID X 2) Angina, Atrial Fibrillation, Cardiomyopathy, Coronary Artery Disease, Heart Attack, High Cholesterol, Hypertension, Irregular Heartbeat, Peripheral Vascular Neurological: Yes (CVA WITH LEFT SIDE WEAKNESS ESSENTIALLY RESOLVED) Stroke, TIA Reproductive Disorders: No Female Reproductive Disorders: Denies Sexually Transmitted Disease: No HIV/AIDS: No Genitourinary: Yes Renal Failure, Dialysis Gastrointestinal: Yes Gastroesophageal Reflux, Chronic Constipation, Pancreatitis, Hiatal Hernia, Gall Bladder Disease Musculoskeletal: Yes Arthritis, Chronic Back Pain Endocrine: Yes Diabetes, Insulin dep Loss of Vision: Denies Hearing Impairment: Hard of Hearing Cancer: No Psychosocial: Yes Sleep Difficulties, Anxiety, Depression Integumentary: No Blood Disorders: No Adverse Reaction/Blood Tranf: No Family Medical History Alcoholism 19 FATHER Cardiovascular disease G8 BROTHER G8 SISTER Diabetes mellitus 19 FATHER 19 MOTHER G8 BROTHER G8 SISTER Gastroenteritis 19 MOTHER G8 BROTHER G8 SISTER Hypercholesterolemia 19 MOTHER G8 BROTHER G8 SISTER Hypertension 19 MOTHER G8 BROTHER G8 SISTER Kidney disease 19 MOTHER G8 BROTHER G8 SISTER Prostate cancer G8 BROTHER Physical Exam Vital Signs Vital Signs - First Documented 05/09/18 09:33 Temp 98.0 Pulse 62 Resp 16 B/P (MAP) 195/101 (132) Pulse Ox 86 O2 Delivery Room Air Capillary Refill : Less Than 3 Seconds Height, Weight, BMI Height: 5'5.00" Weight: 158lbs. 5.4oz. 71.491008uq; 30.3 BMI Method:Stated General Appearance: No Apparent Distress, WD/WN, Chronically ill HEENT: PERRL/EOMI, TMs Normal Neck: Full Range of Motion, Normal Inspection Respiratory: No Accessory Muscle Use, No Respiratory Distress Gastrointestinal: Normal Bowel Sounds, Non Tender, Soft Back: Normal Inspection, Vertebral Tenderness Extremity: Normal Capillary Refill, Normal Inspection, Other (lymphedema left arm with a palpable thrill over the left forearm at the location of the dialysis fistula.) Neurologic/Psychiatric: Alert, Oriented x3 Skin: Normal Color, Warm/Dry Progress/Results/Core Measures Results/Orders Lab Results Laboratory Tests Test 05/09/18 11:25 Range/Units White Blood Count 6.0 4.3-11.0 10^3/uL Red Blood Count 2.62 L 4.35-5.85 10^6/uL Hemoglobin 8.8 L 11.5-16.0 G/DL Hematocrit 27 L 35-52 % Mean Corpuscular Volume 102 H 80-99 FL Mean Corpuscular Hemoglobin 34 25-34 PG Mean Corpuscular Hemoglobin Concent 33 32-36 G/DL Red Cell Distribution Width 18.5 H 10.0-14.5 % Platelet Count 64 L 130-400 10^3/uL Mean Platelet Volume 9.3 7.4-10.4 FL Neutrophils (%) (Auto) 84 H 42-75 % Lymphocytes (%) (Auto) 6 L 12-44 % Monocytes (%) (Auto) 9 0-12 % Eosinophils (%) (Auto) 1 0-10 % Basophils (%) (Auto) 0 0-10 % Neutrophils # (Auto) 5.1 1.8-7.8 X 10^3 Lymphocytes # (Auto) 0.4 L 1.0-4.0 X 10^3 Monocytes # (Auto) 0.6 0.0-1.0 X 10^3 Eosinophils # (Auto) 0.1 0.0-0.3 10^3/uL Basophils # (Auto) 0.0 0.0-0.1 10^3/uL Sodium Level 137 135-145 MMOL/L Potassium Level 3.6 3.6-5.0 MMOL/L Chloride Level 96 L 98-107 MMOL/L Carbon Dioxide Level 30 21-32 MMOL/L Anion Gap 11 5-14 MMOL/L Blood Urea Nitrogen 29 H 7-18 MG/DL Creatinine 4.01 H 0.60-1.30 MG/DL Estimat Glomerular Filtration Rate 11 BUN/Creatinine Ratio 7 Glucose Level 164 H 70-105 MG/DL Calcium Level 9.1 8.5-10.1 MG/DL Total Creatine Kinase 39 29-168 U/L My Orders Orders - KIM ELLIOTT APRN Ct Lumbar Spine Wo (05/09/18 11:01) Ua Culture If Indicated (05/09/18 11:01) Cbc With Automated Diff (05/09/18 11:10) Basic Metabolic Panel (05/09/18 11:10) Creatine Kinase (05/09/18 11:10) Ketorolac Injection (Toradol Injection) (05/09/18 11:15) Oxycodone/Apap 7.5/325mg Tab (Percocet (05/09/18 12:45) Medications Given in ED Current Medications Medications Dose Ordered Sig/Guzman Route Start Time Stop Time Status Last Admin Dose Admin Ketorolac Tromethamine 15 mg ONCE ONCE IVP 05/09/18 11:15 05/09/18 11:16 DC 05/09/18 11:34 15 MG Vital Signs/I&O 05/09/18 09:33 Temp 98.0 Pulse 62 Resp 16 B/P (MAP) 195/101 (132) Pulse Ox 86 O2 Delivery Room Air Blood Pressure Mean: 132 Diagnostic Imaging Diagonstic Imaging: CT Comments NAME: ELODIA TOTH [facility] REC#: [id number] PT STATUS: REG ER : 1945 PHYSICIAN: KIM ELLIOTT APRN ADMIT DATE: 05/09/18/ER Draft Date of Exam:05/09/18 CT LUMBAR SPINE WO PROCEDURE: CT lumbar spine without contrast. TECHNIQUE: Multiple contiguous axial images were obtained through the lumbar spine without the use of intravenous contrast. Sagittal and coronal reformations were then performed. INDICATION: Low back pain. No history of trauma. FINDINGS: There is moderate levoscoliosis of the lumbar spine centered at L2-L3. Vertebral body height is well maintained throughout the lumbar region. There does appear to be a large Schmorl's node along the superior endplate of T12. L1-L2: Disc shows normal contour. Facets show no significant hypertrophy. L2-L3: There is desiccation of the disc with loss of disc space height. There is broad-based disc bulge with hypertrophic endplate changes. Moderate facet hypertrophy as well. This is causing moderate foraminal encroachment on the right. No central canal stenosis. L3-L4: Mild to moderate broad-based disc bulge with moderate facet and ligamentous hypertrophy. This is causing mild to moderate encroachment upon the lateral recesses with no evidence of central canal stenosis. L4-L5: There is loss of disc space height with broad-based disc bulge. Hypertrophic facet and endplate changes are causing foraminal encroachment mild to moderate in nature on the left. No central canal stenosis. L5-S1: There is degenerative disc disease. There is a large disc extruded laterally into the neural foramen which does show calcification of the annulus. This is causing moderate to moderate severe encroachment. There is no central canal stenosis. The paraspinal soft tissues appear normal. IMPRESSION: 1. Multilevel degenerative disc and facet disease with scoliosis as described above. 2. Schmorl's node deformity of the superior endplate of T12. Dictated on workstation # [id number] Dict: 05/09/18 1124 Trans: 05/09/18 1140 [facility] [id number] Interpreted by: ROBY SHEEHAN MD Electronically signed by: Departure Communication (Admissions) I did discuss with the patient and her daughter the back pain. The CT is not showing any evidence of pathologic fracture or other acute findings. she did get quite a bit of relief from the Toradol so I did tell her that she could use ibuprofen but only using it once daily.She has tried oxycodone in the past and states that she gets more relief from hydrocodone so we'll continue the hydrocodone and use Robaxin for pain relief.Her chemotherapy agent is Herceptin which does have a side effect of back pain.certainly additional opiates would be considered but she has already been prescribed to the 10 mg hydrocodone 10/ 325 every 6 hours in addition to 3 of the 15 g fentanyl patches. If we could avoid additional opiates due to concern of side effects, nonopioid adjuvant pain meds would be ideal. Impression Primary Impression: Acute low back pain Additional Impression: Hemodialysis patient Disposition: 01 HOME, SELF-CARE Condition: Stable Departure-Patient Inst. Decision time for Depature: 12:30 Referrals: MANASA NARANJO MD (PCP/Family) Primary Care Physician Patient Instructions: Low Back Pain (DC) Add. Discharge Instructions: 1. Call [facility] on Friday to see if they could move up your day of dialysis to Friday instead of Friday. I did call them today and this was the nurse's recommendation. Return to the emergency room in the meantime for any shortness of breath, worsening pain, loss of sensation of your genitals or loss of urine control. All discharge instructions reviewed with patient and/or family. Voiced understanding. Scripts Methocarbamol (Robaxin-750) 750 Mg Tablet 750 MG PO Q8H PRN for PAIN-MODERATE TO SEVERE, #20 TAB Prov: KIM ELLIOTT APRN 05/09/18 KIM ELLIOTT APRN May 09, 2018 11:24
--- NOTE | 2018-05-09 11:40 | Diagnostic Imaging Report ---
PROCEDURE: CT lumbar spine without contrast. TECHNIQUE: Multiple contiguous axial images were obtained through the lumbar spine without the use of intravenous contrast. Sagittal and coronal reformations were then performed. INDICATION: Low back pain. No history of trauma. FINDINGS: There is moderate levoscoliosis of the lumbar spine centered at L2-L3. Vertebral body height is well maintained throughout the lumbar region. There does appear to be a large Schmorl's node along the superior endplate of T12. L1-L2: Disc shows normal contour. Facets show no significant hypertrophy. L2-L3: There is desiccation of the disc with loss of disc space height. There is broad-based disc bulge with hypertrophic endplate changes. Moderate facet hypertrophy as well. This is causing moderate foraminal encroachment on the right. No central canal stenosis. L3-L4: Mild to moderate broad-based disc bulge with moderate facet and ligamentous hypertrophy. This is causing mild to moderate encroachment upon the lateral recesses with no evidence of central canal stenosis. L4-L5: There is loss of disc space height with broad-based disc bulge. Hypertrophic facet and endplate changes are causing foraminal encroachment mild to moderate in nature on the left. No central canal stenosis. L5-S1: There is degenerative disc disease. There is a large disc extruded laterally into the neural foramen which does show calcification of the annulus. This is causing moderate to moderate severe encroachment. There is no central canal stenosis. The paraspinal soft tissues appear normal. IMPRESSION: 1. Multilevel degenerative disc and facet disease with scoliosis as described above. 2. Schmorl's node deformity of the superior endplate of T12. Dictated by: Dictated on workstation # [id number]
[2018-05-09 11:53] LABS: BASOPHILS % (AUTO) 0 % (0-10); EOSINOPHILS # (AUTO) 0.1 10^3/uL (0.0-0.3); EOSINOPHILS % (AUTO) 1 % (0-10); HEMATOCRIT 27 % (35-52); HEMOGLOBIN 8.8 G/DL (11.5-16.0); LYMPHOCYTES # (AUTO) 0.4 X 10^3 (1.0-4.0); LYMPHOCYTES % (AUTO) 6 % (12-44); MEAN CORPUSCULAR HEMOGLOBIN 34 PG (25-34); MEAN CORPUSCULAR HGB CONC 33 G/DL (32-36); MEAN CORPUSCULAR VOLUME 102 FL (80-99); MEAN PLATELET VOLUME 9.3 FL (7.4-10.4); MONOCYTES # (AUTO) 0.6 X 10^3 (0.0-1.0); MONOCYTES % (AUTO) 9 % (0-12); NEUTROPHILS # (AUTO) 5.1 X 10^3 (1.8-7.8); NEUTROPHILS % (AUTO) 84 % (42-75); PLATELET COUNT 64 10^3/uL (130-400); RED BLOOD COUNT 2.62 10^6/uL (4.35-5.85); RED CELL DISTRIBUTION WIDTH 18.5 % (10.0-14.5)
[2018-05-09 12:08] LABS: CALCIUM 9.1 MG/DL (8.5-10.1); CREATININE SERUM 4.01 MG/DL (0.60-1.30); POTASSIUM 3.6 MMOL/L (3.6-5.0)
[2018-05-09] MEDS ORDERED: OXYC-197 PO (12:35)
[2018-05-09] MEDS ORDERED: oxyCODONE/APAP 7.5-325 MG (PERCOCET 7.5) TABLET PO ONE (12:45)
[2018-05-09] MEDS ORDERED: METH-313 PO (12:50)
[2018-05-09 13:00] VITALS: BP 181/93
[2018-05-09 14:02] LABS: INR 1.4 (0.8-1.4); PROTHROMBIN TIME PATIENT 17.1 SEC (12.2-14.7)
== END 2018-05-09 13:00 | disposition home or self-care (01) ==
LOC: EDUNIT# 09:33 → ER 09:36
DX: M54.5 Low back pain (principal); I25.10 Atherosclerotic heart disease of native coronary artery without angina pectoris; J44.9 Chronic obstructive pulmonary disease, unspecified; I48.91 Unspecified atrial fibrillation; I25.2 Old myocardial infarction; E78.00 Pure hypercholesterolemia, unspecified; I10 Essential (primary) hypertension; E11.51 Type 2 diabetes mellitus with diabetic peripheral angiopathy without gangrene; F41.9 Anxiety disorder, unspecified; F32.9 Major depressive disorder, single episode, unspecified; Z87.19 Personal history of other diseases of the digestive system; Z86.73 Personal history of transient ischemic attack (TIA), and cerebral infarction without residual deficits; Z90.710 Acquired absence of both cervix and uterus; Z99.2 Dependence on renal dialysis; Z85.3 Personal history of malignant neoplasm of breast; Z88.6 Allergy status to analgesic agent; Z88.8 Allergy status to other drugs, medicaments and biological substances; Z79.82 Long term (current) use of aspirin; Z79.4 Long term (current) use of insulin; Z79.01 Long term (current) use of anticoagulants; Z87.891 Personal history of nicotine dependence
CPT/HCPCS: 36415; 72131; 80048; 82550; 85025; 85610; 96374

== ENCOUNTER 2018-05-11 08:42 | Emergency (ER) | payer MEDICARE ==
[~2018-05-11] VITALS: Ht 165.1 cm; Wt 71.7 kg
[~2018-05-11 08:42] MED LIST changes: +METH-313 PO; +OXYC-197 PO
[2018-05-11] MEDS ORDERED: RT-ALBUTEROL/IPRATROPIUM 3 ML (DUONEB) VIAL ONE (08:46)
[2018-05-11] MEDS ORDERED: morphine INJ 10 MG/ML 1ML (SYR OR VIAL) IV STA (08:52)
[2018-05-11] MEDS: NITROGLYCERIN 0.4 MG SL TABS BTL 25'S SL PRN ×2 (09:01→09:23)
[2018-05-11 09:02] LABS: BASOPHILS % (AUTO) 0 % (0-10); EOSINOPHILS # (AUTO) 0.1 10^3/uL (0.0-0.3); EOSINOPHILS % (AUTO) 1 % (0-10); HEMATOCRIT 26 % (35-52); HEMOGLOBIN 8.8 G/DL (11.5-16.0); LYMPHOCYTES # (AUTO) 0.4 X 10^3 (1.0-4.0); LYMPHOCYTES % (AUTO) 7 % (12-44); MEAN CORPUSCULAR HEMOGLOBIN 34 PG (25-34); MEAN CORPUSCULAR HGB CONC 34 G/DL (32-36); MEAN CORPUSCULAR VOLUME 102 FL (80-99); MEAN PLATELET VOLUME 9.6 FL (7.4-10.4); MONOCYTES # (AUTO) 0.4 X 10^3 (0.0-1.0); MONOCYTES % (AUTO) 7 % (0-12); NEUTROPHILS % (AUTO) 85 % (42-75); PLATELET COUNT 65 10^3/uL (130-400); RED BLOOD COUNT 2.58 10^6/uL (4.35-5.85); WHITE BLOOD COUNT 5.9 10^3/uL (4.3-11.0)
[2018-05-11 09:16] LABS: INR 1.4 (0.8-1.4); PROTHROMBIN TIME PATIENT 16.7 SEC (12.2-14.7)
--- NOTE | 2018-05-11 09:20 | ED General ---
General Chief Complaint: Chest Pain Stated Complaint: SOB,GEN PAIN Source of Information: Patient Exam Limitations: No Limitations History of Present Illness Date Seen by Provider: May 11, 2018 Time Seen by Provider: 08:49 Initial Comments Here with report of all over body pain, shortness of breath and left-sided chest pain. Patient does have end-stage renal disease and is on dialysis. She missed her dialysis on Friday. She was seen here Friday for back pain. She also has breast cancer with she has apparently gone to the lymph nodes and she is currently under chemotherapy and radiation therapy for that. She does have history of left mastectomy a few years ago. She follows at [facility] for both her cancer treatment and for her kidney disease. She has not taken any of her medicines this morning. She did call EMS with severe pain. They did give aspirin and nitroglycerin as well as 5 mg of morphine IV. This has not resolved her pain. She reports that she was previously on blood thinner but stopped it because she was bleeding too much Timing/Duration: 1-3 Hours Severity: Moderate, Severe Modifying Factors: worse with Movement Associated Systoms: Chest Pain (left-sided and to her back. Radiates all across her back upper and lower); No Cough, No Fever/Chills, No Headaches, No Nausea/Vomiting; Shortness of Air, Weakness Allergies and Home Medications Allergies Coded Allergies: TUYET Inhibitors (Unverified Allergy, Unknown, 03/03/15) due to creatinine level ARB-Angiotensin Receptor Antagonist (Unverified Allergy, Unknown, 03/03/15) meloxicam (Verified Allergy, Unknown, 09/05/06) Home Medications Alprazolam 0.5 Mg Tablet, 0.5 MG PO DAILY PRN for ANXIETY, (Reported) Amiodarone HCl 200 Mg Tablet, 200 MG PO MoTuWeThFr, (Reported) Amlodipine Besylate 10 Mg Tablet, 10 MG PO DAILY, (Reported) Aspirin 81 Mg Tablet, 81 MG PO DAILY, (Reported) Atorvastatin Calcium 40 Mg Tablet, 40 MG PO HS, (Reported) Cholecalciferol 5,000 Unit Capsule, 5,000 UNIT PO DAILY, (Reported) Docosahexanoic Acid/Epa 1 Cap Capsule, 1,000 MG PO BID, (Reported) Furosemide 40 Mg Tablet, 40 MG PO DAILY, (Reported) Hydralazine HCl 50 Mg Tablet, 50 MG PO BID, (Reported) Hydrocodone/Acetaminophen 1 Each Tablet, 1 TAB PO Q6H PRN for PAIN, (Reported) Insulin Glargine,Hum.rec.anlog 100 Unit/1 Ml Insuln.pen, 22 UNITS SC HS, ( Reported) Insulin Lispro 100 Unit/1 Ml Insuln.pen, 3-4 UNITS SC AC, (Reported) Isosorbide Mononitrate 30 Mg Tab.er.24h, 30 MG PO DAILY, (Reported) Methocarbamol 750 Mg Tablet, 750 MG PO Q8H PRN for PAIN-MODERATE TO SEVERE Prescribed by: KIM ELLIOTT on 05/09/18 1250 Multivitamin 1 Each Tablet, 1 TAB PO DAILY, (Reported) Pantoprazole Sodium 40 Mg Tablet.dr, 40 MG PO DAILY, (Reported) Polyethylene Glycol 3350 255 Gm Powder, 17 GM PO 1000,1500, (Reported) Polyethylene Glycol 3350 17 Gm Powd.pack, 17 GM PO 1800 PRN for CONSTIPATION, ( Reported) Sertraline HCl 100 Mg Tablet, 150 MG PO DAILY, (Reported) TAKES 1 & 1/2 (100MG) TABLETS Trazodone HCl 100 Mg Tablet, 100 MG PO HS, (Reported) Warfarin Sodium 5 Mg Tablet, 5 MG PO DAILY Prescribed by: LULU PEREZ on 09/04/16 1249 Patient Home Medication List Home Medication List Reviewed: Yes Review of Systems Constitutional: see HPI; No chills, No fever EENTM: no symptoms reported Respiratory: see HPI, cough, short of breath; No wheezing Cardiovascular: chest pain, edema; No palpitations Gastrointestinal: No abdominal pain, No nausea, No vomiting Genitourinary: see HPI : No Musculoskeletal: back pain, joint pain, muscle pain, muscle stiffness Skin: no symptoms reported Psychiatric/Neurological: No Symptoms Reported Hematologic/Lymphatic: See HPI All Other Systems Reviewed Negative Unless Noted: Yes Past Scyoxsv-Abgltb-Rrllin Hx Past Med/Social Hx: Reviewed Nursing Past Med/Soc Hx Patient Social History Alcohol Use: Occasionally Uses Alcohol Beverage of Choice: Other Recreational Drug Use: No Smoking Status: Former Smoker Type Used: Cigarettes Former Smoker, Quit: Jul 20, 1999 Recent Hopitalizations: No Immunizations Up To Date Tetanus Booster (TDap): Unknown PED Vaccines UTD: No Date of Pneumonia Vaccine: March 01, 2015 Date of Influenza Vaccine: Aug 18, 2017 Seasonal Allergies Seasonal Allergies: No Past Medical History Surgeries: Yes (2007 CABG, 6 years ago foot surgery, 6 years ago bowel surgery) Abdominal, Bladder Surgery, Breast, Cardiac, CABG, Coronary Stent, Gallbladder, Hysterectomy, Orthopedic Respiratory: Yes (USES HOME O2 1L/NC ) Chronic Bronchitis, COPD Currently Using CPAP: No Currently Using BIPAP: No Cardiac: Yes (CABG; STENTS X 13; LOOP RECORDER; CHF; GA X 2) Angina, Atrial Fibrillation, Cardiomyopathy, Coronary Artery Disease, Heart Attack, High Cholesterol, Hypertension, Irregular Heartbeat, Peripheral Vascular Neurological: Yes (CVA WITH LEFT SIDE WEAKNESS ESSENTIALLY RESOLVED) Stroke, TIA Reproductive Disorders: No Female Reproductive Disorders: Denies Sexually Transmitted Disease: No HIV/AIDS: No Genitourinary: Yes Renal Failure, Dialysis Gastrointestinal: Yes Gastroesophageal Reflux, Chronic Constipation, Pancreatitis, Hiatal Hernia, Gall Bladder Disease Musculoskeletal: Yes Arthritis, Chronic Back Pain Endocrine: Yes Diabetes, Insulin dep Loss of Vision: Denies Hearing Impairment: Hard of Hearing Cancer: No Psychosocial: Yes Sleep Difficulties, Anxiety, Depression Integumentary: No Blood Disorders: No Adverse Reaction/Blood Tranf: No Family Medical History Reviewed Nursing Family Hx Alcoholism 19 FATHER Cardiovascular disease G8 BROTHER G8 SISTER Diabetes mellitus 19 FATHER 19 MOTHER G8 BROTHER G8 SISTER Gastroenteritis 19 MOTHER G8 BROTHER G8 SISTER Hypercholesterolemia 19 MOTHER G8 BROTHER G8 SISTER Hypertension 19 MOTHER G8 BROTHER G8 SISTER Kidney disease 19 MOTHER G8 BROTHER G8 SISTER Prostate cancer G8 BROTHER No Pertinent Family Hx Physical Exam Vital Signs Vital Signs - First Documented 05/11/18 08:43 Temp 98.5 Pulse 71 Resp 19 B/P (MAP) 181/101 (127) Pulse Ox 99 O2 Delivery Nasal Cannula O2 Flow Rate 3.0 Capillary Refill : Height, Weight, BMI Height: 5'5.00" Weight: 158lbs. 5.4oz. 71.509031he; 30.3 BMI Method:Stated General Appearance: Anxious, Chronically ill, Moderate Distress HEENT: PERRL/EOMI, Pharynx Normal Neck: Non Tender, Supple Respiratory: Lungs Clear, Crackles (right lower), Decreased Breath Sounds (on the left lower), Expiration Cardiovascular: Regular Rate, Rhythm, No Murmur Gastrointestinal: Non Tender, Soft Back: Decreased Range of Motion, Other (tender to palpation along both sides of the fact from mid thoracic to the low lumbar region) Extremity: Normal Range of Motion, Non Tender, Pedal Edema (one to 2+ bilateral lower extremity. Left upper extremity has lymphedema) Neurologic/Psychiatric: Alert, Oriented x3 Skin: Normal Color, Warm/Dry Progress/Results/Core Measures Suspected Sepsis SIRS Temperature: Pulse: Respiratory Rate: Laboratory Tests 05/11/18 08:49: White Blood Count 5.9 Blood Pressure / Mean: Laboratory Tests 05/11/18 08:49: Creatinine 5.20#H, INR Comment 1.4, Platelet Count 65L, Total Bilirubin 1.4H Results/Orders Lab Results Laboratory Tests Test 05/11/18 08:49 Range/Units White Blood Count 5.9 4.3-11.0 10^3/uL Red Blood Count 2.58 L 4.35-5.85 10^6/uL Hemoglobin 8.8 L 11.5-16.0 G/DL Hematocrit 26 L 35-52 % Mean Corpuscular Volume 102 H 80-99 FL Mean Corpuscular Hemoglobin 34 25-34 PG Mean Corpuscular Hemoglobin Concent 34 32-36 G/DL Red Cell Distribution Width 19.0 H 10.0-14.5 % Platelet Count 65 L 130-400 10^3/uL Mean Platelet Volume 9.6 7.4-10.4 FL Neutrophils (%) (Auto) 85 H 42-75 % Lymphocytes (%) (Auto) 7 L 12-44 % Monocytes (%) (Auto) 7 0-12 % Eosinophils (%) (Auto) 1 0-10 % Basophils (%) (Auto) 0 0-10 % Neutrophils # (Auto) 5.0 1.8-7.8 X 10^3 Lymphocytes # (Auto) 0.4 L 1.0-4.0 X 10^3 Monocytes # (Auto) 0.4 0.0-1.0 X 10^3 Eosinophils # (Auto) 0.1 0.0-0.3 10^3/uL Basophils # (Auto) 0.0 0.0-0.1 10^3/uL Neutrophils % (Manual) 89 % Lymphocytes % (Manual) 5 % Monocytes % (Manual) 6 % Eosinophils % (Manual) 0 % Basophils % (Manual) 0 % Band Neutrophils 0 % Polychromasia SLIGHT Anisocytosis MARKED Macrocytosis SLIGHT Prothrombin Time 16.7 H 12.2-14.7 SEC INR Comment 1.4 0.8-1.4 Activated Partial Thromboplast Time 36 H 24-35 SEC Sodium Level 139 135-145 MMOL/L Potassium Level 3.9 3.6-5.0 MMOL/L Chloride Level 98 98-107 MMOL/L Carbon Dioxide Level 29 21-32 MMOL/L Anion Gap 12 5-14 MMOL/L Blood Urea Nitrogen 42 H 7-18 MG/DL Creatinine 5.20 #H 0.60-1.30 MG/DL Estimat Glomerular Filtration Rate 8 BUN/Creatinine Ratio 8 Glucose Level 189 H 70-105 MG/DL Calcium Level 9.3 8.5-10.1 MG/DL Magnesium Level 2.2 1.8-2.4 MG/DL Total Bilirubin 1.4 H 0.1-1.0 MG/DL Aspartate Amino Transf (AST/SGOT) 21 5-34 U/L Alanine Aminotransferase (ALT/SGPT) 13 0-55 U/L Alkaline Phosphatase 92 40-136 U/L Myoglobin 143.3 H 10.0-92.0 NG/ML Troponin I < 0.30 <0.30 NG/ML B-Type Natriuretic Peptide 3485.5 H <100.0 PG/ML Total Protein 6.3 L 6.4-8.2 GM/DL Albumin 3.5 3.2-4.5 GM/DL My Orders Orders - PROSPER GOODE MD Albuterol/Ipra Inhalation Soln (Duoneb I (05/11/18 08:46) Cbc With Automated Diff (05/11/18 08:52) Magnesium (05/11/18 08:52) Chest 1 View, Ap/Pa Only (05/11/18 08:52) Ekg Tracing (05/11/18 08:52) Cardiac Profile 1 (05/11/18 08:52) Comprehensive Metabolic Panel (05/11/18 08:52) Myoglobin Serum (05/11/18 08:52) Protime With Inr (05/11/18 08:52) Partial Thromboplastin Time (05/11/18 08:52) O2 (05/11/18 08:52) Monitor-Rhythm Ecg Trace Only (05/11/18 08:52) Lipid Panel (05/12/18 06:00) Nitroglycerin 0.4 Mg Btl 25's (Nitrostat (05/11/18 09:00) Morphine Injection (Morphine Injection (05/11/18 08:52) Saline Lock/Iv-Start (05/11/18 08:52) BNP (05/11/18 08:52) Manual Differential (05/11/18 08:49) Hydralazine Injection (Apresoline Inject (05/11/18 10:15) Hydromorphone Injection (Dilaudid Inje (05/11/18 10:22) Medications Given in ED Current Medications Medications Dose Ordered Sig/Guzman Route Start Time Stop Time Status Last Admin Dose Admin Albuterol/ Ipratropium 3 ml STK-MED ONCE .ROUTE 05/11/18 08:46 05/11/18 08:49 DC 05/11/18 08:49 3 ML Hydralazine HCl 10 mg ONCE ONCE IV 05/11/18 10:15 05/11/18 10:16 DC 05/11/18 10:27 10 MG Nitroglycerin 0.4 mg UD PRN SL 05/11/18 09:00 05/11/18 09:23 0.4 MG Vital Signs/I&O 05/11/18 05/11/18 05/11/18 05/11/18 08:43 08:43 08:43 08:49 Temp 98.5 Pulse 71 Resp 19 B/P (MAP) 181/101 (127) Pulse Ox 99 99 99 O2 Delivery Nasal Cannula Nasal Cannula Nasal Cannula Nasal Cannula O2 Flow Rate 3.0 3.00 3.00 3.00 Capillary Refill : Progress Note : Progress Note Seen and evaluated. IV via port access, labs, EKG, nitroglycerin sublingual continued and morphine 10 mg IV ordered. Chest x-ray ordered. Monitor patient. 1023: Patient with continued pain. Labs reviewed. Patient's blood pressures increasing again. Hydralazine 10 mg IV ordered. Dilaudid 1 mg IV ordered. Noted to have fairly significant volume overload and has missed dialysis last Friday. She will need dialysis. She also has complicated and significant cardiac history. She will require further workup related to the chest pain as well. I will initiate transfer to [facility] in [facility]. 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 This call was placed. Pending discussion with hospitalist. I did discuss the transfer with the patient and family who agree with transfer. 1035: I did discuss the case with Dr. Hay and he accepts patient for transfer. He is requested that I talk with Dr. A rip saw operatorRufino Nino one call is assisting with contacting that physician and will give him information for call back and informed him of the admission there. ECG Initial ECG Impression Date: May 11, 2018 Initial ECG Impression Time: 08:52 Initial ECG Rate: 63 Initial ECG Rhythm: Normal Sinus Initial ECG Comparisson: Unchanged Comment Sinus rhythm with normal axis. No evidence of ST elevation GA. Borderline T- wave abnormalities noted but otherwise morphology similar to previous. Patient has had atrial fibrillation with rapid ventricular response previously as well. This is not noted on current EKG evaluation. Diagnostic Imaging Diagonstic Imaging: Xray Plain Films/CT/US/NM/MRI: chest Comments VIA [facility], [facility]. [place], [place] NAME: NAV[facility]ODIA [facility] REC#: [id number] PT STATUS: REG ER : 1945 PHYSICIAN: PROSPER GOODE MD ADMIT DATE: 05/11/18/ER Draft Date of Exam:05/11/18 CHEST 1 VIEW, AP/PA ONLY Chest and back pain. Comparison made with prior examination of 07/01/2017. Findings: There is cardiomegaly and some central pulmonary venous congestion. There is elevation of the right hemidiaphragm. Some minimal right basilar atelectasis and/or pneumonitis. No pleural effusion or pneumothorax. There has been a previous median sternotomy and coronary bypass graft. Icavr-y-[id number] catheter overlies right hemithorax. Impression: Cardiomegaly and some central pulmonary venous congestion. Elevation of the right hemidiaphragm with some right basilar subsegmental atelectasis and/or pneumonitis Dictated on workstation # [id number] Dict: 05/11/18 0939 Trans: 05/11/18 0945 CVB [id number] Interpreted by: LUCIANO BRIGGS MD Electronically signed by: Reviewed: Reviewed by Me Departure Impression Primary Impression: Chest pain Qualified Codes: R07.9 - Chest pain, unspecified Additional Impressions: Volume overload Qualified Codes: E87.79 - Other fluid overload End stage renal disease on dialysis Pain, cancer Disposition: 02 XFER SHT-TRM HOSP Condition: Stable Transfer Time Spoke to Accepting Phy: 10:28 Transfer Facility: [place], [place], Dr. Hay accepting Method of Transfer: EMS Departure-Patient Inst. Referrals: MANASA NARANJO MD (PCP/Family) Primary Care Physician PROSPER GOODE MD May 11, 2018 09:20
[2018-05-11 09:23] LABS: ALANINE AMINOTRANSFERASE 13 U/L (0-55); ALBUMIN 3.5 GM/DL (3.2-4.5); ALKALINE PHOSPHATASE 92 U/L (40-136); BAND NEUTROPHILS 0 %; BASOPHILS % (MANUAL) 0 %; BILIRUBIN,TOTAL 1.4 MG/DL (0.1-1.0); BUN/CREATININE RATIO 8; CALCIUM 9.3 MG/DL (8.5-10.1); CARBON DIOXIDE 29 MMOL/L (21-32); CHLORIDE 98 MMOL/L (98-107); EOSINOPHILS % (MANUAL) 0 %; GFR ESTIMATED 8; GLUCOSE 189 MG/DL (70-105); LYMPHOCYTES % (MANUAL) 5 %; MAGNESIUM 2.2 MG/DL (1.8-2.4); MONOCYTES % (MANUAL) 6 %; NEUTROPHILS % (MANUAL) 89 %; POTASSIUM 3.9 MMOL/L (3.6-5.0); SODIUM 139 MMOL/L (135-145); TOTAL PROTEIN 6.3 GM/DL (6.4-8.2)
[2018-05-11 09:24] LABS: ANISOCYTOSIS MARKED; POLYCHROMASIA SLIGHT
[2018-05-11 09:31] LABS: MYOGLOBIN SERUM 143.3 NG/ML (10.0-92.0)
--- NOTE | 2018-05-11 09:45 | Diagnostic Imaging Report ---
Chest and back pain. Comparison made with prior examination of 07/01/2017. Findings: There is cardiomegaly and some central pulmonary venous congestion. There is elevation of the right hemidiaphragm. Some minimal right basilar atelectasis and/or pneumonitis. No pleural effusion or pneumothorax. There has been a previous median sternotomy and coronary bypass graft. Mreac-a-ovyy catheter overlies right hemithorax. Impression: Cardiomegaly and some central pulmonary venous congestion. Elevation of the right hemidiaphragm with some right basilar subsegmental atelectasis and/or pneumonitis Dictated by: Dictated on workstation # [id number]
[2018-05-11] MEDS ORDERED: hydrALAZINE (APESOLINE) 20 MG/ML VIAL IV ONE (10:15)
[2018-05-11] MEDS ORDERED: HYDROmorphone 1 MG/ML (DILAUDID) 1 ML SYRINGE IV STA (10:22)
[2018-05-11 11:48] VITALS: BP 179/94
== END 2018-05-11 11:48 | disposition short-term general hospital (02) ==
LOC: EDUNIT# 08:42 → ER 08:44
DX: R07.9 Chest pain, unspecified (principal); C50.919 Malignant neoplasm of unspecified site of unspecified female breast; G89.3 Neoplasm related pain (acute) (chronic); E87.70 Fluid overload, unspecified; E11.22 Type 2 diabetes mellitus with diabetic chronic kidney disease; I13.2 Hypertensive heart and chronic kidney disease with heart failure and with stage 5 chronic kidney disease, or end stage renal disease; I50.9 Heart failure, unspecified; N18.6 End stage renal disease; J44.9 Chronic obstructive pulmonary disease, unspecified; E11.51 Type 2 diabetes mellitus with diabetic peripheral angiopathy without gangrene; I73.9 Peripheral vascular disease, unspecified; F41.9 Anxiety disorder, unspecified; F32.9 Major depressive disorder, single episode, unspecified; I25.2 Old myocardial infarction; I48.91 Unspecified atrial fibrillation; I25.10 Atherosclerotic heart disease of native coronary artery without angina pectoris; E78.00 Pure hypercholesterolemia, unspecified; K21.9 Gastro-esophageal reflux disease without esophagitis; Z79.82 Long term (current) use of aspirin; Z79.4 Long term (current) use of insulin; Z79.01 Long term (current) use of anticoagulants; Z87.19 Personal history of other diseases of the digestive system; Z82.49 Family history of ischemic heart disease and other diseases of the circulatory system; Z80.42 Family history of malignant neoplasm of prostate; Z87.891 Personal history of nicotine dependence; Z95.1 Presence of aortocoronary bypass graft; Z95.5 Presence of coronary angioplasty implant and graft; Z90.710 Acquired absence of both cervix and uterus; Z88.8 Allergy status to other drugs, medicaments and biological substances; Z86.73 Personal history of transient ischemic attack (TIA), and cerebral infarction without residual deficits; Z90.12 Acquired absence of left breast and nipple; Z91.19 Patient's noncompliance with other medical treatment and regimen
CPT/HCPCS: 36415; 71045; 80053; 83735; 83874; 83880; 84484; 85007; 85027; 85610; 85730; 93005; 93041; 94640; 96374; 96375

== ENCOUNTER 2018-08-17 14:34 | Emergency (ER) | payer MEDICARE ==
[~2018-08-17] VITALS: Ht 165.1 cm; Wt 59.0 kg
[~2018-08-17 14:34] MED LIST changes: -AMLO10TA2 PO; +AMLO10TA6 PO; +APIX5TAB; +FENT1PAT8; +LEVO25TA5; +LIDO30CR20; -OXYC-197 PO; +OXYC1TAB87 PO; -POLY255P PO; +POLY255P16 PO
[2018-08-17] MEDS ORDERED: ONDANSETRON 4 MG/2 ML (SDV) Z0FRAN IVP ONE (16:30)
[2018-08-17] MEDS ORDERED: HYOSCYAMINE 0.125 MG (LEVSIN) TAB PO ONE (16:30)
[2018-08-17 16:31] LABS: BASOPHILS % (AUTO) 0 % (0-10); EOSINOPHILS % (AUTO) 1 % (0-10); HEMATOCRIT 29 % (35-52); LYMPHOCYTES # (AUTO) 0.7 X 10^3 (1.0-4.0); LYMPHOCYTES % (AUTO) 8 % (12-44); MEAN CORPUSCULAR HEMOGLOBIN 33 PG (25-34); MEAN CORPUSCULAR HGB CONC 31 G/DL (32-36); MEAN CORPUSCULAR VOLUME 104 FL (80-99); MONOCYTES # (AUTO) 0.6 X 10^3 (0.0-1.0); MONOCYTES % (AUTO) 7 % (0-12); NEUTROPHILS # (AUTO) 7.3 X 10^3 (1.8-7.8); NEUTROPHILS % (AUTO) 84 % (42-75); PLATELET COUNT 46 10^3/uL (130-400); RED BLOOD COUNT 2.77 10^6/uL (4.35-5.85); RED CELL DISTRIBUTION WIDTH 21.1 % (10.0-14.5); WHITE BLOOD COUNT 8.6 10^3/uL (4.3-11.0)
[2018-08-17 16:43] LABS: POTASSIUM 3.3 MMOL/L (3.6-5.0)
[2018-08-17 16:44] LABS: ALBUMIN 3.1 GM/DL (3.2-4.5); BILIRUBIN,TOTAL 1.2 MG/DL (0.1-1.0); CALCIUM 8.6 MG/DL (8.5-10.1); CREATININE SERUM 4.13 MG/DL (0.60-1.30); TOTAL PROTEIN 6.2 GM/DL (6.4-8.2)
[2018-08-17 16:58] LABS: EOSINOPHILS % (MANUAL) 3 %; LYMPHOCYTES % (MANUAL) 3 %; MONOCYTES % (MANUAL) 10 %; NEUTROPHILS % (MANUAL) 84 %; NUCLEATED RED BLOOD CELLS 1; POLYCHROMASIA MODERATE
[2018-08-17] MEDS ORDERED: ONDA4TAB8 SL (18:13)
[2018-08-17] MEDS ORDERED: HYOS0.1283 SL (18:13)
--- NOTE | 2018-08-17 18:14 | ED General ---
General Chief Complaint: Abdominal/GI Problems Stated Complaint: NVD Nursing Triage Note: PT BROUGHT IN BY EMS WITH COMPLAINT OF DIARRHEA. PT STATES IT IS SLIMY AND SHES HAD IT FOR A FEW DAYS. LAST CHEMO WAS A WEEK AGO. Nursing Sepsis Screen: No Definite Risk Source of Information: Patient Exam Limitations: No Limitations History of Present Illness Date Seen by Provider: Aug 17, 2018 Time Seen by Provider: 16:20 Initial Comments This 73-year-old woman with metastatic cancer and end-stage renal failure on dialysis presents to the emergency room accompanied by her daughter with complaints of "slimy" diarrhea, nausea, and vomiting for a couple of days. She presently receives chemotherapy for her cancer. She receives her dialysis on Friday, , and Friday. She is due for dialysis tomorrow morning. She arrives via EMS with a 500 mL bag of normal saline running. Allergies and Home Medications Allergies Coded Allergies: TUYET Inhibitors (Unverified Allergy, Unknown, 03/03/15) due to creatinine level ARB-Angiotensin Receptor Antagonist (Unverified Allergy, Unknown, 03/03/15) meloxicam (Verified Allergy, Unknown, 09/05/06) Home Medications Alprazolam 0.5 Mg Tablet, 0.5 MG PO DAILY PRN for ANXIETY, (Reported) Amiodarone HCl 200 Mg Tablet, 200 MG PO MoTuWeThFr, (Reported) Amlodipine Besylate 10 Mg Tablet, 10 MG PO DAILY, (Reported) Aspirin 81 Mg Tablet, 81 MG PO DAILY, (Reported) Atorvastatin Calcium 40 Mg Tablet, 40 MG PO HS, (Reported) Cholecalciferol 5,000 Unit Capsule, 5,000 UNIT PO DAILY, (Reported) Docosahexanoic Acid/Epa 1 Cap Capsule, 1,000 MG PO BID, (Reported) Furosemide 40 Mg Tablet, 40 MG PO DAILY, (Reported) Hydralazine HCl 50 Mg Tablet, 50 MG PO BID, (Reported) Hydrocodone/Acetaminophen 1 Each Tablet, 1 TAB PO Q6H PRN for PAIN, (Reported) Hyoscyamine Sulfate 0.125 Mg Tab.subl, 0.125 MG SL Q6H PRN for CRAMPS Prescribed by: DIVYA BARRETT on 08/17/18 181 Insulin Glargine,Hum.rec.anlog 100 Unit/1 Ml Insuln.pen, 22 UNITS SC HS, ( Reported) Insulin Lispro 100 Unit/1 Ml Insuln.pen, 3-4 UNITS SC AC, (Reported) Isosorbide Mononitrate 30 Mg Tab.er.24h, 30 MG PO DAILY, (Reported) Methocarbamol 750 Mg Tablet, 750 MG PO Q8H PRN for PAIN-MODERATE TO SEVERE Prescribed by: KIM ELLIOTT on 05/09/18 1250 Multivitamin 1 Each Tablet, 1 TAB PO DAILY, (Reported) Ondansetron 4 Mg Tab.rapdis, 4 MG SL Q4H PRN for NAUSEA/VOMITING-1ST LINE Prescribed by: DIVYA BARRETT on 08/17/18 1813 Pantoprazole Sodium 40 Mg Tablet.dr, 40 MG PO DAILY, (Reported) Polyethylene Glycol 3350 17 Gm Powd.pack, 17 GM PO 1800 PRN for CONSTIPATION, ( Reported) Sertraline HCl 100 Mg Tablet, 150 MG PO DAILY, (Reported) TAKES 1 & 1/2 (100MG) TABLETS Trazodone HCl 100 Mg Tablet, 100 MG PO HS, (Reported) Patient Home Medication List Home Medication List Reviewed: Yes Review of Systems Review of Systems Constitutional: weakness EENTM: no symptoms reported Respiratory: no symptoms reported Cardiovascular: no symptoms reported Gastrointestinal: see HPI Genitourinary: see HPI : No Musculoskeletal: no symptoms reported Skin: no symptoms reported Psychiatric/Neurological: No Symptoms Reported Hematologic/Lymphatic: See HPI Immunological/Allergic: no symptoms reported Past Arwvveb-Ergkkm-Ylhhjt Hx Past Med/Social Hx: Reviewed Nursing Past Med/Soc Hx Patient Social History Alcohol Use: Occasionally Uses Number of Drinks Today: II Alcohol Beverage of Choice: Other Recreational Drug Use: No Smoking Status: Former Smoker Type Used: Cigarettes Former Smoker, Quit: Jul 20, 1999 2nd Hand Smoke Exposure: No Recent Foreign Travel: No Contact w/Someone Who Travel: No Recent Infectious Disease Expo: No Recent Hopitalizations: No Immunizations Up To Date Tetanus Booster (TDap): Unknown PED Vaccines UTD: No Date of Pneumonia Vaccine: March 01, 2015 Date of Influenza Vaccine: Aug 18, 2017 Seasonal Allergies Seasonal Allergies: No Past Medical History Surgeries: Yes Abdominal, Bladder Surgery, Breast, Cardiac, CABG, Coronary Stent, Gallbladder, Hysterectomy, Lumpectomy, Orthopedic, Vascular Surgery Respiratory: Yes (USES HOME O2 2-3 L/NC CONTINOUSLY) Chronic Bronchitis, COPD Currently Using CPAP: No Currently Using BIPAP: No Cardiac: Yes (CABG; STENTS X 13; LOOP RECORDER; CHF; CO X 2) Angina, Atrial Fibrillation, Cardiomyopathy, Coronary Artery Disease, Heart Attack, Heart Murmur, High Cholesterol, Hypertension, Irregular Heartbeat, Peripheral Vascular, Valvular Heart Disease Neurological: Yes (CVA WITH LEFT SIDE WEAKNESS ESSENTIALLY RESOLVED) Stroke, TIA Reproductive Disorders: No Female Reproductive Disorders: Denies Sexually Transmitted Disease: No HIV/AIDS: No Genitourinary: Yes Renal Failure, Dialysis Gastrointestinal: Yes Gastroesophageal Reflux, Chronic Constipation, Pancreatitis, Hiatal Hernia, Gall Bladder Disease Musculoskeletal: Yes Arthritis, Chronic Back Pain, Fractures Endocrine: Yes Diabetes, Insulin dep HEENT: No Loss of Vision: Denies Hearing Impairment: Hard of Hearing Cancer: Yes Breast Did You Recieve Any Treatments: Yes What Type of Treatment Did You: Chemotherapy, Radiation, Surgical Intervention Psychosocial: Yes Sleep Difficulties, Anxiety, Depression Integumentary: No Blood Disorders: No Adverse Reaction/Blood Tranf: No Family Medical History Alcoholism 19 FATHER Cardiovascular disease G8 BROTHER G8 SISTER Diabetes mellitus 19 FATHER 19 MOTHER G8 BROTHER G8 SISTER Gastroenteritis 19 MOTHER G8 BROTHER G8 SISTER Hypercholesterolemia 19 MOTHER G8 BROTHER G8 SISTER Hypertension 19 MOTHER G8 BROTHER G8 SISTER Kidney disease 19 MOTHER G8 BROTHER G8 SISTER Prostate cancer G8 BROTHER No Pertinent Family Hx Physical Exam Vital Signs Vital Signs - First Documented 08/17/18 14:36 Pulse 87 Resp 11 B/P (MAP) 101/57 (72) Pulse Ox 94 O2 Delivery Nasal Cannula O2 Flow Rate 4.00 Capillary Refill : Less Than 3 Seconds Height, Weight, BMI Height: 5'5.00" Weight: 130lbs. 5.4oz. 58.937520yy; 30.3 BMI Method:Stated General Appearance: No Apparent Distress, WD/WN, Cachetic HEENT: PERRL/EOMI, Other (Oropharynx somewhat dry) Neck: Normal Inspection Respiratory: Lungs Clear, No Accessory Muscle Use, No Respiratory Distress, Decreased Breath Sounds Cardiovascular: Regular Rate, Rhythm, No Edema, Systolic Murmur Gastrointestinal: Normal Bowel Sounds, Non Tender, Soft Extremity: Normal Capillary Refill, Swelling Neurologic/Psychiatric: Alert, Oriented x3, No Motor/Sensory Deficits, Normal Mood/Affect, solution analyst II-XII Norm as Tested Skin: Normal Color, Warm/Dry Progress/Results/Core Measures Suspected Sepsis Recent Fever Within 48 Hours: No Infection Criteria Present: None New/Unexplained Altered Menta: No Sepsis Screen: No Definite Risk SIRS Temperature: Pulse: 87 Respiratory Rate: 11 Laboratory Tests 08/17/18 14:50: White Blood Count 8.6 Blood Pressure 101 /57 Mean: 72 Laboratory Tests 08/17/18 14:50: Creatinine 4.13H, Platelet Count 46L, Total Bilirubin 1.2H Results/Orders Lab Results Laboratory Tests Test 08/17/18 14:50 Range/Units White Blood Count 8.6 4.3-11.0 10^3/uL Red Blood Count 2.77 L 4.35-5.85 10^6/uL Hemoglobin 9.0 L 11.5-16.0 G/DL Hematocrit 29 L 35-52 % Mean Corpuscular Volume 104 H 80-99 FL Mean Corpuscular Hemoglobin 33 25-34 PG Mean Corpuscular Hemoglobin Concent 31 L 32-36 G/DL Red Cell Distribution Width 21.1 H 10.0-14.5 % Platelet Count 46 L 130-400 10^3/uL Mean Platelet Volume 11.0 H 7.4-10.4 FL Neutrophils (%) (Auto) 84 H 42-75 % Lymphocytes (%) (Auto) 8 L 12-44 % Monocytes (%) (Auto) 7 0-12 % Eosinophils (%) (Auto) 1 0-10 % Basophils (%) (Auto) 0 0-10 % Neutrophils # (Auto) 7.3 1.8-7.8 X 10^3 Lymphocytes # (Auto) 0.7 L 1.0-4.0 X 10^3 Monocytes # (Auto) 0.6 0.0-1.0 X 10^3 Eosinophils # (Auto) 0.0 0.0-0.3 10^3/uL Basophils # (Auto) 0.0 0.0-0.1 10^3/uL Neutrophils % (Manual) 84 % Lymphocytes % (Manual) 3 % Monocytes % (Manual) 10 % Eosinophils % (Manual) 3 % Nucleated Red Blood Cells 1 Polychromasia MODERATE Basophilic Stippling Macrocytosis SLIGHT Sodium Level 141 135-145 MMOL/L Potassium Level 3.3 L 3.6-5.0 MMOL/L Chloride Level 96 L 98-107 MMOL/L Carbon Dioxide Level 30 21-32 MMOL/L Anion Gap 15 H 5-14 MMOL/L Blood Urea Nitrogen 17 7-18 MG/DL Creatinine 4.13 H 0.60-1.30 MG/DL Estimat Glomerular Filtration Rate 11 BUN/Creatinine Ratio 4 Glucose Level 191 H 70-105 MG/DL Calcium Level 8.6 8.5-10.1 MG/DL Corrected Calcium 9.3 8.5-10.1 MG/DL Total Bilirubin 1.2 H 0.1-1.0 MG/DL Aspartate Amino Transf (AST/SGOT) 31 5-34 U/L Alanine Aminotransferase (ALT/SGPT) 15 0-55 U/L Alkaline Phosphatase 210 H 40-136 U/L C-Reactive Protein High Sensitivity 3.37 H 0.00-0.50 MG/DL Total Protein 6.2 L 6.4-8.2 GM/DL Albumin 3.1 L 3.2-4.5 GM/DL Lipase 15 8-78 U/L My Orders Orders - DIVYA MELCHOR MD Cbc With Automated Diff (08/17/18 16:25) Comprehensive Metabolic Panel (08/17/18 16:25) Hs C Reactive Protein (08/17/18 16:25) Lipase (08/17/18 16:25) Ondansetron Injection (Zofran Injectio (08/17/18 16:30) Hyoscyamine Sl Tablet (Levsin Sl Tablet) (08/17/18 16:30) Manual Differential (08/17/18 14:50) Medications Given in ED Vital Signs/I&O Capillary Refill : Less Than 3 Seconds Blood Pressure Mean: 72 Progress Note : Progress Note We completed the 500 mL normal saline bolus infusion started by EMS. Labs were obtained and were as expected for a dialysis patient. Patient has known anemia and trauma cytopenia. She was treated with Zofran and Levsin. Symptoms of nausea and diarrhea resolved. Patient was dismissed home with prescriptions. Departure Impression Primary Impression: Nausea vomiting and diarrhea Additional Impressions: Pancytopenia End stage renal failure on dialysis Disposition: HOME, SELF-CARE Condition: Improved Departure-Patient Inst. Decision time for Depature: 18:11 Referrals: MANASA NARANJO MD (PCP/Family) Primary Care Physician Patient Instructions: Diarrhea in Adolescents and Adults, Nausea and Vomiting, Adult Add. Discharge Instructions: Drink plenty of clear liquids. Use Zofran (ondansetron) (as prescribed for nausea and vomiting. Use Levsin (hyoscyamine) as prescribed for abdominal cramping and diarrhea. As an alternative you may also try Imodium [id number]. Use this sparingly , perhaps one half tablet at a time, as it may actually cause constipation. Proceed with dialysis as previously scheduled. Return to care if you have worsening symptoms. All discharge instructions reviewed with patient and/or family. Voiced understanding. Scripts Hyoscyamine Sulfate (Levsin-Sl) 0.125 Mg Tab.subl 0.125 MG SL Q6H PRN for CRAMPS, #10 TAB Prov: DIVYA MELCHOR MD 08/17/18 Ondansetron (Zofran Odt) 4 Mg Tab.rapdis 4 MG SL Q4H PRN for NAUSEA/VOMITING-1ST LINE, #10 TAB Prov: DIVYA MELCHOR MD 08/17/18 Copy Copies To 1: MANASA NARANJO MD, JOSHUA T MD Aug 17, 2018 18:14
[2018-08-17 18:32] VITALS: BP 142/85
== END 2018-08-17 18:32 | disposition home or self-care (01) ==
LOC: EDUNIT# 14:34 → ER 14:34
DX: R11.2 Nausea with vomiting, unspecified (principal); R19.7 Diarrhea, unspecified; D61.818 Other pancytopenia; E11.22 Type 2 diabetes mellitus with diabetic chronic kidney disease; I13.2 Hypertensive heart and chronic kidney disease with heart failure and with stage 5 chronic kidney disease, or end stage renal disease; N18.6 End stage renal disease; I50.9 Heart failure, unspecified; J44.9 Chronic obstructive pulmonary disease, unspecified; I25.2 Old myocardial infarction; I48.91 Unspecified atrial fibrillation; K21.9 Gastro-esophageal reflux disease without esophagitis; F41.9 Anxiety disorder, unspecified; F32.9 Major depressive disorder, single episode, unspecified; I42.9 Cardiomyopathy, unspecified; E11.59 Type 2 diabetes mellitus with other circulatory complications; I73.9 Peripheral vascular disease, unspecified; E78.00 Pure hypercholesterolemia, unspecified; C50.919 Malignant neoplasm of unspecified site of unspecified female breast; Z99.2 Dependence on renal dialysis; Z80.42 Family history of malignant neoplasm of prostate; Z87.19 Personal history of other diseases of the digestive system; Z82.49 Family history of ischemic heart disease and other diseases of the circulatory system; Z79.82 Long term (current) use of aspirin; Z86.73 Personal history of transient ischemic attack (TIA), and cerebral infarction without residual deficits; Z79.4 Long term (current) use of insulin; Z92.21 Personal history of antineoplastic chemotherapy; Z87.891 Personal history of nicotine dependence; Z95.1 Presence of aortocoronary bypass graft; Z95.5 Presence of coronary angioplasty implant and graft; Z90.710 Acquired absence of both cervix and uterus
CPT/HCPCS: 36415; 80053; 83690; 85007; 85027; 86141; 96374

== ENCOUNTER 2018-10-05 17:49 | Emergency (ER) | payer MEDICARE ==
[~2018-10-05] VITALS: Ht 170.2 cm; Wt 71.2 kg
[~2018-10-05 17:49] MED LIST changes: +HYOS0.1283 SL; +ONDA4TAB8 SL
[2018-10-05] MEDS ORDERED: morphine INJ 10 MG/ML 1ML (SYR OR VIAL) ONE (17:50)
[2018-10-05] MEDS ORDERED: ONDANSETRON 4 MG/2 ML (SDV) Z0FRAN ONE (17:50)
[2018-10-05] MEDS ORDERED: morphine INJ 10 MG/ML 1ML (SYR OR VIAL) IV STA (17:51)
--- OUTSIDE RECORDS SUMMARY | 2018-10-05 17:54 | XMS REPORT | Encounter Summary ---
Author Author [facility] Organization [facility] Address Unknown Phone Unavailable Care Team Providers Care Driller Hand Name Role Phone AprilAnuja Unavailable Unavailable Chris Thacker MD PCP Clementina Mascorro MD Unavailable Michael Virk DO Unavailable Niko Phelps MD Unavailable Outpatient, Radiologist Unavailable Unavailable Kirti Jimenes PA-C Unavailable Lang Paredes MD Unavailable Isidra Miranda APRN Unavailable Bolivar Jones Unavailable Evie Zaldivar Unavailable Unavailable Isidra Baker RN Unavailable Unavailable Sarah Kirkpatrick RN Unavailable Unavailable Reason for Visit * Reason Comments Remote Monitoring LM for pt to send a remote transmission to reconnect and see stored Questions information from LINQ device. Encounter Details Care Team Description Date Type Department Dayana Dhillon Remote Monitoring Questions (LM for pt to send a remote transmission to reconnect and see stored information from LINQ device.) 07/30/2018 [facility] [address] [place] [phone] [place] [address] Social History Date Tobacco Use Types Packs/Day Years Used Quit: 06/13/1994 Former Smoker Cigarettes 1 16 Smokeless Tobacco: Never Used Comments: quit 20 years ago Alcohol Use Drinks/Week oz/Week Comments Yes 0 Standard 0.0 occasionally drinks or equivalent Sex Assigned at Date Recorded Not on file Industry Job Start Date Occupation Not on file Not on file Not on file Travel End Travel History Travel Start No recent travel history available. as of this encounter Functional Status Date of Assessment Functional Status Response 08/04/2017 Does the patient have a hearing impairment: No 08/04/2017 Does the patient have a visual impairment: No 08/04/2017 Does the patient have impaired ambulation: Yes 08/04/2017 Does the patient have an activity of daily living No (ADL) impairment: 08/04/2017 Does the patient have an instrumental activity of No daily living (IADL) impairment: Date of Assessment Cognitive Status Response 08/04/2017 Does the patient have a cognitive impairment: No as of this encounter Plan of Treatment Not on fileas of this encounter Visit Diagnoses Not on filein this encounter
--- OUTSIDE RECORDS SUMMARY | 2018-10-05 17:54 | XMS REPORT | Clinical Summary ---
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 Active nitroglycerin (NITROSTAT) Place 0.4 mg 0 0.4 mg tablet under tongue every 5 minutes as needed for Chest Pain. Active pantoprazole DR Take 40 mg by 0 (PROTONIX) 40 mg tablet mouth daily. Active sertraline (ZOLOFT) 100 Take 150 mg 0 mg tablet by mouth daily. Active amLODIPine (NORVASC) 10 Take 10 mg by 0 mg tabletIndications: mouth daily. Cardiac device in situ, Paroxysmal atrial fibrillation (HCC), Essential hypertension Active fish oil /omega-3 fatty Take 2 Caps 0 acids (SEA-OMEGA) by mouth 340/1000 mg capsule daily. Active Ararxbcxfrvlt-Xz-Hoby-Min Take 1 Tab by 0 erals (WOMEN'S DAILY mouth daily. MULTIVITAMIN) 18-0.4 mg tab Active Cholecalciferol (Vitamin Take 5,000 0 D3) 5,000 unit tab Units by mouth daily. Active Magnesium 250 mg tab Take 250 mg 0 by mouth daily. Active ondansetron (ZOFRAN ODT) Take 4 mg by 0 4 mg rapid dissolve mouth every 8 tablet hours as needed for Nausea. Active insulin lispro(+) Inject 0-14 1 box 11 (HUMALOG KWIKPEN) 100 Units under 6 unit/mL injection PEN the skin five times daily. Follow mid dose correction sliding scale provided. Active HYDROcodone/acetaminophen Take 1 Tab by 0 (+) (NORCO) 10/325 mg mouth every 6 tablet hours as needed for Pain Active traZODone (DESYREL) 100 Take 0.5 Tabs 90 Tab 3 mg tablet by mouth at 6 bedtime daily. Active OXYGEN-AIR DELIVERY Use 1 L as 0 SYSTEMS MISC directed at bedtime daily. Active insulin glargine (LANTUS Inject 22 0 SOLOSTAR) 100 unit/mL (3 Units under mL) injection PEN the skin at bedtime daily. Active ferrous sulfate (FEOSOL, Take 1 Tab by 90 Tab 3 FEROSUL) 325 mg (65 mg mouth at 6 iron) tablet bedtime daily. Take on an empty stomach at least 1 hour before or 2 hours after food. Active lidocaine/prilocaine Apply nickel 30 g 1 (EMLA) 2.5/2.5 % topical size amount 7 cream to port access site 30 minutes before accessing port Active amiodarone (CORDARONE) Take 400 mg 0 200 mg tablet by mouth daily. Take with food. Active levothyroxine (SYNTHROID) Take 1 tablet 0 25 mcg tablet by mouth 7 daily. Active blood sugar diagnostic Test three 0 test strip times daily. 7 One Touch Ultra Dx E10.9. Active lancets MISC Test Blood 0 Glucose three 7 times daily Prn. Dx E10.9. Active sodium bicarbonate 650 mg Take 650 mg 0 tablet by mouth every 6 hours. Active Sevelamer Carbonate Take 800 mg 0 (RENVELA) 800 mg tablet by mouth three times daily. Active apixaban (ELIQUIS) 5 mg Take 5 mg by 0 tablet mouth twice daily. Active aspirin EC 81 mg tablet Take 81 mg by 0 mouth daily. Take with food. Active ascorbic acid (VITAMIN C) Take 500 mg 0 500 mg tablet by mouth daily. Active furosemide (LASIX) 20 mg Take 60 mg by 0 tablet mouth every morning. Active isosorbide mononitrate SR Take 60 mg by 0 (IMDUR) 60 mg tablet mouth every morning. Active docusate (COLACE) 100 mg Take 100 mg 0 capsule by mouth as Needed for Constipation. Active carvedilol (COREG) 25 mg Take 25 mg by 0 tablet mouth twice daily with meals. Take with food. Active atorvastatin (LIPITOR) 40 TAKE ONE 90 tablet 1 mg tabletIndications: TABLET BY 8 Atrial fibrillation with MOUTH DAILY rapid ventricular response (HCC), Coronary artery disease involving coronary bypass graft of [place] heart with angina pectoris with documented spasm (HCC) Active Problems Problem Noted Date Sinus bradycardia 07/23/2017 Ischemic cardiomyopathy 07/23/2017 Chronic systolic CHF (congestive heart failure) 07/23/2017 Paroxysmal atrial fibrillation 04/13/2017 ILD (interstitial lung disease) 09/20/2016 Overview: Suspect secondary to Amiodarone. Although other etiologies to consider are Hypersensitivity pneumonitis, connective tissue disease induced ILD or Idiopathic. Nocturnal hypoxemia was noted on the sleep study. She was given supplemental O2 through [facility] by her PCP after her exercise [...] to Dr. Blackburn. Acute hypoxemic respiratory failure 09/13/2016 Supratherapeutic INR 09/13/2016 Amiodarone Monitoring 07/28/2016 [...] of lower-outer quadrant of left female breast 05/24/2016 Cancer Staging: Clinical stage from 07/31/2016: Stage IIB (T2, N1, cM0) - Signed by Kirti Jimenes PA-C on 07/31/2016 Pathologic stage from 07/31/2016: Stage IIIA (T2, N2a, cM0) - Signed by Kirti Jimenes PA-C on 07/31/2016 Overview: DIAGNOSIS: Left grade 3 IDC (ER/PR0%, HER2 3+, Ki-67 50%) at 3:00 with involved axillary lymph node, dx 04/2016 HISTORY: Ms. Gallegos is a female who presented to [facility] on 05/27/2016 at age 71 for evaluation of left breast cancer. A shadow was noted on her left breast during a stress test in 04/2016. Left breast sono-guided biopsy 05/06/16 ([place], [place]) revealed grade 3 invasive ductal carcinoma. Left axillary sono-guided biopsy 05/06/16 ([place], [place]) revealed grade 3 invasive ductal carcinoma (no identifiable lymph node tissue). Ms. Gallegos underwent left modified radical mastectomy on 06/28/16. PATHOLOGY: Tumor: 4.7 cm Margins Free From Tumor: Yes ER: negative TN: negative Her 2: negative Grade: 3 Lymph Nodes: 05/06, largest met 2.3 cm LVSI: no Extranodal extension: yes BREAST IMAGING: Mammogram: -- Bilateral diagnostic mammogram 04/29/16 ([place], [place]) revealed scattered fibroglandular density. There was [...] node. Ultrasound: -- Left breast ultrasound 04/29/16 ([place], [place]) revealed an irregular mass at 3:00, [...] nodes were identified Other: -- PET/CT 05/21/16 ([place], [place]) revealed a hypermetabolic mass in the [...] Cardiology and pulmonology at , nephrology in [place] Shortness of breath 05/09/2016 Overview: SOB with exertion. Nocturnal hypoxemia on the sleep study. She was given supplemental O2 through [facility] by her PCP after her exercise oximetry was low. Echocardiogram in 2015 nrmal systolic and diastolic function. PFT's showed restrictive lung disease. I suspect this is related to her cardiac disease. Although need to think about deconditioning vs. Interstitial lung disease vs. Obesity vs. PAH. L ast Assessment & Plan: Patient is seeing her gas meter prover in 2 days. Advised her to check with her gas meter prover regarding her cath results. PFT's showed restrictive lung disease. CT chest showed mild basilar fibrosis which does not explain the degree of symptoms she is experiencing. Advised her to lose weight. Cardiac device in situ 05/02/2016 Acute respiratory failure with hypoxia 03/25/2016 On mechanically assisted ventilation 03/25/2016 Coronary artery disease involving [place] coronary artery of [place] heart 03/2016 without angina pectoris Pneumonia due to infectious organism 03/25/2016 Nocturnal hypoxemia 03/13/2016 Last Assessment & Plan: Continue supplemental O2 at night. End stage chronic kidney disease 06/12/2015 Overview: 06/07/14: Renal ultrasound: No definitive evidence of renal disease. No evidence hydronephrosis. Coronary artery disease involving coronary bypass graft of [place] heart with angina pectoris with documented spasm Overview: 2007: Bypass surgery 06/09/14: LHC: Patent sent in RCA. 70% stenosis at the orifice and extending into the intermediate branch. Normal left main circumflex and patent and widely patent stent within mid circumflex. High-grade obstruction of the proximal LAD, but with a widely patent STREETER. Essential hypertension with goal blood pressure less than 130/80 06/12/2015 Diabetes mellitus 06/12/2015 Anxiety 06/12/2015 DM (diabetes mellitus) Resolved Problems Problem Noted Date Resolved Date Atrial fibrillation with rapid ventricular response 09/20/2015 09/19/2016 Paroxysmal atrial fibrillation 06/19/2015 09/19/2016 Overview: 02/21/15: Afib w/RVR. Started on Dig at [address]. 02/21/15: Echo: LA size 4.9cm. EF 45%. 02/06/16 PFT: DLCO reduced at 51%, 80% of predicted after correcting for alveolar volume. Impression: Restrictive ventilatory defect with diffusion defect. Total lung capacity is only 66% of predicted. 02/06/16 Sleep study: mild sleep disordered breathing despite snoring. Mild sleep related hypoxemia. Encounters Care Team Description Date Type Specialty Dayana Dhillon Remote Monitoring Questions (LM for pt to send a remote transmission to reconnect and see stored information from LINQ device.) 07/30/2018 Telephone Cardiology from Last 3 Months Immunizations Name Dates [...] Brother Father Mother Other Sister Social History Date Tobacco Use Types Packs/Day [...] Travel Start No recent travel history available. Last Filed Vital Signs Time Taken Vital Sign Reading 03/30/2018 2:52 PM CDT Blood Pressure 104/50 03/30/2018 2:52 PM CDT Pulse 66 03/30/2018 2:52 PM CDT Temperature 36.8 C (98.2 F) 03/30/2018 2:52 PM CDT Respiratory Rate 18 03/30/2018 2:52 PM CDT Oxygen Saturation 99% - Inhaled Oxygen - Concentration 03/30/2018 2:52 PM CDT Weight 71.8 kg (158 lb 6.4 oz) 03/30/2018 2:52 PM CDT Height 164.5 cm (5' 4.76") 03/30/2018 2:52 PM CDT Body Mass Index 26.55 Plan of Treatment Health Maintenance Due Date Last Done Comments HEPATITIS C SCREENING 1947 PHYSICAL (COMPREHENSIVE) 1954 EXAM DILATED EYE EXAM 1965 DTAP/TDAP VACCINES (1 - 1965 Tdap) FOOT EXAM 1965 MICROALBUMIN 1965 COLORECTAL CANCER 1997 SCREENING SHINGLES RECOMBINANT 1997 VACCINE (1 of 2) OSTEOPOROSIS 2012 SCREENING/MONITORING PNEUMONIA (PCV13/PPSV23) 2012 VACCINES (1 of 2 - PCV13) HBA1C 03/15/2017 09/15/2016, 05/10/2016 BREAST CANCER SCREENING 05/27/2017 05/27/2016 INFLUENZA VACCINE 05/20/2018 07/22/2016, 09/11/2009 Implants Device Identifier Shelf Expiration Date Model / Serial / Lot Implanted Type Area Manufactur er Loop Recorder Loop Recorder 09/16/2017 [id number] / N/A / [id number] Port Implantable 8 Float Point Unit Right: Chest CR Siom Intermediate BARD:ACCES Implanted: Qty: 1 on 06/28/2016 by Erwin Sawant MD Results Not on filefrom Last 3 Months Insurance Payer Benefit Subscriber ID Type Phone Address Plan / Group MEDICARE MEDICARE xxxxxxxxxx Medicare PART A AND B Advance Directives Patient has advance care planning documents, and code status on file. For more information, please contact: [facility] Johnathon Baker [employer] [address] [place] [address] Date Inactivated Comments Code Status Date Activated 09/18/2016 9:13 PM DNAR-Full 09/13/2016 5:25 PM Intervention Provider has discussed Code Status Yes w/Patient or Family? 07/04/2016 7:57 PM DNAR-Full 07/02/2016 7:31 AM Intervention Provider has discussed Code Status No, more discussion w/Patient or Family? needed 07/02/2016 7:31 AM Full Code 07/02/2016 5:49 AM Provider has discussed Code Status No, more discussion w/Patient or Family? needed 06/30/2016 3:48 PM Full Code 06/28/2016 1:23 PM Provider has discussed Code Status Yes w/Patient or Family? 04/03/2016 8:16 PM Full Code 03/25/2016 4:42 PM Provider has discussed Code Status Yes w/Patient or Family?
--- OUTSIDE RECORDS SUMMARY | 2018-10-05 17:58 | XMS REPORT | Continuity of Care Document ---
Author Author [facility] Organization [facility] & Address Unknown Phone Unavailable Allergies Active Description Code Type Severity Reaction Onset Reported/Identified Relationship to Patient Clinical Status Yes meloxicam [id number] Drug Allergy Unknown N/A 09/05/2006 Yes meloxicam meloxicam Drug Allergy Unknown . 10/05/2012 Yes TUYET Inhibitors [id number] Drug Allergy Unknown N/A 03/03/2015 Yes ARB-Angiotensin Receptor Antagonist [id number] Drug Allergy Unknown N/A Medications There is [...] 01/31/2015 Ot E888.9 01/31/2015 ALLIE BIGGS, ROSALVA G Ot V76.12 01/31/2015 JOSE A [...] A BIGGS, MANASA R Ot 276.2 02/24/2015 JOSE A BIGGS, MANASA R Ot 276.51 02/24/2015 JOSE A BIGGS, MANASA R Ot 276.8 02/24/2015 JOSE A BIGGS, MANASA R Ot 278.00 02/24/2015 JOSE A BIGGS, MANASA R Ot 338.29 02/24/2015 JOSE A BIGGS, MANASA R Ot 348.31 02/24/2015 JOSE A BIGGS, MANASA R Ot 403.90 02/24/2015 JOSE A BIGGS, MANASA R Ot 410.71 02/24/2015 JOSE A BIGGS, MANASA R Ot 412 02/24/2015 JOSE A BIGGS, MANASA R Ot 414.00 02/24/2015 JOSE A BIGGS, MANASA R Ot 427.31 02/24/2015 JOSE A BIGGS, MANASA R Ot 438.89 02/24/2015 JOSE [...] R Ot 438.89 02/25/2015 JOSE A BIGGS, MANASA R Ot 440.1 02/25/2015 JOSE A BIGGS, [...] MANASA R Ot 338.29 02/26/2015 JOSE A IBGGS, MANASA R Ot 348.31 02/26/2015 JOSE A [...] MANASA R Ot 486 02/27/2015 JOSE A IBGGS, MANASA R Ot 496 02/27/2015 JOSE A [...] A BIGGS, MANASA R Ot 338.29 02/28/2015 JOSEA BIGGS, MANASA R Ot 348.31 02/28/2015 JOSE A BIGGS, MANASA R Ot 403.90 02/28/2015 JOSE A BIGGS, MANASA R Ot 410.71 02/28/2015 JOSE A BIGGS, AMNASA R Ot 412 02/28/2015 JOSE A BIGGS, [...] MANASA R Ot V85.35 03/03/2015 JOSE A BIGSG, MANASA R Ot 250.00 03/03/2015 JOSE A [...] R Ot 272.0 PURE HYPERCHOLESTEROLEM 03/03/2015 MANASA NARANJO MD R Ot 275.2 DIS MAGNESIUM METABOLISM [...] ATHEROSCLER NOS TYPE VESSEL, NATIV 03/03/2015 MANASA NARANJO MD R Ot 427.31 ATRIAL FIBRILLATION 03/03/2015 [...] ROBY E Ot 414.01 CORONARY ATHEROSCLEROSIS OF [place] CORON 03/09/2015 BRIDGETT BIGGS ROBY E Ot [...] BIGGS, RADHA P Ot Z79.01 12/15/2015 BRITTANY IBGGS, RADHA P Ot Z51.81 12/15/2015 BRITTANY BIGGS, [...] RENAL MANIFEST, TYPE II OR UNSPEC 06/06/2016 CLARENCE BIGGS, AHMED S Ot 272.4 HYPERLIPIDEMIA [...] LEVEL MON 06/06/2016 OTHER, UNLISTED Ot Z79.01 IT PROGRAMMER (CURRENT) USE OF ANTICOAGULANT 06/06/2016 RADHA SOTO MD Ot Z51.81 ENCOUNTER FOR THERAPEUTIC DRUG LEVEL MON 06/06/2016 EMERT MD, RADHA P Ot Z79.01 IT PROGRAMMER (CURRENT) USE OF ANTICOAGULANT 06/06/2016 RADHA SOTO MD Ot Z51.81 ENCOUNTER FOR THERAPEUTIC DRUG LEVEL MON 06/06/2016 RADHA SOTO MD Ot Z79.01 RESIDENTIAL (CURRENT) USE OF ANTICOAGULANT 06/06/2016 RADHA SOTO MD Ot Z51.81 ENCOUNTER FOR THERAPEUTIC DRUG LEVEL MON 06/06/2016 RADHA SOTO MD Ot Z79.01 RESIDENTIAL (CURRENT) USE OF ANTICOAGULANT 06/06/2016 RADHA SOTO MD Ot Z51.81 ENCOUNTER FOR THERAPEUTIC DRUG LEVEL MON 06/06/2016 RADHA SOTO MD Ot Z79.01 RESIDENTIAL (CURRENT) USE OF ANTICOAGULANT 06/06/2016 RADHA SOTO MD Ot Z51.81 ENCOUNTER FOR THERAPEUTIC DRUG LEVEL MON 06/06/2016 RADHA SOTO MD Ot Z79.01 IT PROGRAMMER (CURRENT) USE OF ANTICOAGULANT 06/06/2016 JOSE A [...] SMITH MD Ot I51.7 CARDIOMEGALY 09/04/2016 BRIANNE SMITH MD Ot N18.9 CHRONIC KIDNEY DISEASE, UNSPECIFIED 09/04/2016 BRIANNE SMITH MD Ot R01.1 CARDIAC MURMUR, UNSPECIFIED 09/04/2016 BRIANNE SMITH MD, Ot R79.1 ABNORMAL COAGULATION PROFILE 09/04/2016 BRIANNE SMITH MD, Ot Z79.82 RESIDENTIAL (CURRENT) USE OF ASPIRIN 09/04/2016 BRIANNE SMITH MD, Ot Z79.899 OTHER IT PROGRAMMER (CURRENT) DRUG THERAPY 09/04/2016 BRIANNE SMITH MD, [...] DRUG LEVEL Fri07/01/2017 OTHER, UNLISTED Ot Z79.01 IT PROGRAMMER (CURRENT) USE OF ANTICOAGULANT 07/01/2017 RADHA SOTO MD Ot Z51.81 ENCOUNTER FOR THERAPEUTIC DRUG LEVEL Fri07/01/2017 RADHA SOTO MD Ot Z79.01 IT PROGRAMMER (CURRENT) USE OF ANTICOAGULANT 07/01/2017 RADHA SOTO MD Ot Z51.81 ENCOUNTER FOR THERAPEUTIC DRUG LEVEL Fri07/01/2017 RADHA SOTO MD Ot Z79.01 IT PROGRAMMER (CURRENT) USE OF ANTICOAGULANT 07/01/2017 RADHA SOTO MD Ot Z51.81 ENCOUNTER FOR THERAPEUTIC DRUG LEVEL Fri07/01/2017 RADHA SOTO MD Ot Z79.01 IT PROGRAMMER (CURRENT) USE OF ANTICOAGULANT 07/01/2017 RADHA SOTO MD Ot Z51.81 ENCOUNTER FOR THERAPEUTIC DRUG LEVEL Fri07/01/2017 RADHA SOTO MD Ot Z79.01 RESIDENTIAL (CURRENT) USE OF ANTICOAGULANT 07/01/2017 RADHA SOTO MD Ot Z51.81 ENCOUNTER FOR THERAPEUTIC DRUG LEVEL Fri07/01/2017 RADHA SOTO MD Ot Z79.01 RESIDENTIAL (CURRENT) USE OF ANTICOAGULANT 07/01/2017 JOSE A [...] UNSPECIFIED SITE O 07/02/2017 RUIZ BIGGS, DIVYA Hernadez Ot E11.22 TYPE 2 DIABETES MELLITUS W DIABETIC SALES EXPERT 07/02/2017 DIVYA MELCHOR MD Ot E78.00 PURE [...] MD Ot I25.10 ATHSCL HEART DISEASE OF [place] CORONARY 07/02/2017 DIVYA MELCHOR MD Ot I25.2 [...] MD, Ot R10.84 GENERALIZED ABDOMINAL PAIN 07/02/2017 DIYVA MELCHOR MD, Ot R51 HEADACHE 07/02/2017 DIVYA MELCHOR MD Ot Z79.01 IT PROGRAMMER (CURRENT) USE OF ANTICOAGULANT 07/02/2017 DIVYA MELCHOR MD Ot Z79.4 RESIDENTIAL (CURRENT) USE OF INSULIN 07/02/2017 DIVYA MELCHOR MD, Ot Z79.82 RESIDENTIAL (CURRENT) USE OF ASPIRIN 07/02/2017 DIVYA MELCHOR [...] E11.22 TYPE 2 DIABETES MELLITUS W DIABETIC SALES EXPERT 07/02/2017 DIVYA MELCHOR MD Ot E78.00 PURE HYPERCHOLESTEROLEMIA, UNSPECIFIED 07/02/2017 DIVYA MELCHOR MD Ot F32.9 MAJOR DEPRESSIVE DISORDER, SINGLE EPISOD 07/02/2017 DIVYA MELCHOR MD Ot F41.9 ANXIETY DISORDER, UNSPECIFIED 07/02/2017 DIVYA MELCHOR MD Ot G47.9 SLEEP DISORDER, UNSPECIFIED 07/02/2017 DIVYA MELCHOR MD Ot I12.0 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 07/02/2017 DIVYA MELCHOR MD Ot I25.10 ATHSCL HEART DISEASE OF [place] CORONARY 07/02/2017 BRUEGGEMANN MD, DIVYA T Ot [...] HEADACHE 07/02/2017 DIVYA MELCHOR MD, Ot Z79.01 RESIDENTIAL (CURRENT) USE OF ANTICOAGULANT 07/02/2017 DIVYA MELCHOR MD, Ot Z79.4 IT PROGRAMMER (CURRENT) USE OF INSULIN 07/02/2017 DIVYA MELCHOR MD, Ot Z79.82 RESIDENTIAL (CURRENT) USE OF ASPIRIN 07/02/2017 DIVYA MELCHOR MD, Ot Z86.73 PRSNL HX OF TIA (TIA), AND CEREB INFRC W 07/02/2017 DIVYA MELCHOR MD, Ot Z87.891 PERSONAL HISTORY OF NICOTINE DEPENDENCE 07/02/2017 DIVYA MELCHOR MD, Ot Z90.710 ACQUIRED ABSENCE OF BOTH CERVIX AND UTER 07/02/2017 DIVYA MELCHOR MD, Ot Z95.1 PRESENCE OF AORTOCORONARY BYPASS GRAFT 07/02/2017 DVIYA MELCHOR MD, Ot Z95.5 PRESENCE OF CORONARY ANGIOPLASTY IMPLANT 07/04/2017 DIVYA MELCHOR MD Ot E11.22 TYPE 2 DIABETES MELLITUS W DIABETIC SALES EXPERT 07/04/2017 DIVYA MELCHOR MD Ot E78.00 PURE HYPERCHOLESTEROLEMIA, UNSPECIFIED 07/04/2017 DIVYA MELCHOR MD Ot F32.9 MAJOR DEPRESSIVE DISORDER, SINGLE EPISOD 07/04/2017 DIVYA MELCHOR MD Ot F41.9 ANXIETY DISORDER, UNSPECIFIED 07/04/2017 DIVYA MELCHOR MD Ot G47.9 SLEEP DISORDER, UNSPECIFIED 07/04/2017 DIVYA MELCHOR MD Ot I12.0 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 07/04/2017 DIVYA MELCHOR MD Ot I25.10 ATHSCL HEART DISEASE OF [place] CORONARY 07/04/2017 DIVYA MELCHOR MD Ot I25.2 OLD MYOCARDIAL INFARCTION 07/04/2017 DIVYA MELCHOR MD Ot I48.0 PAROXYSMAL ATRIAL FIBRILLATION 07/04/2017 DIVYA MELCHOR MD Ot J44.9 CHRONIC OBSTRUCTIVE PULMONARY DISEASE, U 07/04/2017 DIVYA MELCHOR MD Ot K21.9 GASTRO-ESOPHAGEAL REFLUX DISEASE WITHOUT 07/04/2017 DIVYA MELCHOR MD Ot K59.09 OTHER CONSTIPATION 07/04/2017 DIVYA MELCHOR MD Ot N17.9 ACUTE KIDNEY FAILURE, UNSPECIFIED 07/04/2017 DIYVA MELCHOR MD Ot N18.9 CHRONIC KIDNEY DISEASE, UNSPECIFIED 07/04/2017 DIVYA MELCHOR MD Ot N39.0 URINARY TRACT INFECTION, SITE NOT SPECIF 07/04/2017 DIVYA MELCHOR MD Ot R07.9 CHEST PAIN, UNSPECIFIED 07/04/2017 DIVYA MELCHOR MD Ot R10.84 GENERALIZED ABDOMINAL PAIN 07/04/2017 DIVYA MELCHOR MD Ot R51 HEADACHE 07/04/2017 DIVYA MELCHOR MD Ot Z79.01 RESIDENTIAL (CURRENT) USE OF ANTICOAGULANT 07/04/2017 DIVYA MELCHOR MD Ot Z79.4 RESIDENTIAL (CURRENT) USE OF INSULIN 07/04/2017 DIVYA MELCHOR MD Ot Z79.82 RESIDENTIAL (CURRENT) USE OF ASPIRIN 07/04/2017 DIVYA MELCHOR [...] E11.22 TYPE 2 DIABETES MELLITUS W DIABETIC SALES EXPERT 07/07/2017 DIVYA MELCHOR MD Ot E78.00 PURE HYPERCHOLESTEROLEMIA, UNSPECIFIED 07/07/2017 DIVYA MELCHOR MD Ot F32.9 MAJOR DEPRESSIVE DISORDER, SINGLE EPISOD 07/07/2017 DIVYA MELCHOR MD, Ot F41.9 ANXIETY DISORDER, UNSPECIFIED 07/07/2017 DIVYA MELCHOR MD, Ot G47.9 SLEEP DISORDER, UNSPECIFIED 07/07/2017 DIVYA MELCHOR MD Ot I12.0 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 07/07/2017 DIVYA MELCHOR MD, Ot I25.10 ATHSCL HEART DISEASE OF [place] CORONARY 07/07/2017 DIVYA MELCHOR MD, Ot I25.2 OLD MYOCARDIAL INFARCTION 07/07/2017 DIVYA MELCHOR MD Ot I48.0 PAROXYSMAL ATRIAL FIBRILLATION 07/07/2017 DIVYA MELCHOR MD, Ot J44.9 CHRONIC OBSTRUCTIVE PULMONARY DISEASE, U 07/07/2017 DIVYA MELCHOR MD, Ot K21.9 GASTRO-ESOPHAGEAL REFLUX [...] Ot R10.84 GENERALIZED ABDOMINAL PAIN 07/07/2017 DIVYA MELCHOR MD, Ot R51 HEADACHE 07/07/2017 DIVYA MELCHOR MD, Ot Z79.01 RESIDENTIAL (CURRENT) USE OF ANTICOAGULANT 07/07/2017 DIVYA MELCHOR MD, Ot Z79.4 RESIDENTIAL (CURRENT) USE OF INSULIN 07/07/2017 DIVYA MELCHOR MD, Ot Z79.82 IT PROGRAMMER (CURRENT) USE OF ASPIRIN 07/07/2017 DIVYA MELCHOR MD, Ot Z86.73 PRSNL HX OF TIA (TIA), AND CEREB INFRC W 07/07/2017 DIVYA MELCHOR MD, Ot Z87.891 PERSONAL HISTORY OF NICOTINE DEPENDENCE 07/07/2017 DIVYA MELCHOR MD, Ot Z90.710 ACQUIRED ABSENCE OF BOTH CERVIX AND UTER 07/07/2017 DIVYA MELCHOR MD, Ot Z95.1 PRESENCE OF AORTOCORONARY BYPASS GRAFT 07/07/2017 DVIYA MELCHOR MD, Ot Z95.5 PRESENCE OF CORONARY [...] MD Ot I25.10 ATHSCL HEART DISEASE OF [place] CORONARY 09/18/2017 ERNESTO DOUGHERTY MD Ot I25.2 OLD MYOCARDIAL INFARCTION 09/18/2017 ERNESTO DOUGHERTY MD Ot I48.91 UNSPECIFIED ATRIAL FIBRILLATION 09/18/2017 ERNESTO DOUGHERTY MD Ot I50.9 HEART FAILURE, UNSPECIFIED 09/18/2017 ERNESTO DOUGHERTY MD Ot I73.9 PERIPHERAL VASCULAR DISEASE, UNSPECIFIED 09/18/2017 ERNESTO DOUGHERTY MD Ot J44.9 CHRONIC OBSTRUCTIVE PULMONARY DISEASE, U 09/18/2017 ERNESTO DOUGHERTY MD Ot K21.9 GASTRO-ESOPHAGEAL REFLUX DISEASE WITHOUT 09/18/2017 ERNESTO DOUGHERTY MD Ot M19.90 UNSPECIFIED OSTEOARTHRITIS, UNSPECIFIED 09/18/2017 ERNESTO DOUGHERTY MD Ot T85.838A HEMORRHAGE DUE TO OTHER INTERNAL PROSTH 09/18/2017 ERNESTO DOUGHERTY MD Ot Z86.73 PRSNL HX OF [...] Ot Z95.5 PRESENCE OF CORONARY ANGIOPLASTY IMPLANT 05/09/2018 KIM ELLIOTT APRN Ot E11.51 TYPE 2 DIABETES W DIABETIC PERIPHERAL AN 05/09/2018 KIM ELLIOTT APRN Ot E78.00 PURE HYPERCHOLESTEROLEMIA, UNSPECIFIED 05/09/2018 KIM ELLIOTT APRN Ot F32.9 MAJOR DEPRESSIVE DISORDER, SINGLE EPISOD 05/09/2018 KIM ELLIOTT APRN Ot F41.9 ANXIETY DISORDER, UNSPECIFIED 05/09/2018 KIM ELLIOTT APRN Ot I10 ESSENTIAL (PRIMARY) HYPERTENSION 05/09/2018 KIM ELLIOTT APRN Ot I25.10 ATHSCL HEART DISEASE OF [place] CORONARY 05/09/2018 KIM ELLIOTT APRN Ot I25.2 OLD MYOCARDIAL INFARCTION 05/09/2018 KIM ELLIOTT APRN Ot I48.91 UNSPECIFIED ATRIAL FIBRILLATION 05/09/2018 KIM ELLIOTT APRN Ot J44.9 CHRONIC OBSTRUCTIVE PULMONARY DISEASE, U 05/09/2018 KIM ELLIOTT APRN Ot M54.5 LOW BACK PAIN 05/09/2018 KIM ELLIOTT APRN Ot Z79.01 IT PROGRAMMER (CURRENT) USE OF ANTICOAGULANT 05/09/2018 KIM ELLIOTT APRN Ot Z79.4 IT PROGRAMMER (CURRENT) USE OF INSULIN 05/09/2018 KIM ELLIOTT APRN Ot Z79.82 IT PROGRAMMER (CURRENT) USE OF ASPIRIN 05/09/2018 KIM ELLIOTT APRN Ot Z85.3 PERSONAL HISTORY OF MALIGNANT NEOPLASM O 05/09/2018 KIM ELLIOTT APRN Ot Z86.73 PRSNL HX OF TIA (TIA), AND CEREB INFRC W 05/09/2018 KIM ELLIOTT APRN Ot Z87.19 PERSONAL HISTORY OF OTHER DISEASES OF TH 05/09/2018 KIM ELLIOTT APRN Ot Z87.891 PERSONAL HISTORY OF NICOTINE DEPENDENCE 05/09/2018 KIM ELLIOTT APRN Ot Z88.6 ALLERGY STATUS TO ANALGESIC AGENT STATUS 05/09/2018 KIM ELLIOTT APRN Ot Z88.8 ALLERGY STATUS TO OTH DRUG/MEDS/BIOL SUB 05/09/2018 KIM ELLIOTT APRN Ot Z90.710 ACQUIRED ABSENCE OF BOTH CERVIX AND UTER 05/09/2018 KIM ELLIOTT APRN Ot Z99.2 DEPENDENCE ON RENAL DIALYSIS 05/11/2018 KIM ELLIOTT APRN Ot E11.51 TYPE 2 DIABETES W DIABETIC PERIPHERAL AN 05/11/2018 KIM ELLIOTT APRN Ot E78.00 PURE HYPERCHOLESTEROLEMIA, UNSPECIFIED 05/11/2018 KIM ELLIOTT APRN Ot F32.9 MAJOR DEPRESSIVE DISORDER, SINGLE EPISOD 05/11/2018 KIM ELLIOTT APRN Ot F41.9 ANXIETY DISORDER, UNSPECIFIED 05/11/2018 KIM ELLIOTT APRN Ot I10 ESSENTIAL (PRIMARY) HYPERTENSION 05/11/2018 KIM ELLIOTT APRN Ot I25.10 ATHSCL HEART DISEASE OF [place] CORONARY 05/11/2018 KIM ELLIOTT APRN Ot I25.2 OLD MYOCARDIAL INFARCTION 05/11/2018 KIM ELLIOTT APRN Ot I48.91 UNSPECIFIED ATRIAL FIBRILLATION 05/11/2018 KIM ELLIOTT APRN Ot J44.9 CHRONIC OBSTRUCTIVE PULMONARY DISEASE, U 05/11/2018 KIM ELLIOTT APRN Ot M54.5 LOW BACK PAIN 05/11/2018 KIM ELLIOTT APRN Ot Z79.01 RESIDENTIAL (CURRENT) USE OF ANTICOAGULANT 05/11/2018 KIM ELLIOTT APRN Ot Z79.4 RESIDENTIAL (CURRENT) USE OF INSULIN 05/11/2018 KIM ELLIOTT APRN Ot Z79.82 IT PROGRAMMER (CURRENT) USE OF ASPIRIN 05/11/2018 KIM ELLIOTT APRN Ot Z85.3 PERSONAL HISTORY OF MALIGNANT NEOPLASM O 05/11/2018 KIM ELLIOTT APRN Ot Z86.73 PRSNL HX OF TIA (TIA), AND CEREB INFRC W 05/11/2018 KIM ELLIOTT APRN Ot Z87.19 PERSONAL HISTORY OF OTHER DISEASES OF TH 05/11/2018 KIM ELLIOTT APRN Ot Z87.891 PERSONAL HISTORY OF NICOTINE DEPENDENCE 05/11/2018 KIM ELLIOTT APRN Ot Z88.6 ALLERGY STATUS TO ANALGESIC AGENT STATUS 05/11/2018 KIM ELLITOT APRN Ot Z88.8 ALLERGY STATUS TO OTH DRUG/MEDS/BIOL SUB 05/11/2018 KIM ELLIOTT APRN Ot Z90.710 ACQUIRED ABSENCE OF BOTH CERVIX AND UTER 05/11/2018 KIM ELLIOTT APRN Ot Z99.2 DEPENDENCE ON RENAL DIALYSIS 05/11/2018 PROSPER GOODE MD, Ot C50.919 MALIGNANT NEOPLASM OF [place] SITE OF [place]NS[place] 05/11/2018 PROSPER GOODE MD Ot E11.22 TYPE 2 DIABETES MELLITUS W DIABETIC SALES EXPERT 05/11/2018 PROSPER GOODE MD, Ot E11.51 TYPE 2 DIABETES W DIABETIC PERIPHERAL AN 05/11/2018 PROSPER GOODE MD Ot E78.00 PURE HYPERCHOLESTEROLEMIA, UNSPECIFIED 05/11/2018 PROSPER GOODE MD, Ot E87.70 FLUID OVERLOAD, UNSPECIFIED 05/11/2018 PROSPER GOODE MD, Ot F32.9 MAJOR DEPRESSIVE DISORDER, SINGLE EPISOD 05/11/2018 PROSPER GOODE MD, Ot F41.9 ANXIETY DISORDER, UNSPECIFIED 05/11/2018 PROSPER GOODE MD Ot G89.3 NEOPLASM RELATED PAIN (ACUTE) (CHRONIC) 05/11/2018 PROSPER GOODE MD Ot 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 05/11/2018 PROSPER GOODE MD, Ot I25.10 ATHSCL HEART DISEASE OF [place] CORONARY 05/11/2018 PROSPER GOODE MD, Ot I25.2 OLD MYOCARDIAL INFARCTION 05/11/2018 PROSPER GOODE MD, Ot I48.91 UNSPECIFIED ATRIAL FIBRILLATION 05/11/2018 PROSPER GOODE MD, Ot I50.9 HEART FAILURE, UNSPECIFIED 05/11/2018 PROSPER GOODE MD, Ot I73.9 PERIPHERAL VASCULAR DISEASE, UNSPECIFIED 05/11/2018 PROSPER GOODE MD, Ot J44.9 CHRONIC OBSTRUCTIVE PULMONARY DISEASE, U 05/11/2018 PROSPER GOODE MD, Ot K21.9 GASTRO-ESOPHAGEAL REFLUX DISEASE WITHOUT 05/11/2018 PROSPER GOODE MD, Ot N18.6 END STAGE RENAL DISEASE 05/11/2018 PROSPER GOODE MD, Ot R06.02 SHORTNESS OF BREATH 05/11/2018 PROSPER GOODE MD, Ot R07.9 CHEST PAIN, UNSPECIFIED 05/11/2018 PROSPER GOODE MD, Ot Z79.01 RESIDENTIAL (CURRENT) USE OF ANTICOAGULANT 05/11/2018 PROSPER GOODE MD, Ot Z79.4 RESIDENTIAL (CURRENT) USE OF INSULIN 05/11/2018 PROSPER GOODE MD, Ot Z79.82 RESIDENTIAL (CURRENT) USE OF ASPIRIN 05/11/2018 PROSPER GOODE MD Ot Z80.42 FAMILY HISTORY OF MALIGNANT NEOPLASM OF 05/11/2018 PROSPER GOODE MD, Ot Z82.49 FAMILY HX OF ISCHEM HEART DIS AND OTH DI 05/11/2018 PROSPER GOODE MD, Ot Z86.73 PRSNL HX OF TIA (TIA), AND CEREB INFRC W 05/11/2018 PROSPER GOODE MD, Ot Z87.19 PERSONAL HISTORY OF OTHER DISEASES OF TH 05/11/2018 PROSPER GOODE MD, Ot Z87.891 PERSONAL HISTORY OF NICOTINE DEPENDENCE 05/11/2018 PROSPER GOODE MD, Ot Z88.8 ALLERGY STATUS TO [facility] DRUG/MEDS/BIOL SUB 05/11/2018 PROSPER GOODE MD, Ot Z90.12 ACQUIRED ABSENCE OF LEFT BREAST AND NIPP 05/11/2018 PROSPER GOODE MD Ot Z90.710 ACQUIRED ABSENCE OF BOTH CERVIX AND UTER 05/11/2018 PROSPER GOODE MD, Ot Z91.19 PATIENT'S NONCOMPLIANCE W [facility] MEDICAL TR 05/11/2018 PROSPER GOODE MD, Ot Z95.1 PRESENCE OF AORTOCORONARY BYPASS GRAFT 05/11/2018 PROSPER GOODE MD, Ot Z95.5 PRESENCE OF CORONARY ANGIOPLASTY IMPLANT 05/13/2018 PROSPER GOODE MD, Ot C50.919 MALIGNANT NEOPLASM OF UNSP SITE OF UNSPE 05/13/2018 PROSPER GOODE MD, Ot E11.22 TYPE 2 DIABETES MELLITUS W DIABETIC SALES EXPERT 05/13/2018 PROSPER GOODE MD, Ot E11.51 TYPE 2 DIABETES W DIABETIC PERIPHERAL AN 05/13/2018 PROSPER GOODE MD, Ot E78.00 PURE HYPERCHOLESTEROLEMIA, UNSPECIFIED 05/13/2018 PROSPER GOODE MD Ot E87.70 FLUID OVERLOAD, UNSPECIFIED 05/13/2018 PROSPER GOODE MD Ot F32.9 MAJOR DEPRESSIVE DISORDER, SINGLE EPISOD 05/13/2018 PROSPER GOODE MD, Ot F41.9 ANXIETY DISORDER, UNSPECIFIED 05/13/2018 PROSPER GOODE MD, Ot G89.3 NEOPLASM RELATED PAIN (ACUTE) (CHRONIC) 05/13/2018 PROSPER GOODE MD Ot 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 05/13/2018 PROSPER GOODE MD, Ot I25.10 ATHSCL HEART DISEASE OF [place] CORONARY 05/13/2018 PROSPER GOODE MD, Ot I25.2 OLD MYOCARDIAL INFARCTION 05/13/2018 PROSPER GOODE MD Ot I48.91 UNSPECIFIED ATRIAL FIBRILLATION 05/13/2018 PROSPER GOODE MD, Ot I50.9 HEART FAILURE, UNSPECIFIED 05/13/2018 PROSPER GOODE MD, Ot I73.9 PERIPHERAL VASCULAR DISEASE, UNSPECIFIED 05/13/2018 PROSPER GOODE MD, Ot J44.9 CHRONIC OBSTRUCTIVE PULMONARY DISEASE, U 05/13/2018 PROSPER GOODE MD, Ot K21.9 GASTRO-ESOPHAGEAL REFLUX DISEASE WITHOUT 05/13/2018 PROSPER GOODE MD, Ot N18.6 END STAGE RENAL DISEASE 05/13/2018 PROSPER GOODE MD, Ot R06.02 SHORTNESS OF BREATH 05/13/2018 PROSPER GOODE MD, Ot R07.9 CHEST PAIN, UNSPECIFIED 05/13/2018 PROSPER GOODE MD, Ot Z79.01 IT PROGRAMMER (CURRENT) USE OF ANTICOAGULANT 05/13/2018 PROSPER GOODE MD, Ot Z79.4 RESIDENTIAL (CURRENT) USE OF INSULIN 05/13/2018 PROSPER GOODE MD, Ot Z79.82 RESIDENTIAL (CURRENT) USE OF ASPIRIN 05/13/2018 PROSPER GOODE MD, Ot Z80.42 FAMILY HISTORY OF MALIGNANT NEOPLASM OF 05/13/2018 PROSPER GOODE MD, Ot Z82.49 FAMILY HX OF ISCHEM HEART DIS AND OTH DI 05/13/2018 PROSPER GOODE MD, Ot Z86.73 PRSNL HX OF TIA (TIA), AND CEREB INFRC W 05/13/2018 PROSPER GOODE MD, Ot Z87.19 PERSONAL HISTORY OF OTHER DISEASES OF TH 05/13/2018 PROSPER GOODE MD, Ot Z87.891 PERSONAL HISTORY OF NICOTINE DEPENDENCE 05/13/2018 PROSPER GOODE MD, Ot Z88.8 ALLERGY STATUS TO [facility] DRUG/MEDS/BIOL SUB 05/13/2018 PROSPER GOODE MD Ot Z90.12 ACQUIRED ABSENCE OF LEFT BREAST AND NIPP 05/13/2018 PROSPER GOODE MD Ot Z90.710 ACQUIRED ABSENCE OF BOTH CERVIX AND UTER 05/13/2018 PROSPER GOODE MD Ot Z91.19 PATIENT'S NONCOMPLIANCE W [facility] MEDICAL TR 05/13/2018 PROSPER GOODE MD, Ot Z95.1 PRESENCE OF AORTOCORONARY BYPASS GRAFT 05/13/2018 PROSPER GOODE MD Ot Z95.5 PRESENCE OF CORONARY ANGIOPLASTY IMPLANT 05/15/2018 KIM ELLIOTT APRN Ot E11.51 TYPE 2 DIABETES W DIABETIC PERIPHERAL AN 05/15/2018 KIM ELLIOTT APRN Ot E78.00 PURE HYPERCHOLESTEROLEMIA, UNSPECIFIED 05/15/2018 KIM ELLIOTT APRN Ot F32.9 MAJOR DEPRESSIVE DISORDER, SINGLE EPISOD 05/15/2018 KIM ELLIOTT APRN Ot F41.9 ANXIETY DISORDER, UNSPECIFIED 05/15/2018 KIM ELLIOTT APRN Ot I10 ESSENTIAL (PRIMARY) HYPERTENSION 05/15/2018 KIM ELLIOTT APRN Ot I25.10 ATHSCL HEART DISEASE OF [place] CORONARY 05/15/2018 KIM ELLIOTT APRN Ot I25.2 OLD MYOCARDIAL INFARCTION 05/15/2018 KIM ELLIOTT APRN Ot I48.91 UNSPECIFIED ATRIAL FIBRILLATION 05/15/2018 KIM ELLIOTT APRN Ot J44.9 CHRONIC OBSTRUCTIVE PULMONARY DISEASE, U 05/15/2018 KIM ELLIOTT APRN Ot M54.5 LOW BACK PAIN 05/15/2018 KIM ELLIOTT APRN Ot Z79.01 IT PROGRAMMER (CURRENT) USE OF ANTICOAGULANT 05/15/2018 KIM ELLIOTT APRN Ot Z79.4 RESIDENTIAL (CURRENT) USE OF INSULIN 05/15/2018 KIM ELLIOTT APRN Ot Z79.82 IT PROGRAMMER (CURRENT) USE OF ASPIRIN 05/15/2018 KIM ELLIOTT APRN Ot Z85.3 PERSONAL HISTORY OF MALIGNANT NEOPLASM O 05/15/2018 KIM ELLIOTT APRN Ot Z86.73 PRSNL HX OF TIA (TIA), AND CEREB INFRC W 05/15/2018 KIM ELLIOTT APRN Ot Z87.19 PERSONAL HISTORY OF OTHER DISEASES OF TH 05/15/2018 KIM ELLIOTT APRN Ot Z87.891 PERSONAL HISTORY OF NICOTINE DEPENDENCE 05/15/2018 KIM ELLIOTT APRN Ot Z88.6 ALLERGY STATUS TO ANALGESIC AGENT STATUS 05/15/2018 KIM ELLIOTT APRN Ot Z88.8 ALLERGY STATUS TO OTH DRUG/MEDS/BIOL SUB 05/15/2018 KIM ELLIOTT APRN Ot Z90.710 ACQUIRED ABSENCE OF BOTH CERVIX AND UTER 05/15/2018 KIM ELLIOTT APRN Ot Z99.2 DEPENDENCE ON RENAL DIALYSIS 06/17/2018 TING BRANDAN STOKESA Shay Ot C50.919 MALIGNANT NEOPLASM OF UNS SITE OF UNSPE 06/17/2018 TING DO JOELLE K Ot D64.9 ANEMIA, UNSPECIFIED 06/17/2018 BRANDAN MAGUIRE DOA K Ot E11.22 TYPE 2 DIABETES MELLITUS W DIABETIC SALES EXPERT 06/17/2018 TING DO, JOELLE K Ot E11.51 TYPE 2 DIABETES W DIABETIC PERIPHERAL AN 06/17/2018 TING DO JOELLE K Ot E78.00 PURE HYPERCHOLESTEROLEMIA, UNSPECIFIED 06/17/2018 TING DO, JOELLE K Ot F32.9 MAJOR DEPRESSIVE DISORDER, SINGLE EPISOD 06/17/2018 TING DO, JOELLE K Ot F41.9 ANXIETY DISORDER, UNSPECIFIED 06/17/2018 TING DO JOELLE K Ot G89.29 OTHER CHRONIC PAIN 06/17/2018 TING DO JOELLE K Ot I12.0 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 06/17/2018 TING DO JOELLE K Ot I25.10 ATHSCL HEART DISEASE OF [place] CORONARY 06/17/2018 TING DO JOELLE K Ot I25.2 OLD MYOCARDIAL INFARCTION 06/17/2018 TING DO JOELLE K Ot I48.91 UNSPECIFIED ATRIAL FIBRILLATION 06/17/2018 TING DO JOELLE K Ot J44.9 CHRONIC OBSTRUCTIVE PULMONARY DISEASE, U 06/17/2018 TING DO JOELLE K Ot M54.6 PAIN IN THORACIC SPINE 06/17/2018 TING DO JOELLE K Ot N18.6 END STAGE RENAL DISEASE 06/17/2018 TING DO JOELLE K Ot R07.89 OTHER CHEST PAIN 06/17/2018 TING DO JOELLE K Ot Z79.01 IT PROGRAMMER (CURRENT) USE OF ANTICOAGULANT 06/17/2018 TING DO JOELLE K Ot Z79.4 RESIDENTIAL (CURRENT) USE OF INSULIN 06/17/2018 TING DO JOELLE K Ot Z79.82 RESIDENTIAL (CURRENT) USE OF ASPIRIN 06/17/2018 TING DO JOELLE K Ot Z86.73 PRSNL HX OF TIA (TIA), AND CEREB INFRC W 06/17/2018 TING DO JOELLE K Ot Z87.19 PERSONAL HISTORY OF OTHER DISEASES OF TH 06/17/2018 BRANDAN MAGUIRE DOA K Ot Z87.39 PERSONAL HISTORY OF DISEASES OF THE MS S 06/17/2018 TING BRANDAN STOKESA K Ot Z87.891 PERSONAL HISTORY OF NICOTINE DEPENDENCE 06/17/2018 TING BRANDAN STOKESA K Ot Z88.6 ALLERGY STATUS TO ANALGESIC AGENT STATUS 06/17/2018 TING DO, JOELLE K Ot Z88.8 ALLERGY STATUS TO OTH DRUG/MEDS/BIOL SUB 06/17/2018 TING DO, JOELLE K Ot Z90.12 ACQUIRED ABSENCE OF LEFT BREAST AND NIPP 06/17/2018 TING DO, JOELLE K Ot Z90.710 ACQUIRED ABSENCE OF BOTH CERVIX AND UTER 06/17/2018 TING DO, JOELLE K Ot Z95.5 PRESENCE OF CORONARY ANGIOPLASTY IMPLANT 06/17/2018 TING DO, JOELLE K Ot Z99.2 DEPENDENCE ON RENAL DIALYSIS 06/18/2018 TING DO, JOELLE K Ot D64.9 ANEMIA, UNSPECIFIED 06/18/2018 TING DO, JOELLE K Ot E11.22 TYPE 2 DIABETES MELLITUS W DIABETIC SALES EXPERT 06/18/2018 TING DO, JOELLE K Ot E11.51 TYPE 2 DIABETES W DIABETIC PERIPHERAL AN 06/18/2018 TING DO, JOELLE K Ot E78.00 PURE HYPERCHOLESTEROLEMIA, UNSPECIFIED 06/18/2018 TING DO, JOELLE K Ot F32.9 MAJOR DEPRESSIVE DISORDER, SINGLE EPISOD 06/18/2018 TING DO, JOELLE K Ot F41.9 ANXIETY DISORDER, UNSPECIFIED 06/18/2018 TING DO, JOELLE K Ot G89.29 OTHER CHRONIC PAIN 06/18/2018 TING DO, JOELLE K Ot I12.0 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 06/18/2018 TING DO, JOELLE K Ot I25.10 ATHSCL HEART DISEASE OF [place] CORONARY 06/18/2018 TING DO, JOELLE K Ot I25.2 OLD MYOCARDIAL INFARCTION 06/18/2018 TING DO, JOELLE K Ot I48.91 UNSPECIFIED ATRIAL FIBRILLATION 06/18/2018 TING DO, JOELLE K Ot J44.9 CHRONIC OBSTRUCTIVE PULMONARY DISEASE, U 06/18/2018 TING DO, JOELLE K Ot M54.6 PAIN IN THORACIC SPINE 06/18/2018 TING DO, JOELLE K Ot N18.6 END STAGE RENAL DISEASE 06/18/2018 TING DO, JOELLE K Ot R07.89 OTHER CHEST PAIN 06/18/2018 TING DO, JOELLE K Ot Z79.01 RESIDENTIAL (CURRENT) USE OF ANTICOAGULANT 06/18/2018 TING DO, JOELLE K Ot Z79.4 IT PROGRAMMER (CURRENT) USE OF INSULIN 06/18/2018 TING DO, JOELLE K Ot Z79.82 RESIDENTIAL (CURRENT) USE OF ASPIRIN 06/18/2018 TING BRANDAN STOKESA K Ot Z86.73 PRSNL HX OF TIA (TIA), AND CEREB INFRC W 06/18/2018 TING BRANDAN STOKESA K Ot Z87.19 PERSONAL HISTORY OF OTHER DISEASES OF TH 06/18/2018 BRANDAN MAGUIRE DOA K Ot Z87.39 PERSONAL HISTORY OF DISEASES OF THE MS S 06/18/2018 TING JOELLE STOKES Ot Z87.891 PERSONAL HISTORY OF NICOTINE DEPENDENCE 06/18/2018 TING BRANDAN STOKESA K Ot Z88.6 ALLERGY STATUS TO ANALGESIC AGENT STATUS 06/18/2018 TING BRANDAN STOKESA K Ot Z90.12 ACQUIRED ABSENCE OF LEFT BREAST AND NIPP 06/18/2018 TING JOELLE STOKES Ot Z90.710 ACQUIRED ABSENCE OF BOTH CERVIX AND UTER 06/18/2018 TING BRANDAN STOKESA Shay Ot Z95.5 PRESENCE OF CORONARY ANGIOPLASTY IMPLANT 06/18/2018 TING BRANDAN STOKESA Shay Ot Z99.2 DEPENDENCE ON RENAL DIALYSIS 06/18/2018 TING DO JOELLE K Ot C50.919 MALIGNANT NEOPLASM OF UNSP SITE OF UNSPE 06/18/2018 TING DO JOELLE K Ot D64.9 ANEMIA, UNSPECIFIED 06/18/2018 TING DO JOELLE K Ot E11.22 TYPE 2 DIABETES MELLITUS W DIABETIC SALES EXPERT 06/18/2018 TING DO JOELLE K Ot E11.51 TYPE 2 DIABETES W DIABETIC PERIPHERAL AN 06/18/2018 TING BRANDAN STOKESA K Ot E78.00 PURE HYPERCHOLESTEROLEMIA, UNSPECIFIED 06/18/2018 TING BRANDAN STOKESA K Ot F32.9 MAJOR DEPRESSIVE DISORDER, SINGLE EPISOD 06/18/2018 TING DO JOELLE K Ot F41.9 ANXIETY DISORDER, UNSPECIFIED 06/18/2018 TING DO JOELLE K Ot G89.29 OTHER CHRONIC PAIN 06/18/2018 TING BRANDAN STOKESA K Ot I12.0 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 06/18/2018 TING BRANDAN STOKESA K Ot I25.10 ATHSCL HEART DISEASE OF [place] CORONARY 06/18/2018 TING BRANDAN STOKESA K Ot I25.2 OLD MYOCARDIAL INFARCTION 06/18/2018 TING BRANDAN STOKESA K Ot I48.91 UNSPECIFIED ATRIAL FIBRILLATION 06/18/2018 TING STOKES JOELLE Day Ot J44.9 CHRONIC OBSTRUCTIVE PULMONARY DISEASE, U 06/18/2018 TING JOELLE Day Ot M54.6 PAIN IN THORACIC SPINE 06/18/2018 TING DO JOELLE Day Ot N18.6 END STAGE RENAL DISEASE 06/18/2018 TING STOKES JOELLE Day Ot R07.89 OTHER CHEST PAIN 06/18/2018 TING JOELLE Day Ot Z79.01 IT PROGRAMMER (CURRENT) USE OF ANTICOAGULANT 06/18/2018 TING JOELLE K Ot Z79.4 RESIDENTIAL (CURRENT) USE OF INSULIN 06/18/2018 TING JOELLE Shay Ot Z79.82 RESIDENTIAL (CURRENT) USE OF ASPIRIN 06/18/2018 TING JOELLE Shay Ot Z86.73 PRSNL HX OF TIA (TIA), AND CEREB INFRC W 06/18/2018 TING JOELLE K Ot Z87.19 PERSONAL HISTORY OF OTHER DISEASES OF TH 06/18/2018 TING DO JOELLE Shay Ot Z87.39 PERSONAL HISTORY OF DISEASES OF THE MS S 06/18/2018 TING DO JOELLE Day Ot Z87.891 PERSONAL HISTORY OF NICOTINE DEPENDENCE 06/18/2018 TING JOELLE Day Ot Z88.6 ALLERGY STATUS TO ANALGESIC AGENT STATUS 06/18/2018 TING DO JOELLE Day Ot Z88.8 ALLERGY STATUS TO OTH DRUG/MEDS/BIOL SUB 06/18/2018 TING JOELLE K Ot Z90.12 ACQUIRED ABSENCE OF LEFT BREAST AND NIPP 06/18/2018 TING STOKES JOELLE Shay Ot Z90.710 ACQUIRED ABSENCE OF BOTH CERVIX AND UTER 06/18/2018 TING STOKES JOELLE Shay Ot Z95.5 PRESENCE OF CORONARY ANGIOPLASTY IMPLANT 06/18/2018 TING JOELLE K Ot Z99.2 DEPENDENCE ON RENAL DIALYSIS 08/17/2018 RUIZ BIGGS, DIVYA Hernadez Ot C50.919 MALIGNANT NEOPLASM OF UNSP SITE OF UNSPE 08/17/2018 RUIZ BIGGS, DIVYA Hernadez Ot D61.818 OTHER PANCYTOPENIA 08/17/2018 RUIZ BIGGS, DIVYA Hernadez Ot E11.22 TYPE 2 DIABETES MELLITUS W DIABETIC SALES EXPERT 08/17/2018 DIVYA MELCHOR MD, Ot E11.59 TYPE 2 DIABETES MELLITUS WITH OTH CIRCUL 08/17/2018 DIVYA MELCHOR MD, Ot E78.00 PURE HYPERCHOLESTEROLEMIA, UNSPECIFIED 08/17/2018 DIVYA MELCHOR MD, Ot F32.9 MAJOR DEPRESSIVE DISORDER, SINGLE EPISOD 08/17/2018 DIVYA MELCHOR MD, Ot F41.9 ANXIETY DISORDER, UNSPECIFIED 08/17/2018 DIVYA MELCHOR MD, Ot 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 08/17/2018 DIVYA MELCHOR MD, Ot I25.2 OLD MYOCARDIAL INFARCTION 08/17/2018 DIVYA MELCHOR MD, Ot I42.9 CARDIOMYOPATHY, UNSPECIFIED 08/17/2018 DIVYA MELCHOR MD, Ot I48.91 UNSPECIFIED ATRIAL FIBRILLATION 08/17/2018 DIVYA MELCHOR MD, Ot I50.9 HEART FAILURE, UNSPECIFIED 08/17/2018 DIVYA MELCHOR MD, Ot I73.9 PERIPHERAL VASCULAR DISEASE, UNSPECIFIED 08/17/2018 DIVYA MELCHOR MD, Ot J44.9 CHRONIC OBSTRUCTIVE PULMONARY DISEASE, U 08/17/2018 DIVYA MELCHOR MD, Ot K21.9 GASTRO-ESOPHAGEAL REFLUX DISEASE WITHOUT 08/17/2018 DIVYA MELCHOR MD, Ot N18.6 END STAGE RENAL DISEASE 08/17/2018 DIVYA MELCHOR MD, Ot R11.2 NAUSEA WITH VOMITING, UNSPECIFIED 08/17/2018 DIVYA MELCHOR MD, Ot R19.7 DIARRHEA, UNSPECIFIED 08/17/2018 DIVYA MELCHOR MD, Ot Z79.4 IT PROGRAMMER (CURRENT) USE OF INSULIN 08/17/2018 DIVYA MELCHOR MD, Ot Z79.82 IT PROGRAMMER (CURRENT) USE OF ASPIRIN 08/17/2018 DIVYA MELCHOR MD, Ot Z80.42 FAMILY HISTORY OF MALIGNANT NEOPLASM OF 08/17/2018 DIVYA MELCHOR MD, Ot Z82.49 FAMILY HX OF ISCHEM HEART DIS AND OTH DI 08/17/2018 DIVYA MELCHOR MD, Ot Z86.73 PRSNL HX OF TIA (TIA), AND CEREB INFRC W 08/17/2018 DIVYA MELCHOR MD, Ot Z87.19 PERSONAL HISTORY OF OTHER DISEASES OF TH 08/17/2018 DIVYA MELCHOR MD, Ot Z87.891 PERSONAL HISTORY OF NICOTINE DEPENDENCE 08/17/2018 DIVYA MELCHOR MD, Ot Z90.710 ACQUIRED ABSENCE OF BOTH CERVIX AND UTER 08/17/2018 DIVYA MELCHOR MD, Ot Z92.21 PERSONAL HISTORY OF ANTINEOPLASTIC CHEMO 08/17/2018 DIVYA MELCHOR MD, Ot Z95.1 PRESENCE OF AORTOCORONARY BYPASS GRAFT 08/17/2018 DIVYA MELCHOR MD, Ot Z95.5 PRESENCE OF CORONARY ANGIOPLASTY IMPLANT 08/17/2018 DIVYA MELCHOR MD, Ot Z99.2 DEPENDENCE ON RENAL DIALYSIS 08/19/2018 DVIYA MELCHOR MD, Ot C50.919 MALIGNANT NEOPLASM OF UNSP SITE OF UNSPE 08/19/2018 DIVYA MELCHOR MD, Ot D61.818 OTHER PANCYTOPENIA 08/19/2018 DIVYA MELCHOR MD, Ot E11.22 TYPE 2 DIABETES MELLITUS W DIABETIC SALES EXPERT 08/19/2018 DIVYA MELCHOR MD, Ot E11.59 TYPE 2 DIABETES MELLITUS WITH OTH CIRCUL 08/19/2018 DIVYA MELCHOR MD, Ot E78.00 PURE HYPERCHOLESTEROLEMIA, UNSPECIFIED 08/19/2018 DIVYA MELCHOR MD, Ot F32.9 MAJOR DEPRESSIVE DISORDER, SINGLE EPISOD 08/19/2018 DIVYA MELCHOR MD, Ot F41.9 ANXIETY DISORDER, UNSPECIFIED 08/19/2018 DIVYA MELCHOR MD, Ot 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 08/19/2018 DIVYA MELCHOR MD, Ot I25.2 OLD MYOCARDIAL INFARCTION 08/19/2018 DIVYA MELCHOR MD, Ot I42.9 CARDIOMYOPATHY, UNSPECIFIED 08/19/2018 DIVYA MELCHOR MD, Ot I48.91 UNSPECIFIED ATRIAL FIBRILLATION 08/19/2018 DIVYA MELCHOR MD, Ot I50.9 HEART FAILURE, UNSPECIFIED 08/19/2018 DIVYA MELCHOR MD, Ot I73.9 PERIPHERAL VASCULAR DISEASE, UNSPECIFIED 08/19/2018 DIVYA MELCHOR MD, Ot J44.9 CHRONIC OBSTRUCTIVE PULMONARY DISEASE, U 08/19/2018 DIVYA MELCHOR MD, Ot K21.9 GASTRO-ESOPHAGEAL REFLUX DISEASE WITHOUT 08/19/2018 DIVYA MELCHOR MD, Ot N18.6 END STAGE RENAL DISEASE 08/19/2018 DIVYA MELCHOR MD, Ot R11.2 NAUSEA WITH VOMITING, UNSPECIFIED 08/19/2018 DIVYA MELCHOR MD, Ot R19.7 DIARRHEA, UNSPECIFIED 08/19/2018 DIVYA MELCHOR MD, Ot Z79.4 IT PROGRAMMER (CURRENT) USE OF INSULIN 08/19/2018 DIVYA MELCHOR MD, Ot Z79.82 IT PROGRAMMER (CURRENT) USE OF ASPIRIN 08/19/2018 DIVYA MELCHOR MD, Ot Z80.42 FAMILY HISTORY OF MALIGNANT NEOPLASM OF 08/19/2018 DIVYA MELCHOR MD, Ot Z82.49 FAMILY HX OF ISCHEM HEART DIS AND OTH DI 08/19/2018 DIVYA MELCHOR MD, Ot Z86.73 PRSNL HX OF TIA (TIA), AND CEREB INFRC W 08/19/2018 DIVYA MELCHOR MD, Ot Z87.19 PERSONAL HISTORY OF OTHER DISEASES OF TH 08/19/2018 DIVYA MELCHOR MD, Ot Z87.891 PERSONAL HISTORY OF NICOTINE DEPENDENCE 08/19/2018 DIVYA MELCHOR MD, Ot Z90.710 ACQUIRED ABSENCE OF BOTH CERVIX AND UTER 08/19/2018 DIVYA MELCHOR MD, Ot Z92.21 PERSONAL HISTORY OF ANTINEOPLASTIC CHEMO 08/19/2018 DIVYA MELCHOR MD, Ot Z95.1 PRESENCE OF AORTOCORONARY BYPASS GRAFT 08/19/2018 DIVYA MELCHOR MD, Ot Z95.5 PRESENCE OF CORONARY ANGIOPLASTY IMPLANT 08/19/2018 BRUEGGEMANN MD, DIVYA T Ot Z99.2 DEPENDENCE ON RENAL DIALYSIS 09/30/2018 ALLIE BIGGS, ROSALVA Ramos Ot V76.12 OTH SCREEN MAMMO-MALIGN NEOPLASM OF [place] 09/30/2018 JOSE A BIGGS, MANASA R Ot 959.2 SHLDR/UPPER ARM INJ NOS 09/30/2018 JOSE A BIGGS, MANASA R Ot E000.8 OTHER EXTERNAL CAUSE STATUS 09/30/2018 JOSE A BIGGS, MANASA R Ot E849.6 ACCIDENT IN PUBLIC BLDG 09/30/2018 JOSE A BIGGS, MANASA R Ot E888.9 FALL NOS 09/30/2018 JOSE A BIGGS, MANASA R Ot 715.31 LOC OSTEOARTH NOS-SHLDER 09/30/2018 JOSE A BIGGS, MANASA R Ot 719.01 JOINT EFFUSION-SHLDER 09/30/2018 JOSE A BIGGS, MANASA R Ot 840.4 SPRAIN ROTATOR CUFF 09/30/2018 JOSE A BIGGS, MANASA R Ot E888.9 FALL NOS 09/30/2018 CLARENCE BIGGS, MARYMED S Ot 140.0 MAL TAMIKO UPPER VERMILION 09/30/2018 CLARENCE BIGGS, AHMED S Ot 250.40 DIAB W RENAL MANIFEST, TYPE II OR UNSPEC 09/30/2018 CLARENCE BIGGS, AHMED S Ot 272.4 HYPERLIPIDEMIA NEC/NOS 09/30/2018 CLARENCE BIGGS, AHMED S Ot 583.81 NEPHRITIS NOS IN OTH DIS 09/30/2018 CLARENCE BIGGS, AHMED S Ot 585.4 CHRONIC KIDNEY DISEASE, STAGE IV (SEVERE 09/30/2018 CLARENCE BIGGS, AHMED S Ot 791.0 PROTEINURIA 09/30/2018 OTHER, UNLISTED Ot I48.91 UNSPECIFIED ATRIAL FIBRILLATION 09/30/2018 OTHER, UNLISTED Ot Z51.81 ENCOUNTER FOR THERAPEUTIC DRUG LEVEL MON 09/30/2018 OTHER, UNLISTED Ot Z79.01 RESIDENTIAL (CURRENT) USE OF ANTICOAGULANT 09/30/2018 RADHA SOTO MD Ot Z51.81 ENCOUNTER FOR THERAPEUTIC DRUG LEVEL MON 09/30/2018 RADHA SOTO MD Ot Z79.01 RESIDENTIAL (CURRENT) USE OF ANTICOAGULANT 09/30/2018 RADHA SOTO MD Ot Z51.81 ENCOUNTER FOR THERAPEUTIC DRUG LEVEL MON 09/30/2018 RADHA SOTO MD Ot Z79.01 RESIDENTIAL (CURRENT) USE OF ANTICOAGULANT 09/30/2018 RADHA SOTO MD, Ot Z51.81 ENCOUNTER FOR THERAPEUTIC DRUG LEVEL MON 09/30/2018 RADHA SOTO MD, Ot Z79.01 RESIDENTIAL (CURRENT) USE OF ANTICOAGULANT 09/30/2018 RADHA SOTO MD Ot Z51.81 ENCOUNTER FOR THERAPEUTIC DRUG LEVEL MON 09/30/2018 RADHA SOTO MD, Ot Z79.01 IT PROGRAMMER (CURRENT) USE OF ANTICOAGULANT 09/30/2018 RADHA SOTO MD Ot Z51.81 ENCOUNTER FOR THERAPEUTIC DRUG LEVEL MON 09/30/2018 RADHA SOTO MD, Ot Z79.01 RESIDENTIAL (CURRENT) USE OF ANTICOAGULANT 09/30/2018 MANASA NARANJO MD R Ot N63 UNSPECIFIED LUMP IN BREAST 09/30/2018 MANASA NARANJO MD R Ot C50.912 MALIGNANT NEOPLASM OF UNSPECIFIED SITE O 09/30/2018 CANDE VANG MD Ot C50.912 MALIGNANT NEOPLASM OF UNSPECIFIED SITE O 09/30/2018 CANDE VANG MD Ot C50.912 MALIGNANT NEOPLASM OF UNSPECIFIED SITE O 09/30/2018 CANDE VANG MD Ot C50.912 MALIGNANT NEOPLASM OF UNSPECIFIED SITE O Procedures There is no data. Results Test [...] CELLS LEUKO REDUCED AS1 TRANSFUSED 09/03/16 0004 NRG Blood type T Indirect antibody screen panel - 09/02/16 18:30 ABO+Rh group AP NRG Transfusion band number [id number] NRG Blood group antibody screen NEGATIVE NRG Complete [...] <=0.05 miu/l (units/ volume) 6.08 u[iU]/mL 0.35-4.94 Complete blood count (CBC) with automated white blood cell (WBC) differential - 05/09/18 11:25 Blood leukocytes automated count (number/volume) 6.0 10*3/uL 4.3-11.0 Blood erythrocytes automated count (number/volume) 2.62 10*6/uL 4.35-5.85 Venous blood hemoglobin measurement (mass/volume) 8.8 g/dL 11.5-16.0 Blood hematocrit (volume fraction) 27 % 35-52 Automated erythrocyte mean corpuscular volume 102 [foz_us] 80-99 Automated erythrocyte mean corpuscular hemoglobin (mass per erythrocyte) 34 pg 25-34 Automated erythrocyte mean corpuscular hemoglobin concentration measurement ( mass/volume) 33 g/dL 32-36 Automated erythrocyte distribution width ratio 18.5 % 10.0-14.5 Automated blood platelet count (count/volume) 64 10*3/uL 130-400 Automated blood platelet mean volume measurement 9.3 [foz_us] 7.4-10.4 Automated blood neutrophils/100 leukocytes 84 % 42-75 Automated blood lymphocytes/100 leukocytes 6 % 12-44 Blood monocytes/100 leukocytes 9 % 0-12 Automated blood eosinophils/100 leukocytes 1 % 0-10 Automated blood basophils/100 leukocytes 0 % 0-10 Blood neutrophils automated count (number/volume) 5.1 10*3 1.8-7.8 Blood lymphocytes automated count (number/volume) 0.4 10*3 1.0-4.0 Blood monocytes automated count (number/volume) 0.6 10*3 0.0-1.0 Automated eosinophil count 0.1 10*3/uL 0.0-0.3 Automated blood basophil count (count/volume) 0.0 10*3/uL 0.0-0.1 Whole blood basic metabolic panel - 05/09/18 11:25 Serum or plasma sodium measurement (moles/volume) 137 mmol/L 135-145 Serum or plasma potassium measurement (moles/volume) 3.6 mmol/L 3.6-5.0 Serum or plasma chloride measurement (moles/volume) 96 mmol/L 98-107 Carbon dioxide 30 mmol/L 21-32 Serum or plasma anion gap determination (moles/volume) 11 mmol/L 5-14 Serum or plasma urea nitrogen measurement (mass/volume) 29 mg/dL 7-18 Serum or plasma creatinine measurement (mass/volume) 4.01 mg/dL 0.60-1.30 Serum or plasma urea nitrogen/creatinine mass ratio 7 NRG Serum or plasma creatinine measurement with calculation of estimated glomerular filtration rate 11 NRG Serum or plasma glucose measurement (mass/volume) 164 mg/dL 70-105 Serum or plasma calcium measurement (mass/volume) 9.1 mg/dL 8.5-10.1 Serum or plasma creatine kinase measurement (enzymatic activity/volume) - 05/09 11:25 Serum or plasma creatine kinase measurement (enzymatic activity/volume) 39 U/L 29-168 PT panel in platelet poor plasma by coagulation assay - 05/09/18 11:25 Prothrombin time (PT) in platelet poor plasma by coagulation assay 17.1 s 12.2-14.7 INR in platelet poor plasma or blood by coagulation assay 1.4 0.8-1.4 Complete blood count (CBC) with automated white blood cell (WBC) differential - 05/11/18 08:49 Blood leukocytes automated count (number/volume) 5.9 10*3/uL 4.3-11.0 Blood erythrocytes automated count (number/volume) 2.58 10*6/uL 4.35-5.85 Venous blood hemoglobin measurement (mass/volume) 8.8 g/dL 11.5-16.0 Blood hematocrit (volume fraction) 26 % 35-52 Automated erythrocyte mean corpuscular volume 102 [foz_us] 80-99 Automated erythrocyte mean corpuscular hemoglobin (mass per erythrocyte) 34 pg 25-34 Automated erythrocyte mean corpuscular hemoglobin concentration measurement ( mass/volume) 34 g/dL 32-36 Automated erythrocyte distribution width ratio 19.0 % 10.0-14.5 Automated blood platelet count (count/volume) 65 10*3/uL 130-400 Automated blood platelet mean volume measurement 9.6 [foz_us] 7.4-10.4 Automated blood neutrophils/100 leukocytes 85 % 42-75 Automated blood lymphocytes/100 leukocytes 7 % 12-44 Blood monocytes/100 leukocytes 7 % 0-12 Automated blood eosinophils/100 leukocytes 1 % 0-10 Automated blood basophils/100 leukocytes 0 % 0-10 Blood neutrophils automated count (number/volume) 5.0 10*3 1.8-7.8 Blood lymphocytes automated count (number/volume) 0.4 10*3 1.0-4.0 Blood monocytes automated count (number/volume) 0.4 10*3 0.0-1.0 Automated eosinophil count 0.1 10*3/uL 0.0-0.3 Automated blood basophil count (count/volume) 0.0 10*3/uL 0.0-0.1 PT panel in platelet poor plasma by coagulation assay - 05/11/18 08:49 Prothrombin time (PT) in platelet poor plasma by coagulation assay 16.7 s 12.2-14.7 INR in platelet poor plasma or blood by coagulation assay 1.4 0.8-1.4 Activated partial thromboplastin time (aPTT) in platelet poor plasma bycoagulation assay - 05/11/18 08:49 Activated partial thromboplastin time (aPTT) in platelet poor plasma bycoagulation assay 36 s 24-35 Comprehensive metabolic panel - 05/11/18 08:49 Serum or plasma sodium measurement (moles/volume) 139 mmol/L 135-145 Serum or plasma potassium measurement (moles/volume) 3.9 mmol/L 3.6-5.0 Serum or plasma chloride measurement (moles/volume) 98 mmol/L 98-107 Carbon dioxide 29 mmol/L 21-32 Serum or plasma anion gap determination (moles/volume) 12 mmol/L 5-14 Serum or plasma urea nitrogen measurement (mass/volume) 42 mg/dL 7-18 Serum or plasma creatinine measurement (mass/volume) 5.20 mg/dL 0.60-1.30 Serum or plasma urea nitrogen/creatinine mass ratio 8 NRG Serum or plasma creatinine measurement with calculation of estimated glomerular filtration rate 8 NRG Serum or plasma glucose measurement (mass/volume) 189 mg/dL 70-105 Serum or plasma calcium measurement (mass/volume) 9.3 mg/dL 8.5-10.1 Serum or plasma total bilirubin measurement (mass/volume) 1.4 mg/dL 0.1-1.0 Serum or plasma alkaline phosphatase measurement (enzymatic activity/volume) 92 U/L 40-136 Serum or plasma aspartate aminotransferase measurement (enzymatic activity/ volume) 21 U/L 5-34 Serum or plasma alanine aminotransferase measurement (enzymatic activity/volume ) 13 U/L 0-55 Serum or plasma protein measurement (mass/volume) 6.3 g/dL 6.4-8.2 Serum or plasma albumin measurement (mass/volume) 3.5 g/dL 3.2-4.5 Magnesium - 05/11/18 08:49 Magnesium 2.2 mg/dL 1.8-2.4 Blood manual differential performed detection - 05/11/18 08:49 Blood monocytes/100 leukocytes 6 % NRG Manual blood segmented neutrophils/100 leukocytes 89 % NRG Blood band neutrophils/100 leukocytes 0 % NRG Manual blood lymphocytes/100 leukocytes 5 % NRG Manual eosinophils/100 leukocytes in nose 0 % NRG Manual blood basophils/100 leukocytes 0 % NRG Blood polychromasia detection by light microscopy SLIGHT NRG Blood anisocytosis detection by light microscopy MARKED NRG Blood macrocytes detection by light microscopy SLIGHT NRG Serum or plasma troponin i.cardiac measurement (mass/volume) - 05/11/18 08:49 Serum or plasma troponin i.cardiac measurement (mass/volume) < ng/ mL <0.30 Serum or plasma lithium measurement (moles/volume) - 05/11/18 08:49 BNP level 3485.5 pg/mL <100.0 Myoglobin, serum - 05/11/18 08:49 Myoglobin, serum 143.3 ng/mL 10.0-92.0 Complete blood count (CBC) with automated white blood cell (WBC) differential - 06/16/18 23:05 Blood leukocytes automated count (number/volume) 5.0 10*3/uL 4.3-11.0 Blood erythrocytes automated count (number/volume) 2.30 10*6/uL 4.35-5.85 Venous blood hemoglobin measurement (mass/volume) 7.7 g/dL 11.5-16.0 Blood hematocrit (volume fraction) 23 % 35-52 Automated erythrocyte mean corpuscular volume 101 [foz_us] 80-99 Automated erythrocyte mean corpuscular hemoglobin (mass per erythrocyte) 34 pg 25-34 Automated erythrocyte mean corpuscular hemoglobin concentration measurement ( mass/volume) 33 g/dL 32-36 Automated erythrocyte distribution width ratio 18.6 % 10.0-14.5 Automated blood platelet count (count/volume) 71 10*3/uL 130-400 Automated blood platelet mean volume measurement 8.8 [foz_us] 7.4-10.4 Automated blood neutrophils/100 leukocytes 77 % 42-75 Automated blood lymphocytes/100 leukocytes 10 % 12-44 Blood monocytes/100 leukocytes 11 % 0-12 Automated blood eosinophils/100 leukocytes 2 % 0-10 Automated blood basophils/100 leukocytes 0 % 0-10 Blood neutrophils automated count (number/volume) 3.9 10*3 1.8-7.8 Blood lymphocytes automated count (number/volume) 0.5 10*3 1.0-4.0 Blood monocytes automated count (number/volume) 0.5 10*3 0.0-1.0 Automated eosinophil count 0.1 10*3/uL 0.0-0.3 Automated blood basophil count (count/volume) 0.0 10*3/uL 0.0-0.1 PT panel in platelet poor plasma by coagulation assay - 06/16/18 23:05 Prothrombin time (PT) in platelet poor plasma by coagulation assay 14.4 s 12.2-14.7 INR in platelet poor plasma or blood by coagulation assay 1.1 0.8-1.4 Activated partial thromboplastin time (aPTT) in platelet poor plasma bycoagulation assay - 06/16/18 23:05 Activated partial thromboplastin time (aPTT) in platelet poor plasma bycoagulation assay 45 s 24-35 Comprehensive metabolic panel - 06/16/18 23:05 Serum or plasma sodium measurement (moles/volume) 139 mmol/L 135-145 Serum or plasma potassium measurement (moles/volume) 3.6 mmol/L 3.6-5.0 Serum or plasma chloride measurement (moles/volume) 96 mmol/L 98-107 Carbon dioxide 30 mmol/L 21-32 Serum or plasma anion gap determination (moles/volume) 13 mmol/L 5-14 Serum or plasma urea nitrogen measurement (mass/volume) 16 mg/dL 7-18 Serum or plasma creatinine measurement (mass/volume) 2.71 mg/dL 0.60-1.30 Serum or plasma urea nitrogen/creatinine mass ratio 6 NRG Serum or plasma creatinine measurement with calculation of estimated glomerular filtration rate 17 NRG Serum or plasma glucose measurement (mass/volume) 173 mg/dL 70-105 Serum or plasma calcium measurement (mass/volume) 8.6 mg/dL 8.5-10.1 Serum or plasma total bilirubin measurement (mass/volume) 0.8 mg/dL 0.1-1.0 Serum or plasma alkaline phosphatase measurement (enzymatic activity/volume) 94 U/L 40-136 Serum or plasma aspartate aminotransferase measurement (enzymatic activity/ volume) 22 U/L 5-34 Serum or plasma alanine aminotransferase measurement (enzymatic activity/volume ) 12 U/L 0-55 Serum or plasma protein measurement (mass/volume) 6.3 g/dL 6.4-8.2 Serum or plasma albumin measurement (mass/volume) 3.4 g/dL 3.2-4.5 CALCIUM CORRECTED 9.1 mg/dL 8.5-10.1 Magnesium - 06/16/18 23:05 Magnesium 2.6 mg/dL 1.8-2.4 Serum or plasma creatine kinase measurement (enzymatic activity/volume) - 06/16 23:05 Serum or plasma creatine kinase measurement (enzymatic activity/volume) 57 U/L 29-168 Serum or plasma creatine kinase MB measurement (enzymatic activity/volume) - 23:05 Serum or plasma creatine kinase MB measurement (enzymatic activity/volume) 1.9 ng/mL <6.6 Serum or plasma troponin i.cardiac measurement (mass/volume) - 06/16/18 23:05 Serum or plasma troponin i.cardiac measurement (mass/volume) < ng/ mL <0.30 Serum or plasma ethanol measurement (mass/volume) - 06/16/18 23:05 Serum or plasma ethanol measurement (mass/volume) < mg/dL <10 Myoglobin, serum - 06/16/18 23:05 Myoglobin, serum 281.4 ng/mL 10.0-92.0 Serum or plasma amylase measurement (enzymatic activity/volume) - 06/16/18 23: 05 Serum or plasma amylase measurement (enzymatic activity/volume) 28 U /L 25-125 Lipase - 06/16/18 23:05 Lipase 7 U/L 8-78 Serum or plasma lithium measurement (moles/volume) - 06/16/18 23:05 BNP level 1911.0 pg/mL <100.0 Complete blood count (CBC) with automated white blood cell (WBC) differential - 08/17/18 14:50 Blood leukocytes automated count (number/volume) 8.6 10*3/uL 4.3-11.0 Blood erythrocytes automated count (number/volume) 2.77 10*6/uL 4.35-5.85 Venous blood hemoglobin measurement (mass/volume) 9.0 g/dL 11.5-16.0 Blood hematocrit (volume fraction) 29 % 35-52 Automated erythrocyte mean corpuscular volume 104 [foz_us] 80-99 Automated erythrocyte mean corpuscular hemoglobin (mass per erythrocyte) 33 pg 25-34 Automated erythrocyte mean corpuscular hemoglobin concentration measurement ( mass/volume) 31 g/dL 32-36 Automated erythrocyte distribution width ratio 21.1 % 10.0-14.5 Automated blood platelet count (count/volume) 46 10*3/uL 130-400 Automated blood platelet mean volume measurement 11.0 [foz_us] 7.4-10.4 Automated blood neutrophils/100 leukocytes 84 % 42-75 Automated blood lymphocytes/100 leukocytes 8 % 12-44 Blood monocytes/100 leukocytes 7 % 0-12 Automated blood eosinophils/100 leukocytes 1 % 0-10 Automated blood basophils/100 leukocytes 0 % 0-10 Blood neutrophils automated count (number/volume) 7.3 10*3 1.8-7.8 Blood lymphocytes automated count (number/volume) 0.7 10*3 1.0-4.0 Blood monocytes automated count (number/volume) 0.6 10*3 0.0-1.0 Automated eosinophil count 0.0 10*3/uL 0.0-0.3 Automated blood basophil count (count/volume) 0.0 10*3/uL 0.0-0.1 Comprehensive metabolic panel - 08/17/18 14:50 Serum or plasma sodium measurement (moles/volume) 141 mmol/L 135-145 Serum or plasma potassium measurement (moles/volume) 3.3 mmol/L 3.6-5.0 Serum or plasma chloride measurement (moles/volume) 96 mmol/L 98-107 Carbon dioxide 30 mmol/L 21-32 Serum or plasma anion gap determination (moles/volume) 15 mmol/L 5-14 Serum or plasma urea nitrogen measurement (mass/volume) 17 mg/dL 7-18 Serum or plasma creatinine measurement (mass/volume) 4.13 mg/dL 0.60-1.30 Serum or plasma urea nitrogen/creatinine mass ratio 4 NRG Serum or plasma creatinine measurement with calculation of estimated glomerular filtration rate 11 NRG Serum or plasma glucose measurement (mass/volume) 191 mg/dL 70-105 Serum or plasma calcium measurement (mass/volume) 8.6 mg/dL 8.5-10.1 Serum or plasma total bilirubin measurement (mass/volume) 1.2 mg/dL 0.1-1.0 Serum or plasma alkaline phosphatase measurement (enzymatic activity/volume) 210 U/L 40-136 Serum or plasma aspartate aminotransferase measurement (enzymatic activity/ volume) 31 U/L 5-34 Serum or plasma alanine aminotransferase measurement (enzymatic activity/volume ) 15 U/L 0-55 Serum or plasma protein measurement (mass/volume) 6.2 g/dL 6.4-8.2 Serum or plasma albumin measurement (mass/volume) 3.1 g/dL 3.2-4.5 CALCIUM CORRECTED 9.3 mg/dL 8.5-10.1 Lipase - 08/17/18 14:50 Lipase 15 U/L 8-78 Serum or plasma C reactive protein measurement (mass/volume) - 08/17/18 14:50 Serum or plasma C reactive protein measurement (mass/volume) 3.37 mg /dL 0.00-0.50 Blood manual differential performed detection - 08/17/18 14:50 Blood monocytes/100 leukocytes 10 % NRG Manual blood segmented neutrophils/100 leukocytes 84 % NRG Manual blood lymphocytes/100 leukocytes 3 % NRG Manual eosinophils/100 leukocytes in nose 3 % NRG Blood polychromasia detection by light microscopy MODERATE NRG Blood macrocytes detection by light microscopy SLIGHT NRG Manual blood nucleated erythrocytes/100 leukocytes ratio 1 NRG Blood basophilic stippling detection by light microscopy NRG Encounters ACCT No. Visit Date/Time Discharge Status Pt. Type Provider Facility Loc./Unit Complaint [id number] 05/19/2015 08:00:00 05/19/2015 08:00:00 CAN [facility] [id number] 08/17/2018 14:34:00 08/17/2018 18:32:00 DIS Emergency RUIZ BIGGS, DIVYA Hernadez [facility] ER NVD [id number] 06/16/2018 23:00:00 06/17/2018 01:14:00 DIS Emergency JOELLE MAGUIRE DO [facility] ER CP [id number] 05/11/2018 08:44:00 05/11/2018 11:48:00 DIS Emergency PROSPER GOODE MD [facility] ER SOB,GEN PAIN [id number] 05/09/2018 09:36:00 05/09/2018 13:00:00 DIS Emergency KIM ELLIOTT COUNTERINTELLIGENCE SPECIALIST [facility] ER BACK PAIN [id number] 09/18/2017 18:32:00 09/18/2017 19:57:00 DIS Emergency ERNESTO DOUGHERTY MD [facility] ER BLEEDING AFTER SURGERY [id number] 07/01/2017 19:51:00 07/02/2017 01:35:00 DIS Emergency RUIZ BIGGS, DIVYA Hernadez [facility] ER CHEST PAIN [id number] 09/02/2016 19:30:00 09/04/2016 14:00:00 DIS Inpatient SARAH BIGGS, BRIANNE Day [facility] 4TH ANEMIA,CHRONIC RENAL FAILURE [id number] 08/15/2016 00:09:00 08/15/2016 23:59:59 CLS Preadmit CANDE VANG MD [facility] ONC [id number] 05/16/2016 13:52:00 08/14/2016 00:01:00 DIS Outpatient CANDE VANG MD [facility] ONC [id number] 05/23/2016 10:07:00 05/23/2016 23:59:59 CLS Outpatient CANDE VANG MD [facility] CARD BREAST CANCER [id number] 05/21/2016 11:38:00 05/21/2016 23:59:59 CLS Outpatient CANDE VANG MD [facility] RAD BREAST CA [id number] 05/06/2016 12:40:00 05/06/2016 23:59:59 CLS Outpatient MANASA NARANJO MD [facility] RAD LEFT BREAST MASS [id number] 04/29/2016 08:48:00 04/29/2016 23:59:59 CLS Outpatient MANASA NARANJO MD [facility] RAD LUMP LEFT BREAST [id number] 03/25/2016 10:48:00 03/25/2016 14:49:00 DIS Emergency JOELLE MAGUIRE DO [facility] ER MALAISE [id number] 11/22/2015 14:16:00 11/22/2015 23:59:59 CLS Outpatient RADHA SOTO MD [facility] ANTICOAG THERAPY [id number] 11/14/2015 14:30:00 11/14/2015 23:59:59 CLS Outpatient RADHA SOTO MD [facility] ANTICOAG THERAPY [id number] 10/30/2015 13:17:00 10/30/2015 23:59:59 CLS Outpatient RADHA SOTO MD [facility] ANTICOAG THERAPY [id number] 10/17/2015 14:10:00 10/17/2015 23:59:59 CLS Outpatient RADHA SOTO MD [facility] ANTICOAG THERAPY [id number] 10/09/2015 14:31:00 10/09/2015 23:59:59 CLS Outpatient BRITTANY BIGGS, RADHA P [facility] HH ANTICOAG THERAPY [id number] 10/05/2015 14:28:00 10/05/2015 23:59:59 CLS Outpatient OTHER, UNLISTED [facility] HH A FIB, ANTICOAG THERAPY [id number] 05/08/2015 10:53:00 05/08/2015 23:59:59 CLS Outpatient CLARENCE BIGGS, UMAIR Jon [facility] RAD CKD [id number] 03/03/2015 12:12:00 03/09/2015 15:00:00 DIS Inpatient BRIDGETT BIGGS, ROBY Hawthorne [facility] IRF IRF-DEBILITY [id number] 02/21/2015 00:57:00 03/03/2015 12:11:00 DIS Inpatient MANASA NARANJO MD [facility] CSD ATRIAL FIB WITH RVR HYPOTENSION [id number] 02/14/2015 12:28:00 02/20/2015 13:30:00 DIS Outpatient ELLEN BIGGS, SANTOS Ramos [facility] WOUNDCARE [id number] 04/15/2014 09:00:00 04/15/2014 23:59:59 CLS Outpatient MANASA NARANJO MD [facility] RAD RT SHOULDER PAIN [id number] 03/24/2014 11:01:00 03/24/2014 23:59:59 CLS Outpatient MANASA NARANJO MD [facility] RAD FALL ONTO RT SHOULDER/ PAIN IN RT SHOULDER [id number] 04/19/2013 10:35:00 04/19/2013 23:59:59 CLS Outpatient ROSALVA KELLEY MD [facility] RAD SCREENING [id number] 11/28/2011 12:34:00 Document Registration [id number] 05/08/2015 10:55:09 ACT Document Registration
[2018-10-05 18:04] LABS: BASOPHILS % (AUTO) 0 % (0-10); EOSINOPHILS % (AUTO) 1 % (0-10); HEMATOCRIT 32 % (35-52); LYMPHOCYTES # (AUTO) 0.5 X 10^3 (1.0-4.0); LYMPHOCYTES % (AUTO) 10 % (12-44); MEAN CORPUSCULAR HEMOGLOBIN 32 PG (25-34); MEAN CORPUSCULAR HGB CONC 32 G/DL (32-36); MEAN CORPUSCULAR VOLUME 102 FL (80-99); MEAN PLATELET VOLUME 11.8 FL (7.4-10.4); MONOCYTES # (AUTO) 0.6 X 10^3 (0.0-1.0); MONOCYTES % (AUTO) 11 % (0-12); NEUTROPHILS # (AUTO) 4.2 X 10^3 (1.8-7.8); NEUTROPHILS % (AUTO) 78 % (42-75); RED BLOOD COUNT 3.09 10^6/uL (4.35-5.85); RED CELL DISTRIBUTION WIDTH 18.7 % (10.0-14.5); WHITE BLOOD COUNT 5.4 10^3/uL (4.3-11.0)
[2018-10-05 18:05] LABS: PLATELET COUNT 39 10^3/uL (130-400)
[2018-10-05 18:11] LABS: PROTHROMBIN TIME PATIENT 13.7 SEC (12.2-14.7)
[2018-10-05] MEDS ORDERED: RT-ALBUTEROL/IPRATROPIUM 3 ML (DUONEB) VIAL INH ONE (18:15)
[2018-10-05] MEDS ORDERED: morphine INJ 10 MG/ML 1ML (SYR OR VIAL) IVP ONE (18:15)
[2018-10-05 18:20] LABS: ALANINE AMINOTRANSFERASE 15 U/L (0-55); ALBUMIN 3.5 GM/DL (3.2-4.5); ALKALINE PHOSPHATASE 148 U/L (40-136); BILIRUBIN,TOTAL 0.9 MG/DL (0.1-1.0); BUN/CREATININE RATIO 7; CALCIUM 9.1 MG/DL (8.5-10.1); CARBON DIOXIDE 31 MMOL/L (21-32); CHLORIDE 93 MMOL/L (98-107); CREATININE SERUM 4.46 MG/DL (0.60-1.30); GFR ESTIMATED 10; GLUCOSE 139 MG/DL (70-105); LIPASE 41 U/L (8-78); MAGNESIUM 2.2 MG/DL (1.8-2.4); SODIUM 139 MMOL/L (135-145)
--- NOTE | 2018-10-05 18:20 | ED Chest Pain ---
General Chief Complaint: Chest Pain Stated Complaint: CP Nursing Triage Note: PT ARRIVED PER EMS, PT CO OF CHEST PAIN FOR A FEW HOURS, PT HAS BEEN GIVEN NITRO X2, NITRO PASTE 1", ZOFRAN 4MG IV BY EMS. PT HAS SL IN R AC #20 EMS. PT IS A DIALYSIS PT. PT HAS HX OF CA. PT WEARS O2 AT HOME Nursing Sepsis Screen: No Definite Risk Source: patient, family, old records Exam Limitations: no limitations History of Present Illness Date Seen by Provider: Oct 05, 2018 Time Seen by Provider: 17:50 Initial Comments This 73-year-old woman with breast cancer, end-stage renal failure on dialysis, and heart disease presents presents to the ER via EMS with primary complaint of chest pain for the past couple of hours. She also complains of exacerbation of her chronic back pain. She was experiencing increased middle back pain last night after her fentanyl patch was switched out. She thought the patch was making her worse so she removed it. She has not been receiving chemotherapy in the past couple of months due to poor blood counts. She also reports she has been off her Eliquis over the past couple months due to easy bleeding. She does have a history of thrombocytopenia. Patient states her pain is worse with deep breathing. Her primary care provider is Dr. Thacker. Her juvenile counselor is Dr. Pyle. Her sound effects person is Dr. Husain, her oncologist is Dr. Bryan at [place]. Patient states she feels very weak with her breathing. Patient received aspirin 324 mg by EMS. Nitroglycerin 1 reduced her pain from 10 down to 8. Nitro paste was applied. Patient receives dialysis Friday, , and Friday. Allergies and Home Medications Allergies Coded Allergies: TUYET Inhibitors (Unverified Allergy, Unknown, 03/03/15) due to creatinine level ARB-Angiotensin Receptor Antagonist (Unverified Allergy, Unknown, 03/03/15) meloxicam (Verified Allergy, Unknown, 09/05/06) Home Medications Alprazolam 0.5 Mg Tablet, 0.5 MG PO DAILY PRN for ANXIETY, (Reported) Amiodarone HCl 200 Mg Tablet, 200 MG PO MoTuWeThFr, (Reported) Amlodipine Besylate 10 Mg Tablet, 10 MG PO DAILY, (Reported) Aspirin 81 Mg Tablet, 81 MG PO DAILY, (Reported) Atorvastatin Calcium 40 Mg Tablet, 40 MG PO HS, (Reported) Cholecalciferol 5,000 Unit Capsule, 5,000 UNIT PO DAILY, (Reported) Docosahexanoic Acid/Epa 1 Cap Capsule, 1,000 MG PO BID, (Reported) Furosemide 40 Mg Tablet, 40 MG PO DAILY, (Reported) Hydralazine HCl 50 Mg Tablet, 50 MG PO BID, (Reported) Hydrocodone/Acetaminophen 1 Each Tablet, 1 TAB PO Q6H PRN for PAIN, (Reported) Hyoscyamine Sulfate 0.125 Mg Tab.subl, 0.125 MG SL Q6H PRN for CRAMPS Prescribed by: DIVYA BARRETT on 08/17/181812 Insulin Glargine,Hum.rec.anlog 100 Unit/1 Ml Insuln.pen, 22 UNITS SC HS, ( Reported) Insulin Lispro 100 Unit/1 Ml Insuln.pen, 3-4 UNITS SC AC, (Reported) Isosorbide Mononitrate 30 Mg Tab.er.24h, 30 MG PO DAILY, (Reported) Methocarbamol 750 Mg Tablet, 750 MG PO Q8H PRN for PAIN-MODERATE TO SEVERE Prescribed by: KIM ELLIOTT on 05/09/18 1250 Multivitamin 1 Each Tablet, 1 TAB PO DAILY, (Reported) Ondansetron 4 Mg Tab.rapdis, 4 MG SL Q4H PRN for NAUSEA/VOMITING-1ST LINE Prescribed by: DIVYA BARRETT on 08/17/181812 Pantoprazole Sodium 40 Mg Tablet.dr, 40 MG PO DAILY, (Reported) Polyethylene Glycol 3350 17 Gm Powd.pack, 17 GM PO 1800 PRN for CONSTIPATION, ( Reported) Sertraline HCl 100 Mg Tablet, 150 MG PO DAILY, (Reported) TAKES 1 & 1/2 (100MG) TABLETS Trazodone HCl 100 Mg Tablet, 100 MG PO HS, (Reported) Patient Home Medication List Home Medication List Reviewed: Yes Review of Systems Review of Systems Constitutional: no symptoms reported EENTM: No Symptoms Reported Respiratory: See HPI, SOA at Rest Cardiovascular: See HPI, Chest Pain Gastrointestinal: See HPI, Nausea Genitourinary: No Symptoms Reported Musculoskeletal: see HPI, back pain Skin: no symptoms reported Psychiatric/Neurological: No Symptoms Reported Endocrine: No Symptoms Reported Hematologic/Lymphatic: No Symptoms Reported Past Ngrcvop-Lohlok-Fibqjf Hx Past Med/Social Hx: Reviewed and Corrections made Patient Social History Alcohol Use: Rarely Uses Number of Drinks Today: II Alcohol Beverage of Choice: Other Recreational Drug Use: No Smoking Status: Former Smoker Type Used: Cigarettes Former Smoker, Quit: Jul 20, 1999 2nd Hand Smoke Exposure: No Recent Foreign Travel: No Contact w/Someone Who Travel: No Recent Infectious Disease Expo: No Recent Hopitalizations: No Immunizations Up To Date Tetanus Booster (TDap): Unknown PED Vaccines UTD: No Date of Pneumonia Vaccine: March 01, 2015 Date of Influenza Vaccine: Aug 18, 2017 Seasonal Allergies Seasonal Allergies: No Past Medical History Surgeries: Yes Abdominal, Bladder Surgery, Breast, Cardiac, CABG, Coronary Stent, Gallbladder, Hysterectomy, Lumpectomy, Orthopedic, Vascular Surgery Respiratory: Yes (USES HOME O2 2-3 L/NC CONTINOUSLY) Chronic Bronchitis, COPD Currently Using CPAP: No Currently Using BIPAP: No Cardiac: Yes (CABG; STENTS X 13; LOOP RECORDER; CHF; HI X 2) Angina, Atrial Fibrillation, Cardiomyopathy, Coronary Artery Disease, Heart Attack, Heart Murmur, High Cholesterol, Hypertension, Irregular Heartbeat, Peripheral Vascular, Valvular Heart Disease Neurological: Yes (CVA WITH LEFT SIDE WEAKNESS ESSENTIALLY RESOLVED) Stroke, TIA Reproductive Disorders: No Female Reproductive Disorders: Denies Sexually Transmitted Disease: No HIV/AIDS: No Genitourinary: Yes Renal Failure, Dialysis Gastrointestinal: Yes Gastroesophageal Reflux, Chronic Constipation, Pancreatitis, Hiatal Hernia, Gall Bladder Disease Musculoskeletal: Yes Arthritis, Chronic Back Pain, Fractures Endocrine: Yes Diabetes, Insulin dep HEENT: No Loss of Vision: Denies Hearing Impairment: Hard of Hearing Cancer: Yes Breast Did You Recieve Any Treatments: Yes What Type of Treatment Did You: Chemotherapy, Radiation, Surgical Intervention Psychosocial: Yes Sleep Difficulties, Anxiety, Depression Integumentary: No Blood Disorders: Yes (thrombocytopenia) Adverse Reaction/Blood Tranf: No Platelets Family Medical History Reviewed Nursing Family Hx Alcoholism 19 FATHER Cardiovascular disease G8 BROTHER G8 SISTER Diabetes mellitus 19 FATHER 19 MOTHER G8 BROTHER G8 SISTER Gastroenteritis 19 MOTHER G8 BROTHER G8 SISTER Hypercholesterolemia 19 MOTHER G8 BROTHER G8 SISTER Hypertension 19 MOTHER G8 BROTHER G8 SISTER Kidney disease 19 MOTHER G8 BROTHER G8 SISTER Prostate cancer G8 BROTHER No Pertinent Family Hx Physical Exam Vital Signs Vital Signs - First Documented Capillary Refill : Less Than 3 Seconds Height, Weight, BMI Height: 5'7.00" Weight: 157lbs. 5.4oz. 71.541377ic; 30.3 BMI Method:Stated General Appearance: WD/WN, Mild Distress, Thin HEENT: PERRL/EOMI, Normal ENT Inspection, Other (mucous membranes dry) Neck: Normal Inspection Respiratory: Lungs Clear, Normal Breath Sounds, No Accessory Muscle Use, No Respiratory Distress Cardiovascular: Regular Rate, Rhythm, No Edema, Systolic Murmur Gastrointestinal: Normal Bowel Sounds, Soft, Tenderness (suprapubic as patient needs to urinate) Extremity: Normal Inspection, Non Tender, No Calf Tenderness, No Pedal Edema, Other (negative Sean) Neurologic/Psychiatric: Alert, Oriented x3, No Motor/Sensory Deficits, Normal Mood/Affect, job coaching II-XII Norm as Tested Skin: Normal Color, Warm/Dry Focused Exam Lactate Level 10/05/18 18:16: Lactic Acid Level 1.48 Lactic Acid Level Laboratory Tests Test 10/05/18 18:16 Lactic Acid Level 1.48 MMOL/L (0.50-2.00) Progress/Results/Core Measures Results/Orders Lab Results Laboratory Tests Test 10/05/18 17:50 10/05/18 17:56 10/05/18 18:16 10/05/18 18:35 Range/Units White Blood Count 5.4 4.3-11.0 10^3/uL Red Blood Count 3.09 L 4.35-5.85 10^6/uL Hemoglobin 10.0 L 11.5-16.0 G/DL Hematocrit 32 L 35-52 % Mean Corpuscular Volume 102 H 80-99 FL Mean Corpuscular Hemoglobin 32 25-34 PG Mean Corpuscular Hemoglobin Concent 32 32-36 G/DL Red Cell Distribution Width 18.7 H 10.0-14.5 % Platelet Count 39 *L 130-400 10^3/uL Mean Platelet Volume 11.8 H 7.4-10.4 FL Neutrophils (%) (Auto) 78 H 42-75 % Lymphocytes (%) (Auto) 10 L 12-44 % Monocytes (%) (Auto) 11 0-12 % Eosinophils (%) (Auto) 1 0-10 % Basophils (%) (Auto) 0 0-10 % Neutrophils # (Auto) 4.2 1.8-7.8 X 10^3 Lymphocytes # (Auto) 0.5 L 1.0-4.0 X 10^3 Monocytes # (Auto) 0.6 0.0-1.0 X 10^3 Eosinophils # (Auto) 0.0 0.0-0.3 10^3/uL Basophils # (Auto) 0.0 0.0-0.1 10^3/uL Prothrombin Time 13.7 12.2-14.7 SEC INR Comment 1.0 0.8-1.4 Activated Partial Thromboplast Time 35 24-35 SEC D-Dimer 1.37 H 0.00-0.49 UG/ML Sodium Level 139 135-145 MMOL/L Potassium Level 4.0 3.6-5.0 MMOL/L Chloride Level 93 L 98-107 MMOL/L Carbon Dioxide Level 31 21-32 MMOL/L Anion Gap 15 H 5-14 MMOL/L Blood Urea Nitrogen 31 H 7-18 MG/DL Creatinine 4.46 H 0.60-1.30 MG/DL Estimat Glomerular Filtration Rate 10 BUN/Creatinine Ratio 7 Glucose Level 139 H 70-105 MG/DL Calcium Level 9.1 8.5-10.1 MG/DL Corrected Calcium 9.5 8.5-10.1 MG/DL Magnesium Level 2.2 1.8-2.4 MG/DL Total Bilirubin 0.9 0.1-1.0 MG/DL Aspartate Amino Transf (AST/SGOT) 35 H 5-34 U/L Alanine Aminotransferase (ALT/SGPT) 15 0-55 U/L Alkaline Phosphatase 148 H 40-136 U/L Myoglobin 268.1 H 10.0-92.0 NG/ML Troponin I < 0.30 <0.30 NG/ML Total Protein 7.0 6.4-8.2 GM/DL Albumin 3.5 3.2-4.5 GM/DL Lipase 41 8-78 U/L C-Reactive Protein High Sensitivity 2.11 H 0.00-0.50 MG/DL Thyroid Stimulating Hormone (TSH) 88.54 H 0.35-4.94 UIU/ML Free Thyroxine 0.51 L 0.70-1.48 NG/DL Lactic Acid Level 1.48 0.50-2.00 MMOL/L Urine Color MIREYA H Urine Clarity SLIGHTLY CLOUDY Urine pH 5 5-9 Urine Specific [place] 1.015 L 1.016-1.022 Urine Protein 3+ H NEGATIVE Urine Glucose (UA) NEGATIVE NEGATIVE Urine Ketones 1+ H NEGATIVE Urine Nitrite NEGATIVE NEGATIVE Urine Bilirubin 2+ H NEGATIVE Urine Urobilinogen 4 H NORMAL MG/DL Urine Leukocyte Esterase 1+ H NEGATIVE Urine RBC (Auto) 1+ H NEGATIVE Urine RBC RARE /HPF Urine WBC 0-2 /HPF Urine Squamous Epithelial Cells 0-2 /HPF Urine Crystals PRESENT H /LPF Urine Amorphous Sediment FEW JALYN URATES H /LPF Urine Bacteria NONE /HPF Urine Casts NONE /LPF Urine Mucus SMALL H /LPF Urine Culture Indicated NO My Orders Orders - DIVYA MELCHOR MD Blood Culture (10/05/18 18:06) Sputum Culture (10/05/18 18:06) Urinalysis (10/05/18 18:06) Urine Culture (10/05/18 18:06) Vital Signs Adult Sepsis Patie Q15M (10/05/18 18:06) Remove Rings In Anticipation O (10/05/18 18:06) Lactic Acid Analyzer (10/05/18 18:06) Hs C Reactive Protein (10/05/18 18:06) Thyroid Stimulating Hormone (10/05/18 18:06) Free T4 (Free Thyroxine) (10/05/18 18:06) Catheter(Urinary) Care .0300, 1500 (10/05/18 18:08) Albuterol/Ipra Inhalation Soln (Duoneb I (10/05/18 18:15) Svn Small Volume Nebulizer (10/05/18 18:09) Morphine Injection (Morphine Injection (10/05/18 18:15) Ondansetron Injection (Zofran Injectio (10/05/18 18:30) Fentanyl Injection (Sublimaze Injection (10/05/18 19:15) Fentanyl Injection (Sublimaze Injection (10/05/18 19:04) Fentanyl Injection (Sublimaze Injection (10/05/18 19:45) Fentanyl Injection (Sublimaze Injection (10/05/18 20:45) Medications Given in ED Current Medications Medications Dose Ordered Sig/Guzman Route Start Time Stop Time Status Last Admin Dose Admin Albuterol/ Ipratropium 3 ml ONCE ONCE INH 18 18:15 18 18:16 DC 10/05/18 18:22 3 ML Fentanyl Citrate 75 mcg ONCE ONCE IVP 10/05/18 19:15 10/05/18 19:16 DC 10/05/18 19:09 75 MCG Fentanyl Citrate 75 mcg ONCE ONCE IVP 10/05/18 19:45 10/05/18 19:46 DC 10/05/18 19:39 75 MCG Fentanyl Citrate 75 mcg ONCE ONCE IVP 10/05/18 20:45 10/05/18 20:46 DC 10/05/18 20:52 75 MCG Morphine Sulfate 5 mg ONCE ONCE IVP 10/05/18 18:15 10/05/18 18:16 DC 10/05/18 18:28 5 MG Ondansetron HCl 4 mg ONCE ONCE IVP 10/05/18 18:30 10/05/18 18:31 DC 10/05/18 17:51 4 MG Vital Signs/I&O 10/05/18 10/05/18 10/05/18 10/05/18 17:49 17:49 17:49 18:23 Temp 99.4 Pulse 92 Resp 29 B/P (MAP) 165/104 (124) Pulse Ox 100 100 100 O2 Delivery Non Rebreather Nasal Cannula Nasal Cannula OxyMask O2 Flow Rate 10.00 4.00 2.0 10.00 10/05/18 10/05/18 20:01 20:43 Temp 99.7 Pulse 77 73 Resp 12 12 B/P (MAP) 134/80 (98) 133/78 (96) Pulse Ox 98 99 O2 Delivery Simple Mask Simple Mask O2 Flow Rate 3.50 3.50 Blood Pressure Mean: 124 Progress Progress Note #1: Time: 18:29 Progress Note In addition to nitro paste, patient has received Zofran 4 mg and morphine 5 mg IV 2. Patient is noted to be significantly thrombocytopenic on labs. Progress Note #2: Time: 19:09 Progress Note Patient states that despite Nitropaste and a total of morphine 10 mg, she is still in significant pain. Since she is accustomed to a fentanyl patch, I will give a dose of fentanyl 75 g IV. I have placed a call to [facility] to inquire about transfer. Patient is agreeable to transfer. Progress Note #3: Time: 19:32 Progress Note Patient was reassessed after fentanyl 75 g. She reports her pain is still a 10. It is waxing and waning. She describes it as alternating between a heaviness and a sharp electrical pain. It is not affected by breathing or movement. She is clutching her chest at times. We will give a second dose of fentanyl 75 g to try to get control of her pain. Patient was noted to have a mildly elevated d-dimer. At this time I will not treat with any anticoagulants because of her thrombocytopenia. Patient reveals that she is now dependent on platelet transfusions. She received a platelet transfusion last week and was to have platelets checked again this week. This was done at [place]. CT scan of the chest will be deferred as patient will need dialysis if contrast is given. She does still make urine and I would like to preserve kidney function if possible. Case was discussed with Dr. Dunbar at [facility] who agrees to transfer. Patient's respiratory status is stable with an oxygen mask at 3.5 L/m. Oxygen saturation is 100 percent. It was noted the patient's thyroid labs were off. She appears to have significant thyroid dysfunction. Progress Note #4: Time: 20:37 Progress Note Patient's pain has improved to 6/10 after the second dose of fentanyl. Patient' s daughter reveals that patient has been under significant amount of stress recently. She also admits that she has not been taking her antidepressant medication as directed which may be contributing to stress as well. Initial ECG Impression Date: Oct 05, 2018 Initial ECG Impression Time: 17:58 Initial ECG Rate: 95 Initial ECG Rhythm: Normal Sinus Comment Normals sinus rhythm with no overt ST elevation or depression. LVH and left axis deviation by automated read. No significant abnormal intervals. Diagnostic Imaging Diagonstic Imaging: Xray Plain Films/CT/US/NM/MRI: chest Comments Chest x-ray viewed by me and report reviewed. See report below: NAME: ELODIA TOTH J MED REC#: [id number] PT STATUS: REG ER : 1945 PHYSICIAN: PROSPER GOODE MD ADMIT DATE: 10/05/18/ER Draft Date of Exam:10/05/18 CHEST 1 VIEW, AP/PA ONLY CLINICAL INDICATION: Patient with chest pain for few hours. Patient wears oxygen at home and has a history of cancer. EXAM: Portable chest x-ray upright view. COMPARISON: Chest x-ray dated 06/08/2018. FINDINGS: There are decreased lung volumes bilaterally compared to the prior study. There are increased airspace opacities involving both upper lobes which may represent atelectasis and/or infiltrate. There are persistent bibasilar airspace opacities which may represent atelectasis versus infiltrate. There is no pleural effusion or pneumothorax. Stable cardiomegaly. Pulmonary vasculature is mildly prominent. Stable postop changes to the chest consistent with CABG. Loop recorder again seen overlying left chest. Lkmbtm-C-Ntfe overlying the right chest with tip in the distal superior vena cava. There are multiple surgical clips and endovascular coils overlying the left lateral hemithorax region. Kyphoplasty changes of vgz-vl-uourg thoracic vertebrae are again seen. IMPRESSION: 1: There is interval decreased aeration of both lungs with increases airspace opacities involving both upper lobes. These may represent atelectasis versus infiltrate. There is persistent bibasilar atelectasis versus infiltrate versus scarring. 2: There is cardiomegaly with mild pulmonary vascular congestion. 3: Stable postop changes to the chest. Dictated on workstation # [id number] Dict: 10/05/18 1826 Trans: 10/05/18 1858 [facility] [id number] Interpreted by: CHEPE GARZON MD Departure Impression Primary Impression: Chest pain Qualified Codes: R07.9 - Chest pain, unspecified Additional Impressions: Thrombocytopenia Exacerbation of chronic back pain End stage renal failure on dialysis Breast cancer Qualified Codes: C50.919 - Malignant neoplasm of unspecified site of unspecified female breast Nausea Hypothyroidism Qualified Codes: E03.9 - Hypothyroidism, unspecified Disposition: 02 XFER SHT-TRM HOSP Condition: Stable Transfer Time Spoke to Accepting Phy: 19:18 Transfer Progress Notes Patient accepted by Dr. Dunbar, hospitalist at [facility]. Transfer Time: 20:58 Transfer Facility: [facility] Method of Transfer: EMS Departure-Patient Inst. Referrals: MANASA THACKER MD (PCP/Family) Primary Care Physician DIVYA MELCHOR MD Oct 05, 2018 18:20
[2018-10-05 18:27] LABS: MYOGLOBIN SERUM 268.1 NG/ML (10.0-92.0)
[2018-10-05] MEDS ORDERED: ONDANSETRON 4 MG/2 ML (SDV) Z0FRAN IVP ONE (18:30)
[2018-10-05 18:49] LABS: CLARITY,URINE SLIGHTLY CLOUDY; COLOR,URINE AMBER; GLUCOSE, URINE (UA) NEGATIVE (NEGATIVE); KETONES,URINE 1+ (NEGATIVE); LEUKOCYTE ESTERASE ,URINE 1+ (NEGATIVE); NITRITE,URINE NEGATIVE (NEGATIVE); PH,URINE 5 (5-9); PROTEIN,URINE 3+ (NEGATIVE); UROBILINOGEN,URINE 4 MG/DL (NORMAL)
[2018-10-05 18:49] LABS: FREE T4 (FREE THYROXINE) 0.51 NG/DL (0.70-1.48)
[2018-10-05 18:58] LABS: AMORPHOUS SEDIMENT,UR FEW AMOR URATES /LPF; BILIRUBIN,URINE 2+ (NEGATIVE); RBC,URINE RARE /HPF; SQUAMOUS EPITHELIAL CELL,UR 0-2 /HPF; WBC,URINE 0-2 /HPF
--- NOTE | 2018-10-05 18:59 | Diagnostic Imaging Report ---
CLINICAL INDICATION: Patient with chest pain for few hours. Patient wears oxygen at home and has a history of cancer. EXAM: Portable chest x-ray upright view. COMPARISON: Chest x-ray dated 06/08/2018. FINDINGS: There are decreased lung volumes bilaterally compared to the prior study. There are increased airspace opacities involving both upper lobes which may represent atelectasis and/or infiltrate. There are persistent bibasilar airspace opacities which may represent atelectasis versus infiltrate. There is no pleural effusion or pneumothorax. Stable cardiomegaly. Pulmonary vasculature is mildly prominent. Stable postop changes to the chest consistent with CABG. Loop recorder again seen overlying left chest. Qbedxa-V-Hvxe overlying the right chest with tip in the distal superior vena cava. There are multiple surgical clips and endovascular coils overlying the left lateral hemithorax region. Kyphoplasty changes of zrl-et-szivw thoracic vertebrae are again seen. IMPRESSION: 1: There is interval decreased aeration of both lungs with increases airspace opacities involving both upper lobes. These may represent atelectasis versus infiltrate. There is persistent bibasilar atelectasis versus infiltrate versus scarring. 2: There is cardiomegaly with mild pulmonary vascular congestion. 3: Stable postop changes to the chest. Dictated by: Dictated on workstation # [id number]
[2018-10-05] MEDS ORDERED: fentaNYL INJECTION 100 MCG/2 ML AMP ONE (19:04)
[2018-10-05] MEDS ORDERED: fentaNYL INJECTION 100 MCG/2 ML AMP IVP ONE ×3 (19:15→20:45)
[2018-10-05 20:01] VITALS: BP 134/80
[2018-10-05 20:43] VITALS: BP 133/78
== END 2018-10-05 20:43 | disposition short-term general hospital (02) ==
LOC: ER 17:49 → EDUNIT# 17:49 → ER 20:43
DX: R07.9 Chest pain, unspecified (principal); D69.6 Thrombocytopenia, unspecified; Z87.891 Personal history of nicotine dependence; M54.9 Dorsalgia, unspecified; G89.29 Other chronic pain; E11.22 Type 2 diabetes mellitus with diabetic chronic kidney disease; I12.0 Hypertensive chronic kidney disease with stage 5 chronic kidney disease or end stage renal disease; N18.6 End stage renal disease; C50.919 Malignant neoplasm of unspecified site of unspecified female breast; E03.9 Hypothyroidism, unspecified; J44.9 Chronic obstructive pulmonary disease, unspecified; I42.9 Cardiomyopathy, unspecified; I25.10 Atherosclerotic heart disease of native coronary artery without angina pectoris; I25.2 Old myocardial infarction; E78.00 Pure hypercholesterolemia, unspecified; I73.9 Peripheral vascular disease, unspecified; I48.91 Unspecified atrial fibrillation; K21.9 Gastro-esophageal reflux disease without esophagitis; F41.9 Anxiety disorder, unspecified; F32.9 Major depressive disorder, single episode, unspecified; Z92.21 Personal history of antineoplastic chemotherapy; Z82.49 Family history of ischemic heart disease and other diseases of the circulatory system; Z99.2 Dependence on renal dialysis; Z86.2 Personal history of diseases of the blood and blood-forming organs and certain disorders involving the immune mechanism; Z86.73 Personal history of transient ischemic attack (TIA), and cerebral infarction without residual deficits; Z79.82 Long term (current) use of aspirin; Z79.4 Long term (current) use of insulin; Z95.5 Presence of coronary angioplasty implant and graft; Z95.1 Presence of aortocoronary bypass graft; Z90.710 Acquired absence of both cervix and uterus
CPT/HCPCS: 36415; 51702; 71045; 80053; 81000; 83605; 83690; 83735; 83874; 84439; 84443; 84484; 85025; 85379; 85610; 85730; 86141; 87040; 87077; 87088; 93005; 93041; 94640

== ENCOUNTER 2018-10-15 06:45 | Emergency (ER) | payer MEDICARE ==
[~2018-10-15] VITALS: Ht 165.1 cm; Wt 62.1 kg
[2018-10-15 07:18] LABS: BASOPHILS % (AUTO) 0 % (0-10); EOSINOPHILS # (AUTO) 0.1 10^3/uL (0.0-0.3); EOSINOPHILS % (AUTO) 1 % (0-10); HEMATOCRIT 27 % (35-52); HEMOGLOBIN 8.8 G/DL (11.5-16.0); LYMPHOCYTES # (AUTO) 0.4 X 10^3 (1.0-4.0); LYMPHOCYTES % (AUTO) 8 % (12-44); MEAN CORPUSCULAR HEMOGLOBIN 33 PG (25-34); MEAN CORPUSCULAR HGB CONC 33 G/DL (32-36); MEAN CORPUSCULAR VOLUME 101 FL (80-99); MEAN PLATELET VOLUME 11.1 FL (7.4-10.4); MONOCYTES # (AUTO) 0.2 X 10^3 (0.0-1.0); MONOCYTES % (AUTO) 5 % (0-12); NEUTROPHILS # (AUTO) 4.2 X 10^3 (1.8-7.8); NEUTROPHILS % (AUTO) 86 % (42-75); RED BLOOD COUNT 2.67 10^6/uL (4.35-5.85); WHITE BLOOD COUNT 4.9 10^3/uL (4.3-11.0)
--- NOTE | 2018-10-15 07:27 | ED Fall/Injury ---
General Chief Complaint: Trauma-Non Activation Stated Complaint: FALL Nursing Triage Note: SHORTENING AND EXTERNAL ROTATION TO LT LOWER EXTREMITY. REPORTS PAIN TO LT THIGH AND LT UPPER ARM. Source: patient Exam Limitations: no limitations History of Present Illness Date Seen by Provider: Oct 15, 2018 Time Seen by Provider: 06:57 Initial Comments This 73-year-old woman presents to the emergency room via EMS after having a fall walking out of her home this morning. She was using her walker and it got away from her as she tripped up on the threshold. She was going to dialysis when she fell. She complains of left hip pain. She was able to make it to dialysis with the assistance of her family. However, she was not able to weight -bear and she was not able to sit through dialysis. She therefore presented to the emergency room via EMS. She denies any head or neck pain or any other injuries. She has shortening and external rotation of the left leg and complains of left hip pain. Port was accessed by EMS. A total of 50 g of fentanyl was given in route. Her fentanyl patch was removed as it was too to be replaced. It should be noted patient is actively being treated for metastatic cancer. Location Injury Occurred: HOME Allergies and Home Medications Allergies Coded Allergies: TUYET Inhibitors (Unverified Allergy, Unknown, 03/03/15) due to creatinine level ARB-Angiotensin Receptor Antagonist (Unverified Allergy, Unknown, 03/03/15) meloxicam (Verified Allergy, Unknown, 09/05/06) Home Medications Alprazolam 0.5 Mg Tablet, 0.5 MG PO DAILY PRN for ANXIETY, (Reported) Amiodarone HCl 200 Mg Tablet, [facility], (Reported) Amlodipine Besylate 10 Mg Tablet, 10 MG PO DAILY, (Reported) Aspirin 81 Mg Tablet, 81 MG PO DAILY, (Reported) Atorvastatin Calcium 40 Mg Tablet, 40 MG PO HS, (Reported) Cholecalciferol 5,000 Unit Capsule, 5,000 UNIT PO DAILY, (Reported) Docosahexanoic Acid/Epa 1 Cap Capsule, 1,000 MG PO BID, (Reported) Furosemide 40 Mg Tablet, 40 MG PO DAILY, (Reported) Hydralazine HCl 50 Mg Tablet, 50 MG PO BID, (Reported) Hydrocodone/Acetaminophen 1 Each Tablet, 1 TAB PO Q6H PRN for PAIN, (Reported) Hyoscyamine Sulfate 0.125 Mg Tab.subl, 0.125 MG SL Q6H PRN for CRAMPS Prescribed by: DIVYA BARRETT on 08/17/181812 Insulin Glargine,Hum.rec.anlog 100 Unit/1 Ml Insuln.pen, 22 UNITS SC HS, ( Reported) Insulin Lispro 100 Unit/1 Ml Insuln.pen, 3-4 UNITS SC AC, (Reported) Isosorbide Mononitrate 30 Mg Tab.er.24h, 30 MG PO DAILY, (Reported) Methocarbamol 750 Mg Tablet, 750 MG PO Q8H PRN for PAIN-MODERATE TO SEVERE Prescribed by: KIM ELLIOTT on 05/09/18 1250 Multivitamin 1 Each Tablet, 1 TAB PO DAILY, (Reported) Ondansetron 4 Mg Tab.rapdis, 4 MG SL Q4H PRN for NAUSEA/VOMITING-1ST LINE Prescribed by: DIVYA BARRETT on 08/17/181812 Pantoprazole Sodium 40 Mg Tablet.dr, 40 MG PO DAILY, (Reported) Polyethylene Glycol 3350 17 Gm Powd.pack, 17 GM PO 1800 PRN for CONSTIPATION, ( Reported) Sertraline HCl 100 Mg Tablet, 150 MG PO DAILY, (Reported) TAKES 1 & 1/2 (100MG) TABLETS Trazodone HCl 100 Mg Tablet, 100 MG PO HS, (Reported) Patient Home Medication List Home Medication List Reviewed: Yes Review of Systems Review of Systems Constitutional: no symptoms reported Eyes: No Symptoms Reported Ears, Nose, Mouth, Throat: no symptoms reported Respiratory: no symptoms reported Cardiovascular: no symptoms reported Gastrointestinal: no symptoms reported Genitourinary: no symptoms reported : No Musculoskeletal: see HPI Skin: no symptoms reported Psychiatric/Neurological: No Symptoms Reported Past Xmjhlgp-Clwuhz-Rphmov Hx Patient Social History Alcohol Beverage of Choice: Other Type Used: Cigarettes Former Smoker, Quit: Jul 20, 1999 2nd Hand Smoke Exposure: No Recent Foreign Travel: No Contact w/Someone Who Travel: No Recent Infectious Disease Expo: No Recent Hopitalizations: No Immunizations Up To Date Tetanus Booster (TDap): Unknown PED Vaccines UTD: No Date of Pneumonia Vaccine: March 01, 2015 Date of Influenza Vaccine: Aug 18, 2017 Seasonal Allergies Seasonal Allergies: No Past Medical History Surgeries: Yes Abdominal, Bladder Surgery, Breast, Cardiac, CABG, Coronary Stent, Gallbladder, Hysterectomy, Lumpectomy, Orthopedic, Vascular Surgery Respiratory: Yes (USES HOME O2 2-3 L/NC CONTINOUSLY) Chronic Bronchitis, COPD Currently Using CPAP: No Currently Using BIPAP: No Cardiac: Yes (CABG; STENTS X 13; LOOP RECORDER; CHF; TN X 2) Angina, Atrial Fibrillation, Cardiomyopathy, Coronary Artery Disease, Heart Attack, Heart Murmur, High Cholesterol, Hypertension, Irregular Heartbeat, Peripheral Vascular, Valvular Heart Disease Neurological: Yes (CVA WITH LEFT SIDE WEAKNESS ESSENTIALLY RESOLVED) Stroke, TIA Reproductive Disorders: No Female Reproductive Disorders: Denies Sexually Transmitted Disease: No HIV/AIDS: No Genitourinary: Yes Renal Failure, Dialysis Gastrointestinal: Yes Gastroesophageal Reflux, Chronic Constipation, Pancreatitis, Hiatal Hernia, Gall Bladder Disease Musculoskeletal: Yes Arthritis, Chronic Back Pain, Fractures Endocrine: Yes Diabetes, Insulin dep HEENT: No Loss of Vision: Denies Hearing Impairment: Hard of Hearing Cancer: Yes Breast Did You Recieve Any Treatments: Yes What Type of Treatment Did You: Chemotherapy, Radiation, Surgical Intervention Psychosocial: Yes Sleep Difficulties, Anxiety, Depression Integumentary: No Blood Disorders: Yes (thrombocytopenia) Adverse Reaction/Blood Tranf: No Family Medical History Alcoholism 19 FATHER Cardiovascular disease G8 BROTHER G8 SISTER Diabetes mellitus 19 FATHER 19 MOTHER G8 BROTHER G8 SISTER Gastroenteritis 19 MOTHER G8 BROTHER G8 SISTER Hypercholesterolemia 19 MOTHER G8 BROTHER G8 SISTER Hypertension 19 MOTHER G8 BROTHER G8 SISTER Kidney disease 19 MOTHER G8 BROTHER G8 SISTER Prostate cancer G8 BROTHER No Pertinent Family Hx Physical Exam Vital Signs Vital Signs - First Documented 10/15/18 06:48 Temp 98.0 Pulse 62 Resp 18 B/P (MAP) 132/68 (89) Pulse Ox 100 O2 Delivery Room Air Capillary Refill : Less Than 3 Seconds Height, Weight, BMI Height: 5'5.00" Weight: 137lbs. 5.4oz. [id number]; 30.3 BMI Method:Stated General Appearance: WD/WN, no apparent distress HEENT: PERRL/EOMI, normal ENT inspection Neck: non-tender, normal inspection Cardiovascular: regular rate, rhythm, no edema, no murmur Respiratory: lungs clear, normal breath sounds, no respiratory distress, no accessory muscle use Gastrointestinal: normal bowel sounds, soft, tenderness (stated as chronic and unchanged) Extremities: no pedal edema, pelvis stable, other (tenderness and deformity over the left hip. Sensation, capillary refill, and movement intact in both feet. Posterior pedal pulse strong on the left foot. Abrasion on the left ankle) Neurologic/Psychiatric: splitter tender II-XII nml as tested, no motor/sensory deficits, alert, normal mood/affect, oriented x 3 Skin: normal color, warm/dry [place] Coma Score Best Eye Response: (4) Open Spontaneously Best Verbal Response: (5) Oriented Best Motor Response: (6) Obeys Commands Camron Total: 15 Progress/Results/Core Measures Results/Orders Lab Results Laboratory Tests Test 10/15/18 07:10 Range/Units White Blood Count 4.9 4.3-11.0 10^3/uL Red Blood Count 2.67 L 4.35-5.85 10^6/uL Hemoglobin 8.8 L 11.5-16.0 G/DL Hematocrit 27 L 35-52 % Mean Corpuscular Volume 101 H 80-99 FL Mean Corpuscular Hemoglobin 33 25-34 PG Mean Corpuscular Hemoglobin Concent 33 32-36 G/DL Red Cell Distribution Width 18.0 H 10.0-14.5 % Platelet Count 33 *L 130-400 10^3/uL Mean Platelet Volume 11.1 H 7.4-10.4 FL Neutrophils (%) (Auto) 86 H 42-75 % Lymphocytes (%) (Auto) 8 L 12-44 % Monocytes (%) (Auto) 5 0-12 % Eosinophils (%) (Auto) 1 0-10 % Basophils (%) (Auto) 0 0-10 % Neutrophils # (Auto) 4.2 1.8-7.8 X 10^3 Lymphocytes # (Auto) 0.4 L 1.0-4.0 X 10^3 Monocytes # (Auto) 0.2 0.0-1.0 X 10^3 Eosinophils # (Auto) 0.1 0.0-0.3 10^3/uL Basophils # (Auto) 0.0 0.0-0.1 10^3/uL Neutrophils % (Manual) 78 % Lymphocytes % (Manual) 10 % Monocytes % (Manual) 10 % Eosinophils % (Manual) 2 % Band Neutrophils 0 % Anisocytosis MODERATE Macrocytosis MODERATE Sodium Level 134 L 135-145 MMOL/L Potassium Level 4.7 3.6-5.0 MMOL/L Chloride Level 94 L 98-107 MMOL/L Carbon Dioxide Level 24 21-32 MMOL/L Anion Gap 16 H 5-14 MMOL/L Blood Urea Nitrogen 62 H 7-18 MG/DL Creatinine 5.35 H 0.60-1.30 MG/DL Estimat Glomerular Filtration Rate 8 BUN/Creatinine Ratio 12 Glucose Level 355 H 70-105 MG/DL Calcium Level 8.5 8.5-10.1 MG/DL Corrected Calcium 9.1 8.5-10.1 MG/DL Magnesium Level 2.0 1.8-2.4 MG/DL Total Bilirubin 0.7 0.1-1.0 MG/DL Aspartate Amino Transf (AST/SGOT) 34 5-34 U/L Alanine Aminotransferase (ALT/SGPT) 20 0-55 U/L Alkaline Phosphatase 136 40-136 U/L Total Protein 6.5 6.4-8.2 GM/DL Albumin 3.3 3.2-4.5 GM/DL My Orders Orders - DIVYA SAMANIEGO MD Chest 1 View, Ap/Pa Only (10/15/18 06:58) Pelvis With Left Hip 2-3 Views (10/15/18 06:58) Cbc With Automated Diff (10/15/18 06:58) Comprehensive Metabolic Panel (10/15/18 06:58) Magnesium (10/15/18 06:58) Quintanilla Cath (10/15/18 06:58) Fentanyl Injection (Sublimaze Injection (10/15/18 07:30) Manual Differential (10/15/18 07:10) Ct Head/Cervical Spine Wo (10/15/18 07:45) Morphine Injection (Morphine Injection (10/15/18 08:30) Fentanyl Injection (Sublimaze Injection (10/15/18 09:30) Medications Given in ED Current Medications Medications Dose Ordered Sig/Guzman Route Start Time Stop Time Status Last Admin Dose Admin Fentanyl Citrate 75 mcg ONCE ONCE IVP 10/15/18 09:30 10/15/18 09:31 DC 10/15/18 09:30 75 MCG Vital Signs/I&O 10/15/18 10/15/18 10/15/18 06:48 07:30 09:36 Temp 98.0 98.0 Pulse 62 62 51 Resp 18 18 20 B/P (MAP) 132/68 (89) 132/68 (89) 140/70 (93) Pulse Ox 100 100 98 O2 Delivery Room Air Blood Pressure Mean: 89 Progress Progress Note #1: Time: 07:46 Progress Note Hip fracture was found with x-rays. Patient is complaining of more pain now after x-rays. Fentanyl 50 g was ordered. Patient also states she is having a little bit of a headache. CT of the head and C-spine was ordered. Transfer arrangements will be made as soon as CT results are known. Progress Note #2: Time: 08:[address] imaging viewed by me and discussed with the radiologist. There are subacute appearing fractures in the thoracic spine and rib on the right seen on the CT of the cervical spine. Patient denies any pain in this area. From history the patient and family give, sounds like these fractures occurred with falls over the past couple months. Transfer arrangements have been made with Dr. Parmar in the ER at [place]. Patient has required further pain management with morphine. Quintanilla catheter has not been placed as patient makes very little urine. Diagnostic Imaging Diagonstic Imaging: Xray Plain Films/CT/US/NM/MRI: chest Comments Chest x-ray viewed by me and report reviewed. See report below: NAME: ELODIA TOTH [facility] REC#: [id number] PT STATUS: REG ER : 1945 PHYSICIAN: DIVYA SAMANIEGO MD ADMIT DATE: 10/15/18/ER Draft Date of Exam:10/15/18 CHEST 1 VIEW, AP/PA ONLY INDICATION: Left hip pain. EXAMINATION: Portable chest 07:44 a.m. FINDINGS: Right subclavian Port-A-Cath tip projects over the SVC. There are postop changes from CABG surgery. Patient has had a kyphoplasty of the midthoracic spine. There is a loop recorder projecting over the left side of the chest. There are surgical yaquelin in the left axilla. There are no infiltrates, effusions or pneumothoraces. IMPRESSION: No acute abnormalities in the chest. Dictated on workstation # [id number] Dict: 10/15/18726 Trans: 10/15/18 0741 [facility] [id number] Interpreted by: PROSPER DYKES MD Diagonstic Imaging: Xray Plain Films/CT/US/NM/MRI: pelvis, hip Comments Pelvis and left hip x-ray viewed by me and report reviewed. See report below: NAME: ELODIA TOTH [facility] REC#: [id number] PT STATUS: REG ER : 1945 PHYSICIAN: DIVYA SAMANIEGO MD ADMIT DATE: 10/15/18/ER Draft Date of Exam:10/15/18 PELVIS WITH LEFT HIP 2-3 VIEWS INDICATION: Left hip pain AP view pelvis and 2 spot views of left hip show a left femoral neck fracture with displacement of the disc component upwards by the full width of the neck. IMPRESSION: Displaced subcapital fracture left hip. Report was called to Dr. Samaniego [facility] ER by desiree at 7:57 am. Critical finding Dictated on workstation # [id number] Dict: 10/15/1828 Trans: 10/15/[address] [facility] [id number] Interpreted by: PROSPER DYKES MD Diagonstic Imaging: CT Plain Films/CT/US/NM/MRI: c-spine, head Comments CT head and cervical spine viewed by me and report reviewed. See report below: NAME: ELODIA TOTH [facility] REC#: [id number] PT STATUS: REG ER : 1945 PHYSICIAN: DIVYA SAMANIEGO MD ADMIT DATE: 10/15/18/ER Draft Date of Exam:10/15/18 CT HEAD/CERVICAL SPINE WO PROCEDURE: CT head and CT cervical spine without contrast. TECHNIQUE: Multiple contiguous axial images were obtained through the brain and cervical spine without the use of intravenous contrast. Sagittal and coronal reformations through the cervical spine were then performed. INDICATION: Fall with head and neck pain. Comparison is made with prior head CT from 03/01/2015. CT HEAD: Ventricles and sulci appear stable when compared to prior exam. Moderate periventricular hypodensities noted consistent with chronic microvascular ischemia. There is no sulcal effacement. No midline shift is detected. No acute intra-axial or extra-axial hemorrhage is seen. There appears to be old lacunar infarct in the right thalamus. IMPRESSION: Changes of chronic microvascular ischemia. No acute intracranial process is detected. CT CERVICAL SPINE: Curvature of the cervical spine is normal. There is minimal retrolisthesis of C3 on C4 and C4 on C5 with minimal anterolisthesis of C2 on C3. Multilevel degenerative disc disease is seen with variable disc space narrowing and marginal spurring. Odontoid appears intact. No acute cervical spine fracture is seen. There is a probable subacute fracture involving the right first rib. There is some sclerosis at the fracture site but fracture line remains clearly visible. There is also a fracture of the T2 spinous process. This too shows moderate amount of sclerosis surrounding the fracture but fracture line remains clearly visible. There is a left transverse process fracture of T2 as well with some sclerosis present but fracture line remains partly visible. No other fractures are seen. IMPRESSION: 1. Cervical spondylosis without evidence of acute cervical spine fracture. 2. Subacute fractures involving the right first rib, T2 spinous process and T2 left transverse process, as described. Dictated on workstation # [id number] Dict: 10/15/18 08 Trans: 10/15/18 08 [facility] [id number] Interpreted by: ABIEL TAYLOR MD Departure Impression Primary Impression: Closed left hip fracture Qualified Codes: S72.002A - Fracture of unspecified part of neck of left femur , initial encounter for closed fracture Additional Impressions: Fall on same level as cause of accidental injury End stage renal disease on dialysis Anemia Qualified Codes: D64.9 - Anemia, unspecified Thrombocytopenia Metastatic breast cancer Disposition: XFER SHT-TRM HOSP Condition: Stable Transfer Time Spoke to Accepting Phy: 08:30 Transfer Time: 09:36 Transfer Facility: [facility]. Dr. Grounds accepting. Method of Transfer: EMS Departure-Patient Inst. Referrals: MANASA NARANJO MD (PCP/Family) Primary Care Physician DIVYA SAMANIEGO MD Oct 15, 2018 07:27
[2018-10-15] MEDS ORDERED: fentaNYL INJECTION 100 MCG/2 ML AMP IVP ONE ×2 (07:30→09:30)
[2018-10-15 07:32] LABS: PLATELET COUNT 33 10^3/uL (130-400)
[2018-10-15 07:36] LABS: ALBUMIN 3.3 GM/DL (3.2-4.5); BILIRUBIN,TOTAL 0.7 MG/DL (0.1-1.0); CALCIUM 8.5 MG/DL (8.5-10.1); CREATININE SERUM 5.35 MG/DL (0.60-1.30); POTASSIUM 4.7 MMOL/L (3.6-5.0); TOTAL PROTEIN 6.5 GM/DL (6.4-8.2)
--- NOTE | 2018-10-15 07:42 | Diagnostic Imaging Report ---
INDICATION: Left hip pain. EXAMINATION: Portable chest 07:44 a.m. FINDINGS: Right subclavian Port-A-Cath tip projects over the SVC. There are postop changes from CABG surgery. Patient has had a kyphoplasty of the midthoracic spine. There is a loop recorder projecting over the left side of the chest. There are surgical yaquelin in the left axilla. There are no infiltrates, effusions or pneumothoraces. IMPRESSION: No acute abnormalities in the chest. Dictated by: Dictated on workstation # [id number]
--- NOTE | 2018-10-15 07:59 | Diagnostic Imaging Report ---
INDICATION: Left hip pain AP view pelvis and 2 spot views of left hip show a left femoral neck fracture with displacement of the disc component upwards by the full width of the neck. IMPRESSION: Displaced subcapital fracture left hip. Report was called to Dr. Samaniego [facility] ER by desiree at 7:57 am. Critical finding Dictated by: Dictated on workstation # [id number]
[2018-10-15 08:02] LABS: ANISOCYTOSIS MODERATE; BAND NEUTROPHILS 0 %; EOSINOPHILS % (MANUAL) 2 %; LYMPHOCYTES % (MANUAL) 10 %; MONOCYTES % (MANUAL) 10 %; NEUTROPHILS % (MANUAL) 78 %
--- NOTE | 2018-10-15 08:24 | Diagnostic Imaging Report ---
PROCEDURE: CT head and CT cervical spine without contrast. TECHNIQUE: Multiple contiguous axial images were obtained through the brain and cervical spine without the use of intravenous contrast. Sagittal and coronal reformations through the cervical spine were then performed. INDICATION: Fall with head and neck pain. Comparison is made with prior head CT from 03/01/2015. CT HEAD: Ventricles and sulci appear stable when compared to prior exam. Moderate periventricular hypodensities noted consistent with chronic microvascular ischemia. There is no sulcal effacement. No midline shift is detected. No acute intra-axial or extra-axial hemorrhage is seen. There appears to be old lacunar infarct in the right thalamus. IMPRESSION: Changes of chronic microvascular ischemia. No acute intracranial process is detected. CT CERVICAL SPINE: Curvature of the cervical spine is normal. There is minimal retrolisthesis of C3 on C4 and C4 on C5 with minimal anterolisthesis of C2 on C3. Multilevel degenerative disc disease is seen with variable disc space narrowing and marginal spurring. Odontoid appears intact. No acute cervical spine fracture is seen. There is a probable subacute fracture involving the right first rib. There is some sclerosis at the fracture site but fracture line remains clearly visible. There is also a fracture of the T2 spinous process. This too shows moderate amount of sclerosis surrounding the fracture but fracture line remains clearly visible. There is a left transverse process fracture of T2 as well with some sclerosis present but fracture line remains partly visible. No other fractures are seen. IMPRESSION: 1. Cervical spondylosis without evidence of acute cervical spine fracture. 2. Subacute fractures involving the right first rib, T2 spinous process and T2 left transverse process, as described. Dictated by: Dictated on workstation # [id number]
[2018-10-15] MEDS ORDERED: morphine INJ 10 MG/ML 1ML (SYR OR VIAL) IVP ONE (08:30)
[2018-10-15 09:36] VITALS: BP 140/70
== END 2018-10-15 09:36 | disposition short-term general hospital (02) ==
LOC: EDUNIT# 06:45 → ER 06:57
DX: S72.012A Unspecified intracapsular fracture of left femur, initial encounter for closed fracture (principal); D63.1 Anemia in chronic kidney disease; D69.6 Thrombocytopenia, unspecified; C50.919 Malignant neoplasm of unspecified site of unspecified female breast; M54.2 Cervicalgia; E11.22 Type 2 diabetes mellitus with diabetic chronic kidney disease; I13.2 Hypertensive heart and chronic kidney disease with heart failure and with stage 5 chronic kidney disease, or end stage renal disease; N18.6 End stage renal disease; I50.9 Heart failure, unspecified; I48.91 Unspecified atrial fibrillation; I42.9 Cardiomyopathy, unspecified; I25.10 Atherosclerotic heart disease of native coronary artery without angina pectoris; E78.00 Pure hypercholesterolemia, unspecified; E11.59 Type 2 diabetes mellitus with other circulatory complications; I73.9 Peripheral vascular disease, unspecified; K21.9 Gastro-esophageal reflux disease without esophagitis; J44.9 Chronic obstructive pulmonary disease, unspecified; I25.2 Old myocardial infarction; F41.9 Anxiety disorder, unspecified; R40.2142 Coma scale, eyes open, spontaneous, at arrival to emergency department; R40.2252 Coma scale, best verbal response, oriented, at arrival to emergency department; R40.2362 Coma scale, best motor response, obeys commands, at arrival to emergency department; F32.9 Major depressive disorder, single episode, unspecified; Z95.1 Presence of aortocoronary bypass graft; Z95.5 Presence of coronary angioplasty implant and graft; Z92.21 Personal history of antineoplastic chemotherapy; Z79.82 Long term (current) use of aspirin; Z87.891 Personal history of nicotine dependence; Z79.4 Long term (current) use of insulin; W01.0XXA Fall on same level from slipping, tripping and stumbling without subsequent striking against object, initial encounter
CPT/HCPCS: 36415; 70450; 71045; 72125; 80053; 83735; 85007; 85027; 96374; 96375; 96376

== ENCOUNTER 2018-10-26 13:06 | Inpatient (IN) | payer MEDICARE ==
[~2018-10-26] VITALS: Ht 165.1 cm; Wt 69.9 kg
[~2018-10-26 13:06] MED LIST changes: -LIDO30CR20; +LIDO30CR20 TOP
--- NOTE | 2018-10-26 19:50 | NUR ---
Rashmi Toth admitted to room 232-1, with an admitting diagnosis of S/P Left Total Hip Repair, on 10/26/18 from [place] via ambulance, accompanied by EMS staff. ELODIA TOTH introduced to surroundings, call light, bed controls, phone, TV, temperature control, lights, meal times, smoking policy, visitor policy, side rail policy, bathrooms and showers. Patient Rights given to patient in the handbook. ELODIA TOTH verbalizes understanding that [facility] is not responsible for the loss or damage to any personal effects or valuables that are kept in the patients posession during their hospitalization. The following Patient Care Plans were discussed with the patient: Discharge Planning, impaired mobility, and pain management. ELODIA TOTH verbalizes understanding of Interdisciplinary Patient Education. Patient was informed about the Rapid Response Team and its purpose. Patient received Patient Rights Booklet, which includes Privacy Act Statement and Data Collection Information Summary.
[2018-10-26 20:00] VITALS: BP 132/73
--- NOTE | 2018-10-26 20:05 | NUR ---
ADMISSION ASSESSMENTS AND INTERVENTIONS COMPLETED AT THIS TIME. MEDITECH RECORDED DONE ON 10/25/18 AT THIS TIME WHICH IS WRONG.
[2018-10-26] MEDS ORDERED: oxyCODONE/APAP 5/325MG (PERCOCET 5) TABLET ONE (20:21)
[2018-10-26] MEDS: oxyCODONE/APAP 5/325MG (PERCOCET 5) TABLET PO PRN (20:28)
[2018-10-26] MEDS ORDERED: NITROGLYCERIN 0.4 MG SL TABS BTL 25'S SL PRN (20:45)
[2018-10-26] MEDS: traZODone 100 MG (DESYREL) TAB PO SCH (22:03)
[2018-10-26] MEDS: CARVEDILOL 3.125 MG (COREG) TABLET PO SCH (22:03)
[2018-10-26] MEDS: FERROUS SULF 325 MG (IRON) TAB PO SCH (22:03)
[2018-10-26] MEDS: inSUlin ASPART (NovoLOG) 1 UNIT/0.01 ML (CHARGE PER UNIT) SC SCH (22:03)
[2018-10-26] MEDS: SODIUM BICARBONATE 650 MG TABLET (NON-FORMULARY) PO SCH (22:03)
[2018-10-26] MEDS: ALPRAZolam 0.5 MG (XANAX) TAB PO PRN (22:03)
[2018-10-26] MEDS: inSUlin DETERMIR 1 UNIT/0.01 ML (LEVEMIR) CHARGE PER UNIT SQ SCH (22:04)
[2018-10-27] MEDS: LEVOTHYROXINE 25 MCG (LEVOTHROID) TAB PO SCH (05:24)
[2018-10-27] MEDS: oxyCODONE/APAP 5/325MG (PERCOCET 5) TABLET PO PRN ×2 (05:24→17:44)
[2018-10-27] MEDS: inSUlin ASPART (NovoLOG) 1 UNIT/0.01 ML (CHARGE PER UNIT) SC SCH ×7 (05:39→21:00)
[2018-10-27] MEDS: SEVELAMER CARBONATE 800 MG TAB (RENVELA) NON-FORMULARY PO SCH ×3 (05:39→18:25)
--- NOTE | 2018-10-27 05:40 | NUR ---
Patient not given scheduled 4 units of Novolog with meals this morning because she didn't eat before leaving for dialysis.
--- NOTE | 2018-10-27 05:41 | NUR ---
Patient left with [employer] driver to go to dialysis.
[2018-10-27 06:05] VITALS: BP 161/85
[2018-10-27] MEDS ORDERED: MAGNESIUM OXIDE (MAG-OX)400 MG TAB PO SCH (09:00)
--- NOTE | 2018-10-27 09:54 | NUR ---
Call from RN at dialysis center RE: patient's complaints of pain. States that patient has breast cancer that has metastasized to the bone and patient has multiple back fractures. Reports that patient was on a 100 MCG Fentanyl patch at home. Patch was decreased to 25 MCG while patient was in [facility]. Dr. Arnold notified. Ok to start Fentanyl patch- 100 MCG TD Q72 [address] Arnold also notified of DVT risk. No new orders rec'd. SCDs only.
[2018-10-27] MEDS: SODIUM BICARBONATE 650 MG TABLET (NON-FORMULARY) PO SCH ×3 (11:13→21:00)
[2018-10-27] MEDS: ASCORBIC ACID (VIT C) 500 MG TABLET PO SCH (11:41)
[2018-10-27] MEDS: ATORVASTATIN 40 MG (LIPITOR) TABLET PO SCH (11:41)
[2018-10-27] MEDS: FUROSEMIDE 40 MG (LASIX) TAB PO SCH (11:41)
[2018-10-27] MEDS: SERTRALINE 100 MG (ZOLOFT) TAB PO SCH (11:41)
[2018-10-27] MEDS: amLODIPine 2.5MG (NORVASC) TAB PO SCH (11:41)
[2018-10-27] MEDS: CARVEDILOL 3.125 MG (COREG) TABLET PO SCH ×2 (11:41→21:00)
[2018-10-27] MEDS: PANTOPRAZOLE 40 MG (PROTONIX) TAB PO SCH (11:41)
[2018-10-27] MEDS: VITAMIN D3 5,000 UNITS (CHOLECALCIFEROL ) CAPSULE PO SCH (11:41)
--- NOTE | 2018-10-27 11:41 | NUR ---
Patient back to room from Dialysis. C/O pain, 07/29. PRN Dilaudid given and new Fentanyl patch applied per orders. See eMAR for details. VSS. Will continue to monitor.
[2018-10-27] MEDS: FENTANYL PATCH REMOVAL TP SCH (11:42)
[2018-10-27] MEDS: HYDROmorphone (DILAUDID) 4 MG TAB PO PRN (11:45)
[2018-10-27] MEDS: fentaNYL PATCH 100 MCG (DURAGESIC) TD SCH (11:48)
[2018-10-27 11:50] VITALS: BP 130/75
[2018-10-27] MEDS ORDERED: SEVE800T7 PO (12:30)
[2018-10-27] MEDS ORDERED: HYDR4TAB49 PO (12:30)
[2018-10-27] MEDS ORDERED: SODI650T PO (12:30)
[2018-10-27] MEDS ORDERED: FOLI1TAB40 PO (12:30)
[2018-10-27] MEDS ORDERED: FENT1PAT60 TD (12:30)
[2018-10-27] MEDS: POLYETHYLENE GLYCOL 17 GM (MIRALAX) PACK PO SCH (12:38)
--- NOTE | 2018-10-27 13:18 | History & Physical ---
History of Present Illness History of Present Illness Reason for visit/HPI CC: Left hip fracture with disability HPI: This is a 73-year-old white female clinic patient of Dr. 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 Jaramillo at [facility]. Apparently she had a recent thoracic compression fracture was discharged and then fell and suffered a left hip fracture so that was repaired uncomplicated on 10/17/18. She had a long hospital course at [facility] which included increased pain and anemia and underwent a full gastrointestinal evaluation with endoscopy that revealed no acute GI bleed. She does have splenomegaly and she always has chronic thrombocytopenia. She did have an incisional hematoma and required a total of 8 units of blood with 4 platelets during the hospital stay. Hemoglobin at discharge was 8.6. She is DO NOT RESUSCITATE and DO NOT INTUBATE but has refused palliative care in the past. Fentanyl patch was thought to have been 25 mcg but that was noted to be incorrect so we increased that to 100 mcg and that has obtained better pain control. Dilaudid can be used once daily and I have added Percocet. Constipation will be an issue so the nurses will aggressively treat that. She does receive breast cancer treatment every 3 weeks. Date of Admission Oct 26, 2018 at 19:45 Date Seen by a Provider: Oct 27, 2018 Time Seen by a Provider: 13:00 I consulted on this patient on 10/27/18 13:18 Attending Physician Julia Jenkins DO Admitting Physician Chris Thacker MD Consult Allergies and Home Medications Allergies Coded Allergies: TUYET Inhibitors (Unverified Allergy, Unknown, 03/03/15) due to creatinine level ARB-Angiotensin Receptor Antagonist (Unverified Allergy, Unknown, 03/03/15) meloxicam (Verified Allergy, Unknown, 09/05/06) Home Medications Acetaminophen 650 Mg Tablet.er, 650 MG PO Q6H PRN for PAIN-MILD, (Reported) Alprazolam 0.5 Mg Tablet, 0.5 MG PO BID PRN for ANXIETY, (Reported) Amiodarone HCl 200 Mg Tablet, 400 MG PO MoTuWeThFr, (Reported) LAST FILLED #90 -18 TAKES 2 (200MG) TABLETS FRIDAY THROUGH FRIDAY, OFF ON WEEKENDS Amlodipine Besylate 10 Mg Tablet, 10 MG PO DAILY, (Reported) Ascorbate Calcium 500 Mg Tablet, 500 MG PO DAILY, (Reported) Atorvastatin Calcium 40 Mg Tablet, 40 MG PO HS, (Reported) LAST FILLED #90 06-22-18 Carvedilol 25 Mg Tablet, 25 MG PO BID, (Reported) LAST FILLED #180 18 Cholecalciferol (Vitamin D3) 5,000 Unit Capsule, 5,000 UNIT PO DAILY, (Reported) Docusate Sodium 100 Mg Capsule, 100 MG PO DAILY PRN for CONSTIPATION-1ST LINE, ( Reported) Fentanyl 1 Each Patch.td72, 100 MCG TD Q72H, (Reported) Ferrous Sulfate 325 Mg Tablet, 325 MG PO DAILY, (Reported) Folic Acid/Vitamin B Comp W-C 1 Each Tablet, 1 TAB PO DAILY, (Reported) Furosemide 40 Mg Tablet, 40 MG PO DAILY, (Reported) LAST FILLED #30 05-05-18 Hydrocodone/Acetaminophen 1 Each Tablet, 1-2 TAB PO Q6H PRN for PAIN-MODERATE, ( Reported) Hydromorphone HCl 4 Mg Tablet, 4 MG PO Q4H PRN for PAIN-SEVERE, (Reported) Insulin Glargine,Hum.rec.anlog 100 Unit/1 Ml Insuln.pen, 22 UNITS SC HS, ( Reported) Insulin Lispro 100 Unit/1 Ml Insuln.pen, 4 UNITS SC TIDAC, (Reported) Levothyroxine Sodium 25 Mcg Tablet, 25 MCG PO DAILY, (Reported) LAST FILLED #90 18 Lidocaine/Prilocaine 30 Gm Cream..g., TOP DAILY PRN for PORT ACCESS, (Reported) APPLY DIRECTLY TO PORT SITE AND COVER WITH PLASTIC WRAP ONE HOUR PRIOR TO APPOINTMENT Magnesium Oxide 250 Mg Tablet, 250 MG PO DAILY, (Reported) Multivitamin 1 Each Tablet, 1 TAB PO DAILY, (Reported) Nitroglycerin 0.4 Mg Tab.subl, 0.4 MG SL UD PRN for CHEST PAIN, (Reported) [place] 3 Polyunsat Fatty Acids 1,000 Mg Cap, 1,000 MG PO DAILY, (Reported) Pantoprazole Sodium 40 Mg Tablet.dr, 40 MG PO DAILY, (Reported) LAST FILLED #90 18 Polyethylene Glycol 3350 17 Gm Powd.pack, 17 GM PO DAILY, (Reported) LAST FILLED #527 GM 06-22-18 Sertraline HCl 100 Mg Tablet, 150 MG PO DAILY, (Reported) LAST FILLED #45 07-14-18 TAKES 1 & 1/2 (100MG) TABLETS Sevelamer Carbonate 800 Mg Tablet, 800 MG PO TID, (Reported) Sodium Bicarbonate 650 Mg Tablet, 650 MG PO QID, (Reported) LAST FILLED #30 10-11-18 Trazodone HCl 100 Mg Tablet, 100 MG PO HS, (Reported) Patient Home Medication List Home Medication List Reviewed: Yes Past Jumkesr-Nzxhhs-Ubznhk Hx Past Med/Social Hx: Reviewed Nursing Past Med/Soc Hx, Reviewed and Corrections made Patient Social History Marrital Status: single Employed/Student: retired Alcohol Use: Denies Use Alcohol Beverage of Choice: Other Recreational Drug Use: No Smoking Status: Former Smoker Former Smoker, Quit: Jul 20, 1999 Type Used: Cigarettes 2nd Hand Smoke Exposure: No Physical Abuse Screen: No Sexual Abuse: No Recent Foreign Travel: No Contact w/other who traveled: No Recent Hopitalizations: No Recent Infectious Disease Expo: No Immunizations Up To Date Tetanus Booster (TDap): Unknown Pediatric: No Date of Pneumonia Vaccine: March 01, 2015 Date of Influenza Vaccine: Aug 18, 2017 Seasonal Allergies Seasonal Allergies: No Past Medical History Surgeries: Abdominal, Bladder Surgery, Breast, Cardiac, CABG, Coronary Stent, Gallbladder, Hysterectomy, Lumpectomy, Orthopedic, Vascular Surgery Currently Using CPAP: No Currently Using BIPAP: No Cardiac: Angina, Atrial Fibrillation, Cardiomyopathy, Coronary Artery Disease, Heart Attack, Heart Murmur, High Cholesterol, Hypertension, Irregular Heartbeat , Peripheral Vascular, Valvular Heart Disease Neurological: Stroke, TIA Reproductive: No Sexually Transmitted Disease: No HIV/AIDS: No Female Reproductive Disorders: Denies Genitourinary: Renal Failure, Dialysis Gastrointestinal: Gastroesophageal Reflux, Chronic Constipation, Pancreatitis, Hiatal Hernia, Gall Bladder Disease Musculoskeletal: Arthritis, Chronic Back Pain, Fractures Endocrine: Diabetes, Insulin dep Loss of Vision: Denies Hearing Impairment: Hard of Hearing Cancer: Breast Did You Recieve Any Treatments: Yes What Type of Treatment Did You: Chemotherapy, Radiation, Surgical Intervention Psychosocial: Sleep Difficulties, Anxiety, Depression History of Blood Disorders: Yes (thrombocytopenia) Adverse Reaction to Blood [place]: No Family History Alcoholism 19 FATHER Cardiovascular disease G8 BROTHER G8 SISTER Diabetes mellitus 19 FATHER 19 MOTHER G8 BROTHER G8 SISTER Gastroenteritis 19 MOTHER G8 BROTHER G8 SISTER Hypercholesterolemia 19 MOTHER G8 BROTHER G8 SISTER Hypertension 19 MOTHER G8 BROTHER G8 SISTER Kidney disease 19 MOTHER G8 BROTHER G8 SISTER Prostate cancer G8 BROTHER No Pertinent Family Hx Review of Systems Constitutional: see HPI, malaise, weakness EENTM: no symptoms reported Respiratory: no symptoms reported Cardiovascular: no symptoms reported Gastrointestinal: constipation, loss of appetite Genitourinary: no symptoms reported Musculoskeletal: back pain, joint pain Skin: no symptoms reported Psychiatric/Neurological: No Symptoms Reported All Other Systems Reviewed Negative Unless Noted: Yes Physical Exam Vital Signs Vital Signs - First Documented Capillary Refill : Less Than 3 Seconds Height, Weight, BMI Height: 5'5.00" Weight: 154lbs. 0.0oz. [id number]; 25.6 BMI Method:Stated General Appearance: No Apparent Distress, WD/WN, Chronically ill, Thin Eyes: Bilateral Eye Normal Inspection, Bilateral Eye PERRL, Bilateral Eye EOMI HEENT: PERRL/EOMI, Normal ENT Inspection, Pharynx Normal Neck: Full Range of Motion, Normal Inspection, Non Tender, Supple, Carotid Bruit Respiratory: Chest Non Tender, Lungs Clear, Normal Breath Sounds, No Accessory Muscle Use, No Respiratory Distress Cardiovascular: Regular Rate, Rhythm, No Edema, No Gallop, No JVD, Normal Peripheral Pulses, Systolic Murmur Gastrointestinal: Normal Bowel Sounds, No Organomegaly, No Pulsatile Mass, Non Tender, Soft Back: Normal Inspection, No CVA Tenderness, No Vertebral Tenderness Extremity: Normal Capillary Refill, Normal Inspection, Normal Range of Motion ( except left lower extremit due to pain), Non Tender, No Calf Tenderness, No Pedal Edema Neurologic/Psychiatric: Alert, Oriented x3, No Motor/Sensory Deficits, Normal Mood/Affect Skin: Normal Color, Warm/Dry Lymphatic: No Adenopathy Assessment/Plan Assessment and Plan Assessment: Status post left hip fracture repair by Dr. Jaramillo at [facility] on Transfusions of 8 units of blood and 4 units of platelets during acute medical admission at [facility] Chronic anemia transfusion dependent Thrombocytopenia Breast cancer with metastases receives cancer care at [facility] End-stage renal disease on hemodialysis on Friday//Friday Diabetes mellitus Severe left hip pain and spine pain due to hip fracture repair and breast cancer metastasis to the spine Splenomegaly chronic Constipation Generalized weakness Plan: Restarted all home meds Fentanyl patch Dilaudid as needed along with Percocet Constipation treatment Therapies to improve global weakness Monitor left hip pain and try to participate in therapies as much as possible to strengthen and return back to independent living at home with family support Problems: (1) Hip fracture requiring operative repair Status: Chronic (2) ESRD (end stage renal disease) on dialysis Status: Chronic (3) Diabetes mellitus Status: Chronic (4) Breast cancer metastasized to bone Status: Chronic (5) Anemia requiring transfusions Status: Chronic (6) Thrombocytopenia Status: Chronic (7) Splenomegaly Status: Chronic (8) DNR (do not resuscitate) Status: Chronic (9) Hip pain, left Status: Acute (10) Spine pain Status: Acute Admission Diagnosis Admission Status: Inpatient Order (span 2 midnights) Reason for Inpatient Admission: inpt rehab stay Clinical Quality Measures DVT/VTE Risk/Contraindication: Risk Factor Score Per Nursin RFS Level Per Nursing on Admit: 4+=Very High Problem Qualifiers (1) Hip fracture requiring operative repair: Encounter type: subsequent encounter Fracture type: closed Laterality: left Fracture healing: with routine healing Qualified Codes: S72.002D - Fracture of unspecified part of neck of left femur, subsequent encounter for closed fracture with routine healing (2) Diabetes mellitus: Diabetes mellitus type: type 2 Diabetes mellitus skilled nursing insulin use: with skilled nursing use Diabetes mellitus complication status: with kidney complications Diabetes mellitus complication detail: with chronic kidney disease Chronic kidney disease stage: on chronic dialysis Qualified Codes: E11.22 - Type 2 diabetes mellitus with diabetic chronic kidney disease; N18.6 - End stage renal disease; 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
[2018-10-27] MEDS ORDERED: NITR0.4T42 SL (13:31)
[2018-10-27] MEDS ORDERED: CARV25TA PO (13:31)
[2018-10-27] MEDS ORDERED: ASCO-262 PO (13:50)
[2018-10-27] MEDS ORDERED: CHOL5000 PO (13:50)
[2018-10-27] MEDS ORDERED: LEVO25TA5 PO (13:50)
[2018-10-27] MEDS ORDERED: DOCU-143 PO (13:50)
[2018-10-27] MEDS ORDERED: MULT-35 PO (13:50)
[2018-10-27] MEDS ORDERED: ACET-2840 PO (13:50)
[2018-10-27] MEDS ORDERED: MAGN250T13 PO (13:50)
[2018-10-27] MEDS ORDERED: OMG1KC PO (13:50)
[2018-10-27] MEDS ORDERED: FERR325T18 PO (13:50)
[2018-10-27] MEDS: MAGNESIUM OXIDE (MAG-OX)400 MG TAB PO SCH (14:14)
--- NOTE | 2018-10-27 14:18 | Physical Therapy Evaluation ---
PT Evaluation-General Medical Diagnosis Admission Date Oct 26, 2018 at 19:45 Medical Diagnosis: left CARLOS ALBERTO Onset Date: Oct 26, 2018 Therapy Diagnosis Therapy Diagnosis: impaired mobility, strength, endurance Height/Weight Height (Feet): 5 Height (Inches): 5.00 Weight (Pounds): 154 Weight (Ounces): 0.0 Precautions Precautions/Isolations: Fall Prevention, Standard Precautions Weight Bear Status Right Lower Extremity: Right Full Weight Bearing Left Lower Extremity: Left Weight Bearing/Tolerated Referral Physician: Julia Arnold DO Reason for Referral: Evaluation/Treatment Medical History Pertinent Medical History: Atrial Fib, CABG, CAD, DM, HTN, ND, PVD, Smoking Additional Medical History Past Medical History Surgeries: Abdominal, Bladder Surgery, Breast, Cardiac, CABG, Coronary Stent, Gallbladder, Hysterectomy, Lumpectomy, Orthopedic, Vascular Surgery Currently Using CPAP: No Currently Using BIPAP: No Cardiac: Angina, Atrial Fibrillation, Cardiomyopathy, Coronary Artery Disease, Heart Attack, Heart Murmur, High Cholesterol, Hypertension, Irregular Heartbeat , Peripheral Vascular, Valvular Heart Disease Neurological: Stroke, TIA Reproductive: No Sexually Transmitted Disease: No HIV/AIDS: No Female Reproductive Disorders: Denies Genitourinary: Renal Failure, Dialysis Gastrointestinal: Gastroesophageal Reflux, Chronic Constipation, Pancreatitis, Hiatal Hernia, Gall Bladder Disease Musculoskeletal: Arthritis, Chronic Back Pain, Fractures Endocrine: Diabetes, Insulin dep Loss of Vision: Denies Hearing Impairment: Hard of Hearing Cancer: Breast Did You Recieve Any Treatments: Yes What Type of Treatment Did You: Chemotherapy, Radiation, Surgical Intervention Psychosocial: Sleep Difficulties, Anxiety, Depression History of Blood Disorders: Yes (thrombocytopenia) Reviewed History: Yes Social History Home: Apartment Current Living Status: Alone Patient states she has one very small step to enter her apartment. She lives a lone but states that she always have family in and out. Prior/Core FIM Prior Level of Function Therapy Code Descriptions/Definitions Functional [place] Measure: 0=Not Assessed/NA 4=Minimal Assistance 1=Total Assistance 5=Supervision or Setup 2=Maximal Assistance 6=Modified [place] 3=Moderate Assistance 7=Complete [place] Therapy Quality Codes: 6 Independent with activity with or without an assistive device 5 Patient requires set up or clean up by helper. Patient completes activity by themselves 4 Supervision or touching assist (CGA). [place] provide cues , steadying assist 3 The helper provides less than half the effort to complete the activity 2 The helper provides more than half the effort to complete the activity 1 Dependent. The helper does all the effort to complete an activity 7 Patient refused to complete or attempt activity 9 The patient did not perform the activity before the current illness or injury 88 Not attempted due to Medical conditions or safety concerns Functional Abilities and Goals: Independent: Patient completed the activities by him/herself, with or without an assistive device, with no assistance from a helper. Needed Some Help: Patient needed partial assistance from another person to complete activities. Dependent: A helper completed the activities for the patient. Unknown: Not Applicable: Bed Mobility: 6 Transfers (B,C,W/C) (FIM): 6 Gait: 6 Stairs: 6 Indoor Mobility (Ambulation): Independent Stairs: Independent Patient used a rolling walker previously. PT Evaluation-Current Subjective Patient in wheelchair pre tx, just got back from dialysis. Patient has 10/10 low back pain and left hip pain. Nurse notified. Pt/Family Goals to be independent at home Objective Patient Orientation: Person, Place, Situation Attachments: Oxygen 2L of O2 nasal canula ROM/Strength ROM Lower Extremities WNL RLE, LLE not tested Strenght Lower Extremities 4/5 gross RLE, LLE not tested Neuromuscular (Tone, Coordination, Reflexes) NT Sensory Hearing: Functional Sensation Right Lower Extremit: Intact Sensation Left Lower Extremity: Intact Transfers Therapy Code Descriptions/Definitions Functional [place] Measure: 0=Not Assessed/NA 4=Minimal Assistance 1=Total Assistance 5=Supervision or Setup 2=Maximal Assistance 6=Modified [place] 3=Moderate Assistance 7=Complete [place] Therapy Quality Codes: 6 Independent with activity with or without an assistive device 5 Patient requires set up or clean up by helper. Patient completes activity by themselves 4 Supervision or touching assist (CGA). [place] provide cues , steadying assist 3 The helper provides less than half the effort to complete the activity 2 The helper provides more than half the effort to complete the activity 1 Dependent. The helper does all the effort to complete an activity 7 Patient refused to complete or attempt activity 9 The patient did not perform the activity before the current illness or injury 88 Not attempted due to Medical conditions or safety concerns Transfers (B, C, W/C) (FIM): 2 Scootin Rollin Roll Left to Right (QC): 2 Supine to/from Sit: 2 Sit to/from Stand: 2 bed t/f WC(FIM only if WC use): 2 Sit to Lying (QC): 2 Lying to Sitting/Side of Bed(Q: 2 Sit to Stand (QC): 2 Chair/Fai-su-Vlfmu Xfer(QC): 2 Patient requires max assist for bed mobility, max assist for supine <-> sit, max assist for sit <-> stand, max assist for transfers. Patient cannot do a car transfer at this time due to pain and fatigue. Patient is not willing to ambulate and wants to go back to bed. She is tearful and states that she is very tired from her dialysis and has 10/10 pain. Gait Does the Patient Walk?: No and Walking Goal IS indicated Wheelchair Training Does the Pt Use a Wheelchair?: Yes Wheelchair (FIM): 1 Type of Wheelchair: Manual Stairs If not tested on admit;explain not tested due to pain and fatigue, patient cannot ambulate at this time, not safe for stairs Balance Sitting Static: Normal Sitting Dynamic: Good Standing Static: Poor Standing Dynamic: Poor Assessment/Needs Patient has impaired mobility, strength, endurance. She is very fatigued from her dialysis and has 10/10 low back pain and left hip pain. Nurse is aware of her pain. Patient BTB post tx with nurse call, phone, tray, all needs met. Nursing in the room when PT leaves. Patient would be a good candidate for co- treatment due to fatigue, pain, and poor mobility. Rehab Potential: Guarded PT Short Term Goals Short Term Goals Time Frame: Nov 03, 2018 Transfers (B,C,W/C) (FIM): 4 Gait (FIM): 1 Gait Distance Comment: 20' Gait Level of Assist: 4 Gait Assistive Device: FWW PT Licensing Coordinator Goals [facility] Goals PT Licensing Coordinator Goals Time Frame: Nov 17, 2018 Transfers (B,C,W/C) (FIM): 5 Sit to Lying (QC): 4 Lying-Sitting on Side/Bed(QC): 4 Sit to Stand (QC): 4 Rollin Roll Left to Right (QC): 4 Chair/Byq-wc-Yojrt Xfer(QC): 4 Car Transfer (QC): 4 Gait (FIM): 2 Distance: 50' Walk 10 feet (QC): 4 Walk 10ft-Uneven Surface(QC): 4 Walk 50ft with 2 Turns (QC): 4 Gait Level of Assist: 5 Gait Assistive Device: FWW # of Steps: 1 1 Step (curb) (QC): 4 Stairs Level Of Assist: 4 PT Plan Problem List Problem List: Activity Tolerance, Functional Strength, Safety, Balance, Gait, Transfer, Bed Mobility, ROM Treatment/Plan Treatment Plan: Continue Plan of Care Treatment Plan: Bed Mobility, Concurrent Therapy, Education, Functional Activity [place], Functional Strength, Group Therapy, Gait, Safety, Therapeutic Exercise Treatment Duration: Nov 17, 2018 Frequency: At least 5 of 7 days/Wk (IRF) Estimated Hrs Per Day: 1.5 hours per day Patient and/or Family Agrees t: Yes Safety Risks/Education Patient Education: Transfer Techniques, Reviewed Precautions, Correct Positioning, Safety Issues Teaching Recipient: Patient Teaching Methods: Demonstration, Discussion Response to Teaching: Reinforcement Needed Discharge Recommendations Plan Patient will perform bed mobility and transfer training, balance and endurance training, functional strengthening, stair training, gait training, and education to improve functional mobility and independence at home. Therapy D/C Recommendations: Home w/ Family Support, Jail (TCU/NH) Time/GCodes Time In: 1145 Time Out: 1200 Total Billed Treatment Time: 15 Total Billed Treatment 1 visit [facility] AUDREY ALEXANDER PT Oct 27, 2018 14:18
--- NOTE | 2018-10-27 14:29 | Physical Therapy Daily Note ---
PT Daily Note-Current Subjective Patient in bed pre tx, agrees to PT, has pain of 7/10 in left hip and low back. Will be co-treating with OT this afternoon due to fatigue, pain, and poor mobility and balance. Appearance Patient BTB post tx with nurse call,phone, tray, all needs met. Mental Status Patient Orientation: Person, Place, Situation Attachments: Oxygen Transfers Therapy Code Descriptions/Definitions Functional [place] Measure: 0=Not Assessed/NA 4=Minimal Assistance 1=Total Assistance 5=Supervision or Setup 2=Maximal Assistance 6=Modified [place] 3=Moderate Assistance 7=Complete [place] Therapy Quality Codes: 6 Independent with activity with or without an assistive device 5 Patient requires set up or clean up by helper. Patient completes activity by themselves 4 Supervision or touching assist (CGA). [place] provide cues , steadying assist 3 The helper provides less than half the effort to complete the activity 2 The helper provides more than half the effort to complete the activity 1 Dependent. The helper does all the effort to complete an activity 7 Patient refused to complete or attempt activity 9 The patient did not perform the activity before the current illness or injury 88 Not attempted due to Medical conditions or safety concerns Transfers (B, C, W/C) (FIM): 2 Scootin Rollin Supine to/from Sit: 3 Sit to/from Stand: 2 Bed to/from Chair: 2 improved supine <-> sit, cues for hand placement, patient has difficulty with all mobility due to pain, she has trouble standing up completely, she slumps over the walker during transfers and doesn't turn completely before sitting. After supine to sit patient is bathed and dressed (needs to stand a couple of times for dressing of lowers) and then placed in her wheelchair and taken to the gym. She is only able to hoop coiling machine operator the parallel bars x1 for about 30 seconds and is not able to stand up completely. Weight Bearing Right Lower Extremity: Right Full Weight Bearing Left Lower Extremity: Left Weight Bearing/Tolerated Exercises Seated Therapy Exercises: Ankle pumps, Long arc quads, Hip abd/add (using pillow and YTB) Seated Reps: 15 Treatments bed mobility and transfers, bathing, dressing, LE strengthening Assessment Current Status: Fair Progress Patient improved a little with bed mobility. PT worked on bed mobility, transfers, standing, LE exercises, and assisted with bathing and dressing. OT worked on bathing, dressing UE exercises, and assisted with bed mobility and transfers. PT Short Term Goals Short Term Goals Time Frame: Nov 03, 2018 Transfers (B,C,W/C) (FIM): 4 Gait (FIM): 1 Gait Distance Comment: 20' Gait Level of Assist: 4 Gait Assistive Device: FWW PT Senior Care Goals Software Support Specialist Goals PT Senior Care Goals Time Frame: Nov 17, 2018 Transfers (B,C,W/C) (FIM): 5 Sit to Lying (QC): 4 Lying-Sitting on Side/Bed(QC): 4 Sit to Stand (QC): 4 Rollin Roll Left to Right (QC): 4 Chair/Xbq-il-Vdupu Xfer(QC): 4 Car Transfer (QC): 4 Gait (FIM): 2 Distance: 50' Walk 10 feet (QC): 4 Walk 10ft-Uneven Surface(QC): 4 Walk 50ft with 2 Turns (QC): 4 Gait Level of Assist: 5 Gait Assistive Device: FWW # of Steps: 1 1 Step (curb) (QC): 4 Stairs Level Of Assist: 4 PT Plan Problem List Problem List: Activity Tolerance, Functional Strength, Safety, Balance, Gait, Transfer, Bed Mobility, ROM Treatment/Plan Treatment Plan: Continue Plan of Care Treatment Plan: Bed Mobility, Concurrent Therapy, Education, Functional Activity [place], Functional Strength, Group Therapy, Gait, Safety, Therapeutic Exercise Treatment Duration: Nov 17, 2018 Frequency: At least 5 of 7 days/Wk (IRF) Estimated Hrs Per Day: 1.5 hours per day Patient and/or Family Agrees t: Yes Safety Risks/Education Patient Education: Transfer Techniques, Reviewed Precautions, Correct Positioning, Safety Issues Teaching Recipient: Patient Teaching Methods: Demonstration, Discussion Response to Teaching: Reinforcement Needed Time/GCodes Time In: 1300 Time Out: 1415 Total Billed Treatment Time: 75 Total Billed Treatment 1 visit EX 15' FA 60' PT/OT co-treated for the whole 75' KOURTNEYDARIN CONTEIS PT Oct 27, 2018 14:29
--- NOTE | 2018-10-27 14:44 | Occupational Therapy Eval ---
OT Evaluation-General/PLF Medical Diagnosis Admission Date Oct 26, 2018 at 19:45 Medical Diagnosis: left CARLOS ALBERTO Onset Date: Oct 26, 2018 Therapy Diagnosis Therapy Diagnosis: impaired self care skills Height/Weight Height (Feet): 5 Height (Inches): 5.00 Weight (Pounds): 154 Weight (Ounces): 0.0 Precautions Precautions/Isolations: Fall Prevention, Standard Precautions Safety Interventions: None Referral Physician: Julia Arnold DO Medical History Pertinent Medical History: Atrial Fib, CABG, CAD, DM, HTN, DC, PVD, Smoking Additional Medical History pathological fracture of thoracic vertebra, bowel surgery, CHF, CKD, GERD, hyperlipidemia, hypothyroidism, hiatal hernia, pancreatitis, breast cancer with mets, chronic back pain, arthritis, ESRD Current History Pt had left hip fracture and is now s/p CARLOS ALBERTO Reviewed History: Yes Social History Home: Apartment Current Living Status: Alone Pt states she lives alone, but has multiple family members that check on her frequently. ADL-Prior Level of Function Therapy Code Descriptions/Definitions Functional [place] Measure: 0=Not Assessed/NA 4=Minimal Assistance 1=Total Assistance 5=Supervision or Setup 2=Maximal Assistance 6=Modified [place] 3=Moderate Assistance 7=Complete [place] Therapy Quality Codes: 6 Independent with activity with or without an assistive device 5 Patient requires set up or clean up by helper. Patient completes activity by themselves 4 Supervision or touching assist (CGA). [place] provide cues , steadying assist 3 The helper provides less than half the effort to complete the activity 2 The helper provides more than half the effort to complete the activity 1 Dependent. The helper does all the effort to complete an activity 7 Patient refused to complete or attempt activity 9 The patient did not perform the activity before the current illness or injury 88 Not attempted due to Medical conditions or safety concerns Functional Abilities and Goals: Independent: Patient completed the activities by him/herself, with or without an assistive device, with no assistance from a helper. Needed Some Help: Patient needed partial assistance from another person to complete activities. Dependent: A helper completed the activities for the patient. Unknown: Not Applicable: ADL PLOF Comments Pt states she is normally independent with self care. Uses walker as needed for mobility. Also has a Hoveround she occasionally uses. DME/Equipment: Bath Chair, Tub/Shower Drive Self: No OT Current Status Subjective Pt has just returned from dialysis and reports 10/10 pain. Pt states "I don't think I can do anything right now, " and requests to return to bed. Pt states she is "very tired" from dialysis. Pt is tearful secondary to pain and fatigue. RN was notified and provided pain medication. Mental Status/Objective Patient Orientation: Person, Place Attachments: Oxygen Current Glasses/Contacts: Yes (reading glasses) Hearing Aids: No Dentures/Partials: Yes (does not have them here) Hand Dominance: Right Upper Extremity ROM Impaired bilateral shoulder ROM. Pt states she was told she needs a right total shoulder replacement, but is unable to have one Pt has decreased strength bilaterally Upper Extremity Coordination Fair ADL-Treatment ADL-Current Pt participated in UE assessment while seated in w/c. Declined ADL activity at this time secondary to fatigue and pain. Requests to return to bed. PT present after session to assist pt to bed. Will assess ADLs in future sessions as pt able to tolerate. Education OT Patient Education: Rehab process Teaching Recipient: Patient Teaching Methods: Discussion Response to Teaching: Verbalize Understanding OT Short Term Goals Short Term Goals Time Frame: Nov 03, 2018 Bathing(FIM): 3 Lower Body Dressing(FIM): 3 Toileting(FIM): 3 Toilet/Commode Transfer(FIM): 3 Additional Short Term Goals: 1-Demonstrate ADL Tasks, 2-Verbalize Understanding , 3-ImproveStrength/Alva 1=Demonstrate adherence to instructed precautions during ADL tasks. 2=Patient will verbalize/demonstrate understanding of assistive devices/ modifications for ADL. 3=Patient will improve strength/tolerance for activity to enable patient to perform ADL's. OT Egg Setter Goals Egg Setter Goals Time Frame: Nov 17, 2018 Eating (FIM): 6 Eating (QC): 6 Groomin Oral Hygiene (QC): 6 Bathing(FIM): 5 Shower/Bathe Self (QC): 4 Upper Body Dressing(FIM): 5 Upper Body Dressing (QC): 5 Lower Body Dressing(FIM): 5 Lower Body Dressing (QC): 4 On/Off Footwear (QC): 4 Toileting(FIM): 5 Toileting Hygiene (QC): 4 Toilet/Commode Transfer(FIM): 5 Toilet/Commode Transfer (QC): 4 Shower Transfer(FIM): 5 Additional Goals: 1-Demonstrate ADL Tasks, 2-Verbalize Understanding, 3- ImproveStrength/Alva 1=Demonstrate adherence to instructed precautions during ADL tasks. 2=Patient will verbalize/demonstrate understanding of assistive devices/ modifications for ADL. 3=Patient will improve strength/tolerance for activity to enable patient to perform ADL's. Goals established to promote increased functional independence and allow safe discharge plan. OT Education/Plan Problem List/Assessment Assessment: Decreased Activ Tolerance, Decreased UE Strength, Dependent Transfers, Impaired Funct Balance, Impaired I ADL's, Impaired Self-Care Skills Pt to benefit from skilled OT intervention for ADL training, transfers, strengthening, adaptive equipment training, and safety education to increase independence and allow safe discharge plan. Pt is currently limited by pain and fatigue. Discharge Recommendations Plan/Recommendations: Continue POC Treatment Plan/Plan of Care Treatment,Training & Education: Yes Patient would benefit from OT for education, treatment and training to promote independence in ADL's, mobility, safety and/or upper extremity function for ADL' s. Plan of Care: ADL Retraining, Functional Mobility, Group Exercise/Act as Ind, UE Funct Exercise/Act Treatment Duration: Nov 17, 2018 Frequency: At least 5 of 7 days/Wk (IRF) Estimated Hrs Per Day: 1.5 hours per day Agreement: Yes Rehab Potential: Guarded Time/GCodes Start Time: 11:30 Stop Time: 11:45 Total Time Billed (hr/min): 15 Billed Treatment Time 1 visit, RACHEL(15minutes) MEGAN COLBERT OT Oct 27, 2018 14:43
--- NOTE | 2018-10-27 14:52 | ST Cognitive Linguistic Eval ---
Speech Evaluation-General Medical Diagnosis left CARLOS ALBERTO Onset Date: Oct 27, 2018 Therapy Diagnosis Therapy Diagnosis: Cognitive-communication Precautions Precautions: Hip Precautions/Isolations: Fall Prevention, Standard Precautions Medical History Pertinent Medical History: Atrial Fib, CABG, CAD, DM, HTN, [place], PVD, Smoking Reviewed History: Yes Social History Current Living Status: Alone Speech PLF-Current Status Prior Level of Function Patient lived alone and was independent for her daily tasks with family support as needed. Subjective Patient pleasant and attentive during the evaluation process. Language Eval: Auditory Comprehends Simple Yes/No Ques: Functional Indent/Objects [place]: Functional Ident/Pics in [place]: Functional Follows 1-Step Commands: Functional Follows Complex Directions: Mild Follows General Conversations: Functional Language Eval: Verbal Language Completes Spontaneous Greeting: Functional Produces Auto, Serial Info: Functional Imitates Simple Words/Phrases: Functional Word Finding: Functional Requests Basic Needs: Functional States Basic Personal Info: Mild Expresses Complex Ideas: Mild Objective Cognitive Domain Attention: WNL Memory: Mild Problem Solving: Mild Executive Functions: Mild Objective Formal/Standardized Tests [facility] Cognitive/Communication Results Memory: Immediate; 3/3, Delayed 1/3 with cues, Organization/Sequencin-4 step 3/4 with repetition of directions x2, Problem Solving: Simple: 4/4, Complex ; 2/4 Oral Motor/Speech Production Within Functional Limits Impression Patient is a pleasant 73 year old female who was admitted to the ARU post hip replacement surgery. Patient was attentive throughout the evaluation process. Patient exhibits decreased memory, problem solving and sequencing deficits. Directions were repeated per patient request throughout the evaluation. Patient is recommended for skilled ST to focus on these deficits in order for her to return home safely. Communication/Social Cognition Comprehension: 4 Expression: 4 Social Interaction: 5 Problem Solvin Memory: 3 Speech Patient Assess Expression of Ideas/Wants: Exhibits (3) Understanding Verbal Content: Sometimes Understands(2) Brief Interview-Mental Status: Yes Repetition of Three Words: Three (3) Temporal Orientation: Year: Correct (3) Temporal Orientation: Month: Accurate within 5 days(2) Recall : Wear to say "Sock": Yes,after cueing (1) Recall : Color: Yes, no cue required (2) Recall : Bed: No, could not recall (0) Memory/Recall Ability: Current season, That he or she is in a hsp/hsp unit Speech Short Term Goals Short Term Goals Short Term Goals 1) Patient will be able to recall information presented with 90% or greater. 2) Patient will be able to follow 2-3 step directions independently with 90% or greater. 3) Patient will be able to complete problem solving tasks independently with 90 % or greater. Speech Mcfp Goals Mcfp Goals Patient will improve deficits to 90% or greater in order to return home safely. Speech-Plan Patient/Family Goals Patient/Family Goals: Patient plans to return home independently with family support post rehab. Treatment Plan Speech Therapy Treatment Plan: Continue Plan of Care Patient is recommended for skilled ST services to improve deficits in order to return home safely. Treatment Duration: Nov 06, 2018 Frequency: 5 times per week Estimated Hrs Per Day: .5 hour per day Rehab Potential: Guarded Barriers to Learning: Patient just had hip replacement a few days ago. Pt/Family Agrees to Plan: Yes Safety Risks/Education Teaching Recipient: Patient Teaching Methods: Discussion Response to Teaching: Verbalize Understanding Education Topics Provided: Safety within her room and POT goals. Time Speech Therapy Time In: 12:10 Speech Therapy Time Out: 12:25 Total Billed Time: 15 Billed Treatment Time 1, SPSNDCOMP INGA Fernandez Oct 27, 2018 14:52
--- NOTE | 2018-10-27 14:58 | NUR ---
K-pad (for lower back pain) to room per patient's request.
--- NOTE | 2018-10-27 15:07 | Occupational Ther Daily Note ---
OT Current Status-Daily Note Subjective Pt in bed, reports fatigue, but agrees to treatment. Pt reports pain in low back and left hip. Mental Status/Objective Therapy Code Descriptions/Definitions Functional [place] Measure: 0=Not Assessed/NA 4=Minimal Assistance 1=Total Assistance 5=Supervision or Setup 2=Maximal Assistance 6=Modified [place] 3=Moderate Assistance 7=Complete [place] Attachments: Oxygen ADL-Treatment Co-treat with PT secondary to fatigue, pain, and poor mobility. Pt supine to sit with maximal assistance. Pt completed sponge bath while seated EOB. Pt able to bathe upper body with set up. Requires assist for lower body bathing. Sit to stand with max assist to wash buttocks. Pt doffed/donned pullover shirt with SBA. Pt unable to reach feet secondary to hip precautions. Will require adaptive equipment for LE ADLs. Pt able to state 1/3 hip precautions. Pt dependent for lower body dressing. Pt has decreased standing balance with FWW during pant hike. Total assist to doff/don socks. Pt combed hair with set up while seated EOB. Pt moves slowly and fatigues with activity. Requires rest breaks throughout ADL completion. Transfer to w/c with maximal assistance. To therapy gym via w/c. Pt stood once in parallel bars. Pt has flexed posture that she was unable to correct. Pt fatigues quickly. Pt performed UE AROM exercises x10 reps to tolerance. Pt has impaired shoulder ROM bilaterally. Bilateral hand bingo worker exercises x15 reps with therapy foam to increase bingo worker strength. Pt returned to room, transferred to bed with max assist. Sit to supine with assist for LE. Assist to scoot to HOB. Pt resting in bed with needs met after session. Co-treat with PT. OT focusing on ADL completion, UE management/exercise, and safety. PT focusing on mobility, standing balance, and LE management. Therapy Code Descriptions/Definitions Functional [place] Measure: 0=Not Assessed/NA 4=Minimal Assistance 1=Total Assistance 5=Supervision or Setup 2=Maximal Assistance 6=Modified [place] 3=Moderate Assistance 7=Complete [place] Therapy Quality Codes: 6 Independent with activity with or without an assistive device 5 Patient requires set up or clean up by helper. Patient completes activity by themselves 4 Supervision or touching assist (CGA). [place] provide cues , steadying assist 3 The helper provides less than half the effort to complete the activity 2 The helper provides more than half the effort to complete the activity 1 Dependent. The helper does all the effort to complete an activity 7 Patient refused to complete or attempt activity 9 The patient did not perform the activity before the current illness or injury 88 Not attempted due to Medical conditions or safety concerns Grooming (FIM): 5 Bathing (FIM): 2 Shower/Bathe Self (QC): 2 Upper Body (FIM): 5 Upper Body Dressing (QC): 4 Lower Body Dressing (FIM): 1 Lower Body Dressing (QC): 1 On/Off Footwear (QC): 1 Education OT Patient Education: Rehab process Teaching Recipient: Patient Teaching Methods: Discussion Response to Teaching: Verbalize Understanding, Reinforcement Needed OT Short Term Goals Short Term Goals Time Frame: Nov 03, 2018 Bathing(FIM): 3 Lower Body Dressing(FIM): 3 Toileting(FIM): 3 Toilet/Commode Transfer(FIM): 3 Additional Short Term Goals: 1-Demonstrate ADL Tasks, 2-Verbalize Understanding , 3-ImproveStrength/Alva 1=Demonstrate adherence to instructed precautions during ADL tasks. 2=Patient will verbalize/demonstrate understanding of assistive devices/ modifications for ADL. 3=Patient will improve strength/tolerance for activity to enable patient to perform ADL's. OT Halfway Goals Patent Engineer Goals Time Frame: Nov 17, 2018 Eating (FIM): 6 Eating (QC): 6 Groomin Oral Hygiene (QC): 6 Bathing(FIM): 5 Shower/Bathe Self (QC): 4 Upper Body Dressing(FIM): 5 Upper Body Dressing (QC): 5 Lower Body Dressing(FIM): 5 Lower Body Dressing (QC): 4 On/Off Footwear (QC): 4 Toileting(FIM): 5 Toileting Hygiene (QC): 4 Toilet/Commode Transfer(FIM): 5 Toilet/Commode Transfer (QC): 4 Shower Transfer(FIM): 5 Additional Goals: 1-Demonstrate ADL Tasks, 2-Verbalize Understanding, 3- ImproveStrength/Alva 1=Demonstrate adherence to instructed precautions during ADL tasks. 2=Patient will verbalize/demonstrate understanding of assistive devices/ modifications for ADL. 3=Patient will improve strength/tolerance for activity to enable patient to perform ADL's. OT Education/Plan Discharge Recommendations Plan/Recommendations: Continue POC Treatment Plan/Plan of Care Patient would benefit from OT for education, treatment and training to promote independence in ADL's, mobility, safety and/or upper extremity function for ADL' s. Plan of Care: ADL Retraining, Functional Mobility, Group Exercise/Act as Ind, UE Funct Exercise/Act Treatment Duration: Nov 17, 2018 Frequency: At least 5 of 7 days/Wk (IRF) Estimated Hrs Per Day: 1.5 hours per day Agreement: Yes Rehab Potential: Guarded Time/GCodes Start Time: 13:00 Stop Time: 14:15 Total Time Billed (hr/min): 75 Billed Treatment Time 1 visit, ADLx3(45minutes), FA(15minutes), EX(15minutes) MEGAN COLBERT OT Oct 27, 2018 15:07
--- NOTE | 2018-10-27 16:08 | NUR ---
UPDATED MED REC TO THE LIST OF MEDICATIONS THE PATIENT WAS TAKING PRIOR TO ADMISSION TO [facility] USING A MED LIST SENT OVER FROM [facility] WELL THE DISCHARGE ORDERS FROM [facility]. NOTE THE FOLLOWING CHANGES WERE MADE WHEN THE [facility] THAT ARE NOT CURRENTLY REFLECTED ON THE HOME MED REC: START TAKING: FENTANYL Q 3DAYS (DOSE UNCLEAR) AMLODIPINE 2.5MG DAILY COREG 3.125MG BID HUMALOG 4 UNITS AC MIRALAX 17GM DAILY CHANGE HOW YOU TAKE: IRON 325MG - CHANGE FROM DAILY TO EVERY OTHER DAY LANTUS - DECREASE FROM 22 UNITS HS TO 12 UNITS HS ZOLOFT 100MG - DECREASE FROM 150MG EVENING TO 100MG DAILY STOP TAKING: AMLODIPINE 10MG DAILY MTV DAILY COREG 25MG BID FISH OIL DAILY AMIODARONE 400MG DAILY (WAS PRESCRIBED 400MG FRI-, OFF WEEKENDS) HYDROCODONE 10-325MG 2 Q6H PRN FENTANYL 100MCG Q72H DOXYCYCLINE 100MG BID (SHORT TERM MED FILLED #14 10-11-18) NOTE THE FOLLOWING MEDICATIONS WERE FILLED AT [facility] DIFFERENTLY THAN WHAT [facility] HAD CONTINUED. I UPDATED THE MED REC WITH THE DIRECTIONS FROM [facility]: 10-11-18 SODIUM BICARB QID #30 ([facility] HAD IT TID) 09-02-18 HYDROMORPHONE 4MG Q4H PRN #120 ([facility] HAD IT 1 DAILY PRN) 06-22-18 AMIODARONE 200MG 2 TABS MON-FRI OFF ON WEEKENDS ([facility] HAD 2 TABS DAILY) IN ADDITION [facility] FILLED DAILYVITE DAILY #30 10-11-18 THAT WAS NOT ON THE LIST FROM [facility], I ADDED IT TO THE MED REC. THE PATIENT WAS PAST DUE FOR REFILLS ON THE FOLLOWING MEDS AT [facility]: 07-14-18 SERTRALINE 100MG -1.5 TABS DAILY #45 06-25-18 CARVEDILOL 25MG BID #180 06-22-18 MIRALAX POWDER DAILY #527 06-22-18 ATORVASTATIN 40MG DAILY #90 18 PROTONIX 40MG DAILY #90 06-22-18 AMIODARONE 200MG 2 TABS MON-FRI OFF ON WEEKENDS #90 18 FUROSEMIDE 40MG DAILY #30 18 LEVOTHYROXINE 25MCG DAILY #30 HUMALOG AND LANTUS WERE NOT ON FILE RECENTLY AT [facility]. SEE LIST ON CHART FOR FULL REFILL LIST FROM [facility].
[2018-10-27] MEDS: ALPRAZolam 0.5 MG (XANAX) TAB PO PRN (16:48)
[2018-10-27 18:06] VITALS: BP 117/60
--- NOTE | 2018-10-27 19:24 | NUR ---
bedside report received from DONTA SERRANO, assume care of pt
[2018-10-27 20:55] VITALS: BP 108/63
[2018-10-27] MEDS: traZODone 100 MG (DESYREL) TAB PO SCH (21:00)
--- NOTE | 2018-10-27 21:00 | NUR ---
assessments & INTERVENTIONS COMPLETED, SEE ASSESSMENTS & INTERVENTIONS, FSBS 91 GIVEN HS SNACK
[2018-10-27] MEDS: inSUlin DETERMIR 1 UNIT/0.01 ML (LEVEMIR) CHARGE PER UNIT SQ SCH (21:03)
[2018-10-28] MEDS: ALPRAZolam 0.5 MG (XANAX) TAB PO PRN ×2 (02:26→18:02)
[2018-10-28] MEDS: ACETAMINOPHEN 325 MG TABLET PO PRN (02:28)
--- NOTE | 2018-10-28 02:28 | NUR ---
c/o pain to back level 8/10 on numeric scale & anxiety, Tylenol 650mg & Xanax 0.5mg po given
--- NOTE | 2018-10-28 03:05 | NUR ---
resting quietly in bed, pain level 0/10 on flacc scale
[2018-10-28 05:38] VITALS: BP 94/60
[2018-10-28] MEDS: oxyCODONE/APAP 5/325MG (PERCOCET 5) TABLET PO PRN ×2 (05:38→18:02)
--- NOTE | 2018-10-28 05:38 | NUR ---
c/o pain to back & knees pain level 8/10 on numeric scale, Percocet 5/325 1 tab po given
[2018-10-28] MEDS: inSUlin ASPART (NovoLOG) 1 UNIT/0.01 ML (CHARGE PER UNIT) SC SCH ×7 (06:00→20:55)
--- NOTE | 2018-10-28 06:14 | NUR ---
resting quietly in bed, pain level 0/10 on flacc scale
[2018-10-28] MEDS: SEVELAMER CARBONATE 800 MG TAB (RENVELA) NON-FORMULARY PO SCH ×3 (06:48→18:29)
[2018-10-28] MEDS: LEVOTHYROXINE 25 MCG (LEVOTHROID) TAB PO SCH (06:48)
--- NOTE | 2018-10-28 07:18 | NUR ---
bedside report given to DONTA SERRANO
--- NOTE | 2018-10-28 08:16 | PM&R H&P / Post Admit Assess ---
History of Present Illness Date of Admission Date of Admission Oct 26, 2018 at 19:45 TIMESEEN 0800 Chief Complaint/HPI Chief Complaint is a 73 year old White female with complaints of: Left hip pain Left spine pain Fatigue Desperately wants to go home HPI CC: Left hip fracture with disability HPI: This is a 73-year-old white female clinic patient of Dr. 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 Jaramillo at [facility]. Apparently she had a recent thoracic compression fracture was discharged and then fell and suffered a left hip fracture so that was repaired uncomplicated on 10/17/18. She had a long hospital course at [facility] which included increased pain and anemia and underwent a full gastrointestinal evaluation with endoscopy that revealed no acute GI bleed. She does have splenomegaly and she always has chronic thrombocytopenia. She did have an incisional hematoma and required a total of 8 units of blood with 4 platelets during the hospital stay. Hemoglobin at discharge was 8.6. She is DO NOT RESUSCITATE and DO NOT INTUBATE but has refused palliative care in the past. Fentanyl patch was thought to have been 25 mcg but that was noted to be incorrect so we increased that to 100 mcg and that has obtained better pain control. Dilaudid can be used once daily and I have added Percocet. Constipation will be an issue so the nurses will aggressively treat that. She does receive breast cancer treatment every 3 weeks. Past Ezlysop-Dsitlk-Smcajt Hx Past Med/Social Hx: Reviewed Nursing Past Med/Soc Hx, Reviewed and Corrections made Patient Social History Marrital Status: single Employed/Student: retired Alcohol Use: Denies Use Alcohol Beverage of Choice: Other Recreational Drug Use: No Smoking Status: Former Smoker Former Smoker, Quit: Jul 20, 1999 Type Used: Cigarettes 2nd Hand Smoke Exposure: No Physical Abuse Screen: No Sexual Abuse: No Recent Foreign Travel: No Contact w/other who traveled: No Recent Hopitalizations: No Recent Infectious Disease Expo: No Immunizations Up To Date Tetanus Booster (TDap): Unknown Pediatric: No Date of Pneumonia Vaccine: March 01, 2015 Date of Influenza Vaccine: Aug 18, 2017 Seasonal Allergies Seasonal Allergies: No Past Medical History Surgeries: Abdominal, Bladder Surgery, Breast, Cardiac, CABG, Coronary Stent, Gallbladder, Hysterectomy, Lumpectomy, Orthopedic, Vascular Surgery Currently Using CPAP: No Currently Using BIPAP: No Cardiac: Angina, Atrial Fibrillation, Cardiomyopathy, Coronary Artery Disease, Heart Attack, Heart Murmur, High Cholesterol, Hypertension, Irregular Heartbeat , Peripheral Vascular, Valvular Heart Disease Neurological: Stroke, TIA Reproductive: No Sexually Transmitted Disease: No HIV/AIDS: No Female Reproductive Disorders: Denies Genitourinary: Renal Failure, Dialysis Gastrointestinal: Gastroesophageal Reflux, Chronic Constipation, Pancreatitis, Hiatal Hernia, Gall Bladder Disease Musculoskeletal: Arthritis, Chronic Back Pain, Fractures Endocrine: Diabetes, Insulin dep Loss of Vision: Denies Hearing Impairment: Hard of Hearing Cancer: Breast Did You Recieve Any Treatments: Yes What Type of Treatment Did You: Chemotherapy, Radiation, Surgical Intervention Psychosocial: Sleep Difficulties, Anxiety, Depression History of Blood Disorders: Yes (thrombocytopenia) Adverse Reaction to Blood Hayden: No Family History Alcoholism 19 FATHER Cardiovascular disease G8 BROTHER G8 SISTER Diabetes mellitus 19 FATHER 19 MOTHER G8 BROTHER G8 SISTER Gastroenteritis 19 MOTHER G8 BROTHER G8 SISTER Hypercholesterolemia 19 MOTHER G8 BROTHER G8 SISTER Hypertension 19 MOTHER G8 BROTHER G8 SISTER Kidney disease 19 MOTHER G8 BROTHER G8 SISTER Prostate cancer G8 BROTHER No Pertinent Family Hx Home Medications & Allergies Home Medications Reviewed patient Home Medication Reconciliation performed by pharmacy medication reconciliations digital field service technician and/or nursing. Patients Allergies have been reviewed. Allergies Allergies Coded Allergies TUYET Inhibitors (Unverified Allergy, Unknown, 03/03/15) due to creatinine level ARB-Angiotensin Receptor Antagonist (Unverified Allergy, Unknown, 03/03/15) meloxicam (Verified Allergy, Unknown, 09/05/06) ROS Review of Systems General: Fatigue Musculoskeletal: back pain, leg pain Exam Exam Vital Signs Vital Signs Date Time Temp Pulse Resp B/P (MAP) Pulse Ox O2 Delivery O2 Flow Rate FiO2 10/28/18 05:38 98.4 75 18 94/60 (71) 96 Nasal Cannula 2.00 Capillary Refill : Less Than 3 Seconds General: Alert Results Lab Laboratory Tests 10/26/18 21:36: Glucometer 185H 10/27/18 05:01: Glucometer 127H 10/27/18 11:43: Glucometer 177H 10/27/18 16:05: Glucometer 120H 10/27/18 20:51: Glucometer 91 10/28/18 05:37: Glucometer 96 Assessment/Plan Impression/Dx/Plan Problems/Dx: (1) Hip fracture requiring operative repair Status: Chronic Qualifiers: Qualified Codes: S72.002D - Fracture of unspecified part of neck of left femur, subsequent encounter for closed fracture with routine healing (2) ESRD (end stage renal disease) on dialysis Status: Chronic (3) Diabetes mellitus Status: Chronic Qualifiers: Qualified Codes: E11.22 - Type 2 diabetes mellitus with diabetic chronic kidney disease; N18.6 - End stage renal disease; Z79.4 - terminal makeup operator (current) use of insulin; Z99.2 - Dependence on renal dialysis (4) Breast cancer metastasized to bone Status: Chronic Qualifiers: Qualified Codes: C50.919 - Malignant neoplasm of unspecified site of unspecified female breast; C79.51 - Secondary malignant neoplasm of bone (5) Anemia requiring transfusions Status: Chronic (6) Thrombocytopenia Status: Chronic (7) Splenomegaly Status: Chronic (8) DNR (do not resuscitate) Status: Chronic (9) Hip pain, left Status: Acute (10) Spine pain Status: Acute SERINA JENKINS DO Oct 28, 2018 08:16
--- NOTE | 2018-10-28 08:17 | PM&R Progress Note ---
Subjective HPI/CC On Admission Date Seen by Provider: Oct 28, 2018 Time Seen by Provider: 08:00 Subjective/Events-last exam Patient doing better It appears that the fentanyl patch at 100 mcg has provided enough pain relief along with the Dilaudid 4 mg IV in addition to the Percocet Had a large BM yesterday Checked with dialysis center to see how often they check labs and how often they need us to check labs and they reported complet labs once a month and once a week electrolytes. They do not provide any transfusion services so she needs a transfusion that will need to be timed with hemodialysis Received 8 units of blood when she was at [place] from incisional hematoma of the left hip since she did have entire GI endoscopy that was normal Incision has been evaluated by the nurse and it is in good condition and that will remain in place for 2 weeks Physical therapy reports that the transfers are max assist and needs cues but pain is limiting factor Overall functional activity is deficient and occupational therapy reports that she declined a shower but did facilitate and perform most of her own sponge bath with adaptive equipment used Speech therapy says cognition and likely dementia with poor recall limits optimization of therapy Daughter Linda is involved in her care Dr. Alcantara at [facility] manages her breast cancer with metastasis She is moving to a new apartment and we are right by her sister Review of Systems General: Fatigue Musculoskeletal: leg pain Objective Exam Vital Signs Vital Signs Date Time Temp Pulse Resp B/P (MAP) Pulse Ox O2 Delivery O2 Flow Rate FiO2 10/28/18 17:59 97.2 78 18 117/67 (84) 98 Nasal Cannula 2.00 Capillary Refill : Less Than 3 Seconds General Appearance: No Apparent Distress, WD/WN, Chronically ill Respiratory: Chest Non Tender, Lungs Clear, Normal Breath Sounds, No Accessory Muscle Use, No Respiratory Distress Cardiovascular: Regular Rate, Rhythm, No Edema, No Gallop, No JVD, Normal Peripheral Pulses, Systolic Murmur Neurologic/Psychiatric: Alert, Oriented x3, No Motor/Sensory Deficits, Normal Mood/Affect Skin: Normal Color, Warm/Dry Results/Procedures Lab Patient resulted labs reviewed. Assessment/Plan Assessment and Plan Assess & Plan/Chief Complaint Assessment: Left hip fracture 10/17/18 status post uncomplicated repair with incisional hematoma received 8 units of blood and 4 units of platelets while at [facility] End-stage renal disease on hemodialysis Friday//Friday Poor memory recall could complicate discharge planning Severe pain due to left leg pain and spine pain Breast cancer with metastasis Atrial fibrillation Valvular heart disease Diabetes mellitus Plan: Check labs in the morning at 4 AM before she leaves for dialysis Monitor electrolytes May need transfusion if hemoglobin requires it Diagnosis/Problems Diagnosis/Problems (1) Hip fracture requiring operative repair Status: Chronic Qualifiers: Encounter type: subsequent encounter Fracture type: closed Laterality: left Fracture healing: with routine healing Qualified Codes: S72.002D - Fracture of unspecified part of neck of left femur, subsequent encounter for closed fracture with routine healing (2) ESRD (end stage renal disease) on dialysis Status: Chronic (3) Diabetes mellitus Status: Chronic Qualifiers: Diabetes mellitus type: type 2 Diabetes mellitus long-term insulin use: with long-term use Diabetes mellitus complication status: with kidney complications Diabetes mellitus complication detail: with chronic kidney disease Chronic kidney disease stage: on chronic dialysis Qualified Codes: E11.22 - Type 2 diabetes mellitus with diabetic chronic kidney disease; N18.6 - End stage renal disease; Z79.4 - intermediate project manager (current) use of insulin; Z99.2 - Dependence on renal dialysis (4) Breast cancer metastasized to bone Status: Chronic Qualifiers: Laterality: unspecified laterality Qualified Codes: C50.919 - Malignant neoplasm of unspecified site of unspecified female breast; C79.51 - Secondary malignant neoplasm of bone (5) Anemia requiring transfusions Status: Chronic (6) Thrombocytopenia Status: Chronic (7) Splenomegaly Status: Chronic (8) DNR (do not resuscitate) Status: Chronic (9) Hip pain, left Status: Acute (10) Spine pain Status: Acute Clinical Quality Measures Admission Status Admission Dx Assessment: Status post left hip fracture repair by Dr. Jaramillo at [facility] on Transfusions of 8 units of blood and 4 units of platelets during acute medical admission at [place] Chronic anemia transfusion dependent Thrombocytopenia Breast cancer with metastases receives cancer care at [facility] End-stage renal disease on hemodialysis on Friday//Friday Diabetes mellitus Severe left hip pain and spine pain due to hip fracture repair and breast cancer metastasis to the spine Splenomegaly chronic Constipation Generalized weakness Plan: Restarted all home meds Fentanyl patch Dilaudid as needed along with Percocet Constipation treatment Therapies to improve global weakness Monitor left hip pain and try to participate in therapies as much as possible to strengthen and return back to independent living at home with family support DVT/VTE Risk/Contraindication: Risk Factor Score Per Nursin RFS Level Per Nursing on Admit: 4+=Very High SERINA JENKINS DO Oct 28, 2018 08:17
[2018-10-28] MEDS: MAGNESIUM OXIDE (MAG-OX)400 MG TAB PO SCH (08:39)
[2018-10-28] MEDS: SERTRALINE 100 MG (ZOLOFT) TAB PO SCH (08:40)
[2018-10-28] MEDS: SODIUM BICARBONATE 650 MG TABLET (NON-FORMULARY) PO SCH ×3 (08:40→20:38)
[2018-10-28] MEDS: PANTOPRAZOLE 40 MG (PROTONIX) TAB PO SCH (08:40)
[2018-10-28] MEDS: ASCORBIC ACID (VIT C) 500 MG TABLET PO SCH (08:40)
[2018-10-28] MEDS: FUROSEMIDE 40 MG (LASIX) TAB PO SCH (08:40)
[2018-10-28] MEDS: ATORVASTATIN 40 MG (LIPITOR) TABLET PO SCH (08:41)
[2018-10-28] MEDS: DOCUSATE SODIUM 100 MG (COLACE) CAP PO PRN (08:41)
[2018-10-28] MEDS: CARVEDILOL 3.125 MG (COREG) TABLET PO SCH ×2 (08:42→20:38)
[2018-10-28] MEDS: amLODIPine 2.5MG (NORVASC) TAB PO SCH (08:42)
[2018-10-28] MEDS: VITAMIN D3 5,000 UNITS (CHOLECALCIFEROL ) CAPSULE PO SCH (08:44)
[2018-10-28 08:46] VITALS: BP 104/63
[2018-10-28] MEDS: POLYETHYLENE GLYCOL 17 GM (MIRALAX) PACK PO SCH (08:46)
--- NOTE | 2018-10-28 09:28 | Occupational Ther Daily Note ---
OT Current Status-Daily Note Subjective Pt in bed, agrees to therapy. Pt states she has 10/10 pain in low back and left hip. RN present and aware. Mental Status/Objective Therapy Code Descriptions/Definitions Functional [place] Measure: 0=Not Assessed/NA 4=Minimal Assistance 1=Total Assistance 5=Supervision or Setup 2=Maximal Assistance 6=Modified [place] 3=Moderate Assistance 7=Complete [place] Attachments: Oxygen ADL-Treatment Pt declined shower today, but would like a sponge bath. Supine to sit with moderate assistance and increased time. Sponge bath completed seated EOB. Pt doffed shirt with minimal assistance. Upper body bathing completed with SBA and increased time. Don shirt with set up. Pt able to wash bilateral upper legs and thomas area. Requires assist to wash lower legs/feet and buttocks. Reviewed hip precautions. Pt able to state 2/3 precautions. Instruction provided regarding use of adaptive equipment for LE dressing. Pt used pararescue craftsman to start underwear and shorts over feet. Pt sit to stand with moderate assistance. Assist required to pull underwear and pants over hips. Don socks with minimal assistance using sock aid. Pt fatigues with activity and requires occasional rest breaks throughout bathing and dressing. Sit to stand from raised bed and transfer to w/ c with moderate assistance and cues for safety. Pt moves very slowly and requires increased time for mobility. Grooming tasks completed seated in w/c. Pt combed hair and completed oral care with SBA. Pt sitting in w/c with needs met after session. Therapy Code Descriptions/Definitions Functional [place] Measure: 0=Not Assessed/NA 4=Minimal Assistance 1=Total Assistance 5=Supervision or Setup 2=Maximal Assistance 6=Modified [place] 3=Moderate Assistance 7=Complete [place] Therapy Quality Codes: 6 Independent with activity with or without an assistive device 5 Patient requires set up or clean up by helper. Patient completes activity by themselves 4 Supervision or touching assist (CGA). [place] provide cues , steadying assist 3 The helper provides less than half the effort to complete the activity 2 The helper provides more than half the effort to complete the activity 1 Dependent. The helper does all the effort to complete an activity 7 Patient refused to complete or attempt activity 9 The patient did not perform the activity before the current illness or injury 88 Not attempted due to Medical conditions or safety concerns Grooming (FIM): 5 Oral Hygiene (QC): 4 Bathing (FIM): 3 Bathing Location: L Arm, R Arm, L Upper Leg, R Upper Leg, Chest, Abdomen, Perineal Area Shower/Bathe Self (QC): 3 Upper Body (FIM): 4 Upper Body Dressing (QC): 5 Lower Body Dressing (FIM): 4 Lower Body Dressing (QC): 2 On/Off Footwear (QC): 2 Education OT Patient Education: Modified ADL techniques Teaching Recipient: Patient Teaching Methods: Demonstration, Discussion Response to Teaching: Return Demonstration, Reinforcement Needed OT Short Term Goals Short Term Goals Time Frame: Nov 03, 2018 Bathing(FIM): 3 Lower Body Dressing(FIM): 3 Toileting(FIM): 3 Toilet/Commode Transfer(FIM): 3 Additional Short Term Goals: 1-Demonstrate ADL Tasks, 2-Verbalize Understanding , 3-ImproveStrength/Alva 1=Demonstrate adherence to instructed precautions during ADL tasks. 2=Patient will verbalize/demonstrate understanding of assistive devices/ modifications for ADL. 3=Patient will improve strength/tolerance for activity to enable patient to perform ADL's. OT Supervisor Power Reactor Goals Shelter Goals Time Frame: Nov 17, 2018 Eating (FIM): 6 Eating (QC): 6 Groomin Oral Hygiene (QC): 6 Bathing(FIM): 5 Shower/Bathe Self (QC): 4 Upper Body Dressing(FIM): 5 Upper Body Dressing (QC): 5 Lower Body Dressing(FIM): 5 Lower Body Dressing (QC): 4 On/Off Footwear (QC): 4 Toileting(FIM): 5 Toileting Hygiene (QC): 4 Toilet/Commode Transfer(FIM): 5 Toilet/Commode Transfer (QC): 4 Shower Transfer(FIM): 5 Additional Goals: 1-Demonstrate ADL Tasks, 2-Verbalize Understanding, 3- ImproveStrength/Alva 1=Demonstrate adherence to instructed precautions during ADL tasks. 2=Patient will verbalize/demonstrate understanding of assistive devices/ modifications for ADL. 3=Patient will improve strength/tolerance for activity to enable patient to perform ADL's. OT Education/Plan Discharge Recommendations Plan/Recommendations: Continue POC Treatment Plan/Plan of Care Patient would benefit from OT for education, treatment and training to promote independence in ADL's, mobility, safety and/or upper extremity function for ADL' s. Plan of Care: ADL Retraining, Functional Mobility, Group Exercise/Act as Ind, UE Funct Exercise/Act Treatment Duration: Nov 17, 2018 Frequency: At least 5 of 7 days/Wk (IRF) Estimated Hrs Per Day: 1.5 hours per day Agreement: Yes Rehab Potential: Guarded Time/GCodes Start Time: 08:00 Stop Time: 09:15 Total Time Billed (hr/min): 75 Billed Treatment Time 1 visit, ADLx5(75minutes) MEGAN COLBERT OT Oct 28, 2018 09:28
--- NOTE | 2018-10-28 10:46 | Physical Therapy Daily Note ---
PT Daily Note-Current Subjective Pt sitting in [facility] upon arrival. Pt agrees to PT reluctantly. Pt reports feeling very tired and pain is 10/10 in L knee & hip. Pt agrees with encouragement. Pain Numeric Pain Scale: 10-Worst Possible Pain Location: Left Location Body Site: Hip Pain Description: Ache, Tightness Comment: Pain in L hip that radiates down through L knee. Mental Status Patient Orientation: Person, Place, Situation Attachments: Oxygen Transfers Therapy Code Descriptions/Definitions Functional [place] Measure: 0=Not Assessed/NA 4=Minimal Assistance 1=Total Assistance 5=Supervision or Setup 2=Maximal Assistance 6=Modified [place] 3=Moderate Assistance 7=Complete [place] Therapy Quality Codes: 6 Independent with activity with or without an assistive device 5 Patient requires set up or clean up by helper. Patient completes activity by themselves 4 Supervision or touching assist (CGA). [place] provide cues , steadying assist 3 The helper provides less than half the effort to complete the activity 2 The helper provides more than half the effort to complete the activity 1 Dependent. The helper does all the effort to complete an activity 7 Patient refused to complete or attempt activity 9 The patient did not perform the activity before the current illness or injury 88 Not attempted due to Medical conditions or safety concerns Sit to/from Stand: 2 Sit to Stand (QC): 2 Weight Bearing Right Lower Extremity: Right Full Weight Bearing Left Lower Extremity: Left Weight Bearing/Tolerated Exercises Seated Therapy Exercises: Ankle pumps, Sit to stand, Long arc quads, Hip flexion, Kicking activity Seated Reps: 15 Treatments COOK SHIP gives pt education over benefits of PT in relationship to recovery. Pt discusses home situation and day to day life regularly. Pain medication and management is also discussed. Pt completes Seated Ex in [facility] with rest breaks as needed. Pt attempts Sit to Stand from [facility] using FWW. Pt reports pain and fatigue and requests siting back in [facility]. Pt resting at end of tx with all needs met. Assessment Current Status: Fair Progress Pt is limited by fatigue and pain. PT Short Term Goals Short Term Goals Time Frame: Nov 03, 2018 Gait (FIM): 1 Gait Distance Comment: 20' Gait Level of Assist: 4 Gait Assistive Device: FWW PT Residential Goals Road Freight Brake Coupler Goals PT Residential Goals Time Frame: Nov 17, 2018 Transfers (B,C,W/C) (FIM): 5 Sit to Lying (QC): 4 Lying-Sitting on Side/Bed(QC): 4 Sit to Stand (QC): 4 Rollin Roll Left to Right (QC): 4 Chair/Yjl-zy-Inopu Xfer(QC): 4 Car Transfer (QC): 4 Gait (FIM): 2 Distance: 50' Walk 10 feet (QC): 4 Walk 10ft-Uneven Surface(QC): 4 Walk 50ft with 2 Turns (QC): 4 Gait Level of Assist: 5 Gait Assistive Device: FWW # of Steps: 1 1 Step (curb) (QC): 4 Stairs Level Of Assist: 4 PT Plan Problem List Problem List: Activity Tolerance, Functional Strength, Safety, Balance, Gait, Transfer Treatment/Plan Treatment Plan: Continue Plan of Care Treatment Plan: Bed Mobility, Concurrent Therapy, Education, Functional Activity Alva, Functional Strength, Group Therapy, Gait, Safety, Therapeutic Exercise Treatment Duration: Nov 17, 2018 Frequency: At least 5 of 7 days/Wk (IRF) Estimated Hrs Per Day: 1.5 hours per day Patient and/or Family Agrees t: Yes Safety Risks/Education Patient Education: Transfer Techniques, Correct Positioning, Safety Issues Teaching Recipient: Patient Teaching Methods: Discussion Response to Teaching: Verbalize Understanding Time/GCodes Time In: 930 Time Out: 1030 Total Billed Treatment Time: 60 Total Billed Treatment 1, EX x2 (30m) & FA x2 (30m) G Codes Necessary: YAS Lomeli COOK SHIP Oct 28, 2018 10:46
--- NOTE | 2018-10-28 11:12 | Speech Therapy Daily Note ---
Speech Daily Progress Note Subjective Date Seen by Provider: Oct 28, 2018 Time Seen by Provider: 00:30 Patient was sitting in her wheelchair. She was in pain due to her leg being so swollen today. Objective Patient completed memory tasks related to herself with minimal cues. Assessment Assessment Current Status: Good Progress Treatment Plan Continue Plan of Care Communication Comprehension: 4 Expression: 4 Social Cognition Social Interaction: 5 Problem Solvin Memory: 3 Speech Short Term Goals Short Term Goals Short Term Goals 1) Patient will be able to recall information presented with 90% or greater. 2) Patient will be able to follow 2-3 step directions independently with 90% or greater. 3) Patient will be able to complete problem solving tasks independently with 90 % or greater. Speech Mcc Goals Mcc Goals Patient will improve deficits to 90% or greater in order to return home safely. Speech-Plan Patient/Family Goals Patient/Family Goals: Patient plans to return home in her independent apartment with family close by for support. Treatment Plan Speech Therapy Treatment Plan: Continue Plan of Care Patient is progressing due to receiving skilled ST services. Treatment Duration: Nov 06, 2018 Frequency: 5 times per week Estimated Hrs Per Day: .5 hour per day Rehab Potential: Guarded Barriers to Learning: Patient is experiencing a lot of pain and swelling. Pt/Family Agrees to Plan: Yes Safety Risks/Education Teaching Recipient: Patient Teaching Methods: Discussion Response to Teaching: Verbalize Understanding Education Topics Provided: Safety within her room and communication of her wants and needs. Time Speech Therapy Time In: 10:30 Speech Therapy Time Out: 11:00 Total Billed Time: 30 Billed Treatment Time [address] Oct 28, 2018 11:12
[2018-10-28] MEDS: HYDROmorphone (DILAUDID) 4 MG TAB PO PRN (12:08)
--- NOTE | 2018-10-28 13:11 | NUR ---
Pt is Rastafarian. Wrapper Hands Sprayer provided prayer and Communion.
--- NOTE | 2018-10-28 14:29 | Physical Therapy Daily Note ---
PT Daily Note-Current Subjective Pt sitting in [facility] in room upon arrival. Pt agrees to PT. Pain Numeric Pain Scale: 10-Worst Possible Pain Location: Left Location Body Site: Hip Pain Description: Ache, Tightness Mental Status Patient Orientation: Person, Place, Situation Attachments: Oxygen Transfers Therapy Code Descriptions/Definitions Functional [place] Measure: 0=Not Assessed/NA 4=Minimal Assistance 1=Total Assistance 5=Supervision or Setup 2=Maximal Assistance 6=Modified [place] 3=Moderate Assistance 7=Complete [place] Therapy Quality Codes: 6 Independent with activity with or without an assistive device 5 Patient requires set up or clean up by helper. Patient completes activity by themselves 4 Supervision or touching assist (CGA). Keymar provide cues , steadying assist 3 The helper provides less than half the effort to complete the activity 2 The helper provides more than half the effort to complete the activity 1 Dependent. The helper does all the effort to complete an activity 7 Patient refused to complete or attempt activity 9 The patient did not perform the activity before the current illness or injury 88 Not attempted due to Medical conditions or safety concerns Scootin Rollin Roll Left to Right (QC): 3 Supine to/from Sit: 3 Sit to/from Stand: 3 Sit to Lying (QC): 3 Sit to Stand (QC): 3 Chair/Omu-hw-Gqphp Xfer(QC): 3 Bed to/from Chair: 3 Weight Bearing Right Lower Extremity: Right Full Weight Bearing Left Lower Extremity: Left Weight Bearing/Tolerated Exercises Supine Ex: Heel Slides, Scooting, Hip abd/add Supine Reps: 10 Seated Therapy Exercises: Sit to stand Treatments Pt completes sit to stand from [facility] using SPT, transfers to EOB. Pt transfers to Supine in bed with assistance from TONGUE AND GROOVE MACHINE SETTER for lifting BLE into bed. TONGUE AND GROOVE MACHINE SETTER assists for positioning. Pt completes limited Supine Ex in bed due to discomfort. Pt rests at end of tx with all needs met. Assessment Current Status: Fair Progress Pt continues to be limited by pain and fatigue. PT Short Term Goals Short Term Goals Time Frame: Nov 03, 2018 Gait (FIM): 1 Gait Distance Comment: 20' Gait Level of Assist: 4 Gait Assistive Device: FWW PT Any Commodity Sales Deliverer Goals Detention Goals PT Detention Goals Time Frame: Nov 17, 2018 Transfers (B,C,W/C) (FIM): 5 Sit to Lying (QC): 4 Lying-Sitting on Side/Bed(QC): 4 Sit to Stand (QC): 4 Rollin Roll Left to Right (QC): 4 Chair/Rmj-eq-Dlwoo Xfer(QC): 4 Car Transfer (QC): 4 Gait (FIM): 2 Distance: 50' Walk 10 feet (QC): 4 Walk 10ft-Uneven Surface(QC): 4 Walk 50ft with 2 Turns (QC): 4 Gait Level of Assist: 5 Gait Assistive Device: FWW # of Steps: 1 1 Step (curb) (QC): 4 Stairs Level Of Assist: 4 PT Plan Problem List Problem List: Activity Tolerance, Functional Strength, Safety, Balance, Gait, Transfer, Bed Mobility Treatment/Plan Treatment Plan: Continue Plan of Care Treatment Plan: Bed Mobility, Concurrent Therapy, Education, Functional Activity Alva, Functional Strength, Group Therapy, Gait, Safety, Therapeutic Exercise Treatment Duration: Nov 17, 2018 Frequency: At least 5 of 7 days/Wk (IRF) Estimated Hrs Per Day: 1.5 hours per day Patient and/or Family Agrees t: Yes Safety Risks/Education Patient Education: Transfer Techniques, Correct Positioning, Safety Issues Teaching Recipient: Patient Teaching Methods: Discussion Response to Teaching: Verbalize Understanding Time/GCodes Time In: 1330 Time Out: 1400 Total Billed Treatment Time: 30 Total Billed Treatment 1, FA (20m) & EX (10m) G Codes Necessary: YAS Lomeli PTA Oct 28, 2018 14:29
--- NOTE | 2018-10-28 14:30 | Occupational Ther Daily Note ---
OT Current Status-Daily Note Subjective Pt sitting in w/c, reports fatigue, but agrees to therapy. Pt reports left hip pain. RN states she recently had pain medication. Mental Status/Objective Therapy Code Descriptions/Definitions Functional [place] Measure: 0=Not Assessed/NA 4=Minimal Assistance 1=Total Assistance 5=Supervision or Setup 2=Maximal Assistance 6=Modified [place] 3=Moderate Assistance 7=Complete [place] Attachments: Oxygen ADL-Treatment Therapy Code Descriptions/Definitions Functional [place] Measure: 0=Not Assessed/NA 4=Minimal Assistance 1=Total Assistance 5=Supervision or Setup 2=Maximal Assistance 6=Modified [place] 3=Moderate Assistance 7=Complete [place] Therapy Quality Codes: 6 Independent with activity with or without an assistive device 5 Patient requires set up or clean up by helper. Patient completes activity by themselves 4 Supervision or touching assist (CGA). [place] provide cues , steadying assist 3 The helper provides less than half the effort to complete the activity 2 The helper provides more than half the effort to complete the activity 1 Dependent. The helper does all the effort to complete an activity 7 Patient refused to complete or attempt activity 9 The patient did not perform the activity before the current illness or injury 88 Not attempted due to Medical conditions or safety concerns Other Treatment Pt completed bilateral UE activity to increase strength and activity tolerance needed for functional task completion. Pt performed shoulder AROM to tolerance and elbow and wrist flex/ext exercises x20 reps with dowel milka. Rest breaks between exercises. Pt completed bilateral hand manager registration exercises x20 reps with moderate resistance therapy foam to increase manager registration strength. Pt completed putty activity with bilateral hands to increase strength and coordination/ manipulation skills. Pt able to remove small beads from putty with increased time. Pt sitting in w/c with needs met after session. OT Short Term Goals Short Term Goals Time Frame: Nov 03, 2018 Bathing(FIM): 3 Lower Body Dressing(FIM): 3 Toileting(FIM): 3 Toilet/Commode Transfer(FIM): 3 Additional Short Term Goals: 1-Demonstrate ADL Tasks, 2-Verbalize Understanding , 3-ImproveStrength/[place] 1=Demonstrate adherence to instructed precautions during ADL tasks. 2=Patient will verbalize/demonstrate understanding of assistive devices/ modifications for ADL. 3=Patient will improve strength/tolerance for activity to enable patient to perform ADL's. OT Half-Way Goals Half-Way Goals Time Frame: Nov 17, 2018 Eating (FIM): 6 Eating (QC): 6 Groomin Oral Hygiene (QC): 6 Bathing(FIM): 5 Shower/Bathe Self (QC): 4 Upper Body Dressing(FIM): 5 Upper Body Dressing (QC): 5 Lower Body Dressing(FIM): 5 Lower Body Dressing (QC): 4 On/Off Footwear (QC): 4 Toileting(FIM): 5 Toileting Hygiene (QC): 4 Toilet/Commode Transfer(FIM): 5 Toilet/Commode Transfer (QC): 4 Shower Transfer(FIM): 5 Additional Goals: 1-Demonstrate ADL Tasks, 2-Verbalize Understanding, 3- ImproveStrength/[place]va 1=Demonstrate adherence to instructed precautions during ADL tasks. 2=Patient will verbalize/demonstrate understanding of assistive devices/ modifications for ADL. 3=Patient will improve strength/tolerance for activity to enable patient to perform ADL's. OT Education/Plan Discharge Recommendations Plan/Recommendations: Continue POC Treatment Plan/Plan of Care Patient would benefit from OT for education, treatment and training to promote independence in ADL's, mobility, safety and/or upper extremity function for ADL' s. Plan of Care: ADL Retraining, Functional Mobility, Group Exercise/Act as Ind, UE Funct Exercise/Act Treatment Duration: Nov 17, 2018 Frequency: At least 5 of 7 days/Wk (IRF) Estimated Hrs Per Day: 1.5 hours per day Agreement: Yes Rehab Potential: Guarded Time/GCodes Start Time: 13:00 Stop Time: 13:30 Total Time Billed (hr/min): 30 Billed Treatment Time 1 visit, EXx2(30minutes) MEGAN COLBERT OT Oct 28, 2018 14:30
--- NOTE | 2018-10-28 16:03 | NUR ---
Team Conference Discussed team conference with patient. Recommendation is to recheck patient's medical and functional progress in one week. Patient verbalizes understanding and is in agreement with plan.
[2018-10-28 17:59] VITALS: BP 117/67
--- NOTE | 2018-10-28 18:00 | NUR ---
Breakfast and lunch for tomorrow ordered for patient to be delivered tonight and stored in patient refrigerator. This will enable patient to eat before dialysis and take lunch.
[2018-10-28] MEDS: FERROUS SULF 325 MG (IRON) TAB PO SCH (20:38)
[2018-10-28] MEDS: inSUlin DETERMIR 1 UNIT/0.01 ML (LEVEMIR) CHARGE PER UNIT SQ SCH (20:38)
[2018-10-28] MEDS: traZODone 100 MG (DESYREL) TAB PO SCH (20:38)
--- NOTE | 2018-10-28 21:04 | PM&R Post Admission Assessment ---
Post Admission Physician Asses Date seen by provider: Oct 28, 2018 Time seen by provider: 08:00 Admisison Dx: (1) Hip fracture requiring operative repair Status: Chronic (2) ESRD (end stage renal disease) on dialysis Status: Chronic (3) Diabetes mellitus Status: Chronic (4) Breast cancer metastasized to bone Status: Chronic (5) Anemia requiring transfusions Status: Chronic (6) Thrombocytopenia Status: Chronic (7) Splenomegaly Status: Chronic (8) DNR (do not resuscitate) Status: Chronic (9) Hip pain, left Status: Acute (10) Spine pain Status: Acute The preadmission screen agrees with the post admission assessment that the patient is a good candidate for inpatient rehabilitation. The patient will have a comprehensive program of inpatient rehabilitation with a goal of maximizing level of functional independence prior to discharge home with [family]. The patient will have PT/OT ninety minutes per day, each discipline, five days a week for gait, strengthening, conditioning, balance, ADLs, any patient/family/caregiver training as necessary. Speech therapy to do cognitive assessment and treat as indicated. Rehabilitation nursing to assist with bowel, bladder, skin, wound care, medication administration, pain management. Alto Singer to assist with discharge planning, community reentry. SCD's for DVT prophylaxis. She appears to be well motivated to participate in three hours of therapy a day. She should be able to tolerate three hours of therapy a day from a medical standpoint. She should benefit from the three hours of therapy a day. She has a reasonable discharge plan, reasonable discharge rehabilitation goals and a supportive family. She has various comorbidities that need to be closely monitored with medications and treatments adjusted on a daily basis as needed. These include: see above list Barriers to discharge for this patient who had been independent prior to this are for her to be modified independent to supervision for ADLs and mobility skills prior to discharge home with [family], so as to lessen the burden of the caregivers. Risks for this patient include: 1. Fall 2. Fracture 3. DVT 4. Pulmonary embolism 5. Wound infection 6. Skin breakdown 7. Contractures 8. Poorly controlled pain 9. Urinary retention 10. UTI 11. Respiratory infection 12. Aspiration Estimated Length of Stay: [14]days Prognosis: Rehab prognosis appears good for goal of discharge home with [family ] modified independent to supervision for ADLs and mobility skills. General: Alert, Oriented X3, Cooperative HEENT: Atraumatic, PERRLA Neck: Supple, No JVD Lungs: Clear to Auscultation Heart: Regular Rate, Normal S1, Normal S2, Other (murmur) Abdomen: Normal Bowel Sounds, Soft Extremities: No Clubbing, No Cyanosis Skin: No Rashes, No Breakdown, Other (dressing intact left hip incision for 2 weeks from 10/17/18 surgery) Neuro: Other (globally weak all extremities but left leg limited due to pain left hip fracture) Psych/Mental Status: Mental Status NL, Other (poor recall) SERINA JENKINS DO Oct 28, 2018 21:04
[2018-10-29] MEDS: LEVOTHYROXINE 25 MCG (LEVOTHROID) TAB PO SCH (04:35)
[2018-10-29] MEDS: SEVELAMER CARBONATE 800 MG TAB (RENVELA) NON-FORMULARY PO SCH ×3 (04:35→17:07)
[2018-10-29 04:37] LABS: BASOPHILS % (AUTO) 1 % (0-10); EOSINOPHILS # (AUTO) 0.2 10^3/uL (0.0-0.3); EOSINOPHILS % (AUTO) 4 % (0-10); HEMATOCRIT 26 % (35-52); HEMOGLOBIN 8.2 G/DL (11.5-16.0); LYMPHOCYTES # (AUTO) 0.6 X 10^3 (1.0-4.0); LYMPHOCYTES % (AUTO) 15 % (12-44); MEAN CORPUSCULAR HEMOGLOBIN 31 PG (25-34); MEAN CORPUSCULAR HGB CONC 31 G/DL (32-36); MEAN CORPUSCULAR VOLUME 98 FL (80-99); MEAN PLATELET VOLUME 9.5 FL (7.4-10.4); MONOCYTES # (AUTO) 0.5 X 10^3 (0.0-1.0); MONOCYTES % (AUTO) 12 % (0-12); NEUTROPHILS # (AUTO) 2.8 X 10^3 (1.8-7.8); NEUTROPHILS % (AUTO) 69 % (42-75); PLATELET COUNT 79 10^3/uL (130-400); RED BLOOD COUNT 2.67 10^6/uL (4.35-5.85); RED CELL DISTRIBUTION WIDTH 17.6 % (10.0-14.5); WHITE BLOOD COUNT 4.1 10^3/uL (4.3-11.0)
[2018-10-29] MEDS: inSUlin ASPART (NovoLOG) 1 UNIT/0.01 ML (CHARGE PER UNIT) SC SCH ×7 (05:01→20:30)
[2018-10-29 05:03] VITALS: BP 132/77
[2018-10-29 05:12] LABS: ALBUMIN 2.8 GM/DL (3.2-4.5); BILIRUBIN,TOTAL 0.9 MG/DL (0.1-1.0); CALCIUM 8.8 MG/DL (8.5-10.1); CREATININE SERUM 3.93 MG/DL (0.60-1.30); POTASSIUM 4.9 MMOL/L (3.6-5.0); TOTAL PROTEIN 4.9 GM/DL (6.4-8.2)
[2018-10-29] MEDS: ALPRAZolam 0.5 MG (XANAX) TAB PO PRN ×2 (05:18→19:42)
[2018-10-29] MEDS: oxyCODONE/APAP 5/325MG (PERCOCET 5) TABLET PO PRN (05:18)
--- NOTE | 2018-10-29 05:20 | NUR ---
Patient left with Technical Instructor Course Developer's recycler forklift driver truck driver to go to dialysis.
[2018-10-29] MEDS: SODIUM BICARBONATE 650 MG TABLET (NON-FORMULARY) PO SCH ×3 (09:00→20:25)
--- NOTE | 2018-10-29 09:17 | PM&R Progress Note ---
Subjective This was a face to face visit with the patient. Date Seen by Provider: Oct 29, 2018 Time Seen by Provider: 11:45 Subjective/Events-last exam Patient was seen in her room after she arrived back to the unit from dialysis Pain continues to be an issue and that is what was told to me by the [place] physician since she requires so much pain medication due to breast cancer metastases to the spine in addition to the left hip fracture that that will limit her recovery potential We will monitor bowel function closely due to high risk for narcotic bowel Eating and drinking well Cognition seems to be an issue and if she returns to independent living will need to be very aware of additional support that she will need No shortness of breath Therapies will proceed on as ordered but slow recovery due to the severity of the pain intermingled with breast cancer bone metastasis pain Review of Systems General: Fatigue Musculoskeletal: arm pain, leg pain Objective Physician Exam Last Set of Vital Signs Vital Signs Date Time Temp Pulse Resp B/P (MAP) Pulse Ox O2 Delivery O2 Flow Rate FiO2 10/29/18 05:03 97.7 78 18 132/77 (95) 96 Nasal Cannula 2.00 Capillary Refill : Less Than 3 Seconds I&O Intake and Output 10/29/18 00:00 Intake Total 850 ml Balance 850 ml Intake Oral 850 ml General: Alert, Oriented X3, Cooperative HEENT: Atraumatic, PERRLA Neck: Supple, No JVD Lungs: Clear to Auscultation Heart: Regular Rate, Normal S1, Normal S2, Other (murmur) Abdomen: Normal Bowel Sounds, Soft Extremities: No Clubbing, No Cyanosis Skin: No Rashes, No Breakdown, Other (dressing intact left hip incision for 2 weeks from 10/17/18 surgery) Neuro: Other (globally weak all extremities but left leg limited due to pain left hip fracture) Psych/Mental Status: Mental Status NL, Other (poor recall) Results Lab Data Laboratory Tests 10/26/18 21:36: Glucometer 185H 10/27/18 05:01: Glucometer 127H 10/27/18 11:43: Glucometer 177H 10/27/18 16:05: Glucometer 120H 10/27/18 20:51: Glucometer 91 10/28/18 05:37: Glucometer 96 10/28/18 11:03: Glucometer 135H 10/28/18 16:53: Glucometer 119H 10/28/18 20:55: Glucometer 112H 10/29/18 04:29: Glucometer 72 10/29/18 04:30: White Blood Count 4.1L, Red Blood Count 2.67L, Hemoglobin 8.2L, Hematocrit 26L, Mean Corpuscular Volume 98, Mean Corpuscular Hemoglobin 31, Mean Corpuscular Hemoglobin Concent 31L, Red Cell Distribution Width 17.6H, Platelet Count 79L, Mean Platelet Volume 9.5, Neutrophils (%) (Auto) 69, Lymphocytes (%) (Auto) 15, Monocytes (%) (Auto) 12, Eosinophils (%) (Auto) 4, Basophils (%) (Auto) 1, Neutrophils # (Auto) 2.8, Lymphocytes # (Auto) 0.6L, Monocytes # (Auto) 0.5, Eosinophils # (Auto) 0.2, Basophils # (Auto) 0.0, Sodium Level 138, Potassium Level 4.9, Chloride Level 94L, Carbon Dioxide Level 33H, Anion Gap 11, Blood Urea Nitrogen 51H, Creatinine 3.93H, Estimat Glomerular Filtration Rate 11, BUN/ Creatinine Ratio 13, Glucose Level 73, Calcium Level 8.8, Corrected Calcium 9.8 , Total Bilirubin 0.9, Aspartate Amino Transf (AST/SGOT) 22, Alanine Aminotransferase (ALT/SGPT) 8, Alkaline Phosphatase 231H, Total Protein 4.9L, Albumin 2.8L 10/29/18 05:15: Glucometer 76 Current Funtional Status Continue therapies Increase pain medication with frequency and dose Pain is limiting factor due to breast cancer metastasis to the spine in addition to the left hip fracture Cognition is a concern we will need to further evaluate what her support system is a discharge in order to even contemplate independent living Considering all of her medical issues with end-stage renal disease and breast cancer with metastasis and cognitive deficit she may end up requiring long term placement Assessment/Plan Assessment and Plan (1) Hip fracture requiring operative repair Qualifiers: Qualified Codes: S72.002D - Fracture of unspecified part of neck of left femur, subsequent encounter for closed fracture with routine healing Status: Chronic (2) ESRD (end stage renal disease) on dialysis Status: Chronic (3) Diabetes mellitus Qualifiers: Qualified Codes: E11.22 - Type 2 diabetes mellitus with diabetic chronic kidney disease; N18.6 - End stage renal disease; Z79.4 - care home (current) use of insulin; Z99.2 - Dependence on renal dialysis Status: Chronic (4) Breast cancer metastasized to bone Qualifiers: Qualified Codes: C50.919 - Malignant neoplasm of unspecified site of unspecified female breast; C79.51 - Secondary malignant neoplasm of bone Status: Chronic (5) Anemia requiring transfusions Status: Chronic (6) Thrombocytopenia Status: Chronic (7) Splenomegaly Status: Chronic (8) DNR (do not resuscitate) Status: Chronic (9) Hip pain, left Status: Acute (10) Spine pain Status: Acute Co-Morbidities that are continuing to impact the rehab process: (include details ) SERINA JENKINS DO Oct 29, 2018 09:17
--- NOTE | 2018-10-29 09:20 | Individualized Plan of Care ---
Individualized Plan of Care Rehab Nursing IPOC Order Admission Date Oct 26, 2018 at 19:45 Current Orders Orders Ambulate ,, (10/26/18 20:04) Sequential Compression Device (10/26/18 20:04) Dvt/Vte Risk - Notifiy Physici 08 (10/26/18 20:04) Oxycodone/Apap 5/325mg Tablet (Percocet (10/26/18 20:15) Ondansetron Oral Dissolve Tab (Zofran O (10/26/18 20:15) Carvedilol Tablet (Coreg Tablet) (10/26/18 21:00) Insulin Aspart (Novolog) (Novolog (Charg (10/26/18 21:00) Admission-Acute Rehab Unit (10/26/18 20:11) Trazodone Tablet (Desyrel Tablet) (10/26/18 21:00) Sodium Bicarbonate Tablet (Nf) (Sodium B (10/26/18 21:00) Sevelamer (Non-Formulary) (Renvela (Non- (10/27/18 07:00) Insulin Determir (Per Unit) (Levemir (Pe (10/26/18 21:00) Oxycodone/Apap 5/325mg Tablet (Percocet (10/26/18 20:21) Amlodipine Tablet (Norvasc Tablet) (10/27/18 09:00) Insulin Aspart (Novolog) (Novolog (Charg (10/27/18 07:00) Polyethylene Glycol Powder Pkt (Miralax (10/27/18 09:00) Alprazolam Tablet (Xanax Tablet) (10/26/18 20:45) Pantoprazole Tablet (Protonix Tablet) (10/27/18 09:00) Ascorbic Acid Tablet (Vitamin C Tablet) (10/27/18 09:00) Docusate Sodium Capsule (Colace Capsule) (10/26/18 20:45) Levothyroxine Tablet (Synthroid Tablet) (10/27/18 06:30) Magnesium Oxide Tablet (Mag Ox Tablet) (10/27/18 09:00) Atorvastatin Tablet (Lipitor) (10/27/18 09:00) Cholecalciferol Capsule/Tablet (Vitamin (10/27/18 09:00) Nitroglycerin 0.4 Mg Btl 25's (Nitrostat (10/26/18 20:45) Acetaminophen Tablet/Caplet (Tylenol T (10/26/18 20:45) Furosemide Tablet (Lasix Tablet) (10/27/18 09:00) Hydromorphone Tablet (Dilaudid Tablet) (10/26/18 20:45) Ferrous Sulfate Tablet (Feosol Tablet) (10/26/18 20:45) Sertraline Tablet (Zoloft Tablet) (10/27/18 09:00) Code/Resuscitation (10/26/18 21:28) Pt Evaluate/Treat Request (10/26/18 23:55) Weight Bearing Status (10/26/18 23:55) Request Ot Evaluate & Treat (10/26/18 23:55) Request Speech/Language Servic (10/26/18 23:55) Rt Request For Service (10/27/18 00:59) Sodium 2g (2000 Mg) (10/27/18 Lunch) Low Phosphorus (10/27/18 Lunch) Protein 40-50 Grams (10/27/18 Lunch) Sodium 2g (2000 Mg) (10/27/18 Breakfast) Fentanyl Patch (Duragesic Patch) (10/27/18 11:00) Patch Removal (Patch Removal) (10/27/18 10:59) Patient Visit (10/27/18 ) Speech Sound Lang Comp (10/27/18 ) Magnesium Oxide Tablet (Mag Ox Tablet) (10/27/18 12:45) Patient Visit (10/27/18 ) Pt Eval High Complexity (10/27/18 ) Exercise Therap, Ea 15 Min (10/27/18 ) Functional Activities, Ea 15 (10/27/18 ) Sodium 2g (2000 Mg) (10/28/18 Lunch) Patient Visit (10/28/18 ) Exercise Therap, Ea 15 Min (10/28/18 ) Functional Activities, Ea 15 (10/28/18 ) Cbc With Automated Diff (10/29/18 04:00) Comprehensive Metabolic Panel (10/29/18 04:00) Patient Visit (10/28/18 ) Treat. Speech/Lang/Voice (10/28/18 ) Intensity of Therapy to be met Patient to be seen: 15 hrs over 7 cons. days PT IPOC Problem List: Activity Tolerance, Functional Strength, Safety, Balance, Gait, Transfer, Bed Mobility Treatment Plan: Continue Plan of Care Bed Mobility, Concurrent Therapy, Education, Functional Activity [place], Functional Strength, Group Therapy, Gait, Safety, Therapeutic Exercise Treatment Duration: Nov 17, 2018 Frequency: At least 5 of 7 days/Wk (IRF) Estimated Hrs Per Day: 1.5 hours per day OT IPOC Problems: Decreased Activ Tolerance, Decreased UE Strength, Dependent Transfers , Impaired Funct Balance, Impaired I ADL's, Impaired Self-Care Skills OT Treatment, Training and Edu: Yes Plan of Care: ADL Retraining, Functional Mobility, Group Exercise/Act as Ind, UE Funct Exercise/Act Treatment Duration: Nov 17, 2018 Frequency: At least 5 of 7 days/Wk (IRF) Estimated Hrs Per Day: 1.[address] IPOC Speech Therapy Treatment Plan: Continue Plan of Care Treatment Duration: Nov 06, 2018 Frequency: 5 times per week Estimated Hrs Per Day: .5 hour per day Dietitian/Vice President Financial Dietitian/Vice President Financial to monitor nutritional status and make changes and/or recommendations as needed and work with speech pathology on dietary upgrades as the occur. Physician IPOC Medical Issues being managed closely and that require the 24 hour availability of a physician: Medical Issues: DVT Prophylaxis, Fluid/Electrolyte/Nutrition Balance, Infection Protection, Pain Management, Weight Bearing Precautions, Wound Care Brief Synthesis of Preadmission Screen, Post-Admission Evaluation, and Therapy Evaluations: Left hip fracture repaired on 10/17/18 has led to severe pain and increased pain medication to handle therapy Breast cancer with metastasis to the spine gives rise to chronic pain limiting therapy Slow progress especially given hemodialysis 3 times weekly interrupting therapies routine schedule Questionable support status at home once discharge Cognition seems to be an issue also possibly interrupting therapies expected results Medical Prognosis: Fair Anticipated Length of Stay: 14 days SERINA JENKINS DO Oct 29, 2018 09:19
--- NOTE | 2018-10-29 11:45 | NUR ---
RETURNED FROM DIALYSIS. ASSISTED TO BED. COMPLAIN LIGHTHEADED. BP 94/57, HR 91. O2 CANNULA WAS ON WHEN BROUGHT BACK TO ROOM, BUT PORTABLE O2 TANK WAS TURNED OFF. RA SAT 76%. O2 TURNED ON TO 4L AND THEN DOWN TO 2L WHEN SAT WAS MAINTAINED AT 97%. DR. JENKINS HERE TO SEE PATIENT AND INFORMED OF HYPOTENSION. NORVASC AND COREG HELD. LASIX WILL BE HELD ON DIALYSIS DAYS. ALSO INFORMED DR. JENKINS OF POOR PAIN CONTROL. PERCOCET DOSE INCREASED.
[2018-10-29] MEDS: ASCORBIC ACID (VIT C) 500 MG TABLET PO SCH (11:47)
[2018-10-29] MEDS: VITAMIN D3 5,000 UNITS (CHOLECALCIFEROL ) CAPSULE PO SCH (11:47)
[2018-10-29] MEDS: SERTRALINE 100 MG (ZOLOFT) TAB PO SCH (11:48)
[2018-10-29] MEDS: POLYETHYLENE GLYCOL 17 GM (MIRALAX) PACK PO SCH (11:48)
[2018-10-29] MEDS: ATORVASTATIN 40 MG (LIPITOR) TABLET PO SCH (11:48)
[2018-10-29] MEDS: PANTOPRAZOLE 40 MG (PROTONIX) TAB PO SCH (11:48)
[2018-10-29] MEDS: MAGNESIUM OXIDE (MAG-OX)400 MG TAB PO SCH (11:49)
[2018-10-29] MEDS: HYDROmorphone (DILAUDID) 4 MG TAB PO PRN (11:49)
[2018-10-29] MEDS: CARVEDILOL 3.125 MG (COREG) TABLET PO SCH ×2 (11:53→20:25)
[2018-10-29] MEDS: amLODIPine 2.5MG (NORVASC) TAB PO SCH (11:54)
--- NOTE | 2018-10-29 11:58 | Occupational Ther Daily Note ---
OT Current Status-Daily Note Subjective Pt alert, sitting in w/c. Pt just returning from dialysis. Agrees to therapy. C/o pain rated 10/10, reported to nrsg. Nrsg administered meds. Pt did have OT tubing on and canister showed 2 L on, rick was not turned on no O2 was coming through tubing. O2 sat levels at 76, 4L O2 started to increase sat levels, nrsg notified. When levels returned to 90 and above turned O2 back to 2L. Mental Status/Objective Patient Orientation: Person, Place, Time, Situation Therapy Code Descriptions/Definitions Functional [place] Measure: 0=Not Assessed/NA 4=Minimal Assistance 1=Total Assistance 5=Supervision or Setup 2=Maximal Assistance 6=Modified [place] 3=Moderate Assistance 7=Complete [place] Attachments: Oxygen ADL-Treatment Therapy Code Descriptions/Definitions Functional [place] Measure: 0=Not Assessed/NA 4=Minimal Assistance 1=Total Assistance 5=Supervision or Setup 2=Maximal Assistance 6=Modified [place] 3=Moderate Assistance 7=Complete [place] Therapy Quality Codes: 6 Independent with activity with or without an assistive device 5 Patient requires set up or clean up by helper. Patient completes activity by themselves 4 Supervision or touching assist (CGA). [place] provide cues , steadying assist 3 The helper provides less than half the effort to complete the activity 2 The helper provides more than half the effort to complete the activity 1 Dependent. The helper does all the effort to complete an activity 7 Patient refused to complete or attempt activity 9 The patient did not perform the activity before the current illness or injury 88 Not attempted due to Medical conditions or safety concerns Other Treatment OT/PT co-treat for skilled care due to pt's activity tolerance and mobility, increased pain. PT worked on transfers. OT worked on upper body dressing. Assist x2 to transfer into bed due to pain and decreased mobility. Pt required assist to doff robe and adjust shorts in bed. EGG GATHERER took over care in room. Pt lying in bed with call light/phone in reach. All needs met in room. OT Short Term Goals Short Term Goals Time Frame: Nov 03, 2018 Bathing(FIM): 3 Lower Body Dressing(FIM): 3 Toileting(FIM): 3 Toilet/Commode Transfer(FIM): 3 Additional Short Term Goals: 1-Demonstrate ADL Tasks, 2-Verbalize Understanding , 3-ImproveStrength/Alva 1=Demonstrate adherence to instructed precautions during ADL tasks. 2=Patient will verbalize/demonstrate understanding of assistive devices/ modifications for ADL. 3=Patient will improve strength/tolerance for activity to enable patient to perform ADL's. OT Promotions Team Leader Goals Alf Goals Time Frame: Nov 17, 2018 Eating (FIM): 6 Eating (QC): 6 Groomin Oral Hygiene (QC): 6 Bathing(FIM): 5 Shower/Bathe Self (QC): 4 Upper Body Dressing(FIM): 5 Upper Body Dressing (QC): 5 Lower Body Dressing(FIM): 5 Lower Body Dressing (QC): 4 On/Off Footwear (QC): 4 Toileting(FIM): 5 Toileting Hygiene (QC): 4 Toilet/Commode Transfer(FIM): 5 Toilet/Commode Transfer (QC): 4 Shower Transfer(FIM): 5 Additional Goals: 1-Demonstrate ADL Tasks, 2-Verbalize Understanding, 3- ImproveStrength/Alva 1=Demonstrate adherence to instructed precautions during ADL tasks. 2=Patient will verbalize/demonstrate understanding of assistive devices/ modifications for ADL. 3=Patient will improve strength/tolerance for activity to enable patient to perform ADL's. OT Education/Plan Discharge Recommendations Plan/Recommendations: Continue POC Treatment Plan/Plan of Care Patient would benefit from OT for education, treatment and training to promote independence in ADL's, mobility, safety and/or upper extremity function for ADL' s. Plan of Care: ADL Retraining, Functional Mobility, Group Exercise/Act as Ind, UE Funct Exercise/Act Treatment Duration: Nov 17, 2018 Frequency: At least 5 of 7 days/Wk (IRF) Estimated Hrs Per Day: 1.5 hours per day Agreement: Yes Rehab Potential: Guarded Time/GCodes Start Time: 11:30 Stop Time: 11:45 Total Time Billed (hr/min): 15 Billed Treatment Time 1 visit-FA 1 (15 min) co-treat 15 min with PT JESSICA GHOSH Oct 29, 2018 11:58
--- NOTE | 2018-10-29 12:06 | Physical Therapy Daily Note ---
PT Daily Note-Current Subjective Pt arriving from Dialysis upon arrival. Pt agrees to co-treat w/PT & OT due to fatigue and pain after tx. Pain Numeric Pain Scale: 10-Worst Possible Pain Location: Left Location Body Site: Hip Pain Description: Ache Mental Status Patient Orientation: Person, Place, Situation Attachments: Oxygen (2L ) Transfers Therapy Code Descriptions/Definitions Functional [place] Measure: 0=Not Assessed/NA 4=Minimal Assistance 1=Total Assistance 5=Supervision or Setup 2=Maximal Assistance 6=Modified [place] 3=Moderate Assistance 7=Complete [place] Therapy Quality Codes: 6 Independent with activity with or without an assistive device 5 Patient requires set up or clean up by helper. Patient completes activity by themselves 4 Supervision or touching assist (CGA). [place] provide cues , steadying assist 3 The helper provides less than half the effort to complete the activity 2 The helper provides more than half the effort to complete the activity 1 Dependent. The helper does all the effort to complete an activity 7 Patient refused to complete or attempt activity 9 The patient did not perform the activity before the current illness or injury 88 Not attempted due to Medical conditions or safety concerns Scootin Supine to/from Sit: 3 Sit to/from Stand: 1 Sit to Lying (QC): 3 Sit to Stand (QC): 1 Weight Bearing Right Lower Extremity: Right Full Weight Bearing Left Lower Extremity: Left Weight Bearing/Tolerated Wheelchair Training Does the Pt Use a Wheelchair?: Yes Wheelchair Distance: 3=150 ft Distance: 500' Wheelchair Level of Assist: 1 Type of Wheelchair: Manual Treatments Pt in [facility] arriving back from Dialysis upon arrival. Pt is propelled in [facility] to ARU. Pt is transferred from [facility] to B at Dep. x2. Pt transfers to Supine in bed with HOB raised. C/o pain rated 10/10, reported to nrsg. Nrsg administered meds. Pt did have O2 tubing on and canister showed 2 L on, rick was not turned on no O2 was coming through tubing. O2 sat levels at 76, 4L O2 started to increase sat levels, nrsg notified. Since O2 low, PT/OT encourage pt on Pursed Lip breathing and when levels returned to 90 and above turned O2 back to 2L. ST arrives at end of tx. OT/PT co-treat for skilled care due to pt's activity tolerance and mobility, increased pain. PT worked on transfers. OT worked on upper body dressing. Assist x2 to transfer into bed due to pain and decreased mobility. Assessment Current Status: Fair Progress Pt fatigues easily and needs rest to recover. PT Short Term Goals Short Term Goals Time Frame: Nov 03, 2018 Gait (FIM): 1 Gait Distance Comment: 20' Gait Level of Assist: 4 Gait Assistive Device: FWW PT Tele Marketing Executive Goals Tele Marketing Executive Goals PT Tele Marketing Executive Goals Time Frame: Nov 17, 2018 Transfers (B,C,W/C) (FIM): 5 Sit to Lying (QC): 4 Lying-Sitting on Side/Bed(QC): 4 Sit to Stand (QC): 4 Rollin Roll Left to Right (QC): 4 Chair/Zjn-ek-Bxulo Xfer(QC): 4 Car Transfer (QC): 4 Gait (FIM): 2 Distance: 50' Walk 10 feet (QC): 4 Walk 10ft-Uneven Surface(QC): 4 Walk 50ft with 2 Turns (QC): 4 Gait Level of Assist: 5 Gait Assistive Device: FWW # of Steps: 1 1 Step (curb) (QC): 4 Stairs Level Of Assist: 4 PT Plan Problem List Problem List: Activity Tolerance, Functional Strength, Safety, Balance, Gait, Transfer, Bed Mobility Treatment/Plan Treatment Plan: Continue Plan of Care Treatment Plan: Bed Mobility, Concurrent Therapy, Education, Functional Activity Alva, Functional Strength, Group Therapy, Gait, Safety, Therapeutic Exercise Treatment Duration: Nov 17, 2018 Frequency: At least 5 of 7 days/Wk (IRF) Estimated Hrs Per Day: 1.5 hours per day Patient and/or Family Agrees t: Yes Safety Risks/Education Patient Education: Transfer Techniques, Correct Positioning, Safety Issues Teaching Recipient: Patient Teaching Methods: Discussion Response to Teaching: Verbalize Understanding Time/GCodes Time In: 1130 Time Out: 1145 Total Billed Treatment Time: 15 Total Billed Treatment 1, FA (15m) Co-treat w/OT for 15m G Codes Necessary: YAS Lomeli PTA Oct 29, 2018 12:06
[2018-10-29] MEDS: FUROSEMIDE 40 MG (LASIX) TAB PO SCH (12:24)
[2018-10-29] MEDS ORDERED: oxyCODONE/APAP 10/325MG (PERCOCET 10) TABLET PO PRN (12:30)
--- NOTE | 2018-10-29 14:00 | Occupational Ther Daily Note ---
OT Current Status-Daily Note Subjective Pt alert, lying in bed. Pt agrees to therapy. Pt c/o pain stating that it is still hurting as much as when she got back from dialysis, 1 1/2 hrs earlier, nrsg had given pain meds when she got back from dialysis. Mental Status/Objective Patient Orientation: Person, Place, Time, Situation Therapy Code Descriptions/Definitions Functional [place] Measure: 0=Not Assessed/NA 4=Minimal Assistance 1=Total Assistance 5=Supervision or Setup 2=Maximal Assistance 6=Modified [place] 3=Moderate Assistance 7=Complete [place] Attachments: Oxygen ADL-Treatment Therapy Code Descriptions/Definitions Functional [place] Measure: 0=Not Assessed/NA 4=Minimal Assistance 1=Total Assistance 5=Supervision or Setup 2=Maximal Assistance 6=Modified [place] 3=Moderate Assistance 7=Complete [place] Therapy Quality Codes: 6 Independent with activity with or without an assistive device 5 Patient requires set up or clean up by helper. Patient completes activity by themselves 4 Supervision or touching assist (CGA). [place] provide cues , steadying assist 3 The helper provides less than half the effort to complete the activity 2 The helper provides more than half the effort to complete the activity 1 Dependent. The helper does all the effort to complete an activity 7 Patient refused to complete or attempt activity 9 The patient did not perform the activity before the current illness or injury 88 Not attempted due to Medical conditions or safety concerns Other Treatment Co-treat with PT for skilled care due to increased pain, decreased activity tolerance and mobility. PT worked on transfers and LE exercises. OT worked on hand/digit coordination and dexterity and UE exercises against gravity. Mod A with HOB slightly raised and using bed rails for supine to EOB. Mod A to transfer from EOB to recliner using FWW and verbal cues for hand placement and safety. Pt then completed fine motor activity incorporating UE/LE seated exercises to increase strength and activity tolerance for daily functional tasks. Pt had difficulty with shldr flexion, unable to go above 90*. Pt took recovery breaks throughout session. After therapy, pt sitting in recliner with call light/phone in reach. All needs met in room. OT Short Term Goals Short Term Goals Time Frame: Nov 03, 2018 Bathing(FIM): 3 Lower Body Dressing(FIM): 3 Toileting(FIM): 3 Toilet/Commode Transfer(FIM): 3 Additional Short Term Goals: 1-Demonstrate ADL Tasks, 2-Verbalize Understanding , 3-ImproveStrength/Alva 1=Demonstrate adherence to instructed precautions during ADL tasks. 2=Patient will verbalize/demonstrate understanding of assistive devices/ modifications for ADL. 3=Patient will improve strength/tolerance for activity to enable patient to perform ADL's. OT Metal Bumper Goals Group Home Goals Time Frame: Nov 17, 2018 Eating (FIM): 6 Eating (QC): 6 Groomin Oral Hygiene (QC): 6 Bathing(FIM): 5 Shower/Bathe Self (QC): 4 Upper Body Dressing(FIM): 5 Upper Body Dressing (QC): 5 Lower Body Dressing(FIM): 5 Lower Body Dressing (QC): 4 On/Off Footwear (QC): 4 Toileting(FIM): 5 Toileting Hygiene (QC): 4 Toilet/Commode Transfer(FIM): 5 Toilet/Commode Transfer (QC): 4 Shower Transfer(FIM): 5 Additional Goals: 1-Demonstrate ADL Tasks, 2-Verbalize Understanding, 3- ImproveStrength/Alva 1=Demonstrate adherence to instructed precautions during ADL tasks. 2=Patient will verbalize/demonstrate understanding of assistive devices/ modifications for ADL. 3=Patient will improve strength/tolerance for activity to enable patient to perform ADL's. OT Education/Plan Discharge Recommendations Plan/Recommendations: Continue POC Treatment Plan/Plan of Care Patient would benefit from OT for education, treatment and training to promote independence in ADL's, mobility, safety and/or upper extremity function for ADL' s. Plan of Care: ADL Retraining, Functional Mobility, Group Exercise/Act as Ind, UE Funct Exercise/Act Treatment Duration: Nov 17, 2018 Frequency: At least 5 of 7 days/Wk (IRF) Estimated Hrs Per Day: 1.5 hours per day Agreement: Yes Rehab Potential: Guarded Time/GCodes Start Time: 13:00 Stop Time: 14:00 Total Time Billed (hr/min): 60 Billed Treatment Time 1 visit-EX 4 (60 min) JESSICA GHOSH Oct 29, 2018 14:00
--- NOTE | 2018-10-29 14:01 | Physical Therapy Daily Note ---
PT Daily Note-Current Subjective Pt laying Supine in bed upon arrival. Pt agrees to PT/OT co-treat. Pt reports fatigue and continued pain in L hip & knee. Pain Numeric Pain Scale: 10-Worst Possible Pain Location: Left Location Body Site: Hip Pain Description: Ache Comment: Pt reports pain in L hip & knee. Mental Status Patient Orientation: Person, Place, Situation Attachments: Oxygen (2L) Transfers Therapy Code Descriptions/Definitions Functional [place] Measure: 0=Not Assessed/NA 4=Minimal Assistance 1=Total Assistance 5=Supervision or Setup 2=Maximal Assistance 6=Modified [place] 3=Moderate Assistance 7=Complete [place] Therapy Quality Codes: 6 Independent with activity with or without an assistive device 5 Patient requires set up or clean up by helper. Patient completes activity by themselves 4 Supervision or touching assist (CGA). [place] provide cues , steadying assist 3 The helper provides less than half the effort to complete the activity 2 The helper provides more than half the effort to complete the activity 1 Dependent. The helper does all the effort to complete an activity 7 Patient refused to complete or attempt activity 9 The patient did not perform the activity before the current illness or injury 88 Not attempted due to Medical conditions or safety concerns Scootin Supine to/from Sit: 3 Sit to/from Stand: 2 Sit to Stand (QC): 2 Weight Bearing Right Lower Extremity: Right Full Weight Bearing Left Lower Extremity: Left Weight Bearing/Tolerated Exercises Seated Therapy Exercises: Ankle pumps, Long arc quads, Hip flexion, Kicking activity Seated Reps: 15 Treatments Pt alert, lying in bed. Pt agrees to therapy. Pt c/o pain stating that it is still hurting as much as when she got back from dialysis, 1 1/2 hrs earlier, nrsg had given pain meds when she got back from dialysis. Co-treat with PT for skilled care due to increased pain, decreased activity tolerance and mobility. PT worked on transfers and LE exercises. OT worked on hand/digit coordination and dexterity and UE exercises against gravity. Mod A with HOB slightly raised and using bed rails for supine to EOB. Mod A to transfer from EOB to recliner using FWW and verbal cues for hand placement and safety. Pt then completed fine motor activity incorporating UE/LE seated exercises to increase strength and activity tolerance for daily functional tasks. Pt had difficulty with shldr flexion, unable to go above 90*. Pt took recovery breaks throughout session. After therapy, pt sitting in recliner with call light/phone in reach. All needs met in room. Assessment Current Status: Good Progress Pt fatigues easily and requires occasional rest breaks. Pt reports that pain med was given but does not notice much of difference in pain. PT Short Term Goals Short Term Goals Time Frame: Nov 03, 2018 Gait (FIM): 1 Gait Distance Comment: 20' Gait Level of Assist: 4 Gait Assistive Device: FWW Wheelchair Distance: 500' PT Miller [place] Goals [place] Goals PT [place] Goals Time Frame: Nov 17, 2018 Transfers (B,C,W/C) (FIM): 5 Sit to Lying (QC): 4 Lying-Sitting on Side/Bed(QC): 4 Sit to Stand (QC): 4 Rollin Roll Left to Right (QC): 4 Chair/Jto-fc-[place] Xfer(QC): 4 Car Transfer (QC): 4 Gait (FIM): 2 Distance: 50' Walk 10 feet (QC): 4 Walk 10ft-Uneven Surface(QC): 4 Walk 50ft with 2 Turns (QC): 4 Gait Level of Assist: 5 Gait Assistive Device: FWW # of Steps: 1 1 Step (curb) (QC): 4 Stairs Level Of Assist: 4 PT Plan Problem List Problem List: Activity Tolerance, Functional Strength, Safety, Balance, Gait, Transfer, Bed Mobility Treatment/Plan Treatment Plan: Continue Plan of Care Treatment Plan: Bed Mobility, Concurrent Therapy, Education, Functional Activity Alva, Functional Strength, Group Therapy, Gait, Safety, Therapeutic Exercise Treatment Duration: Nov 17, 2018 Frequency: At least 5 of 7 days/Wk (IRF) Estimated Hrs Per Day: 1.5 hours per day Patient and/or Family Agrees t: Yes Safety Risks/Education Patient Education: Transfer Techniques, Correct Positioning, Safety Issues Teaching Recipient: Patient Teaching Methods: Discussion Response to Teaching: Verbalize Understanding Time/GCodes Time In: 1300 Time Out: 1400 Total Billed Treatment Time: 60 Total Billed Treatment 1, EX x2 (30m) & FA x2 (30m) Co-treat w/ OT for 60m G Codes Necessary: YAS Lomeli FINANCIAL ANALYST INTERN Oct 29, 2018 14:01
--- NOTE | 2018-10-29 14:14 | Speech Therapy Daily Note ---
Speech Daily Progress Note Subjective Date Seen by Provider: Oct 29, 2018 Time Seen by Provider: 00:30 Patient was resting in bed after just returning from dialysis. Objective Patient completed memory tasks related to her routine with 90% accuracy given minimal cues. Assessment Assessment Current Status: Good Progress Treatment Plan Continue Plan of Care Communication Comprehension: 4 Expression: 4 Social Cognition Social Interaction: 5 Problem Solvin Memory: 3 Speech Short Term Goals Short Term Goals Short Term Goals 1) Patient will be able to recall information presented with 90% or greater. 2) Patient will be able to follow 2-3 step directions independently with 90% or greater. 3) Patient will be able to complete problem solving tasks independently with 90 % or greater. Speech Wafer Fabricator Goals Chcf Goals Patient will improve deficits to 90% or greater in order to return home safely. Speech-Plan Patient/Family Goals Patient/Family Goals: Patient plans to return home independently post rehab. She will have family nearby for support. Treatment Plan Speech Therapy Treatment Plan: Continue Plan of Care Patient is progressing well as a result of skilled ST services. Treatment Duration: Nov 06, 2018 Frequency: 5 times per week Estimated Hrs Per Day: .5 hour per day Rehab Potential: Guarded Barriers to Learning: Patient receives dialysis 3x per week which tires her. Pt/Family Agrees to Plan: Yes Safety Risks/Education Teaching Recipient: Patient Teaching Methods: Discussion Response to Teaching: Verbalize Understanding Education Topics Provided: Safety within her room. Time Speech Therapy Time In: 11:45 Speech Therapy Time Out: 12:15 Total Billed Time: 30 Billed Treatment Time 1, INGA [place] Oct 29, 2018 14:14
[2018-10-29] MEDS: ACETAMINOPHEN 325 MG TABLET PO PRN (14:28)
[2018-10-29 17:58] VITALS: BP 105/64
--- NOTE | 2018-10-29 18:00 | NUR ---
HAS BEEN UP IN CHAIR. NOW ASSISTED TO COMMODE AND EXPELLED BM. THEN TO BED. DAUGHTER VISITING. THE LOWEST HER PAIN LEVEL HAS BEEN TODAY WAS A "7". DAUGHTER CONCERNED NOT GETTING ENOUGH PAIN MEDS. DR. JENKINS INFORMED OF PAIN REGIMEN AT HOME AND MEDICATION CHANGES ORDERED.
[2018-10-29] MEDS ORDERED: HYDROmorphone (DILAUDID) 4 MG TAB PO PRN (18:15)
[2018-10-29] MEDS: traZODone 100 MG (DESYREL) TAB PO SCH (20:25)
[2018-10-29] MEDS: inSUlin DETERMIR 1 UNIT/0.01 ML (LEVEMIR) CHARGE PER UNIT SQ SCH (21:01)
[2018-10-29] MEDS: oxyCODONE/APAP 10/325MG (PERCOCET 10) TABLET PO PRN (23:23)
[2018-10-30 06:00] VITALS: BP 104/61
[2018-10-30] MEDS: SEVELAMER CARBONATE 800 MG TAB (RENVELA) NON-FORMULARY PO SCH ×3 (06:08→17:19)
[2018-10-30] MEDS: LEVOTHYROXINE 25 MCG (LEVOTHROID) TAB PO SCH (06:08)
[2018-10-30] MEDS: inSUlin ASPART (NovoLOG) 1 UNIT/0.01 ML (CHARGE PER UNIT) SC SCH ×7 (06:38→20:50)
[2018-10-30] MEDS: MAGNESIUM OXIDE (MAG-OX)400 MG TAB PO SCH (09:06)
[2018-10-30] MEDS: CARVEDILOL 3.125 MG (COREG) TABLET PO SCH ×2 (09:07→21:02)
[2018-10-30] MEDS: ATORVASTATIN 40 MG (LIPITOR) TABLET PO SCH (09:07)
[2018-10-30] MEDS: SODIUM BICARBONATE 650 MG TABLET (NON-FORMULARY) PO SCH ×3 (09:07→21:02)
[2018-10-30] MEDS: PANTOPRAZOLE 40 MG (PROTONIX) TAB PO SCH (09:07)
[2018-10-30] MEDS: SERTRALINE 100 MG (ZOLOFT) TAB PO SCH (09:07)
[2018-10-30] MEDS: ASCORBIC ACID (VIT C) 500 MG TABLET PO SCH (09:07)
[2018-10-30] MEDS: VITAMIN D3 5,000 UNITS (CHOLECALCIFEROL ) CAPSULE PO SCH (09:07)
[2018-10-30] MEDS: amLODIPine 2.5MG (NORVASC) TAB PO SCH (09:08)
[2018-10-30] MEDS: FUROSEMIDE 40 MG (LASIX) TAB PO SCH (09:08)
[2018-10-30] MEDS: oxyCODONE/APAP 10/325MG (PERCOCET 10) TABLET PO PRN ×2 (09:12→15:29)
[2018-10-30] MEDS: POLYETHYLENE GLYCOL 17 GM (MIRALAX) PACK PO SCH (09:16)
[2018-10-30] MEDS: DOCUSATE SODIUM 100 MG (COLACE) CAP PO PRN (09:28)
--- NOTE | 2018-10-30 11:00 | Occupational Ther Daily Note ---
OT Current Status-Daily Note Subjective Pt alert, lying in bed. Pt c/o pain and stated that nrsg was bringing her pain meds. Pt agrees to therapy. Mental Status/Objective Patient Orientation: Person, Place, Time, Situation Therapy Code Descriptions/Definitions Functional [place] Measure: 0=Not Assessed/NA 4=Minimal Assistance 1=Total Assistance 5=Supervision or Setup 2=Maximal Assistance 6=Modified [place] 3=Moderate Assistance 7=Complete [place] Attachments: Oxygen ADL-Treatment Pt was able to grasp and choose clothing to wear today. Pt agreed to take shower at next treatment. Pt was able to move LE's to EOB and back with assist to take resistance off of L LE. Pt c/o room being to cold to take a shower, LOWE warming room and bathroom for pt. Nrsg came in to give pain meds. Pt repositioned self with HOB elevated and using grabbars with minimal assist. After therapy, pt lying in bed with call light/phone in reach. Nrsg present in room. All needs met in room. Therapy Code Descriptions/Definitions Functional [place] Measure: 0=Not Assessed/NA 4=Minimal Assistance 1=Total Assistance 5=Supervision or Setup 2=Maximal Assistance 6=Modified [place] 3=Moderate Assistance 7=Complete [place] Therapy Quality Codes: 6 Independent with activity with or without an assistive device 5 Patient requires set up or clean up by helper. Patient completes activity by themselves 4 Supervision or touching assist (CGA). [place] provide cues , steadying assist 3 The helper provides less than half the effort to complete the activity 2 The helper provides more than half the effort to complete the activity 1 Dependent. The helper does all the effort to complete an activity 7 Patient refused to complete or attempt activity 9 The patient did not perform the activity before the current illness or injury 88 Not attempted due to Medical conditions or safety concerns OT Short Term Goals Short Term Goals Time Frame: Nov 03, 2018 Bathing(FIM): 3 Lower Body Dressing(FIM): 3 Toileting(FIM): 3 Toilet/Commode Transfer(FIM): 3 Additional Short Term Goals: 1-Demonstrate ADL Tasks, 2-Verbalize Understanding , 3-ImproveStrength/Alva 1=Demonstrate adherence to instructed precautions during ADL tasks. 2=Patient will verbalize/demonstrate understanding of assistive devices/ modifications for ADL. 3=Patient will improve strength/tolerance for activity to enable patient to perform ADL's. OT Juice Mixer Goals Residential Goals Time Frame: Nov 17, 2018 Eating (FIM): 6 Eating (QC): 6 Groomin Oral Hygiene (QC): 6 Bathing(FIM): 5 Shower/Bathe Self (QC): 4 Upper Body Dressing(FIM): 5 Upper Body Dressing (QC): 5 Lower Body Dressing(FIM): 5 Lower Body Dressing (QC): 4 On/Off Footwear (QC): 4 Toileting(FIM): 5 Toileting Hygiene (QC): 4 Toilet/Commode Transfer(FIM): 5 Toilet/Commode Transfer (QC): 4 Shower Transfer(FIM): 5 Additional Goals: 1-Demonstrate ADL Tasks, 2-Verbalize Understanding, 3- ImproveStrength/Alva 1=Demonstrate adherence to instructed precautions during ADL tasks. 2=Patient will verbalize/demonstrate understanding of assistive devices/ modifications for ADL. 3=Patient will improve strength/tolerance for activity to enable patient to perform ADL's. OT Education/Plan Discharge Recommendations Plan/Recommendations: Continue POC Treatment Plan/Plan of Care Patient would benefit from OT for education, treatment and training to promote independence in ADL's, mobility, safety and/or upper extremity function for ADL' s. Plan of Care: ADL Retraining, Functional Mobility, Group Exercise/Act as Ind, UE Funct Exercise/Act Treatment Duration: Nov 17, 2018 Frequency: At least 5 of 7 days/Wk (IRF) Estimated Hrs Per Day: 1.5 hours per day Agreement: Yes Rehab Potential: Guarded Time/GCodes Start Time: 08:45 Stop Time: 09:15 Total Time Billed (hr/min): 30 Billed Treatment Time 1 visit-FA 2 (30 min) JESSICA GHOSH Oct 30, 2018 11:00
--- NOTE | 2018-10-30 11:05 | Occupational Ther Daily Note ---
OT Current Status-Daily Note Subjective Pt lying in bed, alert. Nrsg in room. Pt began to close eyes and appear sleepy. Encouragement given to pt for participation in therapy, pt stated she wanted to sleep. Pt educated on how movement will help with making pain meds more effective and decrease pain and increase strength. Pt agrees to therapy. Mental Status/Objective Patient Orientation: Person, Place, Time, Situation Therapy Code Descriptions/Definitions Functional [place] Measure: 0=Not Assessed/NA 4=Minimal Assistance 1=Total Assistance 5=Supervision or Setup 2=Maximal Assistance 6=Modified [place] 3=Moderate Assistance 7=Complete [place] Attachments: Oxygen ADL-Treatment Therapy Code Descriptions/Definitions Functional [place] Measure: 0=Not Assessed/NA 4=Minimal Assistance 1=Total Assistance 5=Supervision or Setup 2=Maximal Assistance 6=Modified [place] 3=Moderate Assistance 7=Complete [place] Therapy Quality Codes: 6 Independent with activity with or without an assistive device 5 Patient requires set up or clean up by helper. Patient completes activity by themselves 4 Supervision or touching assist (CGA). [place] provide cues , steadying assist 3 The helper provides less than half the effort to complete the activity 2 The helper provides more than half the effort to complete the activity 1 Dependent. The helper does all the effort to complete an activity 7 Patient refused to complete or attempt activity 9 The patient did not perform the activity before the current illness or injury 88 Not attempted due to Medical conditions or safety concerns Grooming (FIM): 6 (Sitting in w/c, pt able to complete grooming. With brushing back of head pt assists R hand with L in lifting to reach.) Oral Hygiene (QC): 6 Bathing (FIM): 3 (Due to increased pain and decreased activity tolerance pt required Mod A to complete bathing, rinsing and drying.) Bathing Location: L Arm, R Arm, L Upper Leg, R Upper Leg, Chest, Abdomen Shower/Bathe Self (QC): 2 Upper Body (FIM): 5 (Set up then pt able to complete.) Upper Body Dressing (QC): 5 Lower Body Dressing (FIM): 2 (Assist to don/doff over feet, pt pulls up legs then pt is able to stand while assist to hike pants over hips.) Lower Body Dressing (QC): 2 On/Off Footwear (QC): 2 Shower Transfer(FIM): 3 (Mod A using grabbars, shower bench and w/c. Pt unable to lower self slowly and increased assist with sit to stand.) Pt stood to allow nrsg to place coccyx bandage then transferred to recliner. During transfer pt let go of FWW and reach for chair before turning, pt knees then began to buckle and increased anxiety. Nrsg x2 assisted LOWE with transfer. After therapy, pt sitting in recliner with call light/phone in reach. All needs met in room. OT Short Term Goals Short Term Goals Time Frame: Nov 03, 2018 Bathing(FIM): 3 Lower Body Dressing(FIM): 3 Toileting(FIM): 3 Toilet/Commode Transfer(FIM): 3 Additional Short Term Goals: 1-Demonstrate ADL Tasks, 2-Verbalize Understanding , 3-ImproveStrength/[place] 1=Demonstrate adherence to instructed precautions during ADL tasks. 2=Patient will verbalize/demonstrate understanding of assistive devices/ modifications for ADL. 3=Patient will improve strength/tolerance for activity to enable patient to perform ADL's. OT Pharmacy Intern Goals Pharmacy Intern Goals Time Frame: Nov 17, 2018 Eating (FIM): 6 Eating (QC): 6 Groomin Oral Hygiene (QC): 6 Bathing(FIM): 5 Shower/Bathe Self (QC): 4 Upper Body Dressing(FIM): 5 Upper Body Dressing (QC): 5 Lower Body Dressing(FIM): 5 Lower Body Dressing (QC): 4 On/Off Footwear (QC): 4 Toileting(FIM): 5 Toileting Hygiene (QC): 4 Toilet/Commode Transfer(FIM): 5 Toilet/Commode Transfer (QC): 4 Shower Transfer(FIM): 5 Additional Goals: 1-Demonstrate ADL Tasks, 2-Verbalize Understanding, 3- ImproveStrength/Al[place] 1=Demonstrate adherence to instructed precautions during ADL tasks. 2=Patient will verbalize/demonstrate understanding of assistive devices/ modifications for ADL. 3=Patient will improve strength/tolerance for activity to enable patient to perform ADL's. OT Education/Plan Discharge Recommendations Plan/Recommendations: Continue POC Treatment Plan/Plan of Care Patient would benefit from OT for education, treatment and training to promote independence in ADL's, mobility, safety and/or upper extremity function for ADL' s. Plan of Care: ADL Retraining, Functional Mobility, Group Exercise/Act as Ind, UE Funct Exercise/Act Treatment Duration: Nov 17, 2018 Frequency: At least 5 of 7 days/Wk (IRF) Estimated Hrs Per Day: 1.5 hours per day Agreement: Yes Rehab Potential: Guarded Time/GCodes Start Time: 09:40 Stop Time: 10:45 Total Time Billed (hr/min): 65 Billed Treatment Time 1 visit-ADL 4 (65 min) JESSICA GHOSH Oct 30, 2018 11:05
--- NOTE | 2018-10-30 11:10 | PM&R Progress Note ---
Subjective HPI/CC On Admission Date Seen by Provider: Oct 30, 2018 Time Seen by Provider: 08:30 Subjective/Events-last exam Patient doing well Participating in therapies Had pharmacy evaluate her exact dosing of the Dilaudid and Percocet and fentanyl patch she was taking at home prior to the left hip fracture and it appears that as the daughter had reported she is on Dilaudid for MG by mouth every 6 hours at home in addition to Percocet and the fentanyl patch so we have changed all of the medication regimen for pain to exactly what she was taking at home. Bowels are moving regularly Patient has very slow recovery due to pain and hopefully we can return her to independent living of which she intends to and she reports that she's got plenty of friends and support check in on her and stay with her quite a bit. Check labs and reviewed those showing nothing of critical status with hemoglobin is normally 8.0 due to end-stage renal disease and recent left hip incisional hematoma requiring 8 units of blood while at [facility] Review of Systems General: Fatigue Musculoskeletal: back pain, leg pain Neurological: Confusion Objective Exam Vital Signs Vital Signs Date Time Temp Pulse Resp B/P (MAP) Pulse Ox O2 Delivery O2 Flow Rate FiO2 10/30/18 06:00 97.8 78 18 104/61 (75) 96 Nasal Cannula 2.00 Capillary Refill : Less Than 3 Seconds General Appearance: No Apparent Distress, WD/WN, Chronically ill Respiratory: Chest Non Tender, Normal Breath Sounds, No Accessory Muscle Use, No Respiratory Distress, Crackles (RLL) Cardiovascular: Regular Rate, Rhythm, No Edema, No Gallop, No JVD, No Murmur, Normal Peripheral Pulses Neurologic/Psychiatric: Alert, Oriented x3, No Motor/Sensory Deficits, Normal Mood/Affect Skin: Normal Color, Warm/Dry Results/Procedures Lab Patient resulted labs reviewed. Assessment/Plan Assessment and Plan Assess & Plan/Chief Complaint Assessment: Left hip fracture 10/17/18 status post uncomplicated repair with incisional hematoma received 8 units of blood and 4 units of platelets while at [facility] End-stage renal disease on hemodialysis Friday//Friday Poor memory recall could complicate discharge planning Severe pain due to left leg pain and spine pain Breast cancer with metastasis Atrial fibrillation Valvular heart disease Diabetes mellitus Anemia 8.2 on recheck no indication for transfusion Plan: Monitor electrolytes on occasion considering end-stage renal dialysis status May need transfusion if hemoglobin requires it Change pain medication to exactly how she was taking it at home Diagnosis/Problems Diagnosis/Problems (1) Hip fracture requiring operative repair Status: Chronic Qualifiers: Encounter type: subsequent encounter Fracture type: closed Laterality: left Fracture healing: with routine healing Qualified Codes: S72.002D - Fracture of unspecified part of neck of left femur, subsequent encounter for closed fracture with routine healing (2) ESRD (end stage renal disease) on dialysis Status: Chronic (3) Diabetes mellitus Status: Chronic Qualifiers: Diabetes mellitus type: type 2 Diabetes mellitus long term care administrator insulin use: with long term care administrator use Diabetes mellitus complication status: with kidney complications Diabetes mellitus complication detail: with chronic kidney disease Chronic kidney disease stage: on chronic dialysis Qualified Codes: E11.22 - Type 2 diabetes mellitus with diabetic chronic kidney disease; N18.6 - End stage renal disease; 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; Z99.2 - Dependence on renal dialysis (4) Breast cancer metastasized to bone Status: Chronic Qualifiers: Laterality: unspecified laterality Qualified Codes: C50.919 - Malignant neoplasm of unspecified site of unspecified female breast; C79.51 - Secondary malignant neoplasm of bone (5) Anemia requiring transfusions Status: Chronic (6) Thrombocytopenia Status: Chronic (7) Splenomegaly Status: Chronic (8) DNR (do not resuscitate) Status: Chronic (9) Hip pain, left Status: Acute (10) Spine pain Status: Acute Clinical Quality Measures Admission Status Admission Dx Assessment: Status post left hip fracture repair by Dr. Jaramillo at [facility] on Transfusions of 8 units of blood and 4 units of platelets during acute medical admission at [place] Chronic anemia transfusion dependent Thrombocytopenia Breast cancer with metastases receives cancer care at [facility] End-stage renal disease on hemodialysis on Friday//Friday Diabetes mellitus Severe left hip pain and spine pain due to hip fracture repair and breast cancer metastasis to the spine Splenomegaly chronic Constipation Generalized weakness Plan: Restarted all home meds Fentanyl patch Dilaudid as needed along with Percocet Constipation treatment Therapies to improve global weakness Monitor left hip pain and try to participate in therapies as much as possible to strengthen and return back to independent living at home with family support DVT/VTE Risk/Contraindication: Risk Factor Score Per Nursin RFS Level Per Nursing on Admit: 4+=Very High SERINA JENKINS DO Oct 30, 2018 11:10
--- NOTE | 2018-10-30 11:58 | Physical Therapy Daily Note ---
PT Daily Note-Current Subjective Pt. c/o 9/10 pain in bottom and left hip. Agrees to try to work. State she really wants to return home to a new apartment in [facility] where her family will take care of her. "They can lift me just fine and I have a lot of equipment" Pain Numeric Pain Scale: 9 Location: Left Location Body Site: Hip Pain Description: Stabbing Appearance frail Mental Status Patient Orientation: Normal For Age Transfers Therapy Code Descriptions/Definitions Functional [place] Measure: 0=Not Assessed/NA 4=Minimal Assistance 1=Total Assistance 5=Supervision or Setup 2=Maximal Assistance 6=Modified [place] 3=Moderate Assistance 7=Complete [place] Therapy Quality Codes: 6 Independent with activity with or without an assistive device 5 Patient requires set up or clean up by helper. Patient completes activity by themselves 4 Supervision or touching assist (CGA). [place] provide cues , steadying assist 3 The helper provides less than half the effort to complete the activity 2 The helper provides more than half the effort to complete the activity 1 Dependent. The helper does all the effort to complete an activity 7 Patient refused to complete or attempt activity 9 The patient did not perform the activity before the current illness or injury 88 Not attempted due to Medical conditions or safety concerns Transfers (B, C, W/C) (FIM): 3 Scootin Rollin Supine to/from Sit: 3 Sit to/from Stand: 3 Bed to/from Chair: 3 uses lift recline chair, requires mod assist sit to stand from w/c and mod assist the few steps for SPTs, has much pain in left LE attempting to weight bear to take steps Weight Bearing Right Lower Extremity: Right Full Weight Bearing Left Lower Extremity: Left Weight Bearing/Tolerated Gait Training Does the Patient Walk?: Yes Gait (FIM): 1 Distance (FIM): 1=up to 49 ft (4-5 steps x 2) Gait Level of Assist: 3 Gait Persons Needed: 1 Gait Assistive Device: FWW FWW and parallel bars trialed, pt. c/o pain and instability and unable to clear left foot from floor, as well as left arm /elbow does not extend fully to assist with weight bearing on walker Wheelchair Training Does the Pt Use a Wheelchair?: Yes Wheelchair (FIM): 2 Wheelchair Distance: 9=547-01 ft (50ftx3) Wheelchair Level of Assist: 3 Type of Wheelchair: Manual uses feet and LEs and rests frequently, great deal of effort to brakes w/c Exercises Supine Ex: Ankle pumps, Quad Set, Glut sets, Heel Slides (assist left), Short Arc Quads, Scooting, Straight leg raise (ssist left), Hip abd/add (ssist left) Seated Therapy Exercises: Ankle pumps, Sit to stand, Long arc quads, Hip flexion (right only) Treatments TRFs, seated exercise, supine LE exercises, sit to stands from lift chair as well as at parallel bars , mod assist required and pain ensues Assessment Current Status: Fair Progress pain and weakness limit pt. PT Short Term Goals Short Term Goals Time Frame: Nov 03, 2018 Gait (FIM): 1 Gait Distance Comment: 20' Gait Level of Assist: 4 Gait Assistive Device: FWW Wheelchair Distance: 500' PT Calender Operator Helper Goals Calender Operator Helper Goals PT Assisted Goals Time Frame: Nov 17, 2018 Transfers (B,C,W/C) (FIM): 5 Sit to Lying (QC): 4 Lying-Sitting on Side/Bed(QC): 4 Sit to Stand (QC): 4 Rollin Roll Left to Right (QC): 4 Chair/Yhm-fw-Idrtq Xfer(QC): 4 Car Transfer (QC): 4 Gait (FIM): 2 Distance: 50' Walk 10 feet (QC): 4 Walk 10ft-Uneven Surface(QC): 4 Walk 50ft with 2 Turns (QC): 4 Gait Level of Assist: 5 Gait Assistive Device: FWW # of Steps: 1 1 Step (curb) (QC): 4 Stairs Level Of Assist: 4 PT Plan Treatment/Plan Treatment Plan: Continue Plan of Care Treatment Plan: Bed Mobility, Concurrent Therapy, Education, Functional Activity [place], Functional Strength, Group Therapy, Gait, Safety, Therapeutic Exercise Treatment Duration: Nov 17, 2018 Frequency: At least 5 of 7 days/Wk (IRF) Estimated Hrs Per Day: 1.5 hours per day Patient and/or Family Agrees t: Yes Safety Risks/Education Patient Education: Gait Training, Transfer Techniques, Correct Positioning, W/ C Management, Disease Process, Safety Issues Teaching Recipient: Patient Teaching Methods: Demonstration, Discussion Response to Teaching: Verbalize Understanding, Return Demonstration, Reinforcement Needed Time/GCodes Time In: 1110 Time Out: 1210 Total Billed Treatment Time: 60 Total Billed Treatment 1,FA40m,EX20m G Codes Necessary: HARSHAD Lawrence HEAVY RAIL TRAIN OPERATOR Oct 30, 2018 11:58
--- NOTE | 2018-10-30 12:12 | NUR ---
Pt states that Dr. Bryan, is her oncologist, at [place]
[2018-10-30] MEDS: fentaNYL PATCH 100 MCG (DURAGESIC) TD SCH (12:14)
[2018-10-30] MEDS: HYDROmorphone (DILAUDID) 4 MG TAB PO PRN ×3 (12:14→21:02)
[2018-10-30] MEDS: FENTANYL PATCH REMOVAL TP SCH (12:16)
--- NOTE | 2018-10-30 14:48 | Physical Therapy Daily Note ---
PT Daily Note-Current Subjective Pt. up in recliner and wants to stay up a little longer. Agrees to LE exercises and sit to stand with assistance Pain Numeric Pain Scale: 5-Moderate Pain Location: Left Location Body Site: Hip Pain Description: Ache Mental Status Patient Orientation: Person, Place, Time Transfers Therapy Code Descriptions/Definitions Functional [place] Measure: 0=Not Assessed/NA 4=Minimal Assistance 1=Total Assistance 5=Supervision or Setup 2=Maximal Assistance 6=Modified [place] 3=Moderate Assistance 7=Complete [place] Therapy Quality Codes: 6 Independent with activity with or without an assistive device 5 Patient requires set up or clean up by helper. Patient completes activity by themselves 4 Supervision or touching assist (CGA). [place] provide cues , steadying assist 3 The helper provides less than half the effort to complete the activity 2 The helper provides more than half the effort to complete the activity 1 Dependent. The helper does all the effort to complete an activity 7 Patient refused to complete or attempt activity 9 The patient did not perform the activity before the current illness or injury 88 Not attempted due to Medical conditions or safety concerns mod assist sit to stand from lift chair up slightly Weight Bearing Right Lower Extremity: Right Full Weight Bearing Left Lower Extremity: Left Weight Bearing/Tolerated Exercises Supine Ex: Ankle pumps, Quad Set, Glut sets, Heel Slides, Short Arc Quads, Scooting (up in chair), Straight leg raise (assist), Hip abd/add (ssist left) Supine Reps: 12 Seated Therapy Exercises: Ankle pumps, Long arc quads, Hip flexion Seated Reps: 12 Assessment Current Status: Good Progress pain and fatigue, weakness limit function PT Short Term Goals Short Term Goals Time Frame: Nov 03, 2018 Gait (FIM): 1 Gait Distance Comment: 20' Gait Level of Assist: 4 Gait Assistive Device: FWW Wheelchair Distance: 500' PT Detention Goals Dish Maker Goals PT Detention Goals Time Frame: Nov 17, 2018 Transfers (B,C,W/C) (FIM): 5 Sit to Lying (QC): 4 Lying-Sitting on Side/Bed(QC): 4 Sit to Stand (QC): 4 Rollin Roll Left to Right (QC): 4 Chair/Aqr-qo-Dnpqz Xfer(QC): 4 Car Transfer (QC): 4 Gait (FIM): 2 Distance: 50' Walk 10 feet (QC): 4 Walk 10ft-Uneven Surface(QC): 4 Walk 50ft with 2 Turns (QC): 4 Gait Level of Assist: 5 Gait Assistive Device: FWW # of Steps: 1 1 Step (curb) (QC): 4 Stairs Level Of Assist: 4 PT Plan Treatment/Plan Treatment Plan: Continue Plan of Care Treatment Plan: Bed Mobility, Concurrent Therapy, Education, Functional Activity [place], Functional Strength, Group Therapy, Gait, Safety, Therapeutic Exercise Treatment Duration: Nov 17, 2018 Frequency: At least 5 of 7 days/Wk (IRF) Estimated Hrs Per Day: 1.5 hours per day Patient and/or Family Agrees t: Yes Safety Risks/Education Patient Education: Transfer Techniques, Correct Positioning, Disease Process Teaching Recipient: Patient Time/GCodes Time In: 1425 Time Out: 1445 Total Billed Treatment Time: 20 Total Billed Treatment 1,EX20m G Codes Necessary: HARSHAD Lawrence NIB FINISHER Oct 30, 2018 14:48
--- NOTE | 2018-10-30 14:53 | Speech Therapy Daily Note ---
Speech Daily Progress Note Subjective Date Seen by Provider: Oct 30, 2018 Time Seen by Provider: 00:30 Patient was sitting up in her recliner eating her lunch when I arrived. Objective Patient completed problem solving tasks at 80% accuracy with minimal verbal cuing. Assessment Assessment Current Status: Good Progress Treatment Plan Continue Plan of Care Communication Comprehension: 4 Expression: 4 Social Cognition Social Interaction: 5 Problem Solvin Memory: 3 Speech Short Term Goals Short Term Goals Short Term Goals 1) Patient will be able to recall information presented with 90% or greater. 2) Patient will be able to follow 2-3 step directions independently with 90% or greater. 3) Patient will be able to complete problem solving tasks independently with 90 % or greater. Speech Wood Last Maker Goals Wood Last Maker Goals Patient will improve deficits to 90% or greater in order to return home safely. Speech-Plan Patient/Family Goals Patient/Family Goals: Patient plans to move to her apartment independently with family close by for support. Treatment Plan Speech Therapy Treatment Plan: Continue Plan of Care Patient is making progress as a result of skilled therapy. Treatment Duration: Nov 06, 2018 Frequency: 5 times per week Estimated Hrs Per Day: .5 hour per day Rehab Potential: Guarded Barriers to Learning: Patient tires easily secondary to her illness. Pt/Family Agrees to Plan: Yes Safety Risks/Education Teaching Recipient: Patient Teaching Methods: Discussion Response to Teaching: Verbalize Understanding Education Topics Provided: Safety and expression of her wants/needs. Time Speech Therapy Time In: 12:30 Speech Therapy Time Out: 13:00 Total Billed Time: 30 Billed Treatment Time [address] Oct 30, 2018 14:53
[2018-10-30 16:46] VITALS: BP 102/64
[2018-10-30] MEDS: ONDANSETRON 8 MG (ZOFRAN) ORAL DISSOLVE TAB PO PRN (17:22)
[2018-10-30] MEDS: ALPRAZolam 0.5 MG (XANAX) TAB PO PRN (21:02)
[2018-10-30] MEDS: FERROUS SULF 325 MG (IRON) TAB PO SCH (21:02)
[2018-10-30] MEDS: traZODone 100 MG (DESYREL) TAB PO SCH (21:03)
[2018-10-30] MEDS: inSUlin DETERMIR 1 UNIT/0.01 ML (LEVEMIR) CHARGE PER UNIT SQ SCH (21:05)
[2018-10-31] MEDS: inSUlin ASPART (NovoLOG) 1 UNIT/0.01 ML (CHARGE PER UNIT) SC SCH ×7 (04:34→20:41)
[2018-10-31] MEDS: LEVOTHYROXINE 25 MCG (LEVOTHROID) TAB PO SCH (04:40)
[2018-10-31] MEDS: HYDROmorphone (DILAUDID) 4 MG TAB PO PRN ×3 (04:40→20:09)
[2018-10-31] MEDS: SEVELAMER CARBONATE 800 MG TAB (RENVELA) NON-FORMULARY PO SCH ×3 (04:40→17:42)
[2018-10-31 05:12] VITALS: BP 105/61
--- NOTE | 2018-10-31 05:28 | NUR ---
Patient left per w/c via [facility] to go to dialysis. Pt's lunch sent with her.
--- NOTE | 2018-10-31 12:18 | NUR ---
Max Ax2 to transfer from w/c to bed per pt request, after returning from dialysis.
--- NOTE | 2018-10-31 12:56 | PM&R Progress Note ---
Subjective HPI/CC On Admission Date Seen by Provider: Oct 31, 2018 Time Seen by Provider: 10:45 Subjective/Events-last exam Patient slept well last night Had hemodialysis today but was in a lot of pain and cannot take any pain medication during hemodialysis Bowel regimen maintained Overall feels like she is getting stronger Participating in therapy Cognition is a concern regarding returning to independent living living alone but with support checking on her per patient Review of Systems General: Fatigue Musculoskeletal: back pain, leg pain Objective Exam Vital Signs Vital Signs Date Time Temp Pulse Resp B/P (MAP) Pulse Ox O2 Delivery O2 Flow Rate FiO2 10/31/18 05:12 96.8 74 20 105/61 (76) 91 Nasal Cannula 3.00 Capillary Refill : Less Than 3 Seconds General Appearance: No Apparent Distress, WD/WN, Chronically ill, Thin Respiratory: Chest Non Tender, Lungs Clear, Normal Breath Sounds, No Accessory Muscle Use, No Respiratory Distress Cardiovascular: Regular Rate, Rhythm, No Edema, No Gallop, No JVD, Normal Peripheral Pulses, Systolic Murmur Neurologic/Psychiatric: Alert, Oriented x3, No Motor/Sensory Deficits, Normal Mood/Affect Results/Procedures Lab Patient resulted labs reviewed. Assessment/Plan Assessment and Plan Assess & Plan/Chief Complaint Assessment: Left hip fracture 10/17/18 status post uncomplicated repair with incisional hematoma received 8 units of blood and 4 units of platelets while at [facility] End-stage renal disease on hemodialysis Friday//Friday Poor memory recall could complicate discharge planning Severe pain due to left leg pain and spine pain Breast cancer with metastasis Atrial fibrillation Valvular heart disease Diabetes mellitus Anemia 8.2 on recheck no indication for transfusion Plan: Monitor electrolytes on occasion considering end-stage renal dialysis status May need transfusion if hemoglobin requires it Changed pain medication to exactly how she was taking it at home Diagnosis/Problems Diagnosis/Problems (1) Hip fracture requiring operative repair Status: Chronic Qualifiers: Encounter type: subsequent encounter Fracture type: closed Laterality: left Fracture healing: with routine healing Qualified Codes: S72.002D - Fracture of unspecified part of neck of left femur, subsequent encounter for closed fracture with routine healing (2) ESRD (end stage renal disease) on dialysis Status: Chronic (3) Diabetes mellitus Status: Chronic Qualifiers: Diabetes mellitus type: type 2 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 use: with [facility] use Diabetes mellitus complication status: with kidney complications Diabetes mellitus complication detail: with chronic kidney disease Chronic kidney disease stage: on chronic dialysis Qualified Codes: E11.22 - Type 2 diabetes mellitus with diabetic chronic kidney disease; N18.6 - End stage renal disease; Z79.4 - [facility] (current) use of insulin; Z99.2 - Dependence on renal dialysis (4) Breast cancer metastasized to bone Status: Chronic Qualifiers: Laterality: unspecified laterality Qualified Codes: C50.919 - Malignant neoplasm of unspecified site of unspecified female breast; C79.51 - Secondary malignant neoplasm of bone (5) Anemia requiring transfusions Status: Chronic (6) Thrombocytopenia Status: Chronic (7) Splenomegaly Status: Chronic (8) DNR (do not resuscitate) Status: Chronic (9) Hip pain, left Status: Acute (10) Spine pain Status: Acute (11) Cognitive decline Status: Chronic Clinical Quality Measures Admission Status Admission Dx Assessment: Status post left hip fracture repair by Dr. Jaramillo at [facility] on Transfusions of 8 units of blood and 4 units of platelets during acute medical admission at [place] Chronic anemia transfusion dependent Thrombocytopenia Breast cancer with metastases receives cancer care at [facility] End-stage renal disease on hemodialysis on Friday//Friday Diabetes mellitus Severe left hip pain and spine pain due to hip fracture repair and breast cancer metastasis to the spine Splenomegaly chronic Constipation Generalized weakness Plan: Restarted all home meds Fentanyl patch Dilaudid as needed along with Percocet Constipation treatment Therapies to improve global weakness Monitor left hip pain and try to participate in therapies as much as possible to strengthen and return back to independent living at home with family support DVT/VTE Risk/Contraindication: Risk Factor Score Per Nursin RFS Level Per Nursing on Admit: 4+=Very High SERINA JENKINS DO Oct 31, 2018 12:56
[2018-10-31] MEDS: SODIUM BICARBONATE 650 MG TABLET (NON-FORMULARY) PO SCH ×3 (13:18→20:08)
[2018-10-31] MEDS: VITAMIN D3 5,000 UNITS (CHOLECALCIFEROL ) CAPSULE PO SCH (13:28)
[2018-10-31] MEDS: CARVEDILOL 3.125 MG (COREG) TABLET PO SCH ×2 (13:29→20:08)
[2018-10-31] MEDS: amLODIPine 2.5MG (NORVASC) TAB PO SCH (13:29)
[2018-10-31] MEDS: SERTRALINE 100 MG (ZOLOFT) TAB PO SCH (13:29)
[2018-10-31] MEDS: PANTOPRAZOLE 40 MG (PROTONIX) TAB PO SCH (13:29)
[2018-10-31] MEDS: ASCORBIC ACID (VIT C) 500 MG TABLET PO SCH (13:30)
[2018-10-31] MEDS: ATORVASTATIN 40 MG (LIPITOR) TABLET PO SCH (13:30)
[2018-10-31] MEDS: MAGNESIUM OXIDE (MAG-OX)400 MG TAB PO SCH (13:30)
[2018-10-31] MEDS: POLYETHYLENE GLYCOL 17 GM (MIRALAX) PACK PO SCH (13:32)
[2018-10-31 17:43] VITALS: BP 100/59
[2018-10-31] MEDS: oxyCODONE/APAP 10/325MG (PERCOCET 10) TABLET PO PRN (17:49)
[2018-10-31] MEDS: inSUlin DETERMIR 1 UNIT/0.01 ML (LEVEMIR) CHARGE PER UNIT SQ SCH (20:09)
[2018-10-31] MEDS: ALPRAZolam 0.5 MG (XANAX) TAB PO PRN (20:09)
[2018-10-31] MEDS: traZODone 100 MG (DESYREL) TAB PO SCH (20:09)
[2018-11-01] MEDS: HYDROmorphone (DILAUDID) 4 MG TAB PO PRN ×3 (03:14→18:36)
[2018-11-01 05:13] VITALS: BP 116/66
[2018-11-01] MEDS: LEVOTHYROXINE 25 MCG (LEVOTHROID) TAB PO SCH (06:14)
[2018-11-01] MEDS: SEVELAMER CARBONATE 800 MG TAB (RENVELA) NON-FORMULARY PO SCH ×3 (06:14→17:41)
[2018-11-01] MEDS: oxyCODONE/APAP 10/325MG (PERCOCET 10) TABLET PO PRN ×3 (06:14→20:35)
[2018-11-01] MEDS: inSUlin ASPART (NovoLOG) 1 UNIT/0.01 ML (CHARGE PER UNIT) SC SCH ×7 (06:14→20:37)
--- NOTE | 2018-11-01 06:15 | PM&R Progress Note ---
Subjective HPI/CC On Admission Date Seen by Provider: Nov 01, 2018 Time Seen by Provider: 06:00 Subjective/Events-last exam Patient needs to work on her confidence Chronic pain is still an issue Bowels are moving Slept well last night Will review labs periodically Review of Systems General: Fatigue Musculoskeletal: back pain, leg pain Objective Exam Vital Signs Vital Signs Date Time Temp Pulse Resp B/P (MAP) Pulse Ox O2 Delivery O2 Flow Rate FiO2 11/01/18 11:04 Nasal Cannula 2.00 11/01/18 05:13 98.0 74 18 116/66 (83) 97 Capillary Refill : Less Than 3 Seconds General Appearance: No Apparent Distress, WD/WN, Chronically ill Respiratory: Chest Non Tender, Lungs Clear, Normal Breath Sounds, No Accessory Muscle Use, No Respiratory Distress Cardiovascular: Regular Rate, Rhythm, No Edema, No Gallop, No JVD, Normal Peripheral Pulses, Systolic Murmur Neurologic/Psychiatric: Alert, Oriented x3, No Motor/Sensory Deficits, Normal Mood/Affect Skin: Normal Color, Warm/Dry Results/Procedures Lab Patient resulted labs reviewed. Assessment/Plan Assessment and Plan Assess & Plan/Chief Complaint Assessment: Left hip fracture 10/17/18 status post uncomplicated repair with incisional hematoma received 8 units of blood and 4 units of platelets while at [facility] End-stage renal disease on hemodialysis Friday//Friday Poor memory recall could complicate discharge planning Severe pain due to left leg pain and spine pain Breast cancer with metastasis Atrial fibrillation Valvular heart disease Diabetes mellitus Anemia 8.2 on recheck no indication for transfusion Plan: Monitor electrolytes on occasion considering end-stage renal dialysis status May need transfusion if hemoglobin requires it Changed pain medication to exactly how she was taking it at home Diagnosis/Problems Diagnosis/Problems (1) Hip fracture requiring operative repair Status: Chronic Qualifiers: Encounter type: subsequent encounter Fracture type: closed Laterality: left Fracture healing: with routine healing Qualified Codes: S72.002D - Fracture of unspecified part of neck of left femur, subsequent encounter for closed fracture with routine healing (2) ESRD (end stage renal disease) on dialysis Status: Chronic (3) Diabetes mellitus Status: Chronic Qualifiers: Diabetes mellitus type: type 2 Diabetes mellitus [facility] insulin use: with [facility] use Diabetes mellitus complication status: with kidney complications Diabetes mellitus complication detail: with chronic kidney disease Chronic kidney disease stage: on chronic dialysis Qualified Codes: E11.22 - Type 2 diabetes mellitus with diabetic chronic kidney disease; N18.6 - End stage renal disease; 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; Z99.2 - Dependence on renal dialysis (4) Breast cancer metastasized to bone Status: Chronic Qualifiers: Laterality: unspecified laterality Qualified Codes: C50.919 - Malignant neoplasm of unspecified site of unspecified female breast; C79.51 - Secondary malignant neoplasm of bone (5) Anemia requiring transfusions Status: Chronic (6) Thrombocytopenia Status: Chronic (7) Splenomegaly Status: Chronic (8) DNR (do not resuscitate) Status: Chronic (9) Hip pain, left Status: Acute (10) Spine pain Status: Acute (11) Cognitive decline Status: Chronic Clinical Quality Measures Admission Status Admission Dx Assessment: Status post left hip fracture repair by Dr. Jaramillo at [facility] on Transfusions of 8 units of blood and 4 units of platelets during acute medical admission at [place] Chronic anemia transfusion dependent Thrombocytopenia Breast cancer with metastases receives cancer care at [facility] End-stage renal disease on hemodialysis on Friday//Friday Diabetes mellitus Severe left hip pain and spine pain due to hip fracture repair and breast cancer metastasis to the spine Splenomegaly chronic Constipation Generalized weakness Plan: Restarted all home meds Fentanyl patch Dilaudid as needed along with Percocet Constipation treatment Therapies to improve global weakness Monitor left hip pain and try to participate in therapies as much as possible to strengthen and return back to independent living at home with family support DVT/VTE Risk/Contraindication: Risk Factor Score Per Nursin RFS Level Per Nursing on Admit: 4+=Very High SERINA JENKINS DO Nov 01, 2018 06:15
[2018-11-01] MEDS: SERTRALINE 100 MG (ZOLOFT) TAB PO SCH (08:56)
[2018-11-01] MEDS: SODIUM BICARBONATE 650 MG TABLET (NON-FORMULARY) PO SCH ×3 (08:56→20:35)
[2018-11-01] MEDS: PANTOPRAZOLE 40 MG (PROTONIX) TAB PO SCH (08:56)
[2018-11-01] MEDS: VITAMIN D3 5,000 UNITS (CHOLECALCIFEROL ) CAPSULE PO SCH (08:56)
[2018-11-01] MEDS: amLODIPine 2.5MG (NORVASC) TAB PO SCH (08:57)
[2018-11-01] MEDS: FUROSEMIDE 40 MG (LASIX) TAB PO SCH (08:57)
[2018-11-01] MEDS: ATORVASTATIN 40 MG (LIPITOR) TABLET PO SCH (08:57)
[2018-11-01] MEDS: ASCORBIC ACID (VIT C) 500 MG TABLET PO SCH (08:57)
[2018-11-01] MEDS: CARVEDILOL 3.125 MG (COREG) TABLET PO SCH ×2 (08:57→20:35)
[2018-11-01] MEDS: MAGNESIUM OXIDE (MAG-OX)400 MG TAB PO SCH (08:58)
[2018-11-01] MEDS: POLYETHYLENE GLYCOL 17 GM (MIRALAX) PACK PO SCH (09:31)
[2018-11-01] MEDS: DOCUSATE SODIUM 100 MG (COLACE) CAP PO PRN ×2 (09:31→11:52)
[2018-11-01] MEDS: ALPRAZolam 0.5 MG (XANAX) TAB PO PRN (10:29)
[2018-11-01 17:30] VITALS: BP 121/67
[2018-11-01] MEDS ORDERED: BISACODYL 10 MG SUPP (DULCOLAX) ONE (19:20)
[2018-11-01] MEDS ORDERED: BISACODYL 10 MG SUPP (DULCOLAX) PR PRN (19:30)
[2018-11-01] MEDS ORDERED: FLEET ENEMA ADULT 1 EA BTL PR PRN (20:15)
[2018-11-01] MEDS ORDERED: MAGNESIUM CITRATE 300 ML BTL PO ONE (20:15)
[2018-11-01] MEDS: FERROUS SULF 325 MG (IRON) TAB PO SCH (20:35)
[2018-11-01] MEDS: traZODone 100 MG (DESYREL) TAB PO SCH (20:35)
[2018-11-01] MEDS: inSUlin DETERMIR 1 UNIT/0.01 ML (LEVEMIR) CHARGE PER UNIT SQ SCH (20:36)
[2018-11-02] MEDS: ALPRAZolam 0.5 MG (XANAX) TAB PO PRN ×2 (01:18→16:50)
[2018-11-02] MEDS: HYDROmorphone (DILAUDID) 4 MG TAB PO PRN ×3 (01:18→16:38)
[2018-11-02] MEDS: oxyCODONE/APAP 10/325MG (PERCOCET 10) TABLET PO PRN ×4 (03:30→22:29)
[2018-11-02 05:07] VITALS: BP 116/63
[2018-11-02] MEDS: inSUlin ASPART (NovoLOG) 1 UNIT/0.01 ML (CHARGE PER UNIT) SC SCH ×5 (05:09→21:37)
[2018-11-02] MEDS: SEVELAMER CARBONATE 800 MG TAB (RENVELA) NON-FORMULARY PO SCH ×3 (06:21→18:35)
[2018-11-02] MEDS: LEVOTHYROXINE 25 MCG (LEVOTHROID) TAB PO SCH (06:21)
--- NOTE | 2018-11-02 08:07 | NUR ---
Dr. Arnold to floor. Orders to decrease Levemir to 6 units and DC scheduled Novolog with meals... just use SSI.
[2018-11-02] MEDS: VITAMIN D3 5,000 UNITS (CHOLECALCIFEROL ) CAPSULE PO SCH (08:20)
[2018-11-02] MEDS: MAGNESIUM OXIDE (MAG-OX)400 MG TAB PO SCH (08:20)
[2018-11-02] MEDS: FUROSEMIDE 40 MG (LASIX) TAB PO SCH (08:20)
[2018-11-02] MEDS: SERTRALINE 100 MG (ZOLOFT) TAB PO SCH (08:20)
[2018-11-02] MEDS: ATORVASTATIN 40 MG (LIPITOR) TABLET PO SCH (08:20)
[2018-11-02] MEDS: PANTOPRAZOLE 40 MG (PROTONIX) TAB PO SCH (08:20)
[2018-11-02] MEDS: SODIUM BICARBONATE 650 MG TABLET (NON-FORMULARY) PO SCH ×3 (08:20→21:57)
[2018-11-02] MEDS: ASCORBIC ACID (VIT C) 500 MG TABLET PO SCH (08:20)
[2018-11-02 08:28] VITALS: BP 101/64
[2018-11-02] MEDS: amLODIPine 2.5MG (NORVASC) TAB PO SCH (08:28)
[2018-11-02] MEDS: CARVEDILOL 3.125 MG (COREG) TABLET PO SCH ×2 (08:28→21:57)
--- NOTE | 2018-11-02 08:31 | NUR ---
BP is 101/64. Pulse is 70. Dr. Arnold notified. Orders to hold Coreg and Norvasc for SBP less than 120.
--- NOTE | 2018-11-02 08:36 | PM&R Progress Note ---
Subjective This was a face to face visit with the patient. Date Seen by Provider: Nov 02, 2018 Time Seen by Provider: 08:00 Subjective/Events-last exam Patient was seen in her room when she was in bed Pain is always an issue eventhough on extreme amounts of pain meds and this is acute on chronic issue Cognition precludes DC home so needs NHP Severe constipation presently even though patient reports she has had a BM every day so her reports are unreliable and will need to directly observe BM and document SSE has been refused but will need to take it this afternoon to prevent obstructions Had no recollection of Mag citrate taken this morning but she drank 1/2 bottle Date Identified: Nov 02, 2018 Time Identified: 08:15 Medication Intervention: Constipation is severe and her cognition now stable is new baseline will preclude her from going home as planned to independent living Review of Systems General: Fatigue Gastrointestinal: Constipation Objective Physician Exam Last Set of Vital Signs Vital Signs Date Time Temp Pulse Resp B/P (MAP) Pulse Ox O2 Delivery O2 Flow Rate FiO2 11/02/18 08:28 70 101/64 (76) 11/02/18 05:07 98.2 20 96 Nasal Cannula 11/01/18 20:49 2.00 Capillary Refill : Less Than 3 Seconds I&O Intake and Output 11/02/18 00:00 Intake Total 1140 ml Output Total 0 ml Balance 1140 ml Intake Oral 1140 ml Output Urine Total 0 ml Stool Total 0 ml General: Alert, Oriented X3, Cooperative HEENT: Atraumatic, PERRLA Neck: Supple, No JVD Lungs: Clear to Auscultation Heart: Regular Rate, Normal S1, Normal S2, Other (murmur) Abdomen: Normal Bowel Sounds, Soft Extremities: No Clubbing, No Cyanosis Skin: No Rashes, No Breakdown, Other (dressing intact left hip incision for 2 weeks from 10/17/18 surgery) Neuro: Other (globally weak all extremities but left leg limited due to pain left hip fracture) Psych/Mental Status: Mental Status NL, Other (poor recall) Results Lab Data Laboratory Tests 10/30/18 11:07: Glucometer 132H 10/30/18 16:44: Glucometer 132H 10/30/18 20:49: Glucometer 99 10/31/18 04:29: Glucometer 91 10/31/18 12:46: Glucometer 90 10/31/18 20:36: Glucometer 166H 11/01/18 06:59: Glucometer 116H 11/01/18 12:42: Glucometer 111H 11/01/18 16:16: Glucometer 65L 11/01/18 20:37: Glucometer 89 11/02/18 05:01: Glucometer 59*L 11/02/18 05:40: Glucometer 79 Current Funtional Status Constipation resolution Needs [facility] Monitor pain Assessment/Plan Assessment and Plan (1) Hip fracture requiring operative repair Qualifiers: Qualified Codes: S72.002D - Fracture of unspecified part of neck of left femur, subsequent encounter for closed fracture with routine healing Status: Chronic (2) ESRD (end stage renal disease) on dialysis Status: Chronic (3) Diabetes mellitus Qualifiers: Qualified Codes: E11.22 - Type 2 diabetes mellitus with diabetic chronic kidney disease; N18.6 - End stage renal disease; Z79.4 - senior living (current) use of insulin; Z99.2 - Dependence on renal dialysis Status: Chronic (4) Breast cancer metastasized to bone Qualifiers: Qualified Codes: C50.919 - Malignant neoplasm of unspecified site of unspecified female breast; C79.51 - Secondary malignant neoplasm of bone Status: Chronic (5) Anemia requiring transfusions Status: Chronic (6) Thrombocytopenia Status: Chronic (7) Splenomegaly Status: Chronic (8) DNR (do not resuscitate) Status: Chronic (9) Hip pain, left Status: Acute (10) Spine pain Status: Acute (11) Cognitive decline Status: Chronic Co-Morbidities that are continuing to impact the rehab process: (include details ) SERINA JENKINS DO Nov 02, 2018 08:36
--- NOTE | 2018-11-02 08:41 | Physical Therapy Daily Note ---
PT Daily Note-Current Subjective Pt. in bed, states her pain in left hip and back are at 9/10. Pt hesitant to get up but does with encouragement. Pt. states " can you hear the grinding? its so painful" Pain Numeric Pain Scale: 9 Location: Left Location Body Site: Hip Pain Description: Stabbing Appearance grimaces with movement, some whimpering Mental Status Patient Orientation: Normal For Age Transfers Therapy Code Descriptions/Definitions Functional [place] Measure: 0=Not Assessed/NA 4=Minimal Assistance 1=Total Assistance 5=Supervision or Setup 2=Maximal Assistance 6=Modified [place] 3=Moderate Assistance 7=Complete [place] Therapy Quality Codes: 6 Independent with activity with or without an assistive device 5 Patient requires set up or clean up by helper. Patient completes activity by themselves 4 Supervision or touching assist (CGA). [place] provide cues , steadying assist 3 The helper provides less than half the effort to complete the activity 2 The helper provides more than half the effort to complete the activity 1 Dependent. The helper does all the effort to complete an activity 7 Patient refused to complete or attempt activity 9 The patient did not perform the activity before the current illness or injury 88 Not attempted due to Medical conditions or safety concerns Transfers (B, C, W/C) (FIM): 3 Scootin Rollin Supine to/from Sit: 5 (with head of bed up pt. was able to get to EOB slowly but with SBA only) Sit to/from Stand: 3 (bed level raised) Bed to/from Chair: 3 Weight Bearing Right Lower Extremity: Right Full Weight Bearing Left Lower Extremity: Left Weight Bearing/Tolerated Gait Training Does the Patient Walk?: Yes Gait (FIM): 1 Distance (FIM): 1=up to 49 ft (3-4 small steps) Gait Level of Assist: 3 Gait Persons Needed: 1 Gait Assistive Device: FWW pain limitations, audible crepitus, c/o increased pain with movement. needs assist for stability Exercises Supine Ex: Glut sets, Heel Slides, Hip abd/add Supine Reps: 10 Seated Therapy Exercises: Ankle pumps, Sit to stand, Long arc quads (bilat), Hip flexion (right only) Seated Reps: 10 Assessment Current Status: Fair Progress pain limits as well as weakness and instability PT Short Term Goals Short Term Goals Time Frame: Nov 03, 2018 Gait (FIM): 1 Gait Distance Comment: 20' Gait Level of Assist: 4 Gait Assistive Device: FWW Wheelchair Distance: 500' PT Penitentiary Goals Penitentiary Goals PT Field Service Poultry Technician Goals Time Frame: Nov 17, 2018 Transfers (B,C,W/C) (FIM): 5 Sit to Lying (QC): 4 Lying-Sitting on Side/Bed(QC): 4 Sit to Stand (QC): 4 Rollin Roll Left to Right (QC): 4 Chair/Uen-vj-Hodzl Xfer(QC): 4 Car Transfer (QC): 4 Gait (FIM): 2 Distance: 50' Walk 10 feet (QC): 4 Walk 10ft-Uneven Surface(QC): 4 Walk 50ft with 2 Turns (QC): 4 Gait Level of Assist: 5 Gait Assistive Device: FWW # of Steps: 1 1 Step (curb) (QC): 4 Stairs Level Of Assist: 4 PT Plan Treatment/Plan Treatment Plan: Continue Plan of Care Treatment Plan: Bed Mobility, Concurrent Therapy, Education, Functional Activity Alva, Functional Strength, Group Therapy, Gait, Safety, Therapeutic Exercise Treatment Duration: Nov 17, 2018 Frequency: At least 5 of 7 days/Wk (IRF) Estimated Hrs Per Day: 1.5 hours per day Patient and/or Family Agrees t: Yes Safety Risks/Education Patient Education: Transfer Techniques, Correct Positioning, Disease Process, Safety Issues Teaching Recipient: Patient Teaching Methods: Demonstration, Discussion Response to Teaching: Verbalize Understanding, Return Demonstration, Reinforcement Needed Time/GCodes Time In: 800 Time Out: 845 Total Billed Treatment Time: 45 Total Billed Treatment 1,GT10m,FA20m,EX15m G Codes Necessary: HARSHAD Lawrence DUST COLLECTOR ORE CRUSHING Nov 02, 2018 08:41
[2018-11-02] MEDS: POLYETHYLENE GLYCOL 17 GM (MIRALAX) PACK PO SCH (08:48)
--- NOTE | 2018-11-02 09:29 | Occupational Ther Daily Note ---
OT Current Status-Daily Note Subjective Pt sitting in recliner. Pt stated that she hurt and didn't know when she had her last pain pill, nrsg reported that pt had taken it 15 min prior to OT session. Pt agrees to therapy. Pt will ask for more people to assist prior to any transfers. Mental Status/Objective Patient Orientation: Person, Place, Time, Situation Therapy Code Descriptions/Definitions Functional [place] Measure: 0=Not Assessed/NA 4=Minimal Assistance 1=Total Assistance 5=Supervision or Setup 2=Maximal Assistance 6=Modified [place] 3=Moderate Assistance 7=Complete [place] ADL-Treatment Pt takes increased time to complete ADL tasks due to decreased mobility and increased pain. Pt requires encouragement to keep working throughout therapy sessions. Pt initially agrees to shower then pt requested to use toilet. Pt ambulated with FWW from recliner to toilet with 1 person using FWW. Verbal cues for FWW and body positions and encouragement to continue trying. Pt transferred to toilet with mod A due to pt reaching for grabbar instead of using FWW for turning to position self in front of toilet. Pt requested to sit for a while on toilet. Pt began to cry on toilet stating everything hurts and can't have a BM. Pt then requested to get off of toilet due to buttocks hurting. Pt was able to transfer with mod A, continued to request more people to assist. Transferred to w/c. Sat at sink in w/c to complete grooming. Pt stated that she felt nauseous, basin given to pt, reported to nrsg. Pt then was transported back to bedside with w/c, transferred with min A using FWW to EOB and min A for EOB to supine. Pt was positioned in bed. Pt stated that her chin felt heavy and was worried about her BP, nrsg came into room for BP, 125/ 65. After therapy, pt lying in bed with call light/phone in reach. Therapy Code Descriptions/Definitions Functional [place] Measure: 0=Not Assessed/NA 4=Minimal Assistance 1=Total Assistance 5=Supervision or Setup 2=Maximal Assistance 6=Modified [place] 3=Moderate Assistance 7=Complete [place] Therapy Quality Codes: 6 Independent with activity with or without an assistive device 5 Patient requires set up or clean up by helper. Patient completes activity by themselves 4 Supervision or touching assist (CGA). [place] provide cues , steadying assist 3 The helper provides less than half the effort to complete the activity 2 The helper provides more than half the effort to complete the activity 1 Dependent. The helper does all the effort to complete an activity 7 Patient refused to complete or attempt activity 9 The patient did not perform the activity before the current illness or injury 88 Not attempted due to Medical conditions or safety concerns Grooming (FIM): 6 Oral Hygiene (QC): 6 Toileting (FIM): 2 (Assist to cleanse and manipulate clothing.) Toileting Hygiene (QC): 2 Toilet/Commode Transfer (FIM): 3 Toilet Transfer (QC): 3 OT Short Term Goals Short Term Goals Time Frame: Nov 03, 2018 Bathing(FIM): 3 Lower Body Dressing(FIM): 3 Toileting(FIM): 3 Toilet/Commode Transfer(FIM): 3 Additional Short Term Goals: 1-Demonstrate ADL Tasks, 2-Verbalize Understanding , 3-ImproveStrength/Alva 1=Demonstrate adherence to instructed precautions during ADL tasks. 2=Patient will verbalize/demonstrate understanding of assistive devices/ modifications for ADL. 3=Patient will improve strength/tolerance for activity to enable patient to perform ADL's. OT Fpc Goals Fish Worm Grower Goals Time Frame: Nov 17, 2018 Eating (FIM): 6 Eating (QC): 6 Groomin Oral Hygiene (QC): 6 Bathing(FIM): 5 Shower/Bathe Self (QC): 4 Upper Body Dressing(FIM): 5 Upper Body Dressing (QC): 5 Lower Body Dressing(FIM): 5 Lower Body Dressing (QC): 4 On/Off Footwear (QC): 4 Toileting(FIM): 5 Toileting Hygiene (QC): 4 Toilet/Commode Transfer(FIM): 5 Toilet/Commode Transfer (QC): 4 Shower Transfer(FIM): 5 Additional Goals: 1-Demonstrate ADL Tasks, 2-Verbalize Understanding, 3- ImproveStrength/Alva 1=Demonstrate adherence to instructed precautions during ADL tasks. 2=Patient will verbalize/demonstrate understanding of assistive devices/ modifications for ADL. 3=Patient will improve strength/tolerance for activity to enable patient to perform ADL's. OT Education/Plan Discharge Recommendations Plan/Recommendations: Continue POC Treatment Plan/Plan of Care Patient would benefit from OT for education, treatment and training to promote independence in ADL's, mobility, safety and/or upper extremity function for ADL' s. Plan of Care: ADL Retraining, Functional Mobility, Group Exercise/Act as Ind, UE Funct Exercise/Act Treatment Duration: Nov 17, 2018 Frequency: At least 5 of 7 days/Wk (IRF) Estimated Hrs Per Day: 1.5 hours per day Agreement: Yes Rehab Potential: Guarded Time/GCodes Start Time: 09:00 Stop Time: 10:00 Total Time Billed (hr/min): 60 Billed Treatment Time 1 visit-ADL 4 (60 min) JESSICA GHOSH Nov 02, 2018 09:29
[2018-11-02] MEDS: ONDANSETRON 8 MG (ZOFRAN) ORAL DISSOLVE TAB PO PRN ×2 (10:32→18:02)
[2018-11-02] MEDS: DOCUSATE SODIUM 100 MG (COLACE) CAP PO PRN (10:32)
[2018-11-02] MEDS: fentaNYL PATCH 100 MCG (DURAGESIC) TD SCH (11:09)
[2018-11-02] MEDS: FENTANYL PATCH REMOVAL TP SCH (11:14)
--- NOTE | 2018-11-02 15:04 | NUR ---
BENCH BORING MACHINE OPERATOR met with patient to complete initial assessment. Patient was alert and oriented and agreeable to assessment. Patient admitted to ARU with hip fracture. Patient reports uncontrolled pain and chronic pain. Prior to hospitalization patient resided in a one level home in [place], [place]. The home is midlevel provider with no barriers. Patient reports utilization of 2-4 L of continuous O2 provided by [employer] and independence with front-wheeled walker for ambulation. Patient also possesses possesses rollator walker; however, did not utilize this prior to hospitalization. Patient completes dialysis at [facility] Friday, , Friday schedule in which [id number] provides transportation. Patient identifies PCP as Dr. Thacker. Primary contact identified as daughter Linda of [place], [place] at [phone] and sister, Maryjo of [place]. Insurance verified as Medicare. Prior to initial assessment BENCH BORING MACHINE OPERATOR received recommendations from Dr. Arnold and therapy staff and long term facility placement. BENCH BORING MACHINE OPERATOR discussed recommendation with patient; however, patient requested to remain in ARU rather than admit to SNF. BENCH BORING MACHINE OPERATOR discussed need for discharge planning due to inability to tolerate duration and intensity of ARU therapies. Following lengthy discussion patient has requested referral to [facility] and area long term facility is with [facility] as primary choice. BENCH BORING MACHINE OPERATOR sent referrals. At this time patient is tentatively accepted at [facility] in rehabilitation for discharge on Friday, patient is agreeable to applying for [place] Medicaid as secondary insurance provider. BENCH BORING MACHINE OPERATOR will await response from [email or web address] prior to final discharge planning.
--- NOTE | 2018-11-02 15:08 | Therapy Group Daily Note ---
Therapy Daily Group Note Patient Education Topic Other List Below (ARU objectives and reqiurements, improtance of good sleep habits) Exercises LE Seated Exercise, UE Exercise Other/Notes Pt. participated in group PT OT session this date at 3:1 ratio. Pt. profited from group therapy as she shared that he learned from others by observation while they performed U&L extremity exercises to perform with improved posture and alignment. Pts goal was to complete seated exercise with good tolerance, maintain good alignment and attempt to mirror others with good exercise technique. Education focus this date was ARU objectives and expectations which patient acknowledged she understood as well as the importance of sleep and some ways she might improve sleep even while here in hospital. Pt. to from room via w/c and assist with O2 2L. Pt. required mod assist for all TRFs in out chair and bed. Pt. in bed after group. Goss at hand, heels free. Start Time: 13:00 Stop Time: 14:30 Total Billed Treatment Time: 90 Total Billed Treatment 1,GRP HARSHAD WAITE CUSTOMER CONSULTANT Nov 02, 2018 15:08
--- NOTE | 2018-11-02 16:00 | Speech Therapy Daily Note ---
Speech Daily Progress Note Subjective Date Seen by Provider: Nov 02, 2018 Time Seen by Provider: 00:30 Patient had just taken a Zofran for an upset stomach when I entered the room. Objective Patient completed simple conversational tasks related to memory of events with 90% accuracy given minimal verbal cuing. Assessment Assessment Current Status: Good Progress Treatment Plan Continue Plan of Care Communication Comprehension: 4 Expression: 4 Social Cognition Social Interaction: 5 Problem Solvin Memory: 3 Speech Short Term Goals Short Term Goals Short Term Goals 1) Patient will be able to recall information presented with 90% or greater. 2) Patient will be able to follow 2-3 step directions independently with 90% or greater. 3) Patient will be able to complete problem solving tasks independently with 90 % or greater. Speech Society Reporter Goals Society Reporter Goals Patient will improve deficits to 90% or greater in order to return home safely. Speech-Plan Patient/Family Goals Patient/Family Goals: Patient plans to move in to her new apartment independently post rehab. Treatment Plan Speech Therapy Treatment Plan: Continue Plan of Care Patient is making progress as a result of skilled ST services. Treatment Duration: Nov 06, 2018 Frequency: 5 times per week Estimated Hrs Per Day: .5 hour per day Rehab Potential: Guarded Barriers to Learning: Patient has a lot of medical issues that make her feel poorly. Pt/Family Agrees to Plan: Yes Safety Risks/Education Teaching Recipient: Patient Teaching Methods: Discussion Response to Teaching: Verbalize Understanding Education Topics Provided: Safety Time Speech Therapy Time In: 10:30 Speech Therapy Time Out: 11:00 Total Billed Time: 30 Billed Treatment Time 1, INGA Wynne Nov 02, 2018 16:00
[2018-11-02 16:34] VITALS: BP 157/80
--- NOTE | 2018-11-02 17:30 | NUR ---
Soap suds enema given with no results. Fleets enema given per patient's request. Large amount of hard, brown stool noted. Patient tolerated fair.
[2018-11-02] MEDS: inSUlin DETERMIR 1 UNIT/0.01 ML (LEVEMIR) CHARGE PER UNIT SQ SCH (21:56)
[2018-11-02] MEDS: traZODone 100 MG (DESYREL) TAB PO SCH (21:57)
[2018-11-03] MEDS: inSUlin ASPART (NovoLOG) 1 UNIT/0.01 ML (CHARGE PER UNIT) SC SCH ×4 (04:24→21:00)
[2018-11-03] MEDS: SEVELAMER CARBONATE 800 MG TAB (RENVELA) NON-FORMULARY PO SCH ×3 (04:41→16:44)
[2018-11-03] MEDS: LEVOTHYROXINE 25 MCG (LEVOTHROID) TAB PO SCH (04:41)
[2018-11-03] MEDS: oxyCODONE/APAP 10/325MG (PERCOCET 10) TABLET PO PRN ×3 (05:10→22:10)
--- NOTE | 2018-11-03 05:38 | NUR ---
Patient left per w/c with [facility] to go to dialysis on O2 at 2L. Pt's lunch sent with her.
[2018-11-03 06:24] VITALS: BP 114/68
--- NOTE | 2018-11-03 09:00 | NUR ---
PATIENT OUT OF BUILDING FOR DIALYSIS, MORNING MEDS NOT GIVEN BEFORE LEAVING, WILL GIVE WHEN PATIENT RETURNS TO FLOOR
--- NOTE | 2018-11-03 11:45 | NUR ---
RETURNED FROM DIALYSIS, ALERT, C/O BACK PAIN, DRESSING DRY AND INTACT TO LEFT HIP, CALL LIGHT WITHIN REACH, HEEL PROTECTOR APPLIED TO HEELS AND RIGHT ELBOW
[2018-11-03] MEDS: CARVEDILOL 3.125 MG (COREG) TABLET PO SCH ×2 (11:57→22:10)
[2018-11-03] MEDS: ATORVASTATIN 40 MG (LIPITOR) TABLET PO SCH (11:57)
[2018-11-03] MEDS: POLYETHYLENE GLYCOL 17 GM (MIRALAX) PACK PO SCH (11:58)
[2018-11-03] MEDS: amLODIPine 2.5MG (NORVASC) TAB PO SCH (11:58)
[2018-11-03] MEDS: MAGNESIUM OXIDE (MAG-OX)400 MG TAB PO SCH (11:58)
[2018-11-03] MEDS: SERTRALINE 100 MG (ZOLOFT) TAB PO SCH (11:59)
[2018-11-03] MEDS: VITAMIN D3 5,000 UNITS (CHOLECALCIFEROL ) CAPSULE PO SCH (11:59)
[2018-11-03] MEDS: SODIUM BICARBONATE 650 MG TABLET (NON-FORMULARY) PO SCH ×3 (11:59→22:10)
[2018-11-03] MEDS: PANTOPRAZOLE 40 MG (PROTONIX) TAB PO SCH (11:59)
[2018-11-03] MEDS: ASCORBIC ACID (VIT C) 500 MG TABLET PO SCH (11:59)
[2018-11-03] MEDS: DOCUSATE SODIUM 100 MG (COLACE) CAP PO PRN (12:04)
--- NOTE | 2018-11-03 12:35 | Speech Therapy Daily Note ---
Speech Daily Progress Note Subjective Date Seen by Provider: Nov 03, 2018 Time Seen by Provider: 00:30 Patient was seen following dialysis today. Objective Patient was able to complete her lunch order with assistance at 80% independent. Assessment Assessment Current Status: Good Progress Treatment Plan Continue Plan of Care Communication Comprehension: 4 Expression: 4 Social Cognition Social Interaction: 5 Problem Solvin Memory: 3 Speech Short Term Goals Short Term Goals Short Term Goals 1) Patient will be able to recall information presented with 90% or greater. 2) Patient will be able to follow 2-3 step directions independently with 90% or greater. 3) Patient will be able to complete problem solving tasks independently with 90 % or greater. Speech Personal Caregiver Goals Personal Caregiver Goals Patient will improve deficits to 90% or greater in order to return home safely. Speech-Plan Patient/Family Goals Patient/Family Goals: Patient plans to move to her new apartment with family close by post rehab. Treatment Plan Speech Therapy Treatment Plan: Continue Plan of Care Patient was in a lot of pain upon her return today. Treatment Duration: Nov 06, 2018 Frequency: 5 times per week Estimated Hrs Per Day: .5 hour per day Rehab Potential: Guarded Barriers to Learning: Patient tires very easily. Pt/Family Agrees to Plan: Yes Safety Risks/Education Teaching Recipient: Patient Teaching Methods: Discussion Response to Teaching: Verbalize Understanding Education Topics Provided: Safety and procedures for ordering her meals. Time Speech Therapy Time In: 11:30 Speech Therapy Time Out: 12:00 Total Billed Time: 30 Billed Treatment Time 1 TONY Patricia RAMIREZINGA OSWALD Nov 03, 2018 12:35
--- NOTE | 2018-11-03 13:00 | PM&R Progress Note ---
Subjective HPI/CC On Admission Date Seen by Provider: Nov 03, 2018 Time Seen by Provider: 13:00 Subjective/Events-last exam Patient was seen after she returned back from hemodialysis Cognition is at baseline but noting more more deficiencies since she does not recall having a conversation to go to the residential right after she talked to the nurse and told her she was moving back to [place] in a few days long-term placement pending it appears that they just approved her for tomorrow at 9:00 in the morning at [facility] and rehab Pain medication will be prescribed at discharge Bowels are moving now after meds given and will need to maintain on bowel regimen at residential Overall poor prognosis Likely residential will be permanent Review of Systems Musculoskeletal: leg pain Objective Exam Vital Signs Vital Signs Date Time Temp Pulse Resp B/P (MAP) Pulse Ox O2 Delivery O2 Flow Rate FiO2 11/03/18 16:51 97.1 73 16 109/63 (78) 95 Nasal Cannula 2.00 Capillary Refill : Less Than 3 Seconds General Appearance: No Apparent Distress, WD/WN, Chronically ill Respiratory: Chest Non Tender, Normal Breath Sounds, No Accessory Muscle Use, No Respiratory Distress, Crackles (LLL) Cardiovascular: Regular Rate, Rhythm, No Edema, No Gallop, No JVD, No Murmur, Normal Peripheral Pulses Neurologic/Psychiatric: Alert, Oriented x3, No Motor/Sensory Deficits, Normal Mood/Affect, Disoriented Results/Procedures Lab Patient resulted labs reviewed. Assessment/Plan Assessment and Plan Assess & Plan/Chief Complaint Assessment: Left hip fracture 10/17/18 status post uncomplicated repair with incisional hematoma received 8 units of blood and 4 units of platelets while at [facility] End-stage renal disease on hemodialysis Friday//Friday Poor memory recall could complicate discharge planning Severe pain due to left leg pain and spine pain Breast cancer with metastasis Atrial fibrillation Valvular heart disease Diabetes mellitus Anemia 8.2 on recheck no indication for transfusion Plan: Monitor electrolytes on occasion considering end-stage renal dialysis status May need transfusion if hemoglobin requires it Changed pain medication to exactly how she was taking it at home NH placement tomorrow Diagnosis/Problems Diagnosis/Problems (1) Hip fracture requiring operative repair Status: Chronic Qualifiers: Encounter type: subsequent encounter Fracture type: closed Laterality: left Fracture healing: with routine healing Qualified Codes: S72.002D - Fracture of unspecified part of neck of left femur, subsequent encounter for closed fracture with routine healing (2) ESRD (end stage renal disease) on dialysis Status: Chronic (3) Diabetes mellitus Status: Chronic Qualifiers: Diabetes mellitus type: type 2 Diabetes mellitus retirement insulin use: with local intermodal truck driver use Diabetes mellitus complication status: with kidney complications Diabetes mellitus complication detail: with chronic kidney disease Chronic kidney disease stage: on chronic dialysis Qualified Codes: E11.22 - Type 2 diabetes mellitus with diabetic chronic kidney disease; N18.6 - End stage renal disease; Z79.4 - local intermodal truck driver (current) use of insulin; Z99.2 - Dependence on renal dialysis (4) Breast cancer metastasized to bone Status: Chronic Qualifiers: Laterality: unspecified laterality Qualified Codes: C50.919 - Malignant neoplasm of unspecified site of unspecified female breast; C79.51 - Secondary malignant neoplasm of bone (5) Anemia requiring transfusions Status: Chronic (6) Thrombocytopenia Status: Chronic (7) Splenomegaly Status: Chronic (8) DNR (do not resuscitate) Status: Chronic (9) Hip pain, left Status: Acute (10) Spine pain Status: Acute (11) Cognitive decline Status: Chronic Clinical Quality Measures Admission Status Admission Dx Assessment: Status post left hip fracture repair by Dr. Jaramillo at [facility] on Transfusions of 8 units of blood and 4 units of platelets during acute medical admission at [place] Chronic anemia transfusion dependent Thrombocytopenia Breast cancer with metastases receives cancer care at [facility] End-stage renal disease on hemodialysis on Friday//Friday Diabetes mellitus Severe left hip pain and spine pain due to hip fracture repair and breast cancer metastasis to the spine Splenomegaly chronic Constipation Generalized weakness Plan: Restarted all home meds Fentanyl patch Dilaudid as needed along with Percocet Constipation treatment Therapies to improve global weakness Monitor left hip pain and try to participate in therapies as much as possible to strengthen and return back to independent living at home with family support DVT/VTE Risk/Contraindication: Risk Factor Score Per Nursin RFS Level Per Nursing on Admit: 4+=Very High SERINA JENKINS DO Nov 03, 2018 13:00
--- NOTE | 2018-11-03 13:19 | Occupational Ther Daily Note ---
OT Current Status-Daily Note Subjective Pt alert, sitting in w/c. Pt agrees to therapy. No c/o pain at this time. Mental Status/Objective Patient Orientation: Person, Place, Time, Situation Therapy Code Descriptions/Definitions Functional [place] Measure: 0=Not Assessed/NA 4=Minimal Assistance 1=Total Assistance 5=Supervision or Setup 2=Maximal Assistance 6=Modified [place] 3=Moderate Assistance 7=Complete [place] Attachments: Oxygen ADL-Treatment Co-treat with PT for skilled care due to increased pain and decreased activity tolerance. PT worked on transfers, w/c mobility, ambulation, bed mobility and LE strengthening. OT worked on UE exercises, functional transfers, ADLs and bed mobility. Pt c/o fatigue and pain, pain meds given 1 hour before therapy session. Pt able to maneuver w/c with verbal cues using UE/LE to propel. Pt then transferred to complete arm/leg bike to work on activity tolerance and strength for daily functional tasks. Pt then was transported back to room via w /c. Transferred with mod A to shower using grabbars, w/c and shower seat. Completed shower using long handle sponge, grabbars, shower seat and hand held shower. Assist to cleanse buttocks and rinse. After set up, pt able to complete donning/doffing shirt. Max A for donning/doffing lower body clothing. Pt transferred back to bed with min A using FWW and verbal cues for correct hand placement when backing up to bed. Min A for EOB to supine and verbal cues to position hips in bed. Assist to move L LE. After therapy, pt lying in bed with call light/phone in reach. All needs met in room. Therapy Code Descriptions/Definitions Functional Tucker Measure: 0=Not Assessed/NA 4=Minimal Assistance 1=Total Assistance 5=Supervision or Setup 2=Maximal Assistance 6=Modified [place] 3=Moderate Assistance 7=Complete Tucker Therapy Quality Codes: 6 Independent with activity with or without an assistive device 5 Patient requires set up or clean up by helper. Patient completes activity by themselves 4 Supervision or touching assist (CGA). [place] provide cues , steadying assist 3 The helper provides less than half the effort to complete the activity 2 The helper provides more than half the effort to complete the activity 1 Dependent. The helper does all the effort to complete an activity 7 Patient refused to complete or attempt activity 9 The patient did not perform the activity before the current illness or injury 88 Not attempted due to Medical conditions or safety concerns Bathing (FIM): 4 Bathing Location: L Arm, R Arm, L Upper Leg, R Upper Leg, L Lower Leg ( including foot), R Lower Leg (including foot), Chest, Abdomen, Buttocks, Perineal Area Shower/Bathe Self (QC): 3 Upper Body (FIM): 5 Upper Body Dressing (QC): 5 Lower Body Dressing (FIM): 2 Lower Body Dressing (QC): 2 On/Off Footwear (QC): 2 Shower Transfer(FIM): 3 OT Short Term Goals Short Term Goals Time Frame: Nov 03, 2018 Bathing(FIM): 3 Lower Body Dressing(FIM): 3 Toileting(FIM): 3 Toilet/Commode Transfer(FIM): 3 Additional Short Term Goals: 1-Demonstrate ADL Tasks, 2-Verbalize Understanding , 3-ImproveStrength/Alva 1=Demonstrate adherence to instructed precautions during ADL tasks. 2=Patient will verbalize/demonstrate understanding of assistive devices/ modifications for ADL. 3=Patient will improve strength/tolerance for activity to enable patient to perform ADL's. OT Residential Goals Residential Goals Time Frame: Nov 17, 2018 Eating (FIM): 6 Eating (QC): 6 Groomin Oral Hygiene (QC): 6 Bathing(FIM): 5 Shower/Bathe Self (QC): 4 Upper Body Dressing(FIM): 5 Upper Body Dressing (QC): 5 Lower Body Dressing(FIM): 5 Lower Body Dressing (QC): 4 On/Off Footwear (QC): 4 Toileting(FIM): 5 Toileting Hygiene (QC): 4 Toilet/Commode Transfer(FIM): 5 Toilet/Commode Transfer (QC): 4 Shower Transfer(FIM): 5 Additional Goals: 1-Demonstrate ADL Tasks, 2-Verbalize Understanding, 3- ImproveStrength/Alva 1=Demonstrate adherence to instructed precautions during ADL tasks. 2=Patient will verbalize/demonstrate understanding of assistive devices/ modifications for ADL. 3=Patient will improve strength/tolerance for activity to enable patient to perform ADL's. OT Education/Plan Discharge Recommendations Plan/Recommendations: Continue POC Treatment Plan/Plan of Care Patient would benefit from OT for education, treatment and training to promote independence in ADL's, mobility, safety and/or upper extremity function for ADL' s. Plan of Care: ADL Retraining, Functional Mobility, Group Exercise/Act as Ind, UE Funct Exercise/Act Treatment Duration: Nov 17, 2018 Frequency: At least 5 of 7 days/Wk (IRF) Estimated Hrs Per Day: 1.5 hours per day Agreement: Yes Rehab Potential: Guarded Time/GCodes Start Time: 13:00 Stop Time: 14:15 Total Time Billed (hr/min): 75 Billed Treatment Time 1 visit-EX 2 (30 min) ADL 3 (45 min) co-treat with PT 75 min JESSICA GHOSH Nov 03, 2018 13:19
--- NOTE | 2018-11-03 14:17 | Physical Therapy Daily Note ---
PT Daily Note-Current Subjective Pt. hesitant to participate with therapies this date. C/o pain at 9/10 in back and left knee. Pt. and this YARDAGE CONTROL OPERATOR FORMING and LOWE Maricarmen Brewer discussed with pt. that if she has goals of home alone as she speaks of that she will need to walk with FWW at least 50 ft and TRFsafely all planes. Pt. speaks rather impractically stating that she "will be able to do it when I get home". Discussed pts Dx as well as possibility of SNU for longer duration ,but shorter rx times option. Pt. crying during Rx several times, mentioning her CA DX and her back pain. Pt. had been medicated approx 75 mins prior to Rx Pain Numeric Pain Scale: 9 Location: Medial Location Body Site: Back Pain Description: Stabbing Appearance cries, furrowed brow, soft voice Mental Status Patient Orientation: Person, Place, Time, Situation Attachments: Oxygen (2L) Transfers Therapy Code Descriptions/Definitions Functional [place] Measure: 0=Not Assessed/NA 4=Minimal Assistance 1=Total Assistance 5=Supervision or Setup 2=Maximal Assistance 6=Modified [place] 3=Moderate Assistance 7=Complete [place] Therapy Quality Codes: 6 Independent with activity with or without an assistive device 5 Patient requires set up or clean up by helper. Patient completes activity by themselves 4 Supervision or touching assist (CGA). [place] provide cues , steadying assist 3 The helper provides less than half the effort to complete the activity 2 The helper provides more than half the effort to complete the activity 1 Dependent. The helper does all the effort to complete an activity 7 Patient refused to complete or attempt activity 9 The patient did not perform the activity before the current illness or injury 88 Not attempted due to Medical conditions or safety concerns Transfers (B, C, W/C) (FIM): 3 Scootin Rollin Supine to/from Sit: 3 (out of bed with HOB up SBA, in bed mod assist LEs) Sit to/from Stand: 3 Bed to/from Chair: 3 Weight Bearing Right Lower Extremity: Right Full Weight Bearing Left Lower Extremity: Left Weight Bearing/Tolerated Gait Training Does the Patient Walk?: Yes Gait (FIM): 1 Distance (FIM): 1=up to 49 ft (15ft, 5ftx2) Gait Level of Assist: 4 Gait Persons Needed: 1 (w/c to follow) Gait Assistive Device: FWW pt. indicates she needs encouragement, needs detailed instruction every step Wheelchair Training Does the Pt Use a Wheelchair?: Yes Wheelchair (FIM): 1 Wheelchair Distance: 1=up to 49 ft (25ftx2) Wheelchair Level of Assist: 2 Type of Wheelchair: Manual needs assist to manage brakes and turns, attempted forward and backward propulsion as well as using feet/toes to move and UEs, pt.fatigues very quickly and c/o increased back pain with use of UEs Exercises NuStep Minutes: 10 NuStep Workload: 2 Treatments PT OT co Rx fir skilled care due to decreased activity tolerance, weakness and increased pain c/o, coordination fo Rx for TRFs eli shower sit to stands and side step and retro to prep and enter shower etc, Assessment pt. with very poor tolerance for activity, poorly motivated to try but states her goal is home . This YARDAGE CONTROL OPERATOR FORMING feels that ARU time requirements may be too much for this pt. considering her pain level and poor activity tolerance PT Short Term Goals Short Term Goals Time Frame: Nov 03, 2018 Gait (FIM): 1 Gait Distance Comment: 20' Gait Level of Assist: 4 Gait Assistive Device: FWW Wheelchair Distance: 500' PT Prison Goals Prison Goals PT Division Officer Weapons Department Goals Time Frame: Nov 17, 2018 Transfers (B,C,W/C) (FIM): 5 Sit to Lying (QC): 4 Lying-Sitting on Side/Bed(QC): 4 Sit to Stand (QC): 4 Rollin Roll Left to Right (QC): 4 Chair/Qto-ym-Rdfli Xfer(QC): 4 Car Transfer (QC): 4 Gait (FIM): 2 Distance: 50' Walk 10 feet (QC): 4 Walk 10ft-Uneven Surface(QC): 4 Walk 50ft with 2 Turns (QC): 4 Gait Level of Assist: 5 Gait Assistive Device: FWW # of Steps: 1 1 Step (curb) (QC): 4 Stairs Level Of Assist: 4 PT Plan Treatment/Plan Treatment Plan: Continue Plan of Care Treatment Plan: Bed Mobility, Concurrent Therapy, Education, Functional Activity Alva, Functional Strength, Group Therapy, Gait, Safety, Therapeutic Exercise Treatment Duration: Nov 17, 2018 Frequency: At least 5 of 7 days/Wk (IRF) Estimated Hrs Per Day: 1.5 hours per day Patient and/or Family Agrees t: Yes Safety Risks/Education Patient Education: Gait Training, Transfer Techniques, Correct Positioning, W/ C Management, Disease Process, Safety Issues Teaching Recipient: Patient Teaching Methods: Demonstration, Discussion Response to Teaching: Verbalize Understanding, Return Demonstration, Reinforcement Needed Time/GCodes Time In: 1300 Time Out: 1415 Total Billed Treatment Time: 75 Total Billed Treatment 1,GT20m,EX15m,FA40m G Codes Necessary: HARSHAD Lawrence YARDAGE CONTROL OPERATOR FORMING Nov 03, 2018 14:17
--- NOTE | 2018-11-03 14:54 | NUR ---
Pt goes by "Porsche." States she was baptized [employer] and she continues to rely upon God through prayer and daily awareness of his presence, and she does not attend a Parish at this time. No contacts desired at this time.
--- NOTE | 2018-11-03 16:23 | NUR ---
Received call from [facility], wanting clarification in reference to patient's chemotherapy treatment. This worker explained she has been waiting on a return call from [facility]. An additional message left with [facility] (Dr. Bryan) for clarification of patient's treatment regimen. According to patient she receives IV chemo every 3 to 4 weeks. Received return call from Dr. Bryan's nurse stating patient receives Kadcyla IV treatment every 3 weeks and this is to resume once she is dismissed from [facility]. [facility] notified of this information; however, patient denied admission due to Medicare being her only payer source. Patient notified of denial. Received acceptance for admission from [facility] ([facility]). Patient notified of acceptance and agreeable. Patient scheduled for pick-up, tomorrow at 9:00A. PSYCHIATRIC wheelchair van is to arrive with wheelchair and portable oxygen.
[2018-11-03] MEDS: HYDROmorphone (DILAUDID) 4 MG TAB PO PRN (16:44)
[2018-11-03 16:51] VITALS: BP 109/63
--- NOTE | 2018-11-03 16:55 | NUR ---
Discharge planning Received a call from Jesse Skelton stating she was contacted by patient's daughter regarding tentative discharge to [facility] [place] scheduled for 11/04/18. Attempted to call daughter at [phone] without success. Will follow up with patient and physician tomorrow morning.
--- NOTE | 2018-11-03 19:32 | NUR ---
bedside report received from YARIEL SERRANO, assume care of pt
[2018-11-03] MEDS ORDERED: INSU100V16 SC (20:41)
[2018-11-03] MEDS ORDERED: OXYC1TAB12 PO (20:41)
[2018-11-03] MEDS ORDERED: SERT100T8 PO (20:41)
[2018-11-03] MEDS ORDERED: HYDR4TAB49 PO (20:41)
[2018-11-03] MEDS ORDERED: ALPR0.5T7 PO (20:41)
[2018-11-03] MEDS ORDERED: AMLO2.5T3 PO (20:41)
[2018-11-03] MEDS ORDERED: FENT1PAT60 TD (20:41)
[2018-11-03] MEDS ORDERED: CARV3.122 PO (20:41)
[2018-11-03] MEDS ORDERED: ONDA8TAB13 PO (20:41)
[2018-11-03] MEDS ORDERED: INSU100V5 SQ (20:41)
--- NOTE | 2018-11-03 20:43 | Discharge Inst-Skilled Nursing ---
Discharge Inst-Skilled NF Patient Instructions Patient Problems: Left hip fracture Breast cancer with mets to spine ESRD on HD T//Sat DM Dementia Goal: Independent ADL's Consult/Follow Up/Orders Follow Up Appt.: Dr Thacker MA rounds Skilled NF Admit to: [facility] Certification (SNF) I certify that SNF services are required to be given on an inpatient basis because of the above named patient's need for halfway care on a continuing basis for the conditions(s) for which he/she was receiving inpatient hospital services prior to his/her transfer to the SNF. Senior Living Facility Order: Nursing Services, Accounting Coordinator-Evaluate & Treat, Physical Therapy-Evaluate & Treat, Speech Language-Evaluate & Treat Discharge Diet: ADA Diet Daily Activity as Tolerated: Yes New & Resume Previous Orders Julia Arnold Nov 03, 2018 20:42 JULIA ARNOLD DO Nov 03, 2018 20:43
--- NOTE | 2018-11-03 21:00 | NUR ---
assessments & interventions completed, see assessments & interventions.
--- NOTE | 2018-11-03 21:05 | NUR ---
fsbs 162 no ss insulin req but received Levemir 6 units
[2018-11-03 22:05] VITALS: BP 116/64
[2018-11-03] MEDS: traZODone 100 MG (DESYREL) TAB PO SCH (22:10)
--- NOTE | 2018-11-03 22:10 | NUR ---
c/o lt hip pain pain level 9/10 on numeric scale, percocet 10/325 1 po given
[2018-11-03] MEDS: FERROUS SULF 325 MG (IRON) TAB PO SCH (22:15)
[2018-11-03] MEDS: inSUlin DETERMIR 1 UNIT/0.01 ML (LEVEMIR) CHARGE PER UNIT SQ SCH (22:16)
--- NOTE | 2018-11-03 22:45 | NUR ---
resting quietly in bed, pain level 0/10 on flacc scale
[2018-11-04] MEDS: HYDROmorphone (DILAUDID) 4 MG TAB PO PRN ×3 (01:27→20:17)
--- NOTE | 2018-11-04 01:27 | NUR ---
c/o lt hip pain level 8/10 on numeric scale Dilaudid 4mg po given
--- NOTE | 2018-11-04 02:00 | NUR ---
resting quietly in bed, pain level 0/10 on flacc scale
[2018-11-04 06:00] VITALS: BP 104/63
[2018-11-04] MEDS: inSUlin ASPART (NovoLOG) 1 UNIT/0.01 ML (CHARGE PER UNIT) SC SCH ×4 (06:00→20:18)
[2018-11-04] MEDS: SEVELAMER CARBONATE 800 MG TAB (RENVELA) NON-FORMULARY PO SCH ×3 (06:38→16:39)
[2018-11-04] MEDS: LEVOTHYROXINE 25 MCG (LEVOTHROID) TAB PO SCH (06:38)
--- NOTE | 2018-11-04 07:09 | NUR ---
bedside report given to ELY SERRANO
[2018-11-04] MEDS: ALPRAZolam 0.5 MG (XANAX) TAB PO PRN ×2 (07:30→20:17)
[2018-11-04] MEDS: oxyCODONE/APAP 10/325MG (PERCOCET 10) TABLET PO PRN ×2 (07:30→12:55)
--- NOTE | 2018-11-04 07:31 | NUR ---
c/o pain & anxiety, pain level 9/10 on numeric scale, Percocet 10/325 1 tab & Xanax 0.5mg po given
[2018-11-04] MEDS: ONDANSETRON 8 MG (ZOFRAN) ORAL DISSOLVE TAB PO PRN (07:45)
--- NOTE | 2018-11-04 07:45 | NUR ---
requesting something for nausea zofran 8mg po given
[2018-11-04 08:40] VITALS: BP 121/72
[2018-11-04] MEDS: SODIUM BICARBONATE 650 MG TABLET (NON-FORMULARY) PO SCH ×3 (08:42→20:16)
[2018-11-04] MEDS: ASCORBIC ACID (VIT C) 500 MG TABLET PO SCH (08:43)
[2018-11-04] MEDS: ATORVASTATIN 40 MG (LIPITOR) TABLET PO SCH (08:43)
[2018-11-04] MEDS: VITAMIN D3 5,000 UNITS (CHOLECALCIFEROL ) CAPSULE PO SCH (08:43)
[2018-11-04] MEDS: amLODIPine 2.5MG (NORVASC) TAB PO SCH ×2 (08:43→09:45)
[2018-11-04] MEDS: SERTRALINE 100 MG (ZOLOFT) TAB PO SCH (08:43)
[2018-11-04] MEDS: PANTOPRAZOLE 40 MG (PROTONIX) TAB PO SCH (08:43)
[2018-11-04] MEDS: FUROSEMIDE 40 MG (LASIX) TAB PO SCH (08:43)
[2018-11-04] MEDS: DOCUSATE SODIUM 100 MG (COLACE) CAP PO PRN ×2 (08:43→20:16)
[2018-11-04] MEDS: MAGNESIUM OXIDE (MAG-OX)400 MG TAB PO SCH (08:43)
[2018-11-04] MEDS: POLYETHYLENE GLYCOL 17 GM (MIRALAX) PACK PO SCH (08:44)
[2018-11-04] MEDS: CARVEDILOL 3.125 MG (COREG) TABLET PO SCH ×2 (08:44→20:17)
--- NOTE | 2018-11-04 08:46 | PM&R Progress Note ---
Subjective This was a face to face visit with the patient. Date Seen by Provider: Nov 04, 2018 Time Seen by Provider: 08:00 Subjective/Events-last exam Patient was seen in her room while she was in bed Pt sleepy NHP pending Review of Systems General: Fatigue Musculoskeletal: back pain, leg pain Objective Physician Exam Last Set of Vital Signs Vital Signs Date Time Temp Pulse Resp B/P (MAP) Pulse Ox O2 Delivery O2 Flow Rate FiO2 11/04/18 06:00 97.0 71 20 104/63 (77) 98 Nasal Cannula 2.00 Capillary Refill : Less Than 3 Seconds I&O Intake and Output 11/04/18 00:00 Intake Total 1000 ml Output Total 0 ml Balance 1000 ml Intake Oral 1000 ml Output Urine Total 0 ml General: Alert, Oriented X3, Cooperative HEENT: Atraumatic, PERRLA Neck: Supple, No JVD Lungs: Clear to Auscultation Heart: Regular Rate, Normal S1, Normal S2, Other (murmur) Abdomen: Normal Bowel Sounds, Soft Extremities: No Clubbing, No Cyanosis Skin: No Rashes, No Breakdown, Other (dressing intact left hip incision for 2 weeks from 10/17/18 surgery) Neuro: Other (globally weak all extremities but left leg limited due to pain left hip fracture) Psych/Mental Status: Mental Status NL, Other (poor recall) Results Lab Data Laboratory Tests 11/01/18 12:42: Glucometer 111H 11/01/18 16:16: Glucometer 65L 11/01/18 20:37: Glucometer 89 11/02/18 05:01: Glucometer 59*L 11/02/18 05:40: Glucometer 79 11/02/18 11:07: Glucometer 98 11/02/18 16:31: Glucometer 136H 11/02/18 20:51: Glucometer 167H 11/03/18 04:15: Glucometer 91 11/03/18 11:49: Glucometer 174H 11/03/18 16:49: Glucometer 196H 11/03/18 20:58: Glucometer 162H 11/04/18 05:05: Glucometer 106 Current Funtional Status NHP Assessment/Plan Assessment and Plan (1) Hip fracture requiring operative repair Qualifiers: Qualified Codes: S72.002D - Fracture of unspecified part of neck of left femur, subsequent encounter for closed fracture with routine healing Status: Chronic (2) ESRD (end stage renal disease) on dialysis Status: Chronic (3) Diabetes mellitus Qualifiers: Qualified Codes: E11.22 - Type 2 diabetes mellitus with diabetic chronic kidney disease; N18.6 - End stage renal disease; Z79.4 - terminal system operator (current) use of insulin; Z99.2 - Dependence on renal dialysis Status: Chronic (4) Breast cancer metastasized to bone Qualifiers: Qualified Codes: C50.919 - Malignant neoplasm of unspecified site of unspecified female breast; C79.51 - Secondary malignant neoplasm of bone Status: Chronic (5) Anemia requiring transfusions Status: Chronic (6) Thrombocytopenia Status: Chronic (7) Splenomegaly Status: Chronic (8) DNR (do not resuscitate) Status: Chronic (9) Hip pain, left Status: Acute (10) Spine pain Status: Acute (11) Cognitive decline Status: Chronic Co-Morbidities that are continuing to impact the rehab process: (include details ) SERINA JENKINS DO Nov 04, 2018 08:46
--- NOTE | 2018-11-04 09:23 | Physical Therapy Daily Note ---
PT Daily Note-Current Subjective Pt asleep in bed upon arrival. Pt is difficult to wake up. Pt reluctantly agrees to PT. Pt reports 9/10 pain and anxious. Pt was given pain med, anxiety med & nausea med approx 1 hr before tx. Pain Numeric Pain Scale: 9 Location: Left Location Body Site: Hip Pain Description: Ache Mental Status Patient Orientation: Person, Place Attachments: Oxygen Transfers Therapy Code Descriptions/Definitions Functional [place] Measure: 0=Not Assessed/NA 4=Minimal Assistance 1=Total Assistance 5=Supervision or Setup 2=Maximal Assistance 6=Modified [place] 3=Moderate Assistance 7=Complete [place] Therapy Quality Codes: 6 Independent with activity with or without an assistive device 5 Patient requires set up or clean up by helper. Patient completes activity by themselves 4 Supervision or touching assist (CGA). [place] provide cues , steadying assist 3 The helper provides less than half the effort to complete the activity 2 The helper provides more than half the effort to complete the activity 1 Dependent. The helper does all the effort to complete an activity 7 Patient refused to complete or attempt activity 9 The patient did not perform the activity before the current illness or injury 88 Not attempted due to Medical conditions or safety concerns Scootin Rollin Sit to/from Stand: 3 Sit to Stand (QC): 3 Weight Bearing Right Lower Extremity: Right Full Weight Bearing Left Lower Extremity: Left Weight Bearing/Tolerated Gait Training Does the Patient Walk?: Yes Distance (FIM): 1=up to 49 ft Distance: 5' Gait Level of Assist: 1 Gait Persons Needed: 1 Gait Assistive Device: FWW Pt is anxious about falling. Pt needs VC to advance BLE especially RLE though. Pt needs additional PC to advance RLE. Exercises Seated Therapy Exercises: Sit to stand Treatments Pt transfers from Supine to EOB w/HOB raised. Pt completes a couple of Sit to Stands to complete Wound check as well as stand to ambulate to chair. Pt gets anxious and needs both PC & VC to complete ambulation & transfer to recliner. Pt resting in recliner. Pt's daughter calls during tx and wants pt education given over pain management, pt's participation and possible discharge to SNF as well as medication management for depression. OT arrives at end of tx. All pt needs are met including breakfast ordered. HOME HEALTH CARE WORKER discusses with LOWE how PT tx went as well as discussion with pt's daughter. HOME HEALTH CARE WORKER also relays this information to SW. Assessment Current Status: Fair Progress Pt displays lack of motivation and at times depression. Pt's daughter voices concern over this fact. PT Short Term Goals Short Term Goals Time Frame: Nov 03, 2018 Gait (FIM): 1 Gait Distance Comment: 20' Gait Level of Assist: 4 Gait Assistive Device: FWW Wheelchair Distance: 500' PT Senior Mobile Web Developer Goals Custodial Goals PT Senior Mobile Web Developer Goals Time Frame: Nov 17, 2018 Transfers (B,C,W/C) (FIM): 5 Sit to Lying (QC): 4 Lying-Sitting on Side/Bed(QC): 4 Sit to Stand (QC): 4 Rollin Roll Left to Right (QC): 4 Chair/[id number]-[id number] Xfer(QC): 4 Car Transfer (QC): 4 Gait (FIM): 2 Distance: 50' Walk 10 feet (QC): 4 Walk 10ft-Uneven Surface(QC): 4 Walk 50ft with 2 Turns (QC): 4 Gait Level of Assist: 5 Gait Assistive Device: FWW # of Steps: 1 1 Step (curb) (QC): 4 Stairs Level Of Assist: 4 PT Plan Problem List Problem List: Activity Tolerance, Functional Strength, Safety, Balance, Gait, Transfer, Bed Mobility Treatment/Plan Treatment Plan: Continue Plan of Care Treatment Plan: Bed Mobility, Concurrent Therapy, Education, Functional Activity [place], Functional Strength, Group Therapy, Gait, Safety, Therapeutic Exercise Treatment Duration: Nov 17, 2018 Frequency: At least 5 of 7 days/Wk (IRF) Estimated Hrs Per Day: 1.5 hours per day Patient and/or Family Agrees t: Yes Safety Risks/Education Patient Education: Gait Training, Transfer Techniques, Correct Positioning, Safety Issues Teaching Recipient: Patient, Family Teaching Methods: Discussion Response to Teaching: Reinforcement Needed Time/GCodes Time In: 815 Time Out: 915 Total Billed Treatment Time: 60 Total Billed Treatment 1, GT (15m), FA x2 (30m) & EX (15m) Co-treat with OT for 15m ([id number]) G Codes Necessary: YAS Lomeli HOME HEALTH CARE WORKER Nov 04, 2018 09:23
[2018-11-04 09:43] VITALS: BP 93/50
--- NOTE | 2018-11-04 10:44 | Occupational Ther Daily Note ---
OT Current Status-Daily Note Subjective Pt alert, sitting in recliner. Took over care from PT. Nrsg in room with pt. Pt agrees to therapy. Discussed with STORE GIFT WRAP ASSOCIATE difficulties pt has had with transfers and increase pain and decreased motivation and activity tolerance. STORE GIFT WRAP ASSOCIATE discussed with adoption social worker. Mental Status/Objective Therapy Code Descriptions/Definitions Functional [place] Measure: 0=Not Assessed/NA 4=Minimal Assistance 1=Total Assistance 5=Supervision or Setup 2=Maximal Assistance 6=Modified [place] 3=Moderate Assistance 7=Complete [place] ADL-Treatment Pt ordered breakfast to eat before taking more pain pills. Pt able to open packages/containers by self and use regular utensils to eat with. Pt does not have dentures at hospital. Nrsg took pt's BP, see nrsg notes. Due to low BP pt to complete rest of therapy in sitting. After grooming items brought to pt, pt able to complete own grooming. Discussed with pt difficulties of transfers and anxiety of ambulation, educating pt on steps of each and that all therapists are going to keep pt safe. After therapy, pt sitting in recliner with call light/phone in reach. All needs met in room. Therapy Code Descriptions/Definitions Functional [place] Measure: 0=Not Assessed/NA 4=Minimal Assistance 1=Total Assistance 5=Supervision or Setup 2=Maximal Assistance 6=Modified [place] 3=Moderate Assistance 7=Complete [place] Therapy Quality Codes: 6 Independent with activity with or without an assistive device 5 Patient requires set up or clean up by helper. Patient completes activity by themselves 4 Supervision or touching assist (CGA). [place] provide cues , steadying assist 3 The helper provides less than half the effort to complete the activity 2 The helper provides more than half the effort to complete the activity 1 Dependent. The helper does all the effort to complete an activity 7 Patient refused to complete or attempt activity 9 The patient did not perform the activity before the current illness or injury 88 Not attempted due to Medical conditions or safety concerns Eating (FIM): 7 Eating (QC): 6 Grooming (FIM): 6 Oral Hygiene (QC): 6 OT Short Term Goals Short Term Goals Time Frame: Nov 03, 2018 Bathing(FIM): 3 Lower Body Dressing(FIM): 3 Toileting(FIM): 3 Toilet/Commode Transfer(FIM): 3 Additional Short Term Goals: 1-Demonstrate ADL Tasks, 2-Verbalize Understanding , 3-ImproveStrength/[place] 1=Demonstrate adherence to instructed precautions during ADL tasks. 2=Patient will verbalize/demonstrate understanding of assistive devices/ modifications for ADL. 3=Patient will improve strength/tolerance for activity to enable patient to perform ADL's. OT Engraving Supervisor Goals Engraving Supervisor Goals Time Frame: Nov 17, 2018 Eating (FIM): 6 (met) Eating (QC): 6 (met) Groomin (met) Oral Hygiene (QC): 6 (met) Bathing(FIM): 5 (not met) Shower/Bathe Self (QC): 4 (not met) Upper Body Dressing(FIM): 5 (met) Upper Body Dressing (QC): 5 (met) Lower Body Dressing(FIM): 5 (not met) Lower Body Dressing (QC): 4 (not met) On/Off Footwear (QC): 4 (not met) Toileting(FIM): 5 (not met) Toileting Hygiene (QC): 4 (not met) Toilet/Commode Transfer(FIM): 5 (not met) Toilet/Commode Transfer (QC): 4 (not met) Shower Transfer(FIM): 5 (not met) Additional Goals: 1-Demonstrate ADL Tasks, 2-Verbalize Understanding, 3- ImproveStrength/Al[place] 1=Demonstrate adherence to instructed precautions during ADL tasks. 2=Patient will verbalize/demonstrate understanding of assistive devices/ modifications for ADL. 3=Patient will improve strength/tolerance for activity to enable patient to perform ADL's. OT Education/Plan Discharge Recommendations Plan/Recommendations: Continue POC Treatment Plan/Plan of Care Patient would benefit from OT for education, treatment and training to promote independence in ADL's, mobility, safety and/or upper extremity function for ADL' s. Plan of Care: ADL Retraining, Functional Mobility, Group Exercise/Act as Ind, UE Funct Exercise/Act Treatment Duration: Nov 17, 2018 Frequency: At least 5 of 7 days/Wk (IRF) Estimated Hrs Per Day: 1.5 hours per day Agreement: Yes Rehab Potential: Guarded Time/GCodes Start Time: 09:00 Stop Time: 10:00 Total Time Billed (hr/min): 60 Billed Treatment Time 1 visit-ADL 4 (60 min) JESSICA GHOSH Nov 04, 2018 10:44
--- NOTE | 2018-11-04 11:07 | NUR ---
Discharge planning Received a call from Shea Santillan from [facility]. Referral has been declined at this time. Will notify the patient and her daughter.
--- NOTE | 2018-11-04 14:32 | NUR ---
provided prayer and Communion.
--- NOTE | 2018-11-04 14:35 | Physician Query Clarification ---
PQ-Further Specificity Admission/Discharge Admission Date: Oct 26, 2018 at 19:45 Discharge Date: The medical record reflects the following clinical scenario: History/Risk Factors: LT hip fracture, ESRD w/HTN, bone mets Clinical Findings: 10/15 hip xray shows displaced subcapital fracture Treatment: s/p repair fx Question: Can you further specify Lt. hip fracture per the clinical indicators above? Please document below. 1. Lt. subcapital hip fracture, traumatic 2. Lt. hip fracture unspecified, traumatic 3. Other, with explanation of the clinical findings. 4. Clinically undetermined, no explanation for the clinical findings. PHYSICIAN RESPONSE Can you specify per above: 1 In responding to this query, please exercise your independent professional judgment. The purpose of this communication is to more accurately reflect the complexity of your patients condition. The fact that a question is asked does not imply that any particular answer is desired or expected. Thank you for your timely response to this clarification. Requestors name: Beba THIS PHYSICIAN QUERY FORM IS A PERMANENT PART OF THE MEDICAL RECORD BEBA BLANCA Nov 04, 2018 14:35 SERINA JENKINS DO Nov 05, 2018 11:36
--- NOTE | 2018-11-04 14:47 | NUR ---
Weekly Team Conference Discussed weekly team conference with patient and patient's daughter (via telephone). Plan to proceed with discharge to [facility] [place] tomorrow, 11/05/18, after dialysis. [facility] [place] to the their facility after dialysis tomorrow. Notified [employer] transportation that they will only need to provide transportation to dialysis tomorrow morning. Nursing notified.
--- NOTE | 2018-11-04 14:52 | Therapy Group Daily Note ---
Therapy Daily Group Note Patient Education Topic Home Safety Exercises LE Seated Exercise, UE Exercise Other/Notes Pt participated in group therapy with 4 to 1 ratio. Goals of session are understanding home safety and leading UE/LE seated exercises. Pt was transported via w/c to group in [facility]. Group consisted of introductions (name, place born, favorite food). Pt introduced self appropriately and actively listened to peers. Pt was able to read and lead own exercise. Pt tolerated and was able to complete. Dice were rolled for UE AROM/ strengthening for amount of reps to complete for exercises. Pt then nodded head in affirmation, gave personal example and attended to handout given for home safety education. Memory activity initiated for next group-nika, cat, guerline, christopher, lisa. Pt met goals of session by participation and acknowledgement of topics. Pt is able to benefit from group by using exercises throughout therapy stay and at discharge. Make effective decisions for home safety when discharged. After therapy, pt lying in bed with call light/phone in reach. All needs met. Start Time: 13:00 Stop Time: 14:15 Total Billed Treatment Time: 75 Total Billed Treatment 1-GRP JESSICA GHOSH Nov 04, 2018 14:52
--- NOTE | 2018-11-04 15:29 | Speech Therapy Daily Note ---
Speech Daily Progress Note Subjective Date Seen by Provider: Nov 04, 2018 Time Seen by Provider: 00:30 Patient was sitting up in her chair when I entered her room. Objective Patient completed conversational tasks related to self at 90% accuracy with minimal cues. Assessment Assessment Current Status: Good Progress Treatment Plan Continue Plan of Care Communication Comprehension: 4 Expression: 4 Social Cognition Social Interaction: 5 Problem Solvin Memory: 3 Speech Short Term Goals Short Term Goals Short Term Goals 1) Patient will be able to recall information presented with 90% or greater. 2) Patient will be able to follow 2-3 step directions independently with 90% or greater. 3) Patient will be able to complete problem solving tasks independently with 90 % or greater. Speech Semiconductor Packages Platemaker Goals Semiconductor Packages Platemaker Goals Patient will improve deficits to 90% or greater in order to return home safely. Speech-Plan Patient/Family Goals Patient/Family Goals: Patient will be going to a SNF until she is able to go to her apartment. Treatment Plan Speech Therapy Treatment Plan: Continue Plan of Care Patient is scheduled to go to the SNF tomorrow. Treatment Duration: Nov 05, 2018 Frequency: 5 times per week Estimated Hrs Per Day: .5 hour per day Rehab Potential: Guarded Barriers to Learning: Patient is in a lot of pain. Pt/Family Agrees to Plan: Yes Safety Risks/Education Teaching Recipient: Patient Teaching Methods: Discussion Response to Teaching: Verbalize Understanding Education Topics Provided: Safety within her room. Time Speech Therapy Time In: 11:30 Speech Therapy Time Out: 12:00 Total Billed Time: 30 Billed Treatment Time [address] Nov 04, 2018 15:29
--- NOTE | 2018-11-04 15:39 | NUR ---
CM/SS completed CARE assessment with the patient. Sent to [facility] and to [facility]. Copy also on patient chart.
[2018-11-04 19:00] VITALS: BP 105/49
[2018-11-04] MEDS: traZODone 100 MG (DESYREL) TAB PO SCH (20:16)
[2018-11-04] MEDS: inSUlin DETERMIR 1 UNIT/0.01 ML (LEVEMIR) CHARGE PER UNIT SQ SCH (20:17)
[2018-11-05] MEDS: SEVELAMER CARBONATE 800 MG TAB (RENVELA) NON-FORMULARY PO SCH (04:39)
[2018-11-05] MEDS: LEVOTHYROXINE 25 MCG (LEVOTHROID) TAB PO SCH (04:40)
[2018-11-05] MEDS: HYDROmorphone (DILAUDID) 4 MG TAB PO PRN (04:40)
[2018-11-05] MEDS: inSUlin ASPART (NovoLOG) 1 UNIT/0.01 ML (CHARGE PER UNIT) SC SCH (04:43)
[2018-11-05 04:46] VITALS: BP 101/50
[2018-11-05] MEDS: ONDANSETRON 8 MG (ZOFRAN) ORAL DISSOLVE TAB PO PRN (04:52)
--- NOTE | 2018-11-05 05:25 | NUR ---
ELODIA TOTH demonstrates understanding of discharge instructions and accurately returns instructions upon questioning. Copy of Post-Discharge Instructions given to pt to be taken to [facility]. ELODIA TOTH is not able to manage continuing needs after discharge and is being discharged to assisted. Patients belongings returned to pt. Patient discharged from [facility]- on 11/05/18 at 0525 . ELODIA TOTH left floor via w/c, accompanied by [employer] driver's license reviewing officer. Pt going to dialysis and then to [facility]. Last FSBS 85mg/dl. [place] and jello eaten for breakfast as well and 4oz OJ.
--- NOTE | 2018-11-05 08:00 | Discharge Summary ---
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 Jaramillo at [facility]. Apparently she had a recent thoracic compression fracture was discharged and then fell and suffered a left hip fracture so that was repaired uncomplicated on 10/17/18. She had a long hospital course at [place] which included increased pain and anemia and underwent a full gastrointestinal evaluation with endoscopy that revealed no acute GI bleed. She does have splenomegaly and she always has chronic thrombocytopenia. She did have an incisional hematoma and required a total of 8 units of blood with 4 platelets during the hospital stay. Hemoglobin at discharge was 8.6. She is DO NOT RESUSCITATE and DO NOT INTUBATE but has refused palliative care in the past. Fentanyl patch was thought to have been 25 mcg but that was noted to be incorrect so we increased that to 100 mcg and that has obtained better pain control. Dilaudid can be used once daily and I have added Percocet. Constipation will be an issue so the nurses will aggressively treat that. She does receive breast cancer treatment every 3 weeks. Discharge Summary Discharge Physical Examination Allergies: Coded Allergies: TUYET Inhibitors (Unverified Allergy, Unknown, 03/03/15) due to creatinine level ARB-Angiotensin Receptor Antagonist (Unverified Allergy, Unknown, 03/03/15) meloxicam (Verified Allergy, Unknown, 09/05/06) Vitals & I&Os Vital Signs Date Time Temp Pulse Resp B/P (MAP) Pulse Ox O2 Delivery O2 Flow Rate FiO2 11/05/18 04:46 98.2 69 20 101/50 (67) 93 Nasal Cannula 2.00 Hospital Course Hospital course: Patient was admitted for inpatient rehabilitation for severe debility in recovery from left hip fracture sustained in a fall at home. She was maintain on end-stage renal disease hemodialysis schedule on Friday/ /Friday schedule while per dissipating in inpatient rehabilitation therapies. Pain was an issue and that was stated very clearly from the physician from [facility] since she was on a great deal of narcotic medication prior to the left hip fracture due to breast cancer with metastasis to the spine and that was a struggle to obtain pain control for the entire hospital course so she was continued on her home dosing once that was verified of Dilaudid 4mg by mouth every 4 hours in addition to her Percocet and fentanyl patch. Severe constipation from narcotic use was resolved during her hospital stay. Her cognition was the limiting factor in her able to proceed on with return to independent living and it was not delirium that could be cleared but a long-term memory deficit. She participated as much as possible but pain limited her participation in addition to her cognition since she had such poor memory recall she was really unable to maintain the aggressive schedule in the inpatient rehabilitation unit. Labs (last 24 hrs) Laboratory Tests 10/26/18 21:36: Glucometer 185H 10/27/18 05:01: Glucometer 127H 10/27/18 11:43: Glucometer 177H 10/27/18 16:05: Glucometer 120H 10/27/18 20:51: Glucometer 91 10/28/18 05:37: Glucometer 96 10/28/18 11:03: Glucometer 135H 10/28/18 16:53: Glucometer 119H 10/28/18 20:55: Glucometer 112H 10/29/18 04:29: Glucometer 72 10/29/18 04:30: White Blood Count 4.1L, Red Blood Count 2.67L, Hemoglobin 8.2L, Hematocrit 26L, Mean Corpuscular Volume 98, Mean Corpuscular Hemoglobin 31, Mean Corpuscular Hemoglobin Concent 31L, Red Cell Distribution Width 17.6H, Platelet Count 79L, Mean Platelet Volume 9.5, Neutrophils (%) (Auto) 69, Lymphocytes (%) (Auto) 15, Monocytes (%) (Auto) 12, Eosinophils (%) (Auto) 4, Basophils (%) (Auto) 1, Neutrophils # (Auto) 2.8, Lymphocytes # (Auto) 0.6L, Monocytes # (Auto) 0.5, Eosinophils # (Auto) 0.2, Basophils # (Auto) 0.0, Sodium Level 138, Potassium Level 4.9, Chloride Level 94L, Carbon Dioxide Level 33H, Anion Gap 11, Blood Urea Nitrogen 51H, Creatinine 3.93H, Estimat Glomerular Filtration Rate 11, BUN/ Creatinine Ratio 13, Glucose Level 73, Calcium Level 8.8, Corrected Calcium 9.8 , Total Bilirubin 0.9, Aspartate Amino Transf (AST/SGOT) 22, Alanine Aminotransferase (ALT/SGPT) 8, Alkaline Phosphatase 231H, Total Protein 4.9L, Albumin 2.8L 10/29/18 05:15: Glucometer 76 10/29/18 11:57: Glucometer 222H 10/29/18 16:51: Glucometer 232H 10/29/18 20:29: Glucometer 180H 10/30/18 06:33: Glucometer 123H 10/30/18 11:07: Glucometer 132H 10/30/18 16:44: Glucometer 132H 10/30/18 20:49: Glucometer 99 10/31/18 04:29: Glucometer 91 10/31/18 12:46: Glucometer 90 10/31/18 20:36: Glucometer 166H 11/01/18 06:59: Glucometer 116H 11/01/18 12:42: Glucometer 111H 11/01/18 16:16: Glucometer 65L 11/01/18 20:37: Glucometer 89 11/02/18 05:01: Glucometer 59*L 11/02/18 05:40: Glucometer 79 11/02/18 11:07: Glucometer 98 11/02/18 16:31: Glucometer 136H 11/02/18 20:51: Glucometer 167H 11/03/18 04:15: Glucometer 91 11/03/18 11:49: Glucometer 174H 11/03/18 16:49: Glucometer 196H 11/03/18 20:58: Glucometer 162H 11/04/18 05:05: Glucometer 106 11/04/18 12:11: Glucometer 117H 11/04/18 15:38: Glucometer 103 11/04/18 20:08: Glucometer 111H 11/05/18 04:38: Glucometer 54*L 11/05/18 05:06: Glucometer 57*L 11/05/18 05:15: Glucometer 85 Pending Labs Laboratory Tests 10/26/18 21:36: Glucometer 185 10/27/18 05:01: Glucometer 127 10/27/18 11:43: Glucometer 177 10/27/18 16:05: Glucometer 120 10/27/18 20:51: Glucometer 91 10/28/18 05:37: Glucometer 96 10/28/18 11:03: Glucometer 135 10/28/18 16:53: Glucometer 119 10/28/18 20:55: Glucometer 112 10/29/18 04:29: Glucometer 72 10/29/18 04:30: White Blood Count 4.1, Red Blood Count 2.67, Hemoglobin 8.2, Hematocrit 26, Mean Corpuscular Volume 98, Mean Corpuscular Hemoglobin 31, Mean Corpuscular Hemoglobin Concent 31, Red Cell Distribution Width 17.6, Platelet Count 79, Mean Platelet Volume 9.5, Neutrophils (%) (Auto) 69, Lymphocytes (%) (Auto) 15, Monocytes (%) (Auto) 12, Eosinophils (%) (Auto) 4, Basophils (%) (Auto) 1, Neutrophils # (Auto) 2.8, Lymphocytes # (Auto) 0.6, Monocytes # (Auto) 0.5, Eosinophils # (Auto) 0.2, Basophils # (Auto) 0.0, Sodium Level 138, Potassium Level 4.9, Chloride Level 94, Carbon Dioxide Level 33, Anion Gap 11, Blood Urea Nitrogen 51, Creatinine 3.93, Estimat Glomerular Filtration Rate 11, BUN/ Creatinine Ratio 13, Glucose Level 73, Calcium Level 8.8, Corrected Calcium 9.8 , Total Bilirubin 0.9, Aspartate Amino Transf (AST/SGOT) 22, Alanine Aminotransferase (ALT/SGPT) 8, Alkaline Phosphatase 231, Total Protein 4.9, Albumin 2.8 10/29/18 05:15: Glucometer 76 10/29/18 11:57: Glucometer 222 10/29/18 16:51: Glucometer 232 10/29/18 20:29: Glucometer 180 10/30/18 06:33: Glucometer 123 10/30/18 11:07: Glucometer 132 10/30/18 16:44: Glucometer 132 10/30/18 20:49: Glucometer 99 10/31/18 04:29: Glucometer 91 10/31/18 12:46: Glucometer 90 10/31/18 20:36: Glucometer 166 11/01/18 06:59: Glucometer 116 11/01/18 12:42: Glucometer 111 11/01/18 16:16: Glucometer 65 11/01/18 20:37: Glucometer 89 11/02/18 05:01: Glucometer 59 11/02/18 05:40: Glucometer 79 11/02/18 11:07: Glucometer 98 11/02/18 16:31: Glucometer 136 11/02/18 20:51: Glucometer 167 11/03/18 04:15: Glucometer 91 11/03/18 11:49: Glucometer 174 11/03/18 16:49: Glucometer 196 11/03/18 20:58: Glucometer 162 11/04/18 05:05: Glucometer 106 11/04/18 12:11: Glucometer 117 11/04/18 15:38: Glucometer 103 11/04/18 20:08: Glucometer 111 11/05/18 04:38: Glucometer 54 11/05/18 05:06: Glucometer 57 11/05/18 05:15: Glucometer 85 Discharge Home Medications: Active Scripts Active Levemir (Insulin Determir) 1,000 Units/10 Ml Soln 6 Unit SQ HS 30 Days Novolog (Insulin Aspart) 100 Unit/1 Ml Susp 0 Unit SC ACHS 30 Days Ondansetron Odt (Ondansetron) 8 Mg Tab.rapdis 8 Mg PO Q6H PRN 30 Days Sertraline HCl 100 Mg Tablet 100 Mg PO DAILY 30 Days Percocet 10-325 mg Tablet (Oxycodone HCl/Acetaminophen) 1 Each Tablet 1 Tab PO Q6H PRN Amlodipine Besylate 2.5 Mg Tablet 2.5 Mg PO DAILY 30 Days Carvedilol 3.125 Mg Tablet 3.125 Mg PO BID 30 Days Dilaudid (Hydromorphone HCl) 4 Mg Tablet 4 Mg PO Q4H PRN Duragesic Patch 100MCG (Fentanyl) 1 Each Patch.td72 100 Mcg TD Q72H Alprazolam 0.5 Mg Tablet 0.5 Mg PO BID PRN Reported Ferrous Sulfate 325 Mg Tablet 325 Mg PO DAILY Levothyroxine Sodium 25 Mcg Tablet 25 Mcg PO DAILY LAST FILLED #90 04-02-18 Tylenol 8 Hour (Acetaminophen) 650 Mg Tablet.er 650 Mg PO Q6H PRN Magnesium (Magnesium Oxide) 250 Mg Tablet 250 Mg PO DAILY Colace (Docusate Sodium) 100 Mg Capsule 100 Mg PO DAILY PRN Vitamin C (Ascorbate Calcium) 500 Mg Tablet 500 Mg PO DAILY Daily Multiple Vitamin (Multivitamin) 1 Each Tablet 1 Tab PO DAILY Vitamin D3 (Cholecalciferol (Vitamin D3)) 5,000 Unit Capsule 5,000 Unit PO DAILY Nitroglycerin 0.4 Mg Tab.subl 0.4 Mg SL UD PRN Dialyvite Tablet (Folic Acid/Vitamin B Comp W-C) 1 Each Tablet 1 Tab PO DAILY Sodium Bicarbonate 650 Mg Tablet 650 Mg PO QID LAST FILLED #30 10-11-18 Renvela (Sevelamer Carbonate) 800 Mg Tablet 800 Mg PO TID Lidocaine-Prilocaine Cream (Lidocaine/Prilocaine) 30 Gm Cream..g. TOP DAILY PRN APPLY DIRECTLY TO PORT SITE AND COVER WITH PLASTIC WRAP ONE HOUR PRIOR TO APPOINTMENT Protonix (Pantoprazole Sodium) 40 Mg Tablet.dr 40 Mg PO DAILY LAST FILLED #90 06-22-18 Miralax (Polyethylene Glycol 3350) 17 Gm Powd.pack 17 Gm PO DAILY LAST FILLED #527 GM 06-22-18 Atorvastatin Calcium 40 Mg Tablet 40 Mg PO HS LAST FILLED #90 06-22-18 Trazodone HCl 100 Mg Tablet 100 Mg PO HS Furosemide 40 Mg Tablet 40 Mg PO DAILY LAST FILLED #30 05-05-18 Instructions to patient/family Please see electronic discharge instructions given to patient. Diagnosis/Problems Diagnosis/Problems (1) Hip fracture requiring operative repair Status: Chronic Qualifiers: Qualified Codes: S72.002D - Fracture of unspecified part of neck of left femur, subsequent encounter for closed fracture with routine healing (2) ESRD (end stage renal disease) on dialysis Status: Chronic (3) Diabetes mellitus Status: Chronic Qualifiers: Qualified Codes: E11.22 - Type 2 diabetes mellitus with diabetic chronic kidney disease; N18.6 - End stage renal disease; Z79.4 - FPC (current) use of insulin; Z99.2 - Dependence on renal dialysis (4) Breast cancer metastasized to bone Status: Chronic Qualifiers: Qualified Codes: C50.919 - Malignant neoplasm of unspecified site of unspecified female breast; C79.51 - Secondary malignant neoplasm of bone (5) Anemia requiring transfusions Status: Chronic (6) Thrombocytopenia Status: Chronic (7) Splenomegaly Status: Chronic (8) DNR (do not resuscitate) Status: Chronic (9) Hip pain, left Status: Acute (10) Spine pain Status: Acute (11) Cognitive decline Status: Chronic Clinical Quality Measures DVT/VTE Risk/Contraindication: Risk Factor Score Per Nursin RFS Level Per Nursing on Admit: 4+=Very High SERINA JENKINS DO Nov 05, 2018 08:00
--- NOTE | 2018-11-05 08:25 | Therapy Team Discharge Summary ---
Therapy Discharge Summary Discharge Recommendations Date of Discharge 11-05-18 Therapy D/C Recommendations: 24 hr Supervision, Halfway (TCU/NH) Occupational Therapy Pt. has been seen by occupational therapy to increase independence and strength for daily tasks. Pt. has been very limited by pain and requires increased time , encouragement to participate, and increase overall assist. Pt. has met some goals, including goal for functional eating, grooming. Has not met goals of bathing/dressing. Pt. is discharging to senior living for skilled care and 24 hour assist after dialysis treatment. Decreased Activ Tolerance, Decreased UE Strength, Dependent Transfers, Impaired Funct Balance, Impaired I ADL's, Impaired Self-Care Skills PT Inbound Sales Advisor Goals Care Home Goals PT Inbound Sales Advisor Goals Time Frame: Nov 17, 2018 Transfers (B,C,W/C) (FIM): 5 Roll Left to Right (QC): 4 Sit to Lying (QC): 4 Lying-Sitting on Side/Bed(QC): 4 Sit to Stand (QC): 4 Chair/Avh-ga-Ohkgw Xfer(QC): 4 Car Transfer (QC): 4 Gait (FIM): 2 Distance: 50' Walk 10 feet (QC): 4 Walk 10ft-Uneven Surface(QC): 4 Walk 50ft with 2 Turns (QC): 4 Gait Level of Assist: 5 Gait Assistive Device: FWW # of Steps: 1 1 Step (curb) (QC): 4 Stairs Level Of Assist: 4 OT Inbound Sales Advisor Goals Care Home Goals Time Frame: Nov 17, 2018 Eating (FIM): 6 (met) Eating (QC): 6 (met) Oral Hygiene (QC): 6 (met) Grooming(FIM): 6 (met) Bathing(FIM): 5 (not met) Shower/Bathe Self (QC): 4 (not met) Upper Body Dressing(FIM): 5 (met) Upper Body Dressing (QC): 5 (met) Lower Body Dressing(FIM): 5 (not met) Lower Body Dressing (QC): 4 (not met) On/Off Footwear (QC): 4 (not met) Toileting(FIM): 5 (not met) Toileting Hygiene (QC): 4 (not met) Toilet/Commode Transfer(FIM): 5 (not met) Toilet/Commode Transfer (QC): 4 (not met) Shower Transfer(FIM): 5 (not met) Additional Goals: 1-Demonstrate ADL Tasks, 2-Verbalize Understanding, 3- ImproveStrength/Alva 1=Demonstrate adherence to instructed precautions during ADL tasks. 2=Patient will verbalize/demonstrate understanding of assistive devices/ modifications for ADL. 3=Patient will improve strength/tolerance for activity to enable patient to perform ADL's. Speech Inbound Sales Advisor Goals Care Home Goals Patient will improve deficits to 90% or greater in order to return home safely. DANNY DILL OT Nov 05, 2018 08:25
--- NOTE | 2018-11-05 08:29 | Therapy Team Discharge Summary ---
Therapy Discharge Summary Discharge Recommendations Date of Discharge Therapy D/C Recommendations: 24 hr Supervision, [facility] (TCU/NH) Occupational Therapy Decreased Activ Tolerance, Decreased UE Strength, Dependent Transfers, Impaired Funct Balance, Impaired I ADL's, Impaired Self-Care Skills Speech-Language Pathology Patient was admitted to ARU due to debility as well as other complex dx. Patient was initially evaluated for cognitive-communication, At that time she demonstrated deficits with memory and problem solving. She made good gains and met all of her goals as a result of skilled ST services. Patient is being discharged this am following her dialysis to a local SNF. Patient is being discharged from skilled ST at this time. PT Fpc Goals Press Puller Goals PT Fpc Goals Time Frame: Nov 17, 2018 Transfers (B,C,W/C) (FIM): 5 Roll Left to Right (QC): 4 Sit to Lying (QC): 4 Lying-Sitting on Side/Bed(QC): 4 Sit to Stand (QC): 4 Chair/Cfp-rn-Uvpmt Xfer(QC): 4 Car Transfer (QC): 4 Gait (FIM): 2 Distance: 50' Walk 10 feet (QC): 4 Walk 10ft-Uneven Surface(QC): 4 Walk 50ft with 2 Turns (QC): 4 Gait Level of Assist: 5 Gait Assistive Device: FWW # of Steps: 1 1 Step (curb) (QC): 4 Stairs Level Of Assist: 4 OT Press Puller Goals Press Puller Goals Time Frame: Nov 17, 2018 Eating (FIM): 6 (met) Eating (QC): 6 (met) Oral Hygiene (QC): 6 (met) Grooming(FIM): 6 (met) Bathing(FIM): 5 (not met) Shower/Bathe Self (QC): 4 (not met) Upper Body Dressing(FIM): 5 (met) Upper Body Dressing (QC): 5 (met) Lower Body Dressing(FIM): 5 (not met) Lower Body Dressing (QC): 4 (not met) On/Off Footwear (QC): 4 (not met) Toileting(FIM): 5 (not met) Toileting Hygiene (QC): 4 (not met) Toilet/Commode Transfer(FIM): 5 (not met) Toilet/Commode Transfer (QC): 4 (not met) Shower Transfer(FIM): 5 (not met) Additional Goals: 1-Demonstrate ADL Tasks, 2-Verbalize Understanding, 3- ImproveStrength/Alva 1=Demonstrate adherence to instructed precautions during ADL tasks. 2=Patient will verbalize/demonstrate understanding of assistive devices/ modifications for ADL. 3=Patient will improve strength/tolerance for activity to enable patient to perform ADL's. Speech Press Puller Goals Fpc Goals Patient will improve deficits to 90% or greater in order to return home safely. Met INGA COMBS Nov 05, 2018 08:29
--- NOTE | 2018-11-05 09:30 | Therapy Team Discharge Summary ---
Therapy Discharge Summary Discharge Recommendations Date of Discharge Therapy D/C Recommendations: 24 hr Supervision, Care Home (TCU/NH) Physical Therapy Patient came to rehab after a left CARLOS ALBERTO. Upon evaluation patient required max assist for bed mobility, max assist for supine <-> sit, max assist for sit <-> stand, max assist for transfers, no ambulation and patient was dependent for wheelchair mobility. Patient has been performing bed mobility and transfer training, balance and endurance training, functional strengthening, gait training, and education. Patient has made poor progress and has not met any of her terminal block assembler goals. Now, patient performs bed mobility with min assist, sit to stand and transfers with mod assist, ambulates 5' with a rolling walker with max assist. Patient is discharging from this facility today and will be discharged from PT at this time. Occupational Therapy Decreased Activ Tolerance, Decreased UE Strength, Dependent Transfers, Impaired Funct Balance, Impaired I ADL's, Impaired Self-Care Skills PT Athletic Turf Worker Goals Shelter Goals PT Shelter Goals Time Frame: Nov 17, 2018 Transfers (B,C,W/C) (FIM): 5 Roll Left to Right (QC): 4 Sit to Lying (QC): 4 Lying-Sitting on Side/Bed(QC): 4 Sit to Stand (QC): 4 Chair/Wlg-bq-Dfcmr Xfer(QC): 4 Car Transfer (QC): 4 Gait (FIM): 2 Distance: 50' Walk 10 feet (QC): 4 Walk 10ft-Uneven Surface(QC): 4 Walk 50ft with 2 Turns (QC): 4 Gait Level of Assist: 5 Gait Assistive Device: FWW # of Steps: 1 1 Step (curb) (QC): 4 Stairs Level Of Assist: 4 OT Athletic Turf Worker Goals Athletic Turf Worker Goals Time Frame: Nov 17, 2018 Eating (FIM): 6 (met) Eating (QC): 6 (met) Oral Hygiene (QC): 6 (met) Grooming(FIM): 6 (met) Bathing(FIM): 5 (not met) Shower/Bathe Self (QC): 4 (not met) Upper Body Dressing(FIM): 5 (met) Upper Body Dressing (QC): 5 (met) Lower Body Dressing(FIM): 5 (not met) Lower Body Dressing (QC): 4 (not met) On/Off Footwear (QC): 4 (not met) Toileting(FIM): 5 (not met) Toileting Hygiene (QC): 4 (not met) Toilet/Commode Transfer(FIM): 5 (not met) Toilet/Commode Transfer (QC): 4 (not met) Shower Transfer(FIM): 5 (not met) Additional Goals: 1-Demonstrate ADL Tasks, 2-Verbalize Understanding, 3- ImproveStrength/Alva 1=Demonstrate adherence to instructed precautions during ADL tasks. 2=Patient will verbalize/demonstrate understanding of assistive devices/ modifications for ADL. 3=Patient will improve strength/tolerance for activity to enable patient to perform ADL's. Speech Athletic Turf Worker Goals Athletic Turf Worker Goals Patient will improve deficits to 90% or greater in order to return home safely. Met AUDREY ASCENCIO PT Nov 05, 2018 09:30
== END 2018-11-05 05:25 | DRG 559 ==
PROVIDERS: ADMIT Internal Medicine; ATTEND Internal Medicine
DX: S72.012D Unspecified intracapsular fracture of left femur, subsequent encounter for closed fracture with routine healing (principal); C79.51 Secondary malignant neoplasm of bone; I12.0 Hypertensive chronic kidney disease with stage 5 chronic kidney disease or end stage renal disease; N18.6 End stage renal disease; I42.9 Cardiomyopathy, unspecified; D69.6 Thrombocytopenia, unspecified; I25.119 Atherosclerotic heart disease of native coronary artery with unspecified angina pectoris; I48.91 Unspecified atrial fibrillation; Z66 Do not resuscitate; I38 Endocarditis, valve unspecified; E78.5 Hyperlipidemia, unspecified; E11.22 Type 2 diabetes mellitus with diabetic chronic kidney disease; M19.90 Unspecified osteoarthritis, unspecified site; F41.9 Anxiety disorder, unspecified; F32.9 Major depressive disorder, single episode, unspecified; R01.1 Cardiac murmur, unspecified; D64.9 Anemia, unspecified; R16.1 Splenomegaly, not elsewhere classified; K59.03 Drug induced constipation; R53.1 Weakness; M54.9 Dorsalgia, unspecified; F03.90 Unspecified dementia, unspecified severity, without behavioral disturbance, psychotic disturbance, mood disturbance, and anxiety; I25.2 Old myocardial infarction; Z99.2 Dependence on renal dialysis; Z87.891 Personal history of nicotine dependence; Z95.1 Presence of aortocoronary bypass graft; Z95.5 Presence of coronary angioplasty implant and graft; Z85.3 Personal history of malignant neoplasm of breast; T40.605A Adverse effect of unspecified narcotics, initial encounter; W19.XXXD Unspecified fall, subsequent encounter
CPT/HCPCS: 36415; 80053; 82962; 85025; 94664

== ENCOUNTER 2018-11-12 15:57 | Emergency (ER) | payer MEDICARE | END 2018-11-12 18:01 | LOC: ER 15:57 ==

== ENCOUNTER 2018-11-24 12:42 | Outpatient (RCR) | payer MEDICARE ==
[~2018-11-24] VITALS: Ht 165.1 cm; Wt 59.0 kg
[2018-11-24] VITALS (7 sets, daily range): BP systolic 111–139; BP diastolic 55–75
[~2018-11-24 12:42] MED LIST changes: +ACET-2840 PO; -AMLO10TA6 PO; +AMLO10TA7 PO; +AMLO2.5T4 PO; +ASCO-262 PO; +CARV25TA PO; +CARV3.122 PO; +CEFD300C3 PO; +DOCU-143 PO; +FENT1PAT60 TD; +FERR325T18 PO; +FOLI1TAB40 PO; +HYDR4TAB49 PO; +INSU100V16 SC; +INSU100V5 SQ; +LEVO25TA5 PO; +MAGN250T13 PO; +MULT-35 PO; +NITR0.4T42 SL; +OMG1KC PO; +ONDA8TAB13 PO; +OXYC1TAB12 PO; +SEVE800T7 PO; +SODI650T PO
[2018-11-24] MEDS ORDERED: NS IV 500 ML 500 ML ONE (12:58)
[2018-11-24] MEDS ORDERED: NS IV 500 ML 500 ML IV SCH (13:45)
--- NOTE | 2018-11-24 14:40 | NUR ---
REPORT CALLED TO AMANDA URRUTIA RN. PATIENT TRANSFERED VIA CART TO ROOM 415. PATIENT ORIENTED TO ROOM. TRANSFERED WITH PORTABLE O2. PATIENT TALKED WITH THE REHAB FACILITY PRIOR TO TRANSFER ABOUT HER HOME MEDS SINCE SHE WILL BE HERE FOR AN ADDITIONAL 7-8 HOURS.
--- NOTE | 2018-11-24 15:08 | NUR ---
NOTE THAT PT TO FLOOR AND IN RM 415 -- WILL RESUME PT CARE
--- NOTE | 2018-11-24 21:10 | NUR ---
Pt assisted to wheelchair x2 staff. Transportation here to transport pt back to [facility]. Belongings with pt, VSS (see transfusion documentation for information.)
== END 2018-11-24 21:00 | disposition home or self-care (01) ==
LOC: EDSTATUS 12:42 → SDC 12:42 → 4TH 14:55 → SDC 21:00
PROVIDERS: ATTEND Family Medicine
DX: D63.8 Anemia in other chronic diseases classified elsewhere (principal)
CPT/HCPCS: 36430; 86850; 86900; 86901; 86920

== ENCOUNTER 2018-12-02 09:22 | Outpatient (CLI) | payer MEDICARE ==
[~2018-12-02] VITALS: Ht 165.1 cm; Wt 59.0 kg
[2018-12-02] VITALS (8 sets, daily range): BP systolic 89–117; BP diastolic 52–70
[2018-12-02] MEDS ORDERED: NS IV 500 ML 500 ML ONE (09:46)
[2018-12-02] MEDS ORDERED: NS IV 500 ML 500 ML IV SCH (10:15)
[2018-12-02 15:17] LABS: HEMOGLOBIN 9.3 G/DL (11.5-16.0)
--- NOTE | 2018-12-02 15:40 | NUR ---
REPORT TO Fredi MCCARTY, RN
[2018-12-02 18:20] LABS: HEMOGLOBIN 10.1 G/DL (11.5-16.0)
== END 2018-12-02 18:40 | disposition home or self-care (01) ==
LOC: SDC 09:22
PROVIDERS: ATTEND Family Medicine
DX: D64.9 Anemia, unspecified (principal)
CPT/HCPCS: 36415; 36430; 85014; 85018; 86850; 86900; 86901; 86920

== ENCOUNTER 2018-12-13 11:26 | Emergency (ER) | payer MEDICARE ==
[~2018-12-13] VITALS: Ht 165.1 cm; Wt 61.2 kg
--- NOTE | 2018-12-13 11:41 | ED Integumentary General ---
General Stated Complaint: BLEEDING History of Present Illness Date Seen by Provider: Dec 13, 2018 Time Seen by Provider: 11:30 Initial Comments 73-year-old female presents for bleeding in the left axilla. Approximately 2 months ago she had a left mastectomy with lymph node dissection from the left axilla in [place], she is not going to require chemotherapy or radiation. She reports yesterday after dialysis, she noted bleeding from the left axilla wound site. Today she reports further bleeding from the site. She is on no anticoagulants. She reports no injuries to the left arm. No report was called from the long-term care facility. There is not a dressing in place to the left axilla and there is no active bleeding at this time. The patient also reports being started on Linsezz approximately 3 days ago and is having some diarrhea. Patient is alert and oriented, she is able to provide history. Timing/Duration: this morning, yesterday Severity: mild Location: extremities (left axilla) Possible Cause: no cause identified Associated Symptoms: denies symptoms Allergies and Home Medications Allergies Coded Allergies: TUYET Inhibitors (Unverified Allergy, Unknown, 03/03/15) due to creatinine level ARB-Angiotensin Receptor Antagonist (Unverified Allergy, Unknown, 03/03/15) meloxicam (Verified Allergy, Unknown, 09/05/06) Home Medications Acetaminophen 650 Mg Tablet.er, 650 MG PO Q6H PRN for PAIN-MILD, (Reported) Alprazolam 0.5 Mg Tablet, 0.5 MG PO BID PRN for ANXIETY Prescribed by: SERINA JENKINS on 11/03/182040 Amlodipine Besylate 2.5 Mg Tablet, 2.5 MG PO DAILY Prescribed by: SERINA JENKINS on 11/03/182040 Ascorbate Calcium 500 Mg Tablet, 500 MG PO DAILY, (Reported) Atorvastatin Calcium 40 Mg Tablet, 40 MG PO HS, (Reported) LAST FILLED #90 918 Carvedilol 3.125 Mg Tablet, 3.125 MG PO BID Prescribed by: SERINA JENKINS on 11/03/182040 Cefdinir 300 Mg Capsule, 300 MG PO BID Prescribed by: KIM ELLIOTT on 11/12/18 173 Cholecalciferol (Vitamin D3) 5,000 Unit Capsule, 5,000 UNIT PO DAILY, (Reported) Ciprofloxacin HCl 500 Mg Tablet, 500 MG PO q18 Prescribed by: DONTA LEI on 12/13/18 1313 Docusate Sodium 100 Mg Capsule, 100 MG PO DAILY PRN for CONSTIPATION-1ST LINE, ( Reported) Fentanyl 1 Each Patch.td72, 100 MCG TD Q72H Prescribed by: SERINA JENKINS on 11/03/182040 Ferrous Sulfate 325 Mg Tablet, 325 MG PO DAILY, (Reported) Folic Acid/Vitamin B Comp W-C 1 Each Tablet, 1 TAB PO DAILY, (Reported) Furosemide 40 Mg Tablet, 40 MG PO DAILY, (Reported) LAST FILLED #30 18 Hydromorphone HCl 4 Mg Tablet, 4 MG PO Q4H PRN for PAIN-SEVERE Prescribed by: SERINA JENKINS on 11/03/182040 Insulin Aspart 100 Unit/1 Ml Susp, 0 UNIT SC ACHS Prescribed by: SERINA JENKINS on 11/03/182040 Insulin Determir 1,000 Units/10 Ml Soln, 6 UNIT SQ HS Prescribed by: SERINA JENKINS on 11/03/182040 Levothyroxine Sodium 25 Mcg Tablet, 25 MCG PO DAILY, (Reported) LAST FILLED #90 18 Lidocaine/Prilocaine 30 Gm Cream..g., TOP DAILY PRN for PORT ACCESS, (Reported) APPLY DIRECTLY TO PORT SITE AND COVER WITH PLASTIC WRAP ONE HOUR PRIOR TO APPOINTMENT Magnesium Oxide 250 Mg Tablet, 250 MG PO DAILY, (Reported) Multivitamin 1 Each Tablet, 1 TAB PO DAILY, (Reported) Nitroglycerin 0.4 Mg Tab.subl, 0.4 MG SL UD PRN for CHEST PAIN, (Reported) Ondansetron 8 Mg Tab.rapdis, 8 MG PO Q6H PRN for NAUSEA/VOMITING-1ST LINE Prescribed by: SERINA JENKINS on 11/03/182040 Oxycodone HCl/Acetaminophen 1 Each Tablet, 1 TAB PO Q6H PRN for PAIN-MODERATE Prescribed by: SERINA JENKINS on 11/03/182040 Pantoprazole Sodium 40 Mg Tablet.dr, 40 MG PO DAILY, (Reported) LAST FILLED #90 9-3-18 Polyethylene Glycol 3350 17 Gm Powd.pack, 17 GM PO DAILY, (Reported) LAST FILLED #527 GM 9-3-18 Polyethylene Glycol 3350 17 Gm Powd.pack, 17 GM PO BID Prescribed by: KIM ELLIOTT on 11/12/18 165 Sertraline HCl 100 Mg Tablet, 100 MG PO DAILY Prescribed by: SERINA JENKINS on 11/03/182040 Sevelamer Carbonate 800 Mg Tablet, 800 MG PO TID, (Reported) Sodium Bicarbonate 650 Mg Tablet, 650 MG PO QID, (Reported) LAST FILLED #30 10-11-18 Trazodone HCl 100 Mg Tablet, 100 MG PO HS, (Reported) Patient Home Medication List Home Medication List Reviewed: Yes Review of Systems Review of Systems Constitutional: no symptoms reported, see HPI Skin: see HPI, other (bleeding left axilla, wound site) All Other Systems Reviewed Negative Unless Noted: Yes Past Uxnokut-Gyywvs-Ljzwrr Hx Past Med/Social Hx: Reviewed Nursing Past Med/Soc Hx Patient Social History Alcohol Beverage of Choice: Other Type Used: Cigarettes Former Smoker, Quit: Jul 20, 1999 2nd Hand Smoke Exposure: No Recent Hopitalizations: No Immunizations Up To Date Tetanus Booster (TDap): Unknown PED Vaccines UTD: No Date of Pneumonia Vaccine: March 01, 2015 Date of Influenza Vaccine: Aug 18, 2018 Seasonal Allergies Seasonal Allergies: No Past Medical History Surgeries: Yes Abdominal, Bladder Surgery, Breast, Cardiac, CABG, Coronary Stent, Gallbladder, Hysterectomy, Lumpectomy, Orthopedic, Vascular Surgery Respiratory: Yes (USES HOME O2 2-3 L/NC CONTINOUSLY) Chronic Bronchitis, COPD Currently Using CPAP: No Currently Using BIPAP: No Cardiac: Yes (CABG; STENTS X 13; LOOP RECORDER; CHF; VA X 2) Angina, Atrial Fibrillation, Cardiomyopathy, Coronary Artery Disease, Heart Attack, Heart Murmur, High Cholesterol, Hypertension, Irregular Heartbeat, Peripheral Vascular, Valvular Heart Disease Neurological: Yes (CVA WITH LEFT SIDE WEAKNESS ESSENTIALLY RESOLVED) Stroke, TIA Reproductive Disorders: No Female Reproductive Disorders: Denies Sexually Transmitted Disease: No HIV/AIDS: No Genitourinary: Yes (, , FRI) Renal Failure, Dialysis Gastrointestinal: Yes Gastroesophageal Reflux, Chronic Constipation, Pancreatitis, Hiatal Hernia, Gall Bladder Disease Musculoskeletal: Yes Arthritis, Chronic Back Pain, Fractures Endocrine: Yes Diabetes, Insulin dep HEENT: No Loss of Vision: Denies Hearing Impairment: Hard of Hearing Cancer: Yes Breast Did You Recieve Any Treatments: Yes What Type of Treatment Did You: Chemotherapy, Radiation, Surgical Intervention Psychosocial: Yes Sleep Difficulties, Anxiety, Depression Integumentary: No Blood Disorders: Yes (thrombocytopenia) Adverse Reaction/Blood Tranf: No Family Medical History Alcoholism 19 FATHER Cardiovascular disease G8 BROTHER G8 SISTER Diabetes mellitus 19 FATHER 19 MOTHER G8 BROTHER G8 SISTER Gastroenteritis 19 MOTHER G8 BROTHER G8 SISTER Hypercholesterolemia 19 MOTHER G8 BROTHER G8 SISTER Hypertension 19 MOTHER G8 BROTHER G8 SISTER Kidney disease 19 MOTHER G8 BROTHER G8 SISTER Prostate cancer G8 BROTHER No Pertinent Family Hx Physical Exam Vital Signs Vital Signs - First Documented 12/13/18 11:26 Temp 97.1 Pulse 74 Resp 18 B/P (MAP) 140/93 (109) Pulse Ox 96 O2 Delivery Nasal Cannula O2 Flow Rate 3.00 Capillary Refill : General Appearance: WD/WN, no apparent distress HEENT: normal ENT inspection, pharynx normal Neck: non-tender, full range of motion, supple, normal inspection Cardiovascular: normal peripheral pulses, regular rate, rhythm, diastolic murmur, systolic murmur Respiratory: chest non-tender, lungs clear, normal breath sounds, other (left chest with well-healed mastectomy incision, no warmth erythema or drainage from surgical site. ) Gastrointestinal: normal bowel sounds, non tender, soft Neurologic/Psychiatric: no motor/sensory deficits, alert, normal mood/affect Skin: normal color, warm/dry Skin Problem Location: upper extremities (left axilla) Skin Problem Character: thickening (noted in the left axilla at the wound site , no erythema, ecchymosis, induration, or active bleeding at this time), other Lymphatic: no adenopathy Progress/Results/Core Measures Results/Orders Lab Results Laboratory Tests Test 12/13/18 11:45 12/13/18 12:14 Range/Units White Blood Count 3.3 L 4.3-11.0 10^3/uL Red Blood Count 3.42 L 4.35-5.85 10^6/uL Hemoglobin 10.9 L 11.5-16.0 G/DL Hematocrit 34 L 35-52 % Mean Corpuscular Volume 101 H 80-99 FL Mean Corpuscular Hemoglobin 32 25-34 PG Mean Corpuscular Hemoglobin Concent 32 32-36 G/DL Red Cell Distribution Width 18.7 H 10.0-14.5 % Platelet Count 50 L 130-400 10^3/uL Mean Platelet Volume 10.0 7.4-10.4 FL Neutrophils (%) (Auto) 76 H 42-75 % Lymphocytes (%) (Auto) 11 L 12-44 % Monocytes (%) (Auto) 10 0-12 % Eosinophils (%) (Auto) 3 0-10 % Basophils (%) (Auto) 0 0-10 % Neutrophils # (Auto) 2.5 1.8-7.8 X 10^3 Lymphocytes # (Auto) 0.4 L 1.0-4.0 X 10^3 Monocytes # (Auto) 0.3 0.0-1.0 X 10^3 Eosinophils # (Auto) 0.1 0.0-0.3 10^3/uL Basophils # (Auto) 0.0 0.0-0.1 10^3/uL Prothrombin Time 14.2 12.2-14.7 SEC INR Comment 1.1 0.8-1.4 Activated Partial Thromboplast Time 37 H 24-35 SEC Sodium Level 141 135-145 MMOL/L Potassium Level 3.5 L 3.6-5.0 MMOL/L Chloride Level 94 L 98-107 MMOL/L Carbon Dioxide Level 37 H 21-32 MMOL/L Anion Gap 10 5-14 MMOL/L Blood Urea Nitrogen 25 H 7-18 MG/DL Creatinine 3.31 H 0.60-1.30 MG/DL Estimat Glomerular Filtration Rate 14 BUN/Creatinine Ratio 8 Glucose Level 152 H 70-105 MG/DL Calcium Level 9.6 8.5-10.1 MG/DL Corrected Calcium 10.0 8.5-10.1 MG/DL Total Bilirubin 0.7 0.1-1.0 MG/DL Aspartate Amino Transf (AST/SGOT) 27 5-34 U/L Alanine Aminotransferase (ALT/SGPT) 10 0-55 U/L Alkaline Phosphatase 174 H 40-136 U/L Total Protein 6.6 6.4-8.2 GM/DL Albumin 3.5 3.2-4.5 GM/DL Urine Color YELLOW Urine Clarity VERY CLOUDY H Urine pH 5 5-9 Urine Specific Hodges 1.015 L 1.016-1.022 Urine Protein 4+ NEGATIVE Urine Glucose (UA) NEGATIVE NEGATIVE Urine Ketones NEGATIVE NEGATIVE Urine Nitrite NEGATIVE NEGATIVE Urine Bilirubin 2+ H NEGATIVE Urine Urobilinogen 1 NORMAL MG/DL Urine Leukocyte Esterase 3+ H NEGATIVE Urine RBC (Auto) 5+ H NEGATIVE Urine RBC 5-10 H /HPF Urine WBC TNTC H /HPF Urine Squamous Epithelial Cells 2-5 /HPF Urine Crystals NONE /LPF Urine Bacteria TRACE /HPF Urine Casts NONE /LPF Urine Mucus NEGATIVE /LPF Urine Culture Indicated YES My Orders Orders - DONTA LEI KIKO Cbc With Automated Diff (12/13/18 11:41) Comprehensive Metabolic Panel (12/13/18 11:41) Protime With Inr (12/13/18 11:41) Partial Thromboplastin Time (12/13/18 11:41) Ua Culture If Indicated (12/13/18 11:41) Ondansetron Injection (Zofran Injectio (12/13/18 12:15) Saline Lock/Iv-Start (12/13/18 12:18) Ns (Ivpb) (Sodium Chloride 0.9%) (12/13/18 12:18) Urine Culture (12/13/18 12:14) Ciprofloxacin Tablet (Cipro Tablet) (12/13/18 13:15) Medications Given in ED Current Medications Medications Dose Ordered Sig/Guzman Route Start Time Stop Time Status Last Admin Dose Admin Ondansetron HCl 4 mg ONCE ONCE IVP 12/13/18 12:15 12/13/18 12:16 DC 12/13/18 12:10 4 MG Sodium Chloride 250 ml @ 0 mls/hr Q0M ONCE IV 12/13/18 12:18 12/13/18 12:20 DC 12/13/18 12:29 250 MLS/HR Vital Signs/I&O 12/13/18 12/13/18 11:26 13:30 Temp 97.1 97.1 Pulse 74 84 Resp 18 18 B/P (MAP) 140/93 (109) 132/69 (90) Pulse Ox 96 98 O2 Delivery Nasal Cannula Nasal Cannula O2 Flow Rate 3.00 3.00 Progress Progress Note : Time: 11:30 Progress Note Patient seen and evaluated. Left axilla cleaned with sterile saline, no bleeding or discharge noted, and sterile dressing applied. Spoke to nurse at [facility], reports the patient had mild bleeding from the left axillary yesterday. It stopped and then was noted again this morning. She states it was a small amount on an ABD pad. 1215 labs essentially normal with chronic thrombocytopenia and anemia noted, no worse than previous evaluations. Patient continues to have no active bleeding or discharge from left axilla. 1300 patient had 3 episodes of diarrhea. She denies any abdominal pain or other complaints. Creatinine Clearance 15, renal dosing for Cipro 1 tablet every 18 hours. Discharge instructions and return precautions reviewed. [facility]ified [facility] to hold Lincezz, MOM and Ducosate. Departure Impression Primary Impression: Bleeding from wound Additional Impressions: Anemia, chronic disease Chronic idiopathic thrombocytopenia Metastatic breast cancer UTI (urinary tract infection) Qualified Codes: N30.01 - Acute cystitis with hematuria Disposition: HOME, SELF-CARE Condition: Improved Departure-Patient Inst. Decision time for Depature: 13:00 Referrals: MANASA THACKER MD (PCP/Family) Primary Care Physician Patient Instructions: Wound Care (DC) Add. Discharge Instructions: Stop Linsezz, hold Docusate and Milk of Magnesia. Cipro 500 mg 1 tablet every 18 hours (renal dosing) Apply dressing to left axilla as needed for bleeding, clean area with peroxide three times a day and apply triple antibiotic ointment. Continue Dialysis. Follow-up with Dr. Thacker if symptoms are not improving or worsen. Return to emergency department for new, urgent health care needs. Scripts Ciprofloxacin HCl (Cipro) 500 Mg Tablet 500 MG PO q18, #10 TAB 0 Refills Prov: DONTA LEI 12/13/18 Copy Copies To 1: MANASA THACKER MD, AMY ARNP Dec 13, 2018 11:40
--- NOTE | 2018-12-13 11:54 | NUR ---
Kiera Soriano applied ABD to area of concern at this time to monitor for continual bleeding.
[2018-12-13 12:00] LABS: BASOPHILS % (AUTO) 0 % (0-10); EOSINOPHILS # (AUTO) 0.1 10^3/uL (0.0-0.3); EOSINOPHILS % (AUTO) 3 % (0-10); HEMATOCRIT 34 % (35-52); HEMOGLOBIN 10.9 G/DL (11.5-16.0); LYMPHOCYTES # (AUTO) 0.4 X 10^3 (1.0-4.0); LYMPHOCYTES % (AUTO) 11 % (12-44); MEAN CORPUSCULAR HEMOGLOBIN 32 PG (25-34); MEAN CORPUSCULAR HGB CONC 32 G/DL (32-36); MEAN CORPUSCULAR VOLUME 101 FL (80-99); MONOCYTES # (AUTO) 0.3 X 10^3 (0.0-1.0); MONOCYTES % (AUTO) 10 % (0-12); NEUTROPHILS # (AUTO) 2.5 X 10^3 (1.8-7.8); NEUTROPHILS % (AUTO) 76 % (42-75); RED CELL DISTRIBUTION WIDTH 18.7 % (10.0-14.5); WHITE BLOOD COUNT 3.3 10^3/uL (4.3-11.0)
[2018-12-13 12:08] LABS: PLATELET COUNT 50 10^3/uL (130-400)
[2018-12-13 12:13] LABS: INR 1.1 (0.8-1.4); PROTHROMBIN TIME PATIENT 14.2 SEC (12.2-14.7)
[2018-12-13] MEDS ORDERED: ONDANSETRON 4 MG/2 ML (SDV) Z0FRAN IVP ONE (12:15)
[2018-12-13] MEDS ORDERED: NS (IVPB) 250 ML IV ONE (12:18)
[2018-12-13 12:22] LABS: ALBUMIN 3.5 GM/DL (3.2-4.5); BILIRUBIN,TOTAL 0.7 MG/DL (0.1-1.0); CALCIUM 9.6 MG/DL (8.5-10.1); CREATININE SERUM 3.31 MG/DL (0.60-1.30); POTASSIUM 3.5 MMOL/L (3.6-5.0); TOTAL PROTEIN 6.6 GM/DL (6.4-8.2)
[2018-12-13 12:24] LABS: CLARITY,URINE VERY CLOUDY; COLOR,URINE YELLOW; GLUCOSE, URINE (UA) NEGATIVE (NEGATIVE); KETONES,URINE NEGATIVE (NEGATIVE); LEUKOCYTE ESTERASE ,URINE 3+ (NEGATIVE); NITRITE,URINE NEGATIVE (NEGATIVE); PH,URINE 5 (5-9); PROTEIN,URINE 4+ (NEGATIVE); UROBILINOGEN,URINE 1 MG/DL (NORMAL)
[2018-12-13 12:27] LABS: BACTERIA,URINE TRACE /HPF; BILIRUBIN,URINE 2+ (NEGATIVE); WBC,URINE TNTC /HPF
[2018-12-13] MEDS ORDERED: CIPR-225 PO (13:13)
[2018-12-13] MEDS ORDERED: CIPROFLOXACIN 500 MG (CIPRO) TABLET PO STA (13:15)
[2018-12-13 13:30] VITALS: BP 132/69
== END 2018-12-13 14:10 | disposition home or self-care (01) ==
LOC: EDUNIT# 11:26 → ER 11:27
DX: L76.22 Postprocedural hemorrhage of skin and subcutaneous tissue following other procedure (principal); D63.8 Anemia in other chronic diseases classified elsewhere; D69.6 Thrombocytopenia, unspecified; C50.919 Malignant neoplasm of unspecified site of unspecified female breast; N39.0 Urinary tract infection, site not specified; E11.22 Type 2 diabetes mellitus with diabetic chronic kidney disease; J44.9 Chronic obstructive pulmonary disease, unspecified; I13.2 Hypertensive heart and chronic kidney disease with heart failure and with stage 5 chronic kidney disease, or end stage renal disease; N18.6 End stage renal disease; I50.9 Heart failure, unspecified; K21.9 Gastro-esophageal reflux disease without esophagitis; I25.2 Old myocardial infarction; I48.91 Unspecified atrial fibrillation; I42.9 Cardiomyopathy, unspecified; I25.10 Atherosclerotic heart disease of native coronary artery without angina pectoris; E78.00 Pure hypercholesterolemia, unspecified; E11.51 Type 2 diabetes mellitus with diabetic peripheral angiopathy without gangrene; I73.9 Peripheral vascular disease, unspecified; F41.9 Anxiety disorder, unspecified; F32.9 Major depressive disorder, single episode, unspecified; Z86.73 Personal history of transient ischemic attack (TIA), and cerebral infarction without residual deficits; Z99.2 Dependence on renal dialysis; Z99.81 Dependence on supplemental oxygen; Z82.49 Family history of ischemic heart disease and other diseases of the circulatory system; Z90.12 Acquired absence of left breast and nipple; Z79.4 Long term (current) use of insulin; Z87.891 Personal history of nicotine dependence; Z92.21 Personal history of antineoplastic chemotherapy; Z95.5 Presence of coronary angioplasty implant and graft; Z90.710 Acquired absence of both cervix and uterus
CPT/HCPCS: 36415; 51702; 80053; 81000; 85025; 85610; 85730; 87077; 87088; 87186; 96374